=== PATIENT | female | born 1960 | race Caucasian/White ===

== ENCOUNTER 2023-09-29 14:17 | Emergency (ER) | payer MEDICARE, SELFPAY ==
--- NOTE | ~2023-09-29 | CT_ITS ---
EXAMINATION: CT brain wo con DATE: 09/29/2023 15:23 INDICATION: Head injury. TECHNIQUE: Computed tomography (CT) of the head was performed without intravenous contrast. The mA wa s adjusted according to patient size. Iterative reconstruction technique was employed. The dose-lengt h product was 681.00 mGy-cm. COMPARISON: None FINDINGS: There are scattered areas of low attenuation in the cerebral white matter, which is within normal limits for the patient's age. There is no intracranial hemorrhage, acute infarction, or abnorm al intracranial mass lesion. The ventricles are normal in size. The orbits are normal. There is mucos al thickening in the paranasal sinuses. The mastoid air cells are normal. There are bilateral dennis ho les. IMPRESSION: 1. Normal aging brain. Reviewed, dictated and finalized at location A. COMMUNITY MANAGER IMPRESSION: 1. Normal aging brain.
--- NOTE | ~2023-09-29 | XR_ITS ---
EXAMINATION: XR chest 1V portable DATE: 09/29/2023 14:58 INDICATION: Fall. COVID-19 positive. TECHNIQUE: A single frontal view of the chest was obtained. COMPARISON: None. FINDINGS: There is no pneumonia, pleural effusion, or pneumothorax. The heart size is normal. 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 IMPRESSION: 1. No acute cardiopulmonary disease. Reviewed, dictated and finalized at location A. GLE CATCHER
--- NOTE | 2023-09-29 14:13 | ED.FALL ---
HPI - Fall General Chief Complaint: Fall Stated Complaint: GLF, COVID + day 6 Source: patient and EMS Mode of arrival: EMS History of Present Illness HPI Narrative: 63-year-old female with past medical history epilepsy and Parkinson's presents after a ground level fall. This was unwitnessed. Patient had denied loss consciousness initially although she removed her the fall and is amnestic to the events. Her baseline mental status is unclear as EMS states facility couldn't give a definitive answer. It is noted that she tested positive for COVID 6 days ago. Is reported that she has had recurrent falls. No recent seizures have been noted per report of EMS. No incontinence of bowel or bladder. Patient does not know of any loose or broken dentition. When asked the last thing she remembers while in the bathroom, she states, I was dreaming of YOU...and him... (Pointing to people in the room). Patient's physician is listed as Dr. Luis White. Neurologist Dr. Alexis Romero. INSULATION CUTTER Psychiatrist [facility] Home medications: Alendronate, Anusol/hydrocortisone, aripiprazole, calcium magnesium zinc +, carbamazepine, carbidopa levodopa, vitamin B12, diphenoxylate atropine, doxycycline and, duloxetine, lactobacillus, levothyroxine, niacin, oyster shell calcium, primidone, sertraline, tamsulosin, trazodone, Tylenol extra-strength, vitamin-C, vitamin D3, zonisamide Related Data Allergies Allergy/AdvReac Type Severity Reaction Status Date / Time felbamate [From Felbatol] Allergy Severe Anaphylaxis Verified 09/29/23 14:44 bactrim Allergy Mild Dizziness Uncoded 09/29/23 14:44 PMFSH Past Medical History Medical History Epilepsy Parkinson disease Social History Social History (Updated 09/29/23 @ 14:38 by Mari Dawn MD) Living arrangements: assisted living Additional living arrangements comments: [place] Occupation/Education: retired 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 No evidence of urinary or bowel incontinence. HEAD: Posterior scalp hematoma without abrasion or laceration. EYES: Non injected, non icteric. Pupils grossly equal. ENT: Nares clear, no rhinorrhea or epistaxis. No tongue trauma. NECK: Supple. CHEST: speaking in full sentences No respiratory distress. HEART: Regular rate and rhythm. . ABDOMEN: Soft, nondistended. EXTREMITIES: Normal range of motion. No edema. Mid right forearm ecchymosis, appears subacute. SKIN: Warm, dry, no rash. NEURO: No focal deficits. Alert ; oriented to self. Moves upper and lower extremities. Tongue protrudes midline w/o deviation. PSYCH: Normal mood and affect. Course Vital Signs Vital signs: Vital Signs Temperature 97.8 F 09/29/23 14:16 Pulse Rate 70 09/29/23 14:16 Respiratory Rate 20 09/29/23 14:16 Blood Pressure 117/73 09/29/23 14:16 Pulse Oximetry 99 09/29/23 14:16 Oxygen Delivery Room Air 09/29/23 14:16 Temperature 97.8 F 09/29/23 14:16 Pulse Rate 62 09/29/23 16:32 Respiratory Rate 12 09/29/23 16:32 Blood Pressure 110/84 09/29/23 16:32 Pulse Oximetry 98 09/29/23 16:32 Oxygen Delivery Room Air 09/29/23 14:16 MDM - Fall MDM Narrative Medical decision making narrative: Patient presents after report of a ground level fall. She has a history of Parkinson's and epilepsy with no report of recent seizure activity. Was initially reported that there was no loss of consciousness however patient cannot recall the fall and appears amnestic to the events. Baseline she is alert does not appear to be oriented intermittently follows commands seems confused baseline is unknown. In the emergency department she is afebrile with vital signs within normal limits.
[2023-09-29 14:16] VITALS: BP 117/73; PULSE 70; RESP 20; TEMP 36.6; O2SAT 99
--- NOTE | 2023-09-29 14:27 | ECG_ITS ---
Measurements Intervals [place]yer Rate: 63 P: 34 MO: 135 QRS: 55 QRSD: 86 T: 54 QT: 388 QTc: 399 Interpretive Statements SINUS RHYTHM NO PREVIOUS ECG AVAILABLE FOR COMPARISON Electronically Signed On 09-29-2023 19:18:40 STRIP CUTTER by Dianelys Burns M.D.
[2023-09-29 14:45] LABS: Glucose Point of Care 88 mg/dl (65-105)
[2023-09-29 14:51] LABS: Basophils Percent Auto 0.7 % (0.2-1.2); Eosinophils Absolute Auto 0.1 K/mm3 (0-0.3); Eosinophils Percent Auto 2.7 % (0-4.4); Hematocrit 39.9 % (37.0-47.0); Hemoglobin 13.7 g/dL (12.0-15.0); Immature Granulocyte Absolute 0.01 K/mm3 (0.00-0.031); Immature Granulocyte Percent A 0.3 % (0-0.5); Lymphocytes Absolute Auto 1.39 K/mm3 (0.9-3.2); Lymphocytes Percent Auto 47.4 % (18.3-44.2); Mean Corpuscular HGB Conc 34.3 g/dl (32-36); Mean Platelet Volume 11.4 fl (7.4-10.4); Monocytes Absolute Auto 0.3 K/mm3 (0.1-0.6); Monocytes Percent Auto 8.9 % (2.6-8.5); Neutrophils Absolute Auto 1.2 K/mm3 (1.3-6.7); Platelet Count Result 220 k/mm3 (150-375); Red Blood Count 4.03 M/mm3 (4.2-5.4); Red Cell Distribution Width 11.9 % (11.5-14.5); White Blood Count 2.9 K/mm3 (4.5-10.0)
[2023-09-29 15:00] VITALS: BP 109/72; PULSE 61; RESP 17; O2SAT 100
[2023-09-29 15:00] LABS: Ammonia < 9 umol/L (9-30); Ethanol < 10 mg/dL (<10)
[2023-09-29 15:01] LABS: Alanine Aminotransferase 15 U/L (6-35); Albumin Level 3.6 g/dL (3.5-5.1); Alkaline Phosphatase 105 U/L (38-126); Anion Gap 4 mmol/L (8-16); Aspartate Amino Transferase 32 U/L (14-36); Bilirubin,Total 0.4 mg/dL (0.2-1.3); Blood Urea Nitrogen 13 mg/dL (7-17); Calcium 9.3 mg/dL (8.4-10.2); Carbon Dioxide 28 mmol/L (22-30); Chloride 106 mmol/L (98-107); Estimated CRCL calculation 60 ml/min; Estimated Glomerular Filt Rate > 60; Glucose 95 mg/dL (65-110); Potassium 3.4 mmol/L (3.4-5.0); Prothrombin Time 13.1 Seconds (11.1-14.7); Sodium 138 mmol/L (137-145)
[2023-09-29 15:02] LABS: Partial Thromboplastin Time 45.8 SECONDS (22.3-36.8)
[2023-09-29 15:04] LABS: Appearance Urine Turbid (Clear); Bacteria Urine None Seen /hpf; Bilirubin Urine Negative (Negative); Blood Urine Negative (Negative); Color Urine Yellow (Yellow); Glucose Urine UA Negative (Negative); Ketones Urine Negative (Negative); Leukocyte Esterase Ur Negative LEU/UL (Negative); Nitrate Urine Negative (Negative); Non Pathogenic Casts 0-2; Protein Urine Negative (Negative); RBC Urine 0-2 /hpf (0-2); Specific Grav Ur 1.014 (1.001-1.035); Squamous Epithelial Cell Urine None seen /hpf (Few); Urobilinogen Urine 0.2 mg/dL (<2.0); WBC Urine 0-5 /hpf; pH Urine 7.5 (5.0-9.0)
[2023-09-29 15:06] LABS: Add Urine Microscopic? YES
[2023-09-29 15:12] LABS: Troponin I < 0.012 ng/mL (0.000-0.034)
[2023-09-29 16:32] VITALS: BP 110/84; PULSE 62; RESP 12; O2SAT 98
[2023-09-29] MEDS: ACETAMINOPHEN 500 MG TABLET 1000 MG PO (16:32)
== END 2023-09-29 16:57 ==
PROVIDERS: Emergency Provider Student in an Organized Health Care Education/Training Program
DX: S00.03XA Contusion of scalp, initial encounter (principal); D72.819 Decreased white blood cell count, unspecified; G40.909 Epilepsy, unspecified, not intractable, without status epilepticus; G20.A1 Parkinson's disease without dyskinesia, without mention of fluctuations; Z86.16 Personal history of COVID-19; Z79.899 Other long term (current) drug therapy; W19.XXXA Unspecified fall, initial encounter
CPT/HCPCS: 36415; 70450; 71045; 80053; 80307; 81001; 82140; 82948; 84484; 85025; 85610; 85730; 93005; 99284; A9270

== ENCOUNTER 2024-06-15 09:33 | Inpatient (IN) | payer MEDICARE, SELFPAY ==
[2024-06-15] VITALS (34 sets, daily range): BP systolic 91–117; BP diastolic 60–84; PULSE 58–82; RESP 12–20; TEMP 35.5–36.7; O2SAT 90–100; BMI 21.4
--- NOTE | ~2024-06-15 | XR_ITS ---
EXAMINATION: XR chest 1V DATE: 06/15/2024 11:07 INDICATION: Fall with left hip injury TECHNIQUE: frontal view of the chest was obtained. COMPARISON: Chest radiograph dated 09/29/2023 FINDINGS: The lungs remain clear with no focal airspace opacities, pulmonary edema, pleural effusion or pneumot horax. Heart size is normal. Moderate mid to lower thoracic dextroscoliosis with compensatory levosco liosis at the lumbar and upper thoracic spine. Partially visualized instrumented lumbar anterior and posterior spinal fusion. Cholecystectomy clips in right upper quadrant. Chronic nonunited fracture at the lateral right clavicle. Widening of the left acromioclavicular joint which could represent seque la of additional trauma or prior distal clavicle resection. IMPRESSION: 1. No acute cardiopulmonary disease. Reviewed, dictated and finalized at location B. OND DIE DRILLER
--- NOTE | ~2024-06-15 | XR_ITS ---
EXAMINATION: XR surgery orthopedic DATE: 06/16/2024 08:38 INDICATION: Left femoral neck fracture. TECHNIQUE: 2 intraoperative fluoroscopic views of left hip were obtained. I was not present. Fluorosc opy exposure time was 4 minutes 38 seconds. COMPARISON: Left hip radiographs 06/15/2024 FINDINGS: There is a subcapital fracture of left femoral neck. The distal fracture fragment demonstra laz impaction and valgus angulation. Internal fixation is seen with 3 lag screws. There is an old hea led fracture of left inferior pubic ramus. There is mild left hip osteoarthritis. IMPRESSION: 1. Subchondral fracture of left femoral neck status post internal fixation. 2. Mild left hip osteoarthritis. Reviewed, dictated and finalized at location A. TY THERAPIST
--- NOTE | ~2024-06-15 | CT_ITS ---
EXAMINATION: CT cervical spine wo con DATE: 06/15/2024 10:59 INDICATION: Neck injury. Fall. TECHNIQUE: Computed tomography (CT) of the cervical spine was performed without intravenous contrast. Automated exposure control and iterative reconstruction technique were employed. The dose-length pro duct was 166.81 mGy-cm. COMPARISON: None FINDINGS: There is 8 degrees dextrocurvature of cervicothoracic spine and 32 degrees levoscoliosis of upper thoracic spine. There is kyphosis of cervical spine. There is 2 mm anterolisthesis of C3 on C4 and T1 on T2. There is mild chronic anterior wedging of C7, T1, and T2 vertebral bodies. There is se verely decreased disc height at C3-C4 with interbody fusion. There is severely decreased disc height from C4-C5 through C7-T1. The following disc levels are specifically discussed: C2-C3: There is mild right and moderate left uncovertebral joint osteoarthritis. There is severe bila teral facet joint osteoarthritis. There is mild left neural foraminal stenosis. There is mild central canal stenosis. C3-C4: There is mild bilateral uncovertebral joint hypertrophy. There is ankylosis of the facet joint s with mild hypertrophy. There is mild bilateral neural foraminal stenosis. There is no central canal stenosis. C4-C5: There is severe bilateral uncovertebral joint osteoarthritis. There is severe bilateral facet joint osteoarthritis. There is mild bilateral neural foraminal stenosis. There is mild central canal stenosis. C5-C6: There is severe bilateral uncovertebral joint osteoarthritis. There is mild right and moderate left facet joint osteoarthritis. There is moderate and mild left neural foraminal stenosis. There is mild central canal stenosis. C6-C7: There is severe bilateral uncovertebral joint osteoarthritis. There is moderate bilateral face t joint osteoarthritis. There is mild bilateral neural foraminal stenosis. There is mild central michelet l stenosis. C7-T1: There is severe bilateral uncovertebral joint osteoarthritis. There is severe bilateral facet joint osteoarthritis. There is mild right neural foraminal stenosis. There is mild central canal sten osis. IMPRESSION: 1. No acute fracture. 2. Severe cervical spondylosis. 3. Scoliosis. Reviewed, dictated and finalized at location A. CONNECTOR REPAIRER
--- NOTE | ~2024-06-15 | CT_ITS ---
EXAMINATION: CT brain wo con DATE: 06/15/2024 10:59 INDICATION: disease and epilepsy post fall TECHNIQUE: Computed tomography (CT) of the head was performed without intravenous contrast. Sagittal and coronal reconstructions were performed. The mA was adjusted according to patient size. Iterative reconstruction technique was employed. The dose-length product was 605.33 mGy-cm. COMPARISON: head CT dated 09/29/2023 FINDINGS: No fracture. Chronic bilateral temporal dennis holes. No acute intracranial hemorrhage, acute infarctio n or abnormal extra axial fluid collection. There is mild scattered white matter hypoattenuation cons istent with chronic small vessel ischemic disease. Symmetric prominence of the sulciand subarachnoid spaces about the cerebellum consistent with mild age-appropriate diffuse cerebral and cerebellar volu me loss. Ventricles are normal and symmetric. No mass/mass effect. The orbits, paranasal sinuses and mastoid air cells are normal. IMPRESSION: 1. No fracture or acute intracranial process. 2. Age-related changes including mild diffuse volume loss and mild scattered white matter hypoattenua tion consistent with chronic small vessel ischemic disease. Reviewed, dictated and finalized at location B. NTO DEVELOPER IMPRESSION: 1. No fracture or acute intracranial process. 2. Age-related changes including mild diffuse volume loss and mild scattered wh ite matter hypoattenuation consistent with chronic small vessel ischemic diseas e.
--- NOTE | ~2024-06-15 | XR_ITS ---
EXAMINATION: XR hip LT 2V w AP pelvis DATE: 06/15/2024 11:06 INDICATION: Left hip pain. Fall. TECHNIQUE: An anteroposterior view of the pelvis and 2 views of left hip were obtained. COMPARISON: None. FINDINGS: There is lumbar levoscoliosis. There are changes of anterior and posterior fusion procedure s in lumbosacral spine. There is an old healed fracture of left inferior pubic ramus. There is a subc apital fracture of left femoral neck. The distal fracture fragment demonstrates impaction and 25 degr ees valgus angulation. A small sclerotic lesion in proximal right femur is likely a benign bone islan d. There is mild osteoarthritis of the hips. IMPRESSION: 1. Subcapital fracture of left femoral neck. 2. Mild osteoarthritis of the hips. Reviewed, dictated and finalized at location A. ATRIC LPN
--- NOTE | 2024-06-15 10:31 | ED.FALL ---
HPI - Fall General Chief Complaint: Fall Stated Complaint: L hip pain Time Seen by Provider: 06/15/24 09:46 History of Present Illness HPI Narrative: 63-year-old female with history of epilepsy go Parkinson's disease, hypothyroidism presents to the emergency department via EMS from [facility] after a fall that occurred yesterday. Patient is unable to provide much history. She is only complaining of left hip pain. Per nursing notes and patient's paper chart that was sent with her, she slipped out of her wheelchair yesterday. It is unknown if this was witnessed. The patient is denying hitting her head or loss of consciousness. Her only complaint is left hip pain. Per chart review the patient denied transferred to the ED yesterday after the fall but today was complaining of hip pain so came to the emergency department. Per chart review the patient is at her baseline mental status which is A&O x2. she is DNR. Related Data Allergies Allergy/AdvReac Type Severity Reaction Status Date / Time felbamate [From Felbatol] Allergy Severe Anaphylaxis Verified 09/29/23 14:44 Sulfa (Sulfonamide Allergy Dizziness Verified 06/15/24 09:51 Antibiotics) bactrim Allergy Mild Dizziness Uncoded 09/29/23 14:44 Review of Systems Review of Systems: All systems reviewed & are unremarkable except as noted in HPI and below PMFSH Past Medical History Medical History Epilepsy Parkinson disease Social History Social History Living arrangements: assisted living Additional living arrangements comments: [place] Occupation/Education: 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 HEAD: Normocephalic, atraumatic. EYES: PERRLA and EOMI. ENT: Nares clear, no rhinorrhea or epistaxis. Mucous membranes moist. NECK: No midline spinous tenderness, step-offs or deformities BACK: no midline thoracolumbar spinous tenderness, step-offs or deformities CHEST: Clear to auscultation. No respiratory distress. HEART: Regular rate and rhythm. No murmur heard. Normal peripheral pulses. ABDOMEN: Soft, nontender, nondistended, normal active bowel sounds. EXTREMITIES: Tenderness to the left hip on palpation with no overlying deformity, ecchymosis or edema. No rotation or shortening of the leg. No tenderness remainder of upper or lower extremities. Patient has full passive range of motion of all extremities, limited left hip flexion secondary to pain. DP pulses 2+ bilaterally. Sensation intact. SKIN: Warm, dry, no rash. NEURO: No focal deficits. Alert and oriented x2 . Moving all extremities spontaneously Course Vital Signs Vital signs: Vital Signs Temperature 97.8 F 06/15/24 09:34 Pulse Rate 82 06/15/24 09:34 Respiratory Rate 16 06/15/24 09:34 Blood Pressure 96/62 L 06/15/24 09:34 Pulse Oximetry 95 06/15/24 09:34 Oxygen Delivery Room Air 06/15/24 09:34 Temperature 97.8 F 06/15/24 09:34 Pulse Rate 82 06/15/24 09:34 Respiratory Rate 16 06/15/24 09:34 Blood Pressure 96/62 L 06/15/24 09:34 Pulse Oximetry 95 06/15/24 09:34 Oxygen Delivery Room Air 06/15/24 09:34 MDM - Fall MDM Narrative Medical decision making narrative: 63-year-old female presents to the ED via EMS from local care home for a mechanical fall that occurred yesterday. Vitals with soft blood pressure 96/62. Patient does appear dry on exam, will provide IV fluids. Remainder of vitals are unremarkable. Unknown if the fall was witnessed the patient is unable to provide much history, therefore will obtain lab work, CT brain and cervical spine as well as x-ray of the left hip. CBC without leukocytosis. Hemoglobin elevated at 15.3, again patient appears dehydrated is receiving fluids. BMP With mild hypokalemia of 3.3. This is been orally repleted. Magnesium pending. CT brain and cervical spine show no acute findings. Chest x-ray shows no acute cardiopulmonary disease. X-ray of the left hip shows subcapital fracture of the left femoral neck and osteoarthritis of the hips. Pending UA. Pt given a kim to limit movement with hip fracture. Patient updated on workup. She received 4 mg of IV morphine via EMS in route. Her blood pressure has improved 110/65 after L of fluids. Pain does appear to be control, however she is requesting more pain medications, will provide fentanyl. Plan to admit for PT, OT, pain control and ortho consult. Discussed case with orthopedist, Dr. Resendiz, who agrees to consult on admission. Discussed with hospitalist INSURANCE INSPECTOR, Krys, who agrees to admission. Lab Data 06/15/24 11:39 06/15/24 11:39 Labs: Lab Results 06/15/24 Range/Units 11:39 WBC 6.3 (4.5-10.0) K/mm3 RBC 4.47 (4.2-5.4) M/mm3 Hgb 15.3 H (12.0-15.0) g/dL Hct 43.8 (37.0-47.0) % MCV 98.0 (80-100) fl MCH 34.2 H (26-34) pg MCHC 34.9 (32-36) g/dl RDW 11.9 (11.5-14.5) % Plt Count 134 L (150-375) k/mm3 MPV 12.1 H (7.4-10.4) fl Immature Gran % (Auto) 0.3 (0-0.5) % Neut % (Auto) 72.6 (45.5-73.1) % Lymph % (Auto) 19.9 (18.3-44.2) % [place] % (Auto) 5.2 (2.6-8.5) % Eos % (Auto) 1.4 (0-4.4) % Baso % (Auto) 0.6 (0.2-1.2) % Lymph # (Auto) 1.26 (0.9-3.2) K/mm3 [place] # (Auto) 0.3 (0.1-0.6) K/mm3 Eos # (Auto) 0.1 (0-0.3) K/mm3 Baso # (Auto) 0.0 (0.0-0.1) K/mm3 Abs Immat Gran (auto) 0.02 (0.00-0.031) K/mm3 Absolute Neuts (auto) 4.6 (1.3-6.7) K/mm3 Absolute Nucleated RBC 0.000 (0.0-0.012) K/mm3 Nucleated RBC % 0.0 (0.0-0.2) % Sodium 139 (137-145) mmol/L Potassium 3.3 L (3.4-5.0) mmol/L Chloride 104 (98-107) mmol/L Carbon Dioxide 30 (22-30) mmol/L Anion Gap 5 (4-12) mmol/L BUN 7 D (7-17) mg/dL Creatinine 0.80 (0.7-1.0) mg/dL Estim Creat Clear Calc Not Reportable Estimated GFR > 60 (59 - ) Glucose 108 (65-110) mg/dL Calcium 9.4 (8.4-10.2) mg/dL Magnesium Pending Discharge Plan Discharge Clinical Impression: Closed subcapital fracture of femur Qualifiers: Encounter type: initial encounter Laterality: left Qualified Code(s): S72.012A - Unspecified intracapsular fracture of left femur, initial encounter for closed fracture Patient Disposition: Still a Patient Condition: Stable Follow-up/Referrals: UNKNOWN,DOCTOR [Primary Care Provider] -
[2024-06-15 11:47] LABS: Basophils Percent Auto 0.6 % (0.2-1.2); Eosinophils Absolute Auto 0.1 K/mm3 (0-0.3); Eosinophils Percent Auto 1.4 % (0-4.4); Hematocrit 43.8 % (37.0-47.0); Hemoglobin 15.3 g/dL (12.0-15.0); Immature Granulocyte Absolute 0.02 K/mm3 (0.00-0.031); Immature Granulocyte Percent A 0.3 % (0-0.5); Lymphocytes Absolute Auto 1.26 K/mm3 (0.9-3.2); Lymphocytes Percent Auto 19.9 % (18.3-44.2); Mean Corpuscular HGB Conc 34.9 g/dl (32-36); Mean Corpuscular Hemoglobin 34.2 pg (26-34); Mean Platelet Volume 12.1 fl (7.4-10.4); Monocytes Absolute Auto 0.3 K/mm3 (0.1-0.6); Monocytes Percent Auto 5.2 % (2.6-8.5); Neutrophils Absolute Auto 4.6 K/mm3 (1.3-6.7); Neutrophils Percent Auto 72.6 % (45.5-73.1); Platelet Count Result 134 k/mm3 (150-375); Red Blood Count 4.47 M/mm3 (4.2-5.4); Red Cell Distribution Width 11.9 % (11.5-14.5); White Blood Count 6.3 K/mm3 (4.5-10.0)
[2024-06-15 12:03] LABS: Anion Gap 5 mmol/L (4-12); Blood Urea Nitrogen 7 mg/dL (7-17); Calcium 9.4 mg/dL (8.4-10.2); Carbon Dioxide 30 mmol/L (22-30); Chloride 104 mmol/L (98-107); Estimated Glomerular Filt Rate > 60; Glucose 108 mg/dL (65-110); Potassium 3.3 mmol/L (3.4-5.0); Sodium 139 mmol/L (137-145)
--- NOTE | 2024-06-15 12:24 | PM.IMHP ---
H&P: HPI History of Present Illness Date/Time: 06/15/24 12:24 Chief Complaint: Fall, Hip Pain Narrative: 63 y/o F presents here with ground-level fall and hip pain with PMH of Parkinson's, epilepsy, and hypothyroidism. The patient presents here via EMS from [place] for further evaluation of left hip pain after a ground level fall. HPI obtained through chart review and patient interview. Yesterday the patient fell out of her wheelchair onto the floor. Unclear if fall was witnessed. Initially declined transportation to the hospital for evaluation. However today she began to complain of left hip pain to the staff and requested to be evaluated at the emergency department. The patient is currently denying loss of consciousness or head strike. She denies numbness or weakness in the LLE, dizziness, syncope, chest pain, or shortness of breath. She the patient is unable to expand on history, baseline mentation is A&Ox2 and she is currently at her baseline (self and time, cannot remember where she is but knows she lives at [place]. Initial VS at presentation: 97.8? F, HR 82, RR 16, 96/62, 95% on RA. ED workup showed: No leukocytosis, hemoglobin 15.3, potassium 3.3, creatinine 0.8 and GFR >60. Head CT and C-spine CT showed no acute fracture or acute process. CXR showed no acute cardiopulmonary disease. Hip and pelvic XR showed a subcapital fracture of the left femoral neck and mild osteoarthritis of the hips. 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 Additional gender identity comments: Spiritual care concerns: No (Scientologist) Meds Home Medications and Allergies Home Medications Medication Instructions Recorded Confirmed Type L.acidophil,salivari-Bifido 1 cap PO DAILY 06/15/24 06/15/24 History bifidum-Strep thermoph 175 mg capsule Metamucil Fiber Thin 06/15/24 History acetaminophen 500 mg tablet 1,000 mg PO TID PRN Pain 06/15/24 06/15/24 History alendronate 70 mg tablet 70 mg PO WEEKLY 06/15/24 06/15/24 History aripiprazole 10 mg tablet 10 mg PO DAILY 06/15/24 06/15/24 History ascorbic acid (vitamin C) 500 mg 500 mg PO DAILY 06/15/24 06/15/24 History tablet (Vitamin C) buspirone 15 mg tablet 15 mg PO BID 06/15/24 06/15/24 History calcium 333 mg-vit D3 133 1 tablet PO DAILY 06/15/24 06/15/24 History unit-magnesium 133 mg-zinc 5 mg tablet (Michael Mag Zinc Plus D3) calcium carbonate (Oyster Shell 500 mg PO BID 06/15/24 06/15/24 History Calcium 500) carbamazepine 100 mg 100 mg PO BID 06/15/24 06/15/24 History tablet,extended release,12 hr carbamazepine 400 mg 400 mg PO BID 06/15/24 06/15/24 History tablet,extended release,12 hr carbidopa 25 mg-levodopa 100 mg 1.5 tablet PO TID 06/15/24 06/15/24 History tablet cholecalciferol (vitamin D3) 25 25 mcg PO DAILY 06/15/24 06/15/24 History mcg (1,000 unit) capsule (Vitamin D3) cyanocobalamin (vitamin B-12) 2,500 mcg PO DAILY 06/15/24 06/15/24 History 2,500 mcg sublingual tablet diphenoxylate-atropine 2.5 1 tablet PO Q8H PRN Diarrhea 06/15/24 06/15/24 History mg-0.025 mg tablet doxycycline monohydrate 100 mg 100 mg PO DAILY 06/15/24 06/15/24 History capsule duloxetine 60 mg capsule,delayed 60 mg PO BID 06/15/24 06/15/24 History release hydrocortisone 2.5 % topical cream 1 applic topical BID PRN 06/15/24 06/15/24 History with perineal applicator Hemorrhoids (Anusol-HC) hydrocortisone acetate 25 mg 25 mg RECTAL BID PRN hemmorhoid 06/15/24 06/15/24 History rectal suppository (Anusol-HC) levothyroxine 150 mcg tablet 150 mcg PO DAILY 06/15/24 06/15/24 History niacin (inositol niacinate) 500 mg 1 tablet PO DAILY 06/15/24 06/15/24 History tablet primidone 250 mg tablet 250 mg PO HS 06/15/24 06/15/24 History sertraline 100 mg tablet 100 mg PO DAILY 06/15/24 06/15/24 History tamsulosin 0.4 mg capsule 0.4 mg PO DAILY 06/15/24 06/15/24 History trazodone 50 mg tablet 50 mg PO DAILY 06/15/24 06/15/24 History zonisamide 100 mg capsule 100 mg PO QPM 06/15/24 06/15/24 History Allergies Allergy/AdvReac Type Severity Reaction Status Date / Time felbamate [From Felbatol] Allergy Severe Anaphylaxis Verified 09/29/23 14:44 Sulfa (Sulfonamide Allergy Dizziness Verified 06/15/24 09:51 Antibiotics) bactrim Allergy Mild Dizziness Uncoded 09/29/23 14:44 Vital Signs Vital Signs - 24 hr 06/15/24 09:34 Temperature 97.8 F Pulse Rate 82 Respiratory Rate 16 Blood Pressure 96/62 L Pulse Oximetry 95 Oxygen Delivery Room Air Exam Const: General: comfortable and no acute distress Other: , female, nontoxic appearance HENMT: Face/Nose/Sinus: Normal nares present Mouth: Yes moist mucous membranes Eyes: General: appearance normal, both eyes and all related structures Sclera: sclerae normal Pupils: Equal, round and reactive pupils present EOM: EOMs intact bilaterally Resp: Effort & Inspection: normal respiratory effort Auscultation: clear to auscultation bilaterally Cardio: Rate: regular rate Rhythm: regular rhythm Other: S1-S2 present without murmur, rub, ectopy GI: Other: Abdomen soft, nondistended, nontender. Skin: General skin exam: normal color and no rashes or lesions noted Wounds: no wounds Neuro: Speech: normal speech Sensory Exam: normal sensation Other: Reduced strength to left lower extremity secondary to pain. A&O x2 (self and year, still believed she was at [place]), attempted to answer some situational history but unreliable. Extrem: General: normal to inspection Other: DP pulses 1+ bilaterally, symmetric. Psych: Mental Status: mental status grossly normal Affect: normal affect Other: Fair to poor insight and judgment, very pleasant H&P: Results Labs Labs: Short CBC 06/15/24 Range/Units 11:39 WBC 6.3 (4.5-10.0) K/mm3 Hgb 15.3 H (12.0-15.0) g/dL Hct 43.8 (37.0-47.0) % Plt Count 134 L (150-375) k/mm3 BMP 06/15/24 11:39 Sodium 139 Potassium 3.3 L Chloride 104 Carbon Dioxide 30 BUN 7 D Creatinine 0.80 Glucose 108 Calcium 9.4 Assessment and Plan Assessment and plan (1) Closed subcapital fracture of femur: Qualifiers: Encounter type: initial encounter Laterality: left Qualified Code(s): S72.012A - Unspecified intracapsular fracture of left femur, initial encounter for closed fracture Code(s): S72.019A - Unspecified intracapsular fracture of unspecified femur, initial encounter for closed fracture Status: Acute Assessment and Plan: - XR hip/pelvis: 1. Subcapital fracture of left femoral neck. 2. Mild osteoarthritis of the hips. - head CT and C-spine CT negative for acute findings, some chronic findings (see reports) - fall precautions - analgesics p.r.n. - orthopedics consulted, awaiting formal recs. Anticipate surgery. - NPO midnight - PT/OT post-op - kim placed Plan Diet: Heart healthy, NPO at midnight GI Prophylaxis: Not currently indicated DVT Prophylaxis: SCDs Lines: Peripheral Code Status: DNR Quality VTE Prophylaxis VTE prophylaxis: mechanical ordered Hospitalist [facility] Advance Care Plan I have confirmed that the patient's Advanced Care Plan is present, code status is documented, or surrogate decision maker is listed in patient medical record.: Yes Medication Reconciliation I have utilized all available resources to obtain, update and review the patients current medications (includes all prescriptions, OTC, herbals, cannabis, and nutritional supplements).: Yes
[2024-06-15 12:31] LABS: Magnesium 2.1 mg/dL (1.6-2.3)
[2024-06-15] MEDS: POTASSIUM CHLORIDE 20 MEQ PACKET (FOR LIQUID) PO (12:47)
[2024-06-15] MEDS: ONDANSETRON INJ 4 MG/2 ML VIAL IV PUSH (12:47)
[2024-06-15] MEDS: fentaNYL CITRATE INJ (*CRX) 100 MCG/2 ML VIAL 25 MCG IV PUSH (12:47)
[2024-06-15] MEDS: LACTATED RINGERS 1,000 ML 150 ML IV CONT (12:48)
--- NOTE | 2024-06-15 14:18 | PC.NURSE ---
This RN just spoke with Lena, pt's sister, and provided update. Pt aware she called and will be visiting this evening. Unsure if pt had morning medication prior to coming to ED, will call facility to verify due to patient's hx of epilepsy.
--- NOTE | 2024-06-15 15:16 | PC.NURSE ---
This RN has spoken with [facility] to clarify pt's medications. Per Casper RN, pt did not get her morning medications prior to come to [facility], also confirmed dose of Carbamazepine ER is 500mg total, BID. Will speak with Krys Chow NP to get medications ordered.
--- NOTE | 2024-06-15 15:34 | P.CONOP_ITS ---
Assessment and Plan Assessment and plan (1) Closed subcapital fracture of femur: Qualifiers: Encounter type: initial encounter Laterality: left Qualified Code(s): S72.012A - Unspecified intracapsular fracture of left femur, initial encounter for closed fracture <ELONID Reece - Last Filed: 06/15/24 16:03> Code(s): S72.019A - Unspecified intracapsular fracture of unspecified femur, initial encounter for closed fracture <LEONID Reece - Last Filed: 06/15/24 16:03> Status: Acute <LEONID Reece - Last Filed: 06/15/24 16:03> Assessment and Plan: Radiographs of the left hip in the emergency room reveal a valgus impacted left femoral neck fracture and mild osteoarthritis of the hips. The fracture type and injury as well as radiographs discussed with the patient in person and family via telephone. Discussed nonoperative and operative treatment options with the patient. The patient/family questions were answered. The POA desires operative treatment. Discussed CRPP Left Hip. Risks of surgery including but not limited to neurovascular damage, wound complications, blood clot, pulmonary embolus, stroke, myocardial infarction, anesthetic risks up to and including were reviewed. Continued pain and possible dysfunction were explained. No guarantees were offered. The patient understands and wishes to proceed. Plan: CRPP Left Hip by Dr. Resendiz Obtain consent. NPO at midnight. Bedrest. Pain control. High fall risk. HOLD blood thinners/DVT prophylaxis. <LEONID Reece - Last Filed: 06/15/24 16:03> History of Present Illness HPI Consult date: 06/15/24 <LEONID Reece - Last Filed: 06/15/24 16:03> 06/16/24 <Jesus Resendiz MD - Last Filed: 06/16/24 07:18> Chief complaint: Left Subcapital Femoral Neck Fracture <LEONID Reece - Last Filed: 06/15/24 16:03> Narrative: 63-year-old female presents to the emergency room status post fall out of her wheelchair yesterday at her assisted living facility. The patient has a history of Parkinson's, epilepsy and hypothyroidism. Per the medical record, the fall occurred yesterday and the patient initially declined transportation to the hospital for evaluation but then continued to complain of left hip pain and requested emergency room evaluation. Radiographs of the left hip in the emergency room reveal a valgus impacted left femoral neck fracture and mild osteoarthritis of the hips. Orthopedic consult requested by the emergency room physician. Patient admitted through the hospitalist service for general medical care. Patient is A&O x2 at baseline. Today, she is alert to her name but confused to place/time/situation today. <LEONID Reece - Last Filed: 06/15/24 16:03> Review of Systems Review of Systems: All systems reviewed & are unremarkable except as noted in HPI and below <LEONID Reece - Last Filed: 06/15/24 16:03> [facility] Past Medical History Medical History: Medical History Epilepsy Hypothyroidism Parkinson disease <LEONID Reece - Last Filed: 06/15/24 16:03> Social History Social History: Social History Smoking status: Never smoker Alcohol intake: current Substance use: never Living arrangements: assisted living Additional living arrangements comments: [place] Occupation/Education: retired 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 Additional gender identity comments: Spiritual care concerns: No (Cheondoism) <LEONID Reece - Last Filed: 06/15/24 16:03> Meds Home Medications and Allergies Home medications: Home Medications Medication Instructions Recorded Confirmed Type L.acidophil,salivari-Bifido 1 cap PO DAILY 06/15/24 06/15/24 History bifidum-Strep thermoph 175 mg capsule Metamucil Fiber Thin 06/15/24 History acetaminophen 500 mg tablet 1,000 mg PO TID PRN Pain 06/15/24 06/15/24 History alendronate 70 mg tablet 70 mg PO WEEKLY 06/15/24 06/15/24 History aripiprazole 10 mg tablet 10 mg PO DAILY 06/15/24 06/15/24 History ascorbic acid (vitamin C) 500 mg 500 mg PO DAILY 06/15/24 06/15/24 History tablet (Vitamin C) buspirone 15 mg tablet 15 mg PO BID 06/15/24 06/15/24 History calcium 333 mg-vit D3 133 1 tablet PO DAILY 06/15/24 06/15/24 History unit-magnesium 133 mg-zinc 5 mg tablet (Michael Mag Zinc Plus D3) calcium carbonate (Oyster Shell 500 mg PO BID 06/15/24 06/15/24 History Calcium 500) carbamazepine 100 mg 100 mg PO BID 06/15/24 06/15/24 History tablet,extended release,12 hr carbamazepine 400 mg 400 mg PO BID 06/15/24 06/15/24 History tablet,extended release,12 hr carbidopa 25 mg-levodopa 100 mg 1.5 tablet PO TID 06/15/24 06/15/24 History tablet cholecalciferol (vitamin D3) 25 25 mcg PO DAILY 06/15/24 06/15/24 History mcg (1,000 unit) capsule (Vitamin D3) cyanocobalamin (vitamin B-12) 2,500 mcg PO DAILY 06/15/24 06/15/24 History 2,500 mcg sublingual tablet diphenoxylate-atropine 2.5 1 tablet PO Q8H PRN Diarrhea 06/15/24 06/15/24 History mg-0.025 mg tablet doxycycline monohydrate 100 mg 100 mg PO DAILY 06/15/24 06/15/24 History capsule duloxetine 60 mg capsule,delayed 60 mg PO BID 06/15/24 06/15/24 History release hydrocortisone 2.5 % topical cream 1 applic topical BID PRN 06/15/24 06/15/24 History with perineal applicator Hemorrhoids (Anusol-HC) hydrocortisone acetate 25 mg 25 mg RECTAL BID PRN hemmorhoid 06/15/24 06/15/24 History rectal suppository (Anusol-HC) levothyroxine 150 mcg tablet 150 mcg PO DAILY 06/15/24 06/15/24 History niacin (inositol niacinate) 500 mg 1 tablet PO DAILY 06/15/24 06/15/24 History tablet primidone 250 mg tablet 250 mg PO HS 06/15/24 06/15/24 History sertraline 100 mg tablet 100 mg PO DAILY 06/15/24 06/15/24 History tamsulosin 0.4 mg capsule 0.4 mg PO DAILY 06/15/24 06/15/24 History trazodone 50 mg tablet 50 mg PO DAILY 06/15/24 06/15/24 History zonisamide 100 mg capsule 100 mg PO QPM 06/15/24 06/15/24 History <LEONID Reece - Last Filed: 06/15/24 16:03> Allergies/Adverse reactions: Allergies Allergy/AdvReac Type Severity Reaction Status Date / Time felbamate [From Felbatol] Allergy Severe Anaphylaxis Verified 09/29/23 14:44 Sulfa (Sulfonamide Allergy Dizziness Verified 06/15/24 09:51 Antibiotics) bactrim Allergy Mild Dizziness Uncoded 09/29/23 14:44 <LEONID Reece - Last Filed: 06/15/24 16:03> Vital Signs Vital Signs - 24 hr 06/15/24 09:34 06/15/24 09:44 06/15/24 09:45 Temperature 36.6 C Pulse Rate 82 72 72 Respiratory Rate 16 13 14 Blood Pressure 96/62 L Pulse Oximetry 95 98 98 Oxygen Delivery Room Air 06/15/24 09:46 06/15/24 10:12 06/15/24 10:15 Temperature Pulse Rate 73 68 70 Respiratory Rate 13 15 13 Blood Pressure 93/62 L Pulse Oximetry 97 99 99 Oxygen Delivery 06/15/24 10:16 06/15/24 10:31 06/15/24 10:32 Temperature Pulse Rate 71 65 66 Respiratory Rate 14 13 20 Blood Pressure 113/71 111/73 Pulse Oximetry 100 90 96 Oxygen Delivery 06/15/24 11:09 06/15/24 11:15 06/15/24 11:16 Temperature Pulse Rate 63 63 61 Respiratory Rate 12 12 14 Blood Pressure 109/67 Pulse Oximetry Oxygen Delivery 06/15/24 11:30 06/15/24 11:36 06/15/24 11:45 Temperature Pulse Rate 64 63 62 Respiratory Rate 19 13 12 Blood Pressure 103/66 113/72 Pulse Oximetry Oxygen Delivery 06/15/24 11:46 06/15/24 12:02 06/15/24 12:16 Temperature Pulse Rate 61 62 68 Respiratory Rate 12 12 17 Blood Pressure Pulse Oximetry Oxygen Delivery 06/15/24 12:31 06/15/24 12:45 06/15/24 12:46 Temperature Pulse Rate 62 65 64 Respiratory Rate 12 18 13 Blood Pressure 113/81 117/71 Pulse Oximetry Oxygen Delivery 06/15/24 12:47 06/15/24 13:03 06/15/24 13:47 Temperature Pulse Rate 68 64 62 Respiratory Rate 15 12 13 Blood Pressure Pulse Oximetry Oxygen Delivery 06/15/24 14:13 06/15/24 14:15 06/15/24 14:16 Temperature Pulse Rate 69 71 68 Respiratory Rate 15 13 12 Blood Pressure 115/84 Pulse Oximetry 100 100 Oxygen Delivery 06/15/24 14:30 06/15/24 14:31 06/15/24 15:01 Temperature Pulse Rate 58 L 63 64 Respiratory Rate 13 13 13 Blood Pressure 91/69 L Pulse Oximetry 95 100 100 Oxygen Delivery <EMERSON ReeceP - Last Filed: 06/15/24 16:03> Exam Const: General: cooperative, comfortable and average body habitus <EMERSON ReeceP - Last Filed: 06/15/24 16:03> HENMT: Head: normal to inspection and No palpable skull fracture present <Korina Ness [facility] - Last Filed: 06/15/24 16:03> Ears: hearing grossly normal bilaterally and external ears normal <Korina Ness [facility] - Last Filed: 06/15/24 16:03> Face/Nose/Sinus: Normal external nose present, Normal nares present, Normal nasal mucous membranes and turbinates present and normal facial exam <EMERSON ReeceP - Last Filed: 06/15/24 16:03> Face and sinus: normal facial exam <Korina Ness [facility] - Last Filed: 06/15/24 16:03> Mouth: Yes Normal oral and palatal mucosa present <EMERSON ReeceP - Last Filed: 06/15/24 16:03> Teeth and gingiva: dentition normal <EMERSON ReeceP - Last Filed: 06/15/24 16:03> Eyes: General: appearance normal, both eyes and all related structures <EMERSON ReeceP - Last Filed: 06/15/24 16:03> Sclera: sclerae normal <EMERSON ReeceP - Last Filed: 06/15/24 16:03> Pupils: Equal, round and reactive pupils present <EMERSON ReeceP - Last Filed: 06/15/24 16:03> Neck: Neck: normal visual inspection and full ROM <EMERSON ReeceP - Last Filed: 06/15/24 16:03> Chest: Other: Right Limb Restrictions s/p breast cancer <Korina Ness [facility] - Last Filed: 06/15/24 16:03> Resp: Effort & Inspection: normal respiratory effort and able to speak in complete sentences <EMERSON ReeceP - Last Filed: 06/15/24 16:03> Cardio: Jugular venous distension: no JVD <EMERSON ReeceP - Last Filed: 06/15/24 16:03> Rate: regular rate <EMERSON ReeceP - Last Filed: 06/15/24 16:03> Rhythm: regular rhythm <Korina Ness [facility] - Last Filed: 06/15/24 16:03> GI: Inspection: normal to inspection <EMERSON ReeceP - Last Filed: 06/15/24 16:03> GI Palp: No abdominal tenderness <EMERSON ReeceP - Last Filed: 4 16:03> : General: Yes no CVA tenderness <EMERSON ReeceP - Last Filed: 06/15/24 16:03> Urinary Catheter: Urinary Catheter: patent and draining and urine clear <EMERSON ReeceP - Last Filed: 06/15/24 16:03> Skin: General skin exam: normal color and no rashes or lesions noted <EMERSON ReeceP - Last Filed: 06/15/24 16:03> Wounds: no wounds <EMERSON ReeceP - Last Filed: 06/15/24 16:03> Neuro: General: Unable to assess gait (bedrest ) <EMERSON ReeceP - Last Filed: 06/15/24 16:03> Cranial nerves: Yes Equal, round and reactive pupils present <LEONID Reece - Last Filed: 06/15/24 16:03> Cognition (Neuro): normal cognition <KorinaEMERSON ChuaP - Last Filed: 06/15/24 16:03> Speech: normal speech <EMERSON ReeceP - Last Filed: 06/15/24 16:03> Gait exam (Neuro): Unable to assess gait (bedrest ) <KorinaEMERSON ChuaP - Last Filed: 06/15/24 16:03> Sensory Exam: normal sensation <EMERSON ReeceP - Last Filed: 06/15/24 16:03> Extrem: Right upper extremity: normal to inspection, full ROM and normal capillary refill <KorinaEMERSON BhattP - Last Filed: 06/15/24 16:03> Left upper extremity: normal to inspection, full ROM and normal capillary refill <KorinaEMERSON ChuaP - Last Filed: 06/15/24 16:03> Right lower extremity: normal to inspection, full ROM, normal capillary refill, hip/thigh Details: normal to inspection and normal ROM; no tenderness and no swelling and knee Details: normal to inspection and normal ROM; no tenderness and no swelling <KorinaEMERSON ChuaP - Last Filed: 06/15/24 16:03> Left lower extremity: hip/thigh Details: abnormal to inspection Details: foreshortened and externally rotated, tenderness Location: of the hip Location: laterally, anteromedially and over the great trochanter, swelling Location: of the hip and of the proximal upper leg and abnormal ROM ( Limited due to fracture); ROM abnormal ( Range of motion strength testing deferred due to fr acture.), ankle ( positive ankle dorsiflexion /plantar flexion) Details: normal to inspection and no edema; no tenderness and no swelling and foot Details: normal capillary refill, vascular exam Details: dorsalis pedis pulse present and motor-sensory exam light-touch normal <LEONID Reece - Last Filed: 06/15/24 16:03> Results Labs Result Diagrams: 06/16/24 05:30 06/16/24 05:30 <LEONID Reece - Last Filed: 06/15/24 16:03> Labs: Abnormal lab results 06/15/24 Range/Units 11:39 Hgb 15.3 H (12.0-15.0) g/dL MCH 34.2 H (26-34) pg Plt Count 134 L (150-375) k/mm3 MPV 12.1 H (7.4-10.4) fl Potassium 3.3 L (3.4-5.0) mmol/L H & H 06/15/24 Range/Units 11:39 Hgb 15.3 H (12.0-15.0) g/dL Hct 43.8 (37.0-47.0) % All other labs normal. <LEONID Reece - Last Filed: 06/15/24 16:03>
--- NOTE | 2024-06-15 16:00 | ADMGEN ---
This patient, Bethany Almaraz, was admitted to Medical Room 247-. Patient/family oriented to hospital policies and general routines including ID bracelet, bed and alarms, visiting hours, pain management, procedures, bathroom and other care routines, personal items, smoking policy, room service/diet, and visiting hours. Information on how to activate the Rapid Response Team has been discussed. Patient/Family are encouraged to report perceived risks to care and to ask questions if they do not understand what they are told or what they should do.
--- NOTE | 2024-06-15 16:10 | PC.NURSE ---
Lena, sister, present providing medical history. Patient oriented x 2.
[2024-06-15] MEDS: CARBAMAZEPINE XR 100 MG TAB.SR.12H 500 MG PO ×2 (16:59→20:41)
[2024-06-15] MEDS: LEVODOPA PO ×2 (17:00→22:03)
[2024-06-15] MEDS: CARBIDOPA PO ×2 (17:00→22:03)
[2024-06-15] MEDS: HYDROcodone/acetaminophen (*CRX) 5-325 MG TABLET 1 TAB PO (17:59)
[2024-06-15] MEDS: ZONISAMIDE 100 MG CAPSULE PO (18:00)
[2024-06-15] MEDS: DULoxetine HCL 60 MG CAPSULE.DR PO (18:00)
[2024-06-15] MEDS: CALCIUM CARBONATE (OSCAL) 500 MG TABLET PO (18:00)
[2024-06-15] MEDS: MORPHINE SULFATE (*CRX) 2 MG/ML INJ IV PUSH (19:20)
[2024-06-15] MEDS: busPIRone HCL 5 MG TABLET 15 MG PO (20:41)
[2024-06-15] MEDS: PRIMIDONE 250 MG TABLET PO (20:41)
[2024-06-16] VITALS (18 sets, daily range): BP systolic 106–127; BP diastolic 55–85; PULSE 56–89; RESP 12–20; TEMP 35.6–37.2; O2SAT 96–100
[2024-06-16] MEDS: LEVODOPA PO (05:31)
[2024-06-16] MEDS: CARBIDOPA PO (05:31)
[2024-06-16] MEDS: LEVOTHYROXINE SODIUM 150 MCG TABLET PO (05:31)
[2024-06-16 06:05] LABS: Basophils Percent Auto 0.5 % (0.2-1.2); Eosinophils Absolute Auto 0.2 K/mm3 (0-0.3); Eosinophils Percent Auto 4.5 % (0-4.4); Hematocrit 41.6 % (37.0-47.0); Hemoglobin 14.2 g/dL (12.0-15.0); Immature Granulocyte Absolute 0.01 K/mm3 (0.00-0.031); Immature Granulocyte Percent A 0.2 % (0-0.5); Lymphocytes Absolute Auto 1.03 K/mm3 (0.9-3.2); Lymphocytes Percent Auto 23.2 % (18.3-44.2); Mean Corpuscular HGB Conc 34.1 g/dl (32-36); Mean Corpuscular Hemoglobin 33.7 pg (26-34); Mean Corpuscular Volume 98.8 fl (80-100); Mean Platelet Volume 12.6 fl (7.4-10.4); Monocytes Absolute Auto 0.3 K/mm3 (0.1-0.6); Monocytes Percent Auto 5.6 % (2.6-8.5); Neutrophils Absolute Auto 2.9 K/mm3 (1.3-6.7); Platelet Count Result 123 k/mm3 (150-375); Red Blood Count 4.21 M/mm3 (4.2-5.4); Red Cell Distribution Width 11.8 % (11.5-14.5); White Blood Count 4.4 K/mm3 (4.5-10.0)
[2024-06-16 06:16] LABS: Anion Gap 4 mmol/L (4-12); Blood Urea Nitrogen 7 mg/dL (7-17); Calcium 9.3 mg/dL (8.4-10.2); Carbon Dioxide 27 mmol/L (22-30); Chloride 107 mmol/L (98-107); Estimated CRCL calculation 67 ml/min; Estimated Glomerular Filt Rate > 60; Glucose 89 mg/dL (65-110); Potassium 3.2 mmol/L (3.4-5.0); Sodium 138 mmol/L (137-145)
[2024-06-16] MEDS: KETOROLAC 15 MG/ML VIAL (*BKC) IV PUSH (07:00)
[2024-06-16] MEDS: ACETAMINOPHEN 500 MG TABLET 1000 MG PO (07:00)
--- NOTE | 2024-06-16 07:00 | P.PNAN_ITS ---
Anes - Initial Pre Proc Eval Procedure: Operation Date: 06/16/24 07:30 Proposed Procedures p Open Reduction Internal Fixation Left Hip with Cannulated Screws(Left) - Jesus Resendiz MD Date/Time: 06/16/24 07:00 Surgeon: Jazmín Bowie MD Pre Op Diagnosis: Left Subcapital Femoral Neck Fracture Patient Data Age: 63 Gender: F Height: 1.7 m Weight: 61.9 kg Last Vital Signs Temp 36.7 C 06/15/24 21:47 Pulse 72 06/15/24 21:47 Resp 16 06/15/24 21:47 BP 111/60 06/15/24 21:47 Pulse Ox 95 06/15/24 21:47 O2 Del Method Room Air 06/15/24 20:40 Allergies Allergy/AdvReac Type Severity Reaction Status Date / Time felbamate [From Felbatol] Allergy Severe Anaphylaxis Verified 09/29/23 14:44 Sulfa (Sulfonamide Allergy Dizziness Verified 06/15/24 09:51 Antibiotics) bactrim Allergy Mild Dizziness Uncoded 09/29/23 14:44 Home Medications Medication Instructions Recorded Confirmed Type L.acidophil,salivari-Bifido 1 cap PO DAILY 06/15/24 06/15/24 History bifidum-Strep thermoph 175 mg capsule Metamucil Fiber Thin 06/15/24 History acetaminophen 500 mg tablet 1,000 mg PO TID PRN Pain 06/15/24 06/15/24 History alendronate 70 mg tablet 70 mg PO WEEKLY 06/15/24 06/15/24 History aripiprazole 10 mg tablet 10 mg PO DAILY 06/15/24 06/15/24 History ascorbic acid (vitamin C) 500 mg 500 mg PO DAILY 06/15/24 06/15/24 History tablet (Vitamin C) buspirone 15 mg tablet 15 mg PO BID 06/15/24 06/15/24 History calcium 333 mg-vit D3 133 1 tablet PO DAILY 06/15/24 06/15/24 History unit-magnesium 133 mg-zinc 5 mg tablet (Michael Mag Zinc Plus D3) calcium carbonate (Oyster Shell 500 mg PO BID 06/15/24 06/15/24 History Calcium 500) carbamazepine 100 mg 100 mg PO BID 06/15/24 06/15/24 History tablet,extended release,12 hr carbamazepine 400 mg 400 mg PO BID 06/15/24 06/15/24 History tablet,extended release,12 hr carbidopa 25 mg-levodopa 100 mg 1.5 tablet PO TID 06/15/24 06/15/24 History tablet cholecalciferol (vitamin D3) 25 25 mcg PO DAILY 06/15/24 06/15/24 History mcg (1,000 unit) capsule (Vitamin D3) cyanocobalamin (vitamin B-12) 2,500 mcg PO DAILY 06/15/24 06/15/24 History 2,500 mcg sublingual tablet diphenoxylate-atropine 2.5 1 tablet PO Q8H PRN Diarrhea 06/15/24 06/15/24 History mg-0.025 mg tablet doxycycline monohydrate 100 mg 100 mg PO DAILY 06/15/24 06/15/24 History capsule duloxetine 60 mg capsule,delayed 60 mg PO BID 06/15/24 06/15/24 History release hydrocortisone 2.5 % topical cream 1 applic topical BID PRN 06/15/24 06/15/24 History with perineal applicator Hemorrhoids (Anusol-HC) hydrocortisone acetate 25 mg 25 mg RECTAL BID PRN hemmorhoid 06/15/24 06/15/24 History rectal suppository (Anusol-HC) levothyroxine 150 mcg tablet 150 mcg PO DAILY 06/15/24 06/15/24 History niacin (inositol niacinate) 500 mg 1 tablet PO DAILY 06/15/24 06/15/24 History tablet primidone 250 mg tablet 250 mg PO HS 06/15/24 06/15/24 History sertraline 100 mg tablet 100 mg PO DAILY 06/15/24 06/15/24 History tamsulosin 0.4 mg capsule 0.4 mg PO DAILY 06/15/24 06/15/24 History trazodone 50 mg tablet 50 mg PO DAILY 06/15/24 06/15/24 History zonisamide 100 mg capsule 100 mg PO QPM 06/15/24 06/15/24 History Laboratory Tests 06/15/24 06/16/24 11:39 05:30 WBC 6.3 K/mm3 4.4 L K/mm3 (4.5-10.0) (4.5-10.0) RBC 4.47 M/mm3 4.21 M/mm3 (4.2-5.4) (4.2-5.4) Hgb 15.3 H g/dL 14.2 g/dL (12.0-15.0) (12.0-15.0) Hct 43.8 % 41.6 % (37.0-47.0) (37.0-47.0) MCV 98.0 fl 98.8 fl (80-100) (80-100) MCH 34.2 H pg 33.7 pg (26-34) (26-34) MCHC 34.9 g/dl 34.1 g/dl (32-36) (32-36) RDW 11.9 % 11.8 % (11.5-14.5) (11.5-14.5) Plt Count 134 L k/mm3 123 L k/mm3 (150-375) (150-375) MPV 12.1 H fl 12.6 H fl (7.4-10.4) (7.4-10.4) Immature Gran % (Auto) 0.3 % 0.2 % (0-0.5) (0-0.5) Neut % (Auto) 72.6 % 66.0 % (45.5-73.1) (45.5-73.1) Lymph % (Auto) 19.9 % 23.2 % (18.3-44.2) (18.3-44.2) Andrew % (Auto) 5.2 % 5.6 % (2.6-8.5) (2.6-8.5) Eos % (Auto) 1.4 % 4.5 H % (0-4.4) (0-4.4) Baso % (Auto) 0.6 % 0.5 % (0.2-1.2) (0.2-1.2) Lymph # (Auto) 1.26 K/mm3 1.03 K/mm3 (0.9-3.2) (0.9-3.2) Andrew # (Auto) 0.3 K/mm3 0.3 K/mm3 (0.1-0.6) (0.1-0.6) Eos # (Auto) 0.1 K/mm3 0.2 K/mm3 (0-0.3) (0-0.3) Baso # (Auto) 0.0 K/mm3 0.0 K/mm3 (0.0-0.1) (0.0-0.1) Abs Immat Gran (auto) 0.02 K/mm3 0.01 K/mm3 (0.00-0.031) (0.00-0.031) Absolute Neuts (auto) 4.6 K/mm3 2.9 K/mm3 (1.3-6.7) (1.3-6.7) Absolute Nucleated RBC 0.000 K/mm3 0.000 K/mm3 (0.0-0.012) (0.0-0.012) Nucleated RBC % 0.0 % 0.0 % (0.0-0.2) (0.0-0.2) Sodium 139 mmol/L 138 mmol/L (137-145) (137-145) Potassium 3.3 L mmol/L 3.2 L mmol/L (3.4-5.0) (3.4-5.0) Chloride 104 mmol/L 107 mmol/L (98-107) (98-107) Carbon Dioxide 30 mmol/L 27 mmol/L (22-30) (22-30) Anion Gap 5 mmol/L 4 mmol/L (4-12) (4-12) BUN 7 D mg/dL 7 mg/dL (7-17) (7-17) Creatinine 0.80 mg/dL 0.70 mg/dL (0.7-1.0) (0.7-1.0) Estim Creat Clear Calc Not Reportable 67 ml/min Estimated GFR > 60 > 60 (59 - ) (59 - ) Glucose 108 mg/dL 89 mg/dL (65-110) (65-110) Calcium 9.4 mg/dL 9.3 mg/dL (8.4-10.2) (8.4-10.2) Magnesium 2.1 mg/dL (1.6-2.3) Patient hx anesthesia problems: none Family hx anesthesia problems: none Results Review: All pre-operative results and documents have been reviewed as part of the pre- operative evaluation. 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 Informed Consent: The patient's anesthetic plan and its attendant risks and benefits were discussed with the patient/family/POA. Questions were solicited and answers provided to the satisfaction of the patient/family/POA.
[2024-06-16] MEDS: TRANEXAMIC ACID 1,000MG/ISO100 1,000 MG/100 ML BAG 200 MG IVPB (07:17)
--- NOTE | 2024-06-16 07:17 | WPDHPUPDATE1 ---
History and Physical Update Update Date/Time: 06/16/24 07:17 History and Physical has been reviewed, including an updated exam of the patient. There are NO changes in the patient's condition. Risks, benefits, and alternatives have been discussed and questions answered. Patient agrees to proceed with procedure.
[2024-06-16] MEDS: ceFAZolin 2 GM/D5W 50 ML 2 GM/50 ML BAG IVPB ×2 (07:29→16:06)
--- NOTE | 2024-06-16 08:12 | P.PNIM_ITS ---
Progress Note: A&P Assessment and Plan (1) Closed subcapital fracture of femur: Qualifiers: Encounter type: initial encounter Laterality: left Qualified Code(s): S72.012A - Unspecified intracapsular fracture of left femur, initial encounter for closed fracture Code(s): S72.019A - Unspecified intracapsular fracture of unspecified femur, initial encounter for closed fracture Status: Acute Assessment and Plan: status post repair on 06/16/2024 - XR hip/pelvis: 1. Subcapital fracture of left femoral neck. 2. Mild osteoarthritis of the hips. - head CT and C-spine CT negative for acute findings, some chronic findings (see reports) - fall precautions - analgesics p.r.n. - PT/OT post-op - kim placed to see per protocol (2) Epilepsy: Code(s): G40.909 - Epilepsy, unspecified, not intractable, without status epilepticus Status: Acute Assessment and Plan: continue home meds (3) Parkinson disease: Code(s): G20.A1 - Parkinson's disease without dyskinesia, without mention of fluctuations Status: Acute Assessment and Plan: continue home meds Plan Diet: Heart healthy, GI Prophylaxis: Not currently indicated DVT Prophylaxis: SCDs Lines: Peripheral Code Status: DNR Time Spent With Patient Time with patient: Greater than 35 minutes Subjective Date/time seen: 06/16/24 08:12 Interval history: 63 y/o F presents here with ground-level fall and hip pain with PMH of Parkinson's, epilepsy, and hypothyroidism found to have valgus impacted left femoral neck fracture. patient went to OR this morning and had her left hip repaired, she states pain is controlled after surgery. She will work with PT and OT today. Review of Systems Review of Systems: All systems reviewed & are unremarkable except as noted in HPI and below Exam Const: General: comfortable and no acute distress Other: , female, nontoxic appearance HENMT: Face/Nose/Sinus: Normal nares present Mouth: Yes moist mucous membranes Eyes: General: appearance normal, both eyes and all related structures Sclera: sclerae normal Pupils: Equal, round and reactive pupils present EOM: EOMs intact bilaterally Resp: Effort & Inspection: normal respiratory effort Auscultation: clear to auscultation bilaterally Cardio: Rate: regular rate Rhythm: regular rhythm Other: S1-S2 present without murmur, rub, ectopy GI: Other: Abdomen soft, nondistended, nontender. Skin: General skin exam: normal color and no rashes or lesions noted Wounds: no wounds Other: Surgical dressing left thigh clean dry intact Neuro: Cranial nerves: Yes Equal, round and reactive pupils present Speech: normal speech Sensory Exam: normal sensation Other: Reduced strength to left lower extremity secondary to pain. A&O x2 (self and year, still believed she was at [place]), attempted to answer some situational history but unreliable. Extrem: General: normal to inspection Other: DP pulses 1+ bilaterally, symmetric. Psych: Mental Status: mental status grossly normal Affect: normal affect Other: Fair to poor insight and judgment, very pleasant Objective Data Vital Signs Vital Signs: Vital Signs - 24 hr 06/15/24 09:34 06/15/24 09:44 06/15/24 09:45 Temperature 97.8 F Pulse Rate 82 72 72 Respiratory Rate 16 13 14 Blood Pressure 96/62 L Pulse Oximetry 95 98 98 Oxygen Delivery Room Air 06/15/24 09:46 06/15/24 10:12 06/15/24 10:15 Temperature Pulse Rate 73 68 70 Respiratory Rate 13 15 13 Blood Pressure 93/62 L Pulse Oximetry 97 99 99 Oxygen Delivery 06/15/24 10:16 06/15/24 10:31 06/15/24 10:32 Temperature Pulse Rate 71 65 66 Respiratory Rate 14 13 20 Blood Pressure 113/71 111/73 Pulse Oximetry 100 90 96 Oxygen Delivery 06/15/24 11:09 06/15/24 11:15 06/15/24 11:16 Temperature Pulse Rate 63 63 61 Respiratory Rate 12 12 14 Blood Pressure 109/67 Pulse Oximetry Oxygen Delivery 06/15/24 11:30 06/15/24 11:36 06/15/24 11:45 Temperature Pulse Rate 64 63 62 Respiratory Rate 19 13 12 Blood Pressure 103/66 113/72 Pulse Oximetry Oxygen Delivery 06/15/24 11:46 06/15/24 12:02 06/15/24 12:16 Temperature Pulse Rate 61 62 68 Respiratory Rate 12 12 17 Blood Pressure Pulse Oximetry Oxygen Delivery 06/15/24 12:31 06/15/24 12:45 06/15/24 12:46 Temperature Pulse Rate 62 65 64 Respiratory Rate 12 18 13 Blood Pressure 113/81 117/71 Pulse Oximetry Oxygen Delivery 06/15/24 12:47 06/15/24 13:03 06/15/24 13:47 Temperature Pulse Rate 68 64 62 Respiratory Rate 15 12 13 Blood Pressure Pulse Oximetry Oxygen Delivery 06/15/24 14:13 06/15/24 14:15 06/15/24 14:16 Temperature Pulse Rate 69 71 68 Respiratory Rate 15 13 12 Blood Pressure 115/84 Pulse Oximetry 100 100 Oxygen Delivery 06/15/24 14:30 06/15/24 14:31 06/15/24 15:01 Temperature Pulse Rate 58 L 63 64 Respiratory Rate 13 13 13 Blood Pressure 91/69 L Pulse Oximetry 95 100 100 Oxygen Delivery 06/15/24 16:00 06/15/24 16:32 06/15/24 20:40 Temperature 96 F L Pulse Rate 64 64 Respiratory Rate 18 18 Blood Pressure 115/65 Pulse Oximetry 95 95 Oxygen Delivery Room Air Room Air 06/15/24 21:47 06/16/24 08:02 06/15/24 16:50 Temperature 98.0 F 99.0 F 96 F L Pulse Rate 72 64 Respiratory Rate 16 14 18 Blood Pressure 111/60 110/66 115/65 Pulse Oximetry 95 97 95 Oxygen Delivery Room Air Intake/Output Intake/Output: Intake & Output 06/13/24 06/14/24 06/15/24 06/16/24 23:59 23:59 23:59 23:59 Intake Total 600 50 Output Total 425 Balance 175 50 Meds/Results Medications: Active Medications Generic Name Dose Route Start Last Admin Trade Name Freq PRN Reason Stop Dose Admin Acetaminophen 500 mg 06/15/24 12:33 Acetaminophen 500 Mg Tablet PO Q6H PRN Mild Pain (1-3) or Fever Hydrocodone Bitart/Acetaminophen 1 tab 06/15/24 12:33 06/15/24 17:59 Hydrocodone/Acetaminophen (*Crx) 5-325 Mg Tablet PO 1 tab Q6H PRN Administration Pain Rated 4-6 Alendronate Sodium 70 mg 06/23/24 06:30 Alendronate Sodium 70 Mg Tablet PO Fr@0630 HERIBERTO Aripiprazole 10 mg 06/16/24 09:00 Aripiprazole 10 Mg Tablet PO DAILY HERIBERTO Ascorbic Acid 500 mg 06/16/24 09:00 Ascorbic Acid 500 Mg Tablet PO DAILY HERIBERTO Buspirone HCl 15 mg 06/15/24 21:00 06/15/24 20:41 Buspirone Hcl 5 Mg Tablet PO 15 mg Q12HR HERIBERTO Administration Calcium Carbonate 500 mg 06/15/24 17:45 06/15/24 18:00 Calcium Carbonate (Oscal) 500 Mg Tablet PO 500 mg BID HERIBERTO Administration Carbamazepine 500 mg 06/15/24 15:25 06/15/24 20:41 Carbamazepine Xr 100 Mg Tab.Sr.12h PO 500 mg Q12HR HERIBERTO Administration Carbidopa/Levodopa 1 tablet/ 2 tablet 06/15/24 15:30 06/16/24 05:31 Carbidopa/Levodopa 1 tablet PO 2 tablet Q8HR HERIBERTO Administration Cyanocobalamin 500 mcg 06/16/24 09:00 Cyanocobalamin 500 Mcg Tablet PO DAILY HERIBERTO Cyanocobalamin 2,000 mcg 06/16/24 09:00 Cyanocobalamin 1,000 Mcg Tablet PO DAILY HERIBERTO Diphenoxylate HCl/Atropine 1 tablet 06/15/24 17:10 Diphenoxylate/Atropine (*Crx) 2.5 Mg Tablet PO Q8H PRN Diarrhea Docusate Sodium 100 mg 06/15/24 12:33 Docusate Sodium 100 Mg Capsule PO Q12H PRN Constipation Duloxetine HCl 60 mg 06/15/24 17:45 06/15/24 18:00 Duloxetine Hcl 60 Mg Capsule.Dr PO 60 mg BID HERIBERTO Administration Fentanyl Citrate 25 mcg 06/16/24 06:59 Fentanyl Citrate Inj (*Crx) 100 Mcg/2 Ml Vial IV PUSH Q2M PRN Pain Hydrocortisone 1 applic 06/15/24 17:42 Hydrocortisone 2.5% Cream 30 Gm Tube TOPICAL BID PRN Hemorrhoids Hydrocortisone Acetate 25 mg 06/15/24 17:10 Hydrocortisone Acetate 25 Mg Suppository RECTAL BID PRN hemmorhoid Lactated Ringer's 1,000 mls @ 30 mls/hr 06/16/24 06:40 Lr - Lactated Ringers Iv IV CONT .Q24H HERIBERTO Lactated Ringer's 1,000 mls @ 30 mls/hr 06/16/24 07:00 Lr - Lactated Ringers Iv IV CONT .Q24H HERIBERTO Lactobacillus Acidophilus 1 tablet 06/16/24 09:00 Acidophilus/Bulgaricus Chewable Tablet PO DAILY PENDING SALE TO [facility] Levothyroxine Sodium 150 mcg 06/16/24 05:30 06/16/24 05:31 Levothyroxine Sodium 150 Mcg Tablet PO 150 mcg DAILY@0530 [facility]END[facility] SALE TO [facility] Administration Miscellaneous Information 1 each 06/16/24 00:01 Med Rec Order Clarification XX 07/16/24 00:00 CLARIFY PENDING SALE TO [facility] Morphine Sulfate 2 mg 06/15/24 12:33 06/15/24 19:20 Morphine Sulfate (*Crx) 2 Mg/Ml Inj IV PUSH 2 mg Q4H PRN Administration Pain Rated 7-10 Niacin 500 mg 06/16/24 09:00 Niacin Sa 250 Mg Capsule PO DAILY PENDING SALE TO [facility] Non-Formulary Medication 1 tablet 06/16/24 09:00 Calcium Carb-D3-Mag Ox-Zinc Ox [Michael Mag Zinc Plus D3] PO 07/16/24 08:59 DAILY PENDING SALE TO [facility] Ondansetron HCl 4 mg 06/15/24 12:33 06/15/24 12:47 Ondansetron Inj 4 Mg/2 Ml Vial IV PUSH 4 mg Q6H PRN Administration Nausea And Vomiting Ondansetron HCl 4 mg 06/16/24 06:59 Ondansetron Inj 4 Mg/2 Ml Vial IV PUSH ONCE PRN Nausea Primidone 250 mg 06/15/24 21:00 06/15/24 20:41 Primidone 250 Mg Tablet PO 250 mg HS PENDING SALE TO [facility] Administration Sertraline HCl 100 mg 06/16/24 09:00 Sertraline Hcl 50 Mg Tablet PO DAILY PENDING SALE TO [facility] Tamsulosin HCl 0.4 mg 06/16/24 09:00 Tamsulosin Hcl 0.4 Mg Capsule PO DAILY PENDING SALE TO [facility] Trazodone HCl 50 mg 06/16/24 21:00 Trazodone Hcl 50 Mg Tablet PO HS PENDING SALE TO [facility] Vitamin D 1,000 units 06/16/24 09:00 Cholecalciferol 1,000 Units Tablet PO DAILY PENDING SALE TO [facility] Zonisamide 100 mg 06/15/24 18:00 06/15/24 18:00 Zonisamide 100 Mg Capsule PO 100 mg QPM PENDING SALE TO [facility] Administration Radiology Results: ITS Impressions Head CT 06/15/24 11:06 IMPRESSION: 1. No fracture or acute intracranial process. 2. Age-related changes including mild diffuse volume loss and mild scattered whi te matter hypoattenuation consistent with chronic small vessel ischemic disease. Cervical Spine CT 06/15/24 11:12 IMPRESSION: 1. No acute fracture. 2. Severe cervical spondylosis. 3. Scoliosis. Chest X-Ray 06/15/24 11:28 IMPRESSION: 1. No acute cardiopulmonary disease. Hip/Pelvis X-Ray 06/15/24 11:29 IMPRESSION: 1. Subcapital fracture of left femoral neck. 2. Mild osteoarthritis of the hips. Labs Labs: Laboratory Results - last 24 hr 06/15/24 06/16/24 11:39 05:30 WBC 6.3 4.4 L RBC 4.47 4.21 Hgb 15.3 H 14.2 Hct 43.8 41.6 MCV 98.0 98.8 MCH 34.2 H 33.7 MCHC 34.9 34.1 RDW 11.9 11.8 Plt Count 134 L 123 L MPV 12.1 H 12.6 H Immature Gran % (Auto) 0.3 0.2 Neut % (Auto) 72.6 66.0 Lymph % (Auto) 19.9 23.2 Carter % (Auto) 5.2 5.6 Eos % (Auto) 1.4 4.5 H Baso % (Auto) 0.6 0.5 Lymph # (Auto) 1.26 1.03 Carter # (Auto) 0.3 0.3 Eos # (Auto) 0.1 0.2 Baso # (Auto) 0.0 0.0 Abs Immat Gran (auto) 0.02 0.01 Absolute Neuts (auto) 4.6 2.9 Absolute Nucleated RBC 0.000 0.000 Nucleated RBC % 0.0 0.0 Sodium 139 138 Potassium 3.3 L 3.2 L Chloride 104 107 Carbon Dioxide 30 27 Anion Gap 5 4 BUN 7 D 7 Creatinine 0.80 0.70 Estim Creat Clear Calc Not Reportable 67 Estimated GFR > 60 > 60 Glucose 108 89 Calcium 9.4 9.3 Magnesium 2.1 Quality VTE Prophylaxis VTE prophylaxis: mechanical ordered
--- NOTE | 2024-06-16 08:41 | W.PM.PROC2 ---
Procedure Note - Detailed Date of Procedure 06/16/24 Pre-op Diagnosis Left Subcapital Femoral Neck Fracture Post-op Diagnosis Same Procedure Performed PERCUTANEOUS PINNING LEFT FEMORAL NECK FRACTURE Surgeon Jesus Resendiz MD Anesthesia General Description of Procedure THE PATIENT WAS TAKEN TO THE OPERATING ROOM AND PLACED UNDER GENERAL ANESTHESIA. THE PATIENT WAS PLACED ON A FRACTURE TABLE. USING TRACTION AND INTERNAL ROTATION THE FEMORAL NECK FRACTURE WAS REDUCED TO ANATOMIC POSITION. THE LEFT LOWER EXTREMITY WAS PREPPED AND DRAPED IN THE STERIL FASHION FROM THE KNEE TO THE ILIAC CREST. THE INCISION WAS MADE ON THE LATERAL HIP JUST DISTAL TO THE GREATER TROCHANTER DOWN TO THE BONE. BLEEDERS WERE CAUTERIZED. 3 GUIDE PINS WERE PLACED THROUGH THE FEMORAL NECK AND PASSED THE FRACTURE SITE AND IN TO THE SUBCHONDRAL BONE OF THE FEMORAL HEAD. THREE ARTHREX 7.0 CANNULATED SCREWS WERE PLACED OVER THE GUIDE PINS AND THESE WERE SHOWN TO BE IN GOOD POSITION PER FLUOROSCOPY ON BOTH THE AP AND LATERAL VIEWS. ALL SCREWS HAD EXCELLENT BITES. THE WOUND WAS WASHED WELL. THE DEEP FASCIAL LAYER WAS APPROXIMATED WITH #1 VICRYL SUTURE, THE SUBCUTANEOUS LAYER WITH 2-0 VICRYL AND THE SKIN WAS APPROXIMATED WITH 3-0 QUIL AND DERMABOND. A STERILE DRESSING WAS PLACED. THE PATIENT WAS EXTUBATED AND SENT TO RECOVERY ROOM Estimated Blood Loss 20 Drains No Complications No immediate complications Condition Stable Disposition PACU
[2024-06-16] MEDS: LACTATED RINGERS 1,000 ML 30 ML IV CONT ×2 (08:46)
--- NOTE | 2024-06-16 10:10 | PC.NURSE ---
Returned from OR per bed. Report received from Sondra.
[2024-06-16] MEDS: CARBIDOPA/LEVODOPA 12.5/50 MG 1 TABLET, CARBIDOPA/LEVODOPA 25/100 MG 1 TABLET 2 TABLET PO ×2 (11:40→21:27)
[2024-06-16] MEDS: ASPIRIN 325 MG ENTERIC TABLET PO ×2 (11:40→21:28)
[2024-06-16] MEDS: CELECOXIB 200 MG CAPSULE PO (11:40)
[2024-06-16] MEDS: DOXYCYCLINE HYCLATE 100 MG TABLET PO (11:43)
[2024-06-16] MEDS: SENNA/DOCUSATE SODIUM TABLET 2 TAB PO ×2 (11:43→16:06)
[2024-06-16] MEDS: FAMOTIDINE 20 MG TABLET PO ×2 (11:43→21:28)
[2024-06-16] MEDS: CARBAMAZEPINE XR 100 MG TAB.SR.12H PO ×2 (11:44→21:28)
[2024-06-16] MEDS: polyethylene glycoL 3350 17 GM POWD.PACK PO (11:44)
[2024-06-16] MEDS: IBUPROFEN IV 800 MG/200 ML 800 MG/200 ML BAG 400 MG IVPB (13:31)
[2024-06-17] MEDS: ceFAZolin 2 GM/D5W 50 ML 2 GM/50 ML BAG IVPB ×2 (00:37→09:47)
[2024-06-17] MEDS: oxyCODONE/ACETAMINOPHEN (*CRX) 5-325 MG TABLET 1 TABLET PO ×2 (00:41→09:47)
[2024-06-17 03:45] VITALS: BP 119/64; PULSE 70; RESP 16; TEMP 36.6; O2SAT 96
[2024-06-17] MEDS: CARBIDOPA/LEVODOPA 12.5/50 MG 1 TABLET, CARBIDOPA/LEVODOPA 25/100 MG 1 TABLET 2 TABLET PO ×3 (05:45→21:51)
[2024-06-17 05:53] LABS: Basophils Percent Auto 0.5 % (0.2-1.2); Eosinophils Absolute Auto 0.2 K/mm3 (0-0.3); Eosinophils Percent Auto 3.3 % (0-4.4); Hematocrit 38.6 % (37.0-47.0); Hemoglobin 13.6 g/dL (12.0-15.0); Immature Granulocyte Absolute 0.02 K/mm3 (0.00-0.031); Immature Granulocyte Percent A 0.4 % (0-0.5); Lymphocytes Absolute Auto 1.14 K/mm3 (0.9-3.2); Lymphocytes Percent Auto 20.7 % (18.3-44.2); Mean Corpuscular HGB Conc 35.2 g/dl (32-36); Mean Corpuscular Hemoglobin 34.7 pg (26-34); Mean Corpuscular Volume 98.5 fl (80-100); Mean Platelet Volume 12.5 fl (7.4-10.4); Monocytes Absolute Auto 0.5 K/mm3 (0.1-0.6); Monocytes Percent Auto 8.9 % (2.6-8.5); Neutrophils Absolute Auto 3.7 K/mm3 (1.3-6.7); Neutrophils Percent Auto 66.2 % (45.5-73.1); Platelet Count Result 124 k/mm3 (150-375); Red Blood Count 3.92 M/mm3 (4.2-5.4); Red Cell Distribution Width 11.7 % (11.5-14.5); White Blood Count 5.5 K/mm3 (4.5-10.0)
[2024-06-17 06:19] LABS: Anion Gap 8 mmol/L (4-12); Blood Urea Nitrogen 6 mg/dL (7-17); Calcium 8.8 mg/dL (8.4-10.2); Carbon Dioxide 26 mmol/L (22-30); Chloride 105 mmol/L (98-107); Estimated CRCL calculation 67 ml/min; Estimated Glomerular Filt Rate > 60; Glucose 85 mg/dL (65-110); Potassium 3.2 mmol/L (3.4-5.0); Sodium 139 mmol/L (137-145)
[2024-06-17 07:45] VITALS: BP 133/72; PULSE 73; RESP 16; TEMP 36.3; O2SAT 98
[2024-06-17] MEDS: CELECOXIB 200 MG CAPSULE PO (09:33)
[2024-06-17] MEDS: SENNA/DOCUSATE SODIUM TABLET 2 TAB PO ×2 (09:33→17:17)
[2024-06-17] MEDS: FAMOTIDINE 20 MG TABLET PO ×2 (09:33→20:39)
[2024-06-17] MEDS: polyethylene glycoL 3350 17 GM POWD.PACK PO (09:33)
[2024-06-17] MEDS: ASPIRIN 325 MG ENTERIC TABLET PO ×2 (09:33→20:39)
[2024-06-17] MEDS: DOXYCYCLINE HYCLATE 100 MG TABLET PO (09:33)
[2024-06-17] MEDS: CARBAMAZEPINE XR 100 MG TAB.SR.12H PO ×2 (09:33→20:39)
[2024-06-17 11:45] VITALS: BP 104/50; PULSE 69; RESP 16; TEMP 37.2; O2SAT 100
--- NOTE | 2024-06-17 17:09 | PM.IMPN ---
Progress Note: A&P Assessment and Plan (1) Closed subcapital fracture of femur: Qualifiers: Encounter type: initial encounter Laterality: left Qualified Code(s): S72.012A - Unspecified intracapsular fracture of left femur, initial encounter for closed fracture Code(s): S72.019A - Unspecified intracapsular fracture of unspecified femur, initial encounter for closed fracture Status: Acute Assessment and Plan: - XR hip/pelvis: 1. Subcapital fracture of left femoral neck. 2. Mild osteoarthritis of the hips. - Status post surgical repair on 06/16/2024. - PT/OT with ortho restrictions. - Pain meds PRN. - Fall precautions. - Remove kim when appropriate. (2) Epilepsy: Code(s): G40.909 - Epilepsy, unspecified, not intractable, without status epilepticus Status: Acute Assessment and Plan: - CT head negative for acute. - Home meds resumed. - Continue seizure precautions. (3) Parkinson disease: Code(s): G20.A1 - Parkinson's disease without dyskinesia, without mention of fluctuations Status: Acute Assessment and Plan: Home meds resumed. (4) Fall: Qualifiers: Encounter type: initial encounter Qualified Code(s): W19.XXXA - Unspecified fall, initial encounter Code(s): W19.XXXA - Unspecified fall, initial encounter Status: Inactive Assessment and Plan: - Unclear etiology. - Possibly mechanical vs seizure vs other. - CT head negative for acute. - CT cervical spine negative for acute. - No seizure episodes inpatient. - Continue seizure and fall precautions. Plan Diet: Heart healthy, GI Prophylaxis: Not currently indicated DVT Prophylaxis: SCDs Lines: Peripheral Code Status: DNR Time Spent With Patient Time with patient: 25 - 35 minutes Subjective Date/time seen: 06/17/24 17:09 Patient calm on bedrest and denies any pain or other distressful symptoms. States she can't recall why and how she fell from w/c. States she's comfortable now but had some pain while working with therapy. Interval history: Patient calm on bedrest, very talkative and appears to be in no acute distress. Review of Systems Review of Systems: All systems reviewed & are unremarkable except as noted in HPI and below Exam Narrative: HEENT: Atraumatic, PERRL, EOM, anicteric, moist mucus membranes. NECK: Supple. Lungs: Clear bilaterally. Heart: RRR, no murmurs. Abdomen: Soft, non-tender, non-distended, +ve bowel sounds X4 quadrants. Extremities: No edema, 2+ pedal pulses, good sensations catia UE and LE. Skin: Warm and dry. Dry and intact surgical dressing to Left Hip with no drainage. Neuro: Fairly well oriented. No focal neuro deficits noted. Psych: Co-operative. Very talkative with flat sense of humor. Objective Data Vital Signs Vital Signs: Vital Signs - 24 hr 06/16/24 19:45 06/16/24 23:45 06/17/24 03:45 Temperature 98 F 98 F 98 F Pulse Rate 79 72 70 Respiratory Rate 16 18 16 Blood Pressure 127/85 120/77 119/64 Pulse Oximetry 97 99 96 Oxygen Delivery 06/17/24 07:45 06/17/24 09:30 06/17/24 11:45 Temperature 97.3 F L 98.9 F Pulse Rate 73 69 Respiratory Rate 16 16 Blood Pressure 133/72 104/50 L Pulse Oximetry 98 100 Oxygen Delivery Room Air Intake/Output Intake/Output: Intake & Output 06/14/24 06/15/24 06/16/24 06/17/24 23:59 23:59 23:59 23:59 Intake Total 600 1380 490 Output Total 425 1150 2200 Balance 175 230 -1710 Meds/Results Medications: Active Medications Generic Name Dose Route Start Last Admin Trade Name Freq PRN Reason Stop Dose Admin Aspirin 325 mg 06/16/24 10:00 06/17/24 09:33 Aspirin 325 Mg Enteric Tablet PO 325 mg Q12HR HERIBERTO Administration Carbamazepine 100 mg 06/16/24 10:00 06/17/24 09:33 Carbamazepine Xr 100 Mg Tab.Sr.12h PO 100 mg Q12HR HERIBERTO Administration Carbidopa/Levodopa 1 tablet/ 2 tablet 06/16/24 10:30 06/17/24 13:20 Carbidopa/Levodopa 1 tablet PO 2 tablet Q8HR HERIBERTO Administration Celecoxib 200 mg 06/16/24 10:00 06/17/24 09:33 Celecoxib 200 Mg Capsule PO 200 mg DAILY@0800 HERIBERTO Administration Diazepam 5 mg 06/16/24 10:00 Diazepam (*Crx) 5 Mg Tablet PO Q8H PRN Muscle Spasm Doxycycline Hyclate 100 mg 06/16/24 10:15 06/17/24 09:33 Doxycycline Hyclate 100 Mg Tablet PO 100 mg DAILY HERIBERTO Administration Famotidine 20 mg 06/16/24 10:00 06/17/24 09:33 Famotidine 20 Mg Tablet PO 20 mg Q12HR HERIBERTO Administration Hydroxyzine Pamoate 50 mg 06/16/24 10:00 Hydroxyzine Pamoate 25 Mg Capsule PO Q4H PRN Itching Ibuprofen 800 mg in 200 mls @ 400 mls/hr 06/16/24 10:00 06/16/24 14:00 Caldolor 800 Mg/200 Ml IVPB Infused Q6H PRN Infusion Breakthrough Pain Rated 1-3 or NPO Naloxone HCl 0.1 mg 06/16/24 10:00 Naloxone Hcl 0.4 Mg/Ml Vial IV PUSH Q2M PRN Opiate Reversal Ondansetron HCl 4 mg 06/16/24 10:00 Ondansetron Inj 4 Mg/2 Ml Vial IV PUSH Q4H PRN Nausea And Vomiting Oxycodone/Acetaminophen 1 tab 06/16/24 10:00 Oxycodone/Acetaminophen (*Crx) 10-325 Mg Tablet PO Q6H PRN Pain Rated 7-10 Oxycodone/Acetaminophen 1 tablet 06/16/24 10:00 06/17/24 09:47 Oxycodone/Acetaminophen (*Crx) 5-325 Mg Tablet PO 1 tablet Q4H PRN Administration Pain Rated 4-6 Polyethylene Glycol 17 gm 06/16/24 10:00 06/17/24 09:33 Polyethylene Glycol 3350 17 Gm Powd.Pack PO 17 gm QAM HERIBERTO Administration Senna/Docusate Sodium 2 tab 06/16/24 10:00 06/17/24 09:33 Senna/Docusate Sodium Tablet PO 2 tab BID HERIBERTO Administration Radiology Results: ITS Impressions Head CT 06/15/24 11:06 IMPRESSION: 1. No fracture or acute intracranial process. 2. Age-related changes including mild diffuse volume loss and mild scattered white matter hypoattenuation consistent with chronic small vessel ischemic disease. Cervical Spine CT 06/15/24 11:12 IMPRESSION: 1. No acute fracture. 2. Severe cervical spondylosis. 3. Scoliosis. Chest X-Ray 06/15/24 11:28 IMPRESSION: 1. No acute cardiopulmonary disease. Hip/Pelvis X-Ray 06/15/24 11:29 IMPRESSION: 1. Subcapital fracture of left femoral neck. 2. Mild osteoarthritis of the hips. Intraoperative X-Ray 06/16/24 08:43 IMPRESSION: 1. Subchondral fracture of left femoral neck status post internal fixation. 2. Mild left hip osteoarthritis. Labs Labs: Laboratory Results - last 24 hr 06/17/24 05:33 WBC 5.5 RBC 3.92 L Hgb 13.6 Hct 38.6 MCV 98.5 MCH 34.7 H MCHC 35.2 RDW 11.7 Plt Count 124 L MPV 12.5 H Immature Gran % (Auto) 0.4 Neut % (Auto) 66.2 Lymph % (Auto) 20.7 [place] % (Auto) 8.9 H Eos % (Auto) 3.3 Baso % (Auto) 0.5 Lymph # (Auto) 1.14 [place] # (Auto) 0.5 Eos # (Auto) 0.2 Baso # (Auto) 0.0 Abs Immat Gran (auto) 0.02 Absolute Neuts (auto) 3.7 Absolute Nucleated RBC 0.000 Nucleated RBC % 0.0 Sodium 139 Potassium 3.2 L Chloride 105 Carbon Dioxide 26 Anion Gap 8 BUN 6 L Creatinine 0.70 Estim Creat Clear Calc 67 Estimated GFR > 60 Glucose 85 Calcium 8.8 Quality VTE Prophylaxis VTE prophylaxis: mechanical ordered Hospitalist [facility] Advance Care Plan I have confirmed that the patient's Advanced Care Plan is present, code status is documented, or surrogate decision maker is listed in patient medical record.: Yes Medication Reconciliation I have utilized all available resources to obtain, update and review the patients current medications (includes all prescriptions, OTC, herbals, cannabis, and nutritional supplements).: Yes
[2024-06-17] MEDS: POTASSIUM CHLORIDE 20 MEQ ER TABLET 40 MEQ PO (17:16)
[2024-06-17 23:43] VITALS: BP 128/80; PULSE 78; RESP 16; TEMP 36.7; O2SAT 99
[2024-06-18 05:28] LABS: Hematocrit 38.3 % (37.0-47.0); Hemoglobin 13.6 g/dL (12.0-15.0); Mean Corpuscular HGB Conc 35.5 g/dl (32-36); Mean Corpuscular Hemoglobin 34.5 pg (26-34); Mean Corpuscular Volume 97.2 fl (80-100); Platelet Count Result 153 k/mm3 (150-375); Red Blood Count 3.94 M/mm3 (4.2-5.4); Red Cell Distribution Width 11.5 % (11.5-14.5); White Blood Count 7.2 K/mm3 (4.5-10.0)
[2024-06-18 05:31] LABS: Anion Gap 7 mmol/L (4-12); Blood Urea Nitrogen 7 mg/dL (7-17); Calcium 8.9 mg/dL (8.4-10.2); Carbon Dioxide 25 mmol/L (22-30); Chloride 108 mmol/L (98-107); Estimated CRCL calculation 77 ml/min; Estimated Glomerular Filt Rate > 60; Glucose 110 mg/dL (65-110); Potassium 3.2 mmol/L (3.4-5.0); Sodium 140 mmol/L (137-145)
[2024-06-18] MEDS: CARBIDOPA/LEVODOPA 12.5/50 MG 1 TABLET, CARBIDOPA/LEVODOPA 25/100 MG 1 TABLET 2 TABLET PO ×3 (05:47→21:39)
[2024-06-18] MEDS: diazePAM (*CRX) 5 MG TABLET PO (05:52)
[2024-06-18 08:17] VITALS: BP 134/74; PULSE 65; RESP 16; TEMP 36.3; O2SAT 100
[2024-06-18] MEDS: ASPIRIN 325 MG ENTERIC TABLET PO ×2 (08:19→21:14)
[2024-06-18] MEDS: FAMOTIDINE 20 MG TABLET PO ×2 (08:19→21:15)
[2024-06-18] MEDS: SENNA/DOCUSATE SODIUM TABLET 2 TAB PO ×2 (08:19→17:34)
[2024-06-18] MEDS: polyethylene glycoL 3350 17 GM POWD.PACK PO (08:19)
[2024-06-18] MEDS: DOXYCYCLINE HYCLATE 100 MG TABLET PO (08:19)
[2024-06-18] MEDS: CELECOXIB 200 MG CAPSULE PO (08:19)
[2024-06-18] MEDS: CARBAMAZEPINE XR 100 MG TAB.SR.12H PO ×2 (08:19→21:15)
--- NOTE | 2024-06-18 10:29 | P.PNIM_ITS ---
Progress Note: A&P Assessment and Plan (1) Closed subcapital fracture of femur: Qualifiers: Encounter type: initial encounter Laterality: left Qualified Code(s): S72.012A - Unspecified intracapsular fracture of left femur, initial encounter for closed fracture Code(s): S72.019A - Unspecified intracapsular fracture of unspecified femur, initial encounter for closed fracture Status: Acute Assessment and Plan: - XR hip/pelvis: 1. Subcapital fracture of left femoral neck. 2. Mild osteoarthritis of the hips. - Status post surgical repair on 06/16/2024. - Continue PT/OT with ortho restrictions. - Pain meds PRN. - Fall precautions. - [place] removed post-op. (2) Epilepsy: Code(s): G40.909 - Epilepsy, unspecified, not intractable, without status epilepticus Status: Acute Assessment and Plan: - CT head negative for acute. - Home meds resumed. - Continue seizure precautions. (3) Parkinson disease: Code(s): G20.A1 - Parkinson's disease without dyskinesia, without mention of fluctuations Status: Acute Assessment and Plan: - Stable. - Home meds resumed. (4) Fall: Qualifiers: Encounter type: initial encounter Qualified Code(s): W19.XXXA - Unspecified fall, initial encounter Code(s): W19.XXXA - Unspecified fall, initial encounter Status: Inactive Assessment and Plan: - Unclear etiology. - Possibly mechanical vs seizure vs other. - CT head negative for acute. - CT cervical spine negative for acute. - No seizure episodes inpatient. - Continue seizure and fall precautions. Plan Diet: Heart healthy, GI Prophylaxis: Not currently indicated DVT Prophylaxis: SCDs Lines: Peripheral Code Status: DNR Time Spent With Patient Time with patient: 15 - 25 minutes Subjective Date/time seen: 06/18/24 10:29 Patient sitting up on recliner. States feels alright and has no pain or other distressful symptoms. States PT assisted her to chair but she couldn't walk due to severe pain and was unable to put on weight to his left leg. Interval history: Patient appears comfortable on recliner with no signs of acute distress. Review of Systems Review of Systems: All systems reviewed & are unremarkable except as noted in HPI and below Exam Narrative: HEENT: Atraumatic, PERRL, EOM, anicteric, moist mucus membranes. NECK: Supple. Lungs: Clear bilaterally. Heart: RRR, no murmurs. Abdomen: Soft, non-tender, non-distended, +ve bowel sounds X4 quadrants. Musculoskeletal: Left-hip pain. Extremities: No edema, 2+ pedal pulses, good sensations catia UE and LE. Clean, dry and intact surgical dressing to L. Hip. Skin: Warm and dry. Dry and intact surgical dressing to Left Hip with no drainage. Neuro: Fairly well oriented. No focal neuro deficits noted. Psych: Co-operative. Flat affect. Objective Data Vital Signs Vital Signs: Vital Signs - 24 hr 06/17/24 11:45 06/17/24 20:39 06/17/24 23:43 Temperature 98.9 F 98.1 F Pulse Rate 69 78 Respiratory Rate 16 16 Blood Pressure 104/50 L 128/80 Pulse Oximetry 100 99 Oxygen Delivery Room Air 06/18/24 08:17 Temperature 97.4 F L Pulse Rate 65 Respiratory Rate 16 Blood Pressure 134/74 Pulse Oximetry 100 Oxygen Delivery Intake/Output Intake/Output: Intake & Output 06/15/24 06/16/24 06/17/24 06/18/24 23:59 23:59 23:59 23:59 Intake Total 600 1380 730 740 Output Total 425 1150 2200 Balance 175 230 -1470 740 Meds/Results Medications: Active Medications Generic Name Dose Route Start Last Admin Trade Name Freq PRN Reason Stop Dose Admin Aspirin 325 mg 06/16/24 10:00 06/18/24 08:19 Aspirin 325 Mg Enteric Tablet PO 325 mg Q12HR HERIBERTO Administration Carbamazepine 100 mg 06/16/24 10:00 06/18/24 08:19 Carbamazepine Xr 100 Mg Tab.Sr.12h PO 100 mg Q12HR HERIBERTO Administration Carbidopa/Levodopa 1 tablet/ 2 tablet 06/16/24 10:30 06/18/24 05:47 Carbidopa/Levodopa 1 tablet PO 2 tablet Q8HR HERIBERTO Administration Celecoxib 200 mg 06/16/24 10:00 06/18/24 08:19 Celecoxib 200 Mg Capsule PO 200 mg DAILY@0800 HERIBERTO Administration Diazepam 5 mg 06/16/24 10:00 06/18/24 05:52 Diazepam (*Crx) 5 Mg Tablet PO 5 mg Q8H PRN Administration Muscle Spasm Doxycycline Hyclate 100 mg 06/16/24 10:15 06/18/24 08:19 Doxycycline Hyclate 100 Mg Tablet PO 100 mg DAILY HERIBERTO Administration Famotidine 20 mg 06/16/24 10:00 06/18/24 08:19 Famotidine 20 Mg Tablet PO 20 mg Q12HR HERIBERTO Administration Hydroxyzine Pamoate 50 mg 06/16/24 10:00 Hydroxyzine Pamoate 25 Mg Capsule PO Q4H PRN Itching Ibuprofen 800 mg in 200 mls @ 400 mls/hr 06/16/24 10:00 06/16/24 14:00 Caldolor 800 Mg/200 Ml IVPB Infused Q6H PRN Infusion Breakthrough Pain Rated 1-3 or NPO Naloxone HCl 0.1 mg 06/16/24 10:00 Naloxone Hcl 0.4 Mg/Ml Vial IV PUSH Q2M PRN Opiate Reversal Ondansetron HCl 4 mg 06/16/24 10:00 Ondansetron Inj 4 Mg/2 Ml Vial IV PUSH Q4H PRN Nausea And Vomiting Oxycodone/Acetaminophen 1 tab 06/16/24 10:00 Oxycodone/Acetaminophen (*Crx) 10-325 Mg Tablet PO Q6H PRN Pain Rated 7-10 Oxycodone/Acetaminophen 1 tablet 06/16/24 10:00 06/17/24 09:47 Oxycodone/Acetaminophen (*Crx) 5-325 Mg Tablet PO 1 tablet Q4H PRN Administration Pain Rated 4-6 Polyethylene Glycol 17 gm 06/16/24 10:00 06/18/24 08:19 Polyethylene Glycol 3350 17 Gm Powd.Pack PO 17 gm QAM HERIBERTO Administration Potassium Chloride 20 meq 06/18/24 17:00 Potassium Chloride 20 Meq Er Tablet PO DAILY@1700 HERIBERTO Senna/Docusate Sodium 2 tab 06/16/24 10:00 06/18/24 08:19 Senna/Docusate Sodium Tablet PO 2 tab BID HERIBERTO Administration Radiology Results: ITS Impressions Head CT 06/15/24 11:06 IMPRESSION: 1. No fracture or acute intracranial process. 2. Age-related changes including mild diffuse volume loss and mild scattered white matter hypoattenuation consistent with chronic small vessel ischemic disease. Cervical Spine CT 06/15/24 11:12 IMPRESSION: 1. No acute fracture. 2. Severe cervical spondylosis. 3. Scoliosis. Chest X-Ray 06/15/24 11:28 IMPRESSION: 1. No acute cardiopulmonary disease. Hip/Pelvis X-Ray 06/15/24 11:29 IMPRESSION: 1. Subcapital fracture of left femoral neck. 2. Mild osteoarthritis of the hips. Intraoperative X-Ray 06/16/24 08:43 IMPRESSION: 1. Subchondral fracture of left femoral neck status post internal fixation. 2. Mild left hip osteoarthritis. Labs Labs: Laboratory Results - last 24 hr 06/18/24 05:07 WBC 7.2 RBC 3.94 L Hgb 13.6 Hct 38.3 MCV 97.2 MCH 34.5 H MCHC 35.5 RDW 11.5 Plt Count 153 MPV 12.0 H Sodium 140 Potassium 3.2 L Chloride 108 H Carbon Dioxide 25 Anion Gap 7 BUN 7 Creatinine 0.60 L Estim Creat Clear Calc 77 Estimated GFR > 60 Glucose 110 Calcium 8.9 Quality VTE Prophylaxis VTE prophylaxis: mechanical ordered Hospitalist [facility] Advance Care Plan I have confirmed that the patient's Advanced Care Plan is present, code status is documented, or surrogate decision maker is listed in patient medical record.: Yes Medication Reconciliation I have utilized all available resources to obtain, update and review the patients current medications (includes all prescriptions, OTC, herbals, cannabis, and nutritional supplements).: Yes
[2024-06-18] MEDS: POTASSIUM CHLORIDE 20 MEQ ER TABLET 40 MEQ PO (11:59)
[2024-06-18] MEDS: ARIPiprazole 10 MG TABLET PO (11:59)
[2024-06-18] MEDS: busPIRone HCL 5 MG TABLET 15 MG PO ×2 (11:59→21:14)
[2024-06-18] MEDS: CARBAMAZEPINE XR 200 MG TAB.ER.12H 400 MG PO ×2 (11:59→21:15)
[2024-06-18 14:00] VITALS: BP 127/79; PULSE 62; RESP 16; TEMP 36.2; O2SAT 98
[2024-06-18] MEDS: oxyCODONE/ACETAMINOPHEN (*CRX) 5-325 MG TABLET 1 TABLET PO (17:34)
[2024-06-18] MEDS: ZONISAMIDE 100 MG CAPSULE PO (17:34)
[2024-06-18] MEDS: POTASSIUM CHLORIDE 20 MEQ ER TABLET PO (17:34)
[2024-06-18 21:27] VITALS: BP 138/77; PULSE 67; RESP 16; TEMP 36.4; O2SAT 100
[2024-06-19 05:33] LABS: Hematocrit 40.9 % (37.0-47.0); Hemoglobin 14.1 g/dL (12.0-15.0); Mean Corpuscular HGB Conc 34.5 g/dl (32-36); Mean Corpuscular Volume 98.6 fl (80-100); Mean Platelet Volume 11.8 fl (7.4-10.4); Platelet Count Result 178 k/mm3 (150-375); Red Blood Count 4.15 M/mm3 (4.2-5.4); Red Cell Distribution Width 11.9 % (11.5-14.5); White Blood Count 5.8 K/mm3 (4.5-10.0)
[2024-06-19 05:43] LABS: Anion Gap 7 mmol/L (4-12); Blood Urea Nitrogen 6 mg/dL (7-17); Carbon Dioxide 24 mmol/L (22-30); Chloride 111 mmol/L (98-107); Estimated CRCL calculation 91 ml/min; Estimated Glomerular Filt Rate > 60; Glucose 100 mg/dL (65-110); Potassium 3.9 mmol/L (3.4-5.0); Sodium 142 mmol/L (137-145)
[2024-06-19] MEDS: CARBIDOPA/LEVODOPA 12.5/50 MG 1 TABLET, CARBIDOPA/LEVODOPA 25/100 MG 1 TABLET 2 TABLET PO ×3 (05:49→21:35)
[2024-06-19 06:00] VITALS: BP 118/81; PULSE 72; RESP 18; TEMP 36.4; O2SAT 96
[2024-06-19] MEDS: SENNA/DOCUSATE SODIUM TABLET 2 TAB PO ×2 (08:47→17:37)
[2024-06-19] MEDS: CARBAMAZEPINE XR 100 MG TAB.SR.12H PO ×2 (08:47→21:35)
[2024-06-19] MEDS: busPIRone HCL 5 MG TABLET 15 MG PO ×2 (08:47→21:34)
[2024-06-19] MEDS: CARBAMAZEPINE XR 200 MG TAB.ER.12H 400 MG PO ×2 (08:47→21:35)
[2024-06-19] MEDS: ASPIRIN 325 MG ENTERIC TABLET PO ×2 (08:47→21:34)
[2024-06-19] MEDS: CELECOXIB 200 MG CAPSULE PO (08:47)
[2024-06-19] MEDS: ARIPiprazole 10 MG TABLET PO (08:47)
[2024-06-19] MEDS: DOXYCYCLINE HYCLATE 100 MG TABLET PO (08:47)
[2024-06-19] MEDS: polyethylene glycoL 3350 17 GM POWD.PACK PO (08:47)
[2024-06-19] MEDS: FAMOTIDINE 20 MG TABLET PO ×2 (08:47→21:35)
[2024-06-19] MEDS: oxyCODONE/ACETAMINOPHEN (*CRX) 5-325 MG TABLET 1 TABLET PO (08:59)
--- NOTE | 2024-06-19 12:37 | PM.IMPN ---
Progress Note: A&P Assessment and Plan (1) Closed subcapital fracture of femur: Qualifiers: Encounter type: initial encounter Laterality: left Qualified Code(s): S72.012A - Unspecified intracapsular fracture of left femur, initial encounter for closed fracture Code(s): S72.019A - Unspecified intracapsular fracture of unspecified femur, initial encounter for closed fracture Status: Acute Assessment and Plan: - XR hip/pelvis: 1. Subcapital fracture of left femoral neck. 2. Mild osteoarthritis of the hips. - Status post surgical repair on 06/16/2024. - Continue PT/OT treatment with ortho restrictions. - Pain meds PRN. - Fall precautions. (2) Epilepsy: Code(s): G40.909 - Epilepsy, unspecified, not intractable, without status epilepticus Status: Acute Assessment and Plan: - CT head negative for acute. - Home meds resumed. - Continue seizure precautions. (3) Parkinson disease: Code(s): G20.A1 - Parkinson's disease without dyskinesia, without mention of fluctuations Status: Acute Assessment and Plan: - Stable. - Home meds resumed. (4) Fall: Qualifiers: Encounter type: initial encounter Qualified Code(s): W19.XXXA - Unspecified fall, initial encounter Code(s): W19.XXXA - Unspecified fall, initial encounter Status: Inactive Assessment and Plan: - Unclear etiology. - Possibly mechanical vs seizure vs other. - CT head negative for acute. - CT cervical spine negative for acute. - No seizure episodes inpatient. - Continue seizure and fall precautions. Plan Diet: Heart healthy, GI Prophylaxis: Not currently indicated DVT Prophylaxis: SCDs Lines: Peripheral Code Status: DNR Time Spent With Patient Time with patient: 15 - 25 minutes Subjective Date/time seen: 06/19/24 12:37 Patient states she feels alright, just some discomfort on her bottom maybe from laying on the bed for long. States waiting for PT but she still hasn't been able to walk yet. Interval history: Patient calm on bedrest and looks to be in no acute distress. Very talkative. Review of Systems Review of Systems: All systems reviewed & are unremarkable except as noted in HPI and below Exam Narrative: General: Calm and in no acute distress. Very talkative. HEENT: Atraumatic, PERRL, EOM, anicteric, moist mucus membranes. NECK: Supple. Lungs: Clear bilaterally. Heart: RRR, no murmurs. Abdomen: Soft, non-tender, non-distended, +ve bowel sounds X4 quadrants. Musculoskeletal: Slight Left-hip pain. Extremities: No edema, 2+ pedal pulses, good sensations catia UE and LE. Clean, dry and intact dressing to L. Hip. Skin: Warm and dry. Dry and intact dressing to Left Hip with no drainage. Neuro: Fairly well oriented. No focal neuro deficits noted. Psych: Co-operative. Very talkative. Objective Data Vital Signs Vital Signs: Vital Signs - 24 hr 06/18/24 14:00 06/18/24 21:27 06/18/24 21:39 Temperature 97.2 F L 97.5 F L Pulse Rate 62 67 Respiratory Rate 16 16 Blood Pressure 127/79 138/77 Pulse Oximetry 98 100 Oxygen Delivery Room Air 06/19/24 06:00 06/19/24 08:50 Temperature 97.6 F Pulse Rate 72 Respiratory Rate 18 Blood Pressure 118/81 Pulse Oximetry 96 Oxygen Delivery Room Air Intake/Output Intake/Output: Intake & Output 06/16/24 06/17/24 06/18/24 06/19/24 23:59 23:59 23:59 23:59 Intake Total 4859 029 0955 534 Output Total 1150 2200 750 400 Balance 230 -1470 720 134 Meds/Results Medications: Active Medications Generic Name Dose Route Start Last Admin Trade Name Freq PRN Reason Stop Dose Admin Aripiprazole 10 mg 06/18/24 09:00 06/19/24 08:47 Aripiprazole 10 Mg Tablet PO 10 mg DAILY HERIBERTO Administration Aspirin 325 mg 06/16/24 10:00 06/19/24 08:47 Aspirin 325 Mg Enteric Tablet PO 325 mg Q12HR HERIBERTO Administration Buspirone HCl 15 mg 06/18/24 10:45 06/19/24 08:47 Buspirone Hcl 5 Mg Tablet PO 15 mg Q12HR HERIBERTO Administration Carbamazepine 100 mg 06/18/24 21:00 06/19/24 08:47 Carbamazepine Xr 100 Mg Tab.Sr.12h PO 100 mg Q12HR HERIBERTO Administration Carbamazepine 400 mg 06/18/24 21:00 06/19/24 08:47 Carbamazepine Xr 200 Mg Tab.Er.12h PO 400 mg Q12HR HERIBERTO Administration Carbidopa/Levodopa 1 tablet/ 2 tablet 06/16/24 10:30 06/19/24 05:49 Carbidopa/Levodopa 1 tablet PO 2 tablet Q8HR HERIBEROT Administration Celecoxib 200 mg 06/16/24 10:00 06/19/24 08:47 Celecoxib 200 Mg Capsule PO 200 mg DAILY@0800 HERIBERTO Administration Diazepam 5 mg 06/16/24 10:00 06/18/24 05:52 Diazepam (*Crx) 5 Mg Tablet PO 5 mg Q8H PRN Administration Muscle Spasm Doxycycline Hyclate 100 mg 06/16/24 10:15 06/19/24 08:47 Doxycycline Hyclate 100 Mg Tablet PO 100 mg DAILY HERIBERTO Administration Famotidine 20 mg 06/16/24 10:00 06/19/24 08:47 Famotidine 20 Mg Tablet PO 20 mg Q12HR HERIBERTO Administration Hydroxyzine Pamoate 50 mg 06/16/24 10:00 Hydroxyzine Pamoate 25 Mg Capsule PO Q4H PRN Itching Ibuprofen 800 mg in 200 mls @ 400 mls/hr 06/16/24 10:00 06/16/24 14:00 Caldolor 800 Mg/200 Ml IVPB Infused Q6H PRN Infusion Breakthrough Pain Rated 1-3 or NPO Naloxone HCl 0.1 mg 06/16/24 10:00 Naloxone Hcl 0.4 Mg/Ml Vial IV PUSH Q2M PRN Opiate Reversal Ondansetron HCl 4 mg 06/16/24 10:00 Ondansetron Inj 4 Mg/2 Ml Vial IV PUSH Q4H PRN Nausea And Vomiting Oxycodone/Acetaminophen 1 tab 06/16/24 10:00 Oxycodone/Acetaminophen (*Crx) 10-325 Mg Tablet PO Q6H PRN Pain Rated 7-10 Oxycodone/Acetaminophen 1 tablet 06/16/24 10:00 06/19/24 08:59 Oxycodone/Acetaminophen (*Crx) 5-325 Mg Tablet PO 1 tablet Q4H PRN Administration Pain Rated 4-6 Polyethylene Glycol 17 gm 06/16/24 10:00 06/19/24 08:47 Polyethylene Glycol 3350 17 Gm Powd.Pack PO 17 gm QAM HERIBERTO Administration Potassium Chloride 20 meq 06/18/24 17:00 06/18/24 17:34 Potassium Chloride 20 Meq Er Tablet PO 20 meq DAILY@1700 HERIBERTO Administration Senna/Docusate Sodium 2 tab 06/16/24 10:00 06/19/24 08:47 Senna/Docusate Sodium Tablet PO 2 tab BID HERIBERTO Administration Zonisamide 100 mg 06/18/24 17:00 06/18/24 17:34 Zonisamide 100 Mg Capsule PO 100 mg DAILY@1700 HERIBERTO Administration Radiology Results: ITS Impressions Head CT 06/15/24 11:06 IMPRESSION: 1. No fracture or acute intracranial process. 2. Age-related changes including mild diffuse volume loss and mild scattered white matter hypoattenuation consistent with chronic small vessel ischemic disease. Cervical Spine CT 06/15/24 11:12 IMPRESSION: 1. No acute fracture. 2. Severe cervical spondylosis. 3. Scoliosis. Chest X-Ray 06/15/24 11:28 IMPRESSION: 1. No acute cardiopulmonary disease. Hip/Pelvis X-Ray 06/15/24 11:29 IMPRESSION: 1. Subcapital fracture of left femoral neck. 2. Mild osteoarthritis of the hips. Intraoperative X-Ray 06/16/24 08:43 IMPRESSION: 1. Subchondral fracture of left femoral neck status post internal fixation. 2. Mild left hip osteoarthritis. Labs Labs: Laboratory Results - last 24 hr 06/19/24 05:24 WBC 5.8 RBC 4.15 L Hgb 14.1 Hct 40.9 MCV 98.6 MCH 34.0 MCHC 34.5 RDW 11.9 Plt Count 178 MPV 11.8 H Sodium 142 Potassium 3.9 Chloride 111 H Carbon Dioxide 24 Anion Gap 7 BUN 6 L Creatinine 0.50 L Estim Creat Clear Calc 91 Estimated GFR > 60 Glucose 100 Calcium 9.0 Quality VTE Prophylaxis VTE prophylaxis: mechanical ordered Hospitalist [facility] Advance Care Plan I have confirmed that the patient's Advanced Care Plan is present, code status is documented, or surrogate decision maker is listed in patient medical record.: Yes Medication Reconciliation I have utilized all available resources to obtain, update and review the patients current medications (includes all prescriptions, OTC, herbals, cannabis, and nutritional supplements).: Yes
[2024-06-19 14:00] VITALS: BP 117/66; PULSE 85; RESP 16; TEMP 36.5; O2SAT 92
--- NOTE | 2024-06-19 15:50 | PM.PNORT ---
Progress Note: A&P Assessment and Plan (1) Closed subcapital fracture of femur: Qualifiers: Encounter type: initial encounter Laterality: left Qualified Code(s): S72.012A - Unspecified intracapsular fracture of left femur, initial encounter for closed fracture Code(s): S72.019A - Unspecified intracapsular fracture of unspecified femur, initial encounter for closed fracture Status: Acute Assessment and Plan: POD #3: CRPP Left Hip Continue PT/OT. NWB. Walker. HIGH FALL RISK. Continue pain control. Ice hip. Protect skin. DVT prophylaxis with Aspirin. SCDs. Incentive Spirometry Use reviewed. Monitor Dressing. Change prior to discharge. Bowel Regimen. Dispo: [facility] A pending progress with PT/OT Plan Reviewed history, exam, radiographs and current labs with attending MD and covering surgeon, Dr. Resendiz, who agrees with current plan as indicated above. No further recommendations from Dr. Resendiz at this time. Subjective Subjective Date/Time Seen: 06/19/24 15:50 Post Op day: 3 Interval history: POD #3: Left Hip CRPP Patient doing well. Pain well controlled. A&O x3-4. No new concerns. Hopeful for discharge home. Review of Systems Constitutional: Constitutional: Denies chills, Denies fatigue, Denies fever(s), Denies night sweats and Denies weakness Cardiovascular: Cardiovascular: Denies chest pain, Denies lightheadedness, Denies palpitations and Denies dyspnea Respiratory: Respiratory: Denies cough, Denies dyspnea and Denies wheezing Gastrointestinal: Gastrointestinal: Denies abdominal pain, Denies diarrhea, Denies nausea and Denies vomiting Musculoskeletal: Musculoskeletal: Reports arthralgias (left hip ), Reports joint swelling (left hip ) and Denies numbness Neurologic: Denies numbness and Denies weakness Endocrine: Endocrine: Denies fatigue and Denies palpitations Allergic/Immunologic: Allergic/Immunologic: Denies wheezing Exam Const: General: comfortable and no acute distress Orientation/consciousness: patient oriented x3 Limitations: no limitations Resp: Effort & Inspection: normal respiratory effort Cardio: Rate: regular rate Rhythm: regular rhythm GI: Inspection: non-distended Skin: General skin exam: normal color and wounds noted (incision left hip C/D/I ) Wounds: wounds noted (incision left hip C/D/I ) Neuro: General: patient oriented x3 Extrem: Left lower extremity: hip/thigh Details: tenderness Location: of the hip Location: laterally and anteriorly, swelling (thigh soft ) Location: of the hip (lateral. ), abnormal ROM (limitations with internal/external rotation and flexion/extension due to recent surgical intervention ) and other (incision lateral hip c/d/i. ), knee Details: normal to inspection and normal ROM; no tenderness and no swelling, lower leg (Negative Marilyn's Sign ) Details: no edema, ankle (+ankle dorsiflexion/plantarflexion ) Details: normal to inspection, no edema and normal ROM; no tenderness, no swelling and no warmth and foot Details: normal capillary refill, toes with normal ROM, vascular exam Details: dorsalis pedis pulse present and motor-sensory exam light-touch normal in all toes; no tenderness, no ecchymosis and no crepitus Psych: Mental Status: mental status grossly normal Affect: normal affect Objective Data Vital Signs Vital Signs: Vital Signs - 24 hr 06/18/24 21:27 06/18/24 21:39 06/19/24 06:00 Temperature 36.4 C L 36.4 C Pulse Rate 67 72 Respiratory Rate 16 18 Blood Pressure 138/77 118/81 Pulse Oximetry 100 96 Oxygen Delivery Room Air 06/19/24 08:50 Temperature Pulse Rate Respiratory Rate Blood Pressure Pulse Oximetry Oxygen Delivery Room Air Intake/Output Intake/Output: Intake & Output 06/16/24 06/17/24 06/18/24 06/19/24 23:59 23:59 23:59 23:59 Intake Total 4391 036 8508 534 Output Total 1150 2200 750 400 Balance 230 -1470 720 134 Meds/Results Medications: Active Medications Generic Name Dose Route Start Last Admin Trade Name Freq PRN Reason Stop Dose Admin Aripiprazole 10 mg 06/18/24 09:00 06/19/24 08:47 Aripiprazole 10 Mg Tablet PO 10 mg DAILY HERIBERTO Administration Aspirin 325 mg 06/16/24 10:00 06/19/24 08:47 Aspirin 325 Mg Enteric Tablet PO 325 mg Q12HR HERIBERTO Administration Buspirone HCl 15 mg 06/18/24 10:45 06/19/24 08:47 Buspirone Hcl 5 Mg Tablet PO 15 mg Q12HR HERIBERTO Administration Carbamazepine 100 mg 06/18/24 21:00 06/19/24 08:47 Carbamazepine Xr 100 Mg Tab.Sr.12h PO 100 mg Q12HR HERIBERTO Administration Carbamazepine 400 mg 06/18/24 21:00 06/19/24 08:47 Carbamazepine Xr 200 Mg Tab.Er.12h PO 400 mg Q12HR HERIBERTO Administration Carbidopa/Levodopa 1 tablet/ 2 tablet 06/16/24 10:30 06/19/24 13:46 Carbidopa/Levodopa 1 tablet PO 2 tablet Q8HR HERIBERTO Administration Celecoxib 200 mg 06/16/24 10:00 06/19/24 08:47 Celecoxib 200 Mg Capsule PO 200 mg DAILY@0800 [facility] Administration Diazepam 5 mg 06/16/24 10:00 06/18/24 05:52 Diazepam (*Crx) 5 Mg Tablet PO 5 mg Q8H PRN Administration Muscle Spasm Doxycycline Hyclate 100 mg 06/16/24 10:15 06/19/24 08:47 Doxycycline Hyclate 100 Mg Tablet PO 100 mg DAILY HERIBERTO Administration Famotidine 20 mg 06/16/24 10:00 06/19/24 08:47 Famotidine 20 Mg Tablet PO 20 mg Q12HR HERIBERTO Administration Hydroxyzine Pamoate 50 mg 06/16/24 10:00 Hydroxyzine Pamoate 25 Mg Capsule PO Q4H PRN Itching Ibuprofen 800 mg in 200 mls @ 400 mls/hr 06/16/24 10:00 06/16/24 14:00 Caldolor 800 Mg/200 Ml IVPB Infused Q6H PRN Infusion Breakthrough Pain Rated 1-3 or NPO Naloxone HCl 0.1 mg 06/16/24 10:00 Naloxone Hcl 0.4 Mg/Ml Vial IV PUSH Q2M PRN Opiate Reversal Ondansetron HCl 4 mg 06/16/24 10:00 Ondansetron Inj 4 Mg/2 Ml Vial IV PUSH Q4H PRN Nausea And Vomiting Oxycodone/Acetaminophen 1 tab 06/16/24 10:00 Oxycodone/Acetaminophen (*Crx) 10-325 Mg Tablet PO Q6H PRN Pain Rated 7-10 Oxycodone/Acetaminophen 1 tablet 06/16/24 10:00 06/19/24 08:59 Oxycodone/Acetaminophen (*Crx) 5-325 Mg Tablet PO 1 tablet Q4H PRN Administration Pain Rated 4-6 Polyethylene Glycol 17 gm 06/16/24 10:00 06/19/24 08:47 Polyethylene Glycol 3350 17 Gm Powd.Pack PO 17 gm QAM HERIBERTO Administration Potassium Chloride 20 meq 06/18/24 17:00 06/18/24 17:34 Potassium Chloride 20 Meq Er Tablet PO 20 meq DAILY@1700 HERIBERTO Administration Senna/Docusate Sodium 2 tab 06/16/24 10:00 06/19/24 08:47 Senna/Docusate Sodium Tablet PO 2 tab BID HERIBERTO Administration Zonisamide 100 mg 06/18/24 17:00 06/18/24 17:34 Zonisamide 100 Mg Capsule PO 100 mg DAILY@1700 HERIBERTO Administration Radiology Results: ITS Impressions Head CT 06/15/24 11:06 IMPRESSION: 1. No fracture or acute intracranial process. 2. Age-related changes including mild diffuse volume loss and mild scattered white matter hypoattenuation consistent with chronic small vessel ischemic disease. Cervical Spine CT 06/15/24 11:12 IMPRESSION: 1. No acute fracture. 2. Severe cervical spondylosis. 3. Scoliosis. Chest X-Ray 06/15/24 11:28 IMPRESSION: 1. No acute cardiopulmonary disease. Hip/Pelvis X-Ray 06/15/24 11:29 IMPRESSION: 1. Subcapital fracture of left femoral neck. 2. Mild osteoarthritis of the hips. Intraoperative X-Ray 06/16/24 08:43 IMPRESSION: 1. Subchondral fracture of left femoral neck status post internal fixation. 2. Mild left hip osteoarthritis. Labs Labs: Laboratory Results - last 24 hr 06/19/24 05:24 WBC 5.8 RBC 4.15 L Hgb 14.1 Hct 40.9 MCV 98.6 MCH 34.0 MCHC 34.5 RDW 11.9 Plt Count 178 MPV 11.8 H Sodium 142 Potassium 3.9 Chloride 111 H Carbon Dioxide 24 Anion Gap 7 BUN 6 L Creatinine 0.50 L Estim Creat Clear Calc 91 Estimated GFR > 60 Glucose 100 Calcium 9.0
[2024-06-19] MEDS: ZONISAMIDE 100 MG CAPSULE PO (17:36)
[2024-06-19] MEDS: POTASSIUM CHLORIDE 20 MEQ ER TABLET PO (17:36)
[2024-06-19 20:52] VITALS: BP 154/82; PULSE 84; RESP 16; TEMP 36.3; O2SAT 100
[2024-06-20] MEDS: CARBIDOPA/LEVODOPA 12.5/50 MG 1 TABLET, CARBIDOPA/LEVODOPA 25/100 MG 1 TABLET 2 TABLET PO ×3 (05:15→21:55)
[2024-06-20 05:22] VITALS: BP 130/80; PULSE 65; RESP 13; TEMP 36.7; O2SAT 99
[2024-06-20] MEDS: FAMOTIDINE 20 MG TABLET PO ×2 (08:58→21:56)
[2024-06-20] MEDS: SENNA/DOCUSATE SODIUM TABLET 2 TAB PO ×2 (08:58→17:10)
[2024-06-20] MEDS: ARIPiprazole 10 MG TABLET PO (08:58)
[2024-06-20] MEDS: DOXYCYCLINE HYCLATE 100 MG TABLET PO (08:58)
[2024-06-20] MEDS: CARBAMAZEPINE XR 100 MG TAB.SR.12H PO ×2 (09:00→21:56)
[2024-06-20] MEDS: ASPIRIN 325 MG ENTERIC TABLET PO ×2 (09:00→21:55)
[2024-06-20] MEDS: CELECOXIB 200 MG CAPSULE PO (09:00)
[2024-06-20] MEDS: CARBAMAZEPINE XR 200 MG TAB.ER.12H 400 MG PO ×2 (09:00→21:55)
[2024-06-20] MEDS: busPIRone HCL 5 MG TABLET 15 MG PO ×2 (09:10→21:55)
--- NOTE | 2024-06-20 11:31 | P.PNIM_ITS ---
Progress Note: A&P Assessment and Plan (1) Closed subcapital fracture of femur: Qualifiers: Encounter type: initial encounter Laterality: left Qualified Code(s): S72.012A - Unspecified intracapsular fracture of left femur, initial encounter for closed fracture Code(s): S72.019A - Unspecified intracapsular fracture of unspecified femur, initial encounter for closed fracture Status: Acute Assessment and Plan: - XR hip/pelvis: 1. Subcapital fracture of left femoral neck. 2. Mild osteoarthritis of the hips. - Status post surgical repair on 06/16/2024. - Continue PT/OT treatment with ortho restrictions. - Pain meds PRN. - Fall precautions. - Awaiting transfer to Rehab. (2) Epilepsy: Code(s): G40.909 - Epilepsy, unspecified, not intractable, without status epilepticus Status: Acute Assessment and Plan: - CT head negative for acute. - Home meds resumed. - Continue seizure precautions. (3) Parkinson disease: Code(s): G20.A1 - Parkinson's disease without dyskinesia, without mention of fluctuations Status: Acute Assessment and Plan: - Stable. - Home meds resumed. (4) Fall: Qualifiers: Encounter type: initial encounter Qualified Code(s): W19.XXXA - Unspecified fall, initial encounter Code(s): W19.XXXA - Unspecified fall, initial encounter Status: Inactive Assessment and Plan: - Unclear etiology. - Possibly mechanical vs seizure vs other. - CT head negative for acute. - CT cervical spine negative for acute. - No seizure episodes inpatient. - Continue seizure and fall precautions. Plan Diet: Heart healthy, GI Prophylaxis: Not currently indicated DVT Prophylaxis: SCDs Lines: Peripheral Code Status: DNR Time Spent With Patient Time with patient: 15 - 25 minutes Subjective Date/time seen: 06/20/24 11:31 Patient states she feels alright. States left-hip just has some discomfort otherwise not really pain. States did ok with PT and was [facility] to [facility], tolerating well. Interval history: Patient calm on recliner with family on the side, looks to be in no acute distress. Review of Systems Review of Systems: All systems reviewed & are unremarkable except as noted in HPI and below Exam Narrative: General: Calm and in no acute distress on recliner. Sister on the side. HEENT: Atraumatic, PERRL, EOM, anicteric, moist mucus membranes. NECK: Supple. Lungs: Clear bilaterally. Heart: RRR, no murmurs. Abdomen: Soft, non-tender, non-distended, +ve bowel sounds X4 quadrants. Musculoskeletal: Slight Left-hip pain. Extremities: No edema, 2+ pedal pulses, good sensations catia UE and LE. Clean, dry and intact dressing to L. Hip. Skin: Warm and dry. Dry and intact dressing to Left Hip with no drainage. Neuro: Fairly well oriented. No focal neuro deficits noted. Psych: Calm and co-operative. Objective Data Vital Signs Vital Signs: Vital Signs - 24 hr 06/19/24 14:00 06/19/24 20:52 06/19/24 21:35 Temperature 97.7 F 97.3 F L Pulse Rate 85 84 Respiratory Rate 16 16 Blood Pressure 117/66 154/82 H Pulse Oximetry 92 100 Oxygen Delivery Room Air 06/20/24 05:22 06/20/24 09:00 Temperature 98.1 F Pulse Rate 65 Respiratory Rate 13 Blood Pressure 130/80 Pulse Oximetry 99 Oxygen Delivery Room Air Intake/Output Intake/Output: Intake & Output 06/17/24 06/18/24 06/19/24 06/20/24 23:59 23:59 23:59 23:59 Intake Total 730 1470 894 340 Output Total 2200 750 1600 700 Balance -1470 720 -706 -360 Meds/Results Medications: Active Medications Generic Name Dose Route Start Last Admin Trade Name Freq PRN Reason Stop Dose Admin Aripiprazole 10 mg 06/18/24 09:00 06/20/24 08:58 Aripiprazole 10 Mg Tablet PO 10 mg DAILY HERIBERTO Administration Aspirin 325 mg 06/16/24 10:00 06/20/24 09:00 Aspirin 325 Mg Enteric Tablet PO 325 mg Q12HR HERIBERTO Administration Buspirone HCl 15 mg 06/18/24 10:45 06/20/24 09:10 Buspirone Hcl 5 Mg Tablet PO 15 mg Q12HR HERIBERTO Administration Carbamazepine 100 mg 06/18/24 21:00 06/20/24 09:00 Carbamazepine Xr 100 Mg Tab.Sr.12h PO 100 mg Q12HR HERIBERTO Administration Carbamazepine 400 mg 06/18/24 21:00 06/20/24 09:00 Carbamazepine Xr 200 Mg Tab.Er.12h PO 400 mg Q12HR HERIBERTO Administration Carbidopa/Levodopa 1 tablet/ 2 tablet 06/16/24 10:30 06/20/24 05:15 Carbidopa/Levodopa 1 tablet PO 2 tablet Q8HR HERIBERTO Administration Celecoxib 200 mg 06/16/24 10:00 06/20/24 09:00 Celecoxib 200 Mg Capsule PO 200 mg DAILY@0800 HERIBERTO Administration Diazepam 5 mg 06/16/24 10:00 06/18/24 05:52 Diazepam (*Crx) 5 Mg Tablet PO 5 mg Q8H PRN Administration Muscle Spasm Doxycycline Hyclate 100 mg 06/16/24 10:15 06/20/24 08:58 Doxycycline Hyclate 100 Mg Tablet PO 100 mg DAILY HERIBERTO Administration Famotidine 20 mg 06/16/24 10:00 06/20/24 08:58 Famotidine 20 Mg Tablet PO 20 mg Q12HR HERIBERTO Administration Hydroxyzine Pamoate 50 mg 06/16/24 10:00 Hydroxyzine Pamoate 25 Mg Capsule PO Q4H PRN Itching Ibuprofen 800 mg in 200 mls @ 400 mls/hr 06/16/24 10:00 06/16/24 14:00 Caldolor 800 Mg/200 Ml IVPB Infused Q6H PRN Infusion Breakthrough Pain Rated 1-3 or NPO Naloxone HCl 0.1 mg 06/16/24 10:00 Naloxone Hcl 0.4 Mg/Ml Vial IV PUSH Q2M PRN Opiate Reversal Ondansetron HCl 4 mg 06/16/24 10:00 Ondansetron Inj 4 Mg/2 Ml Vial IV PUSH Q4H PRN Nausea And Vomiting Oxycodone/Acetaminophen 1 tab 06/16/24 10:00 Oxycodone/Acetaminophen (*Crx) 10-325 Mg Tablet PO Q6H PRN Pain Rated 7-10 Oxycodone/Acetaminophen 1 tablet 06/16/24 10:00 06/19/24 08:59 Oxycodone/Acetaminophen (*Crx) 5-325 Mg Tablet PO 1 tablet Q4H PRN Administration Pain Rated 4-6 Polyethylene Glycol 17 gm 06/16/24 10:00 06/20/24 09:06 Polyethylene Glycol 3350 17 Gm Powd.Pack PO Not Given QAM [facility] Potassium Chloride 20 meq 06/18/24 17:00 06/19/24 17:36 Potassium Chloride 20 Meq Er Tablet PO 20 meq DAILY@1700 HERIBERTO Administration Senna/Docusate Sodium 2 tab 06/16/24 10:00 06/20/24 08:58 Senna/Docusate Sodium Tablet PO 2 tab BID HERIBERTO Administration Zonisamide 100 mg 06/18/24 17:00 06/19/24 17:36 Zonisamide 100 Mg Capsule PO 100 mg DAILY@1700 [facility] Administration Radiology Results: ITS Impressions Head CT 06/15/24 11:06 IMPRESSION: 1. No fracture or acute intracranial process. 2. Age-related changes including mild diffuse volume loss and mild scattered white matter hypoattenuation consistent with chronic small vessel ischemic disease. Cervical Spine CT 06/15/24 11:12 IMPRESSION: 1. No acute fracture. 2. Severe cervical spondylosis. 3. Scoliosis. Chest X-Ray 06/15/24 11:28 IMPRESSION: 1. No acute cardiopulmonary disease. Hip/Pelvis X-Ray 06/15/24 11:29 IMPRESSION: 1. Subcapital fracture of left femoral neck. 2. Mild osteoarthritis of the hips. Intraoperative X-Ray 06/16/24 08:43 IMPRESSION: 1. Subchondral fracture of left femoral neck status post internal fixation. 2. Mild left hip osteoarthritis. Quality VTE Prophylaxis VTE prophylaxis: mechanical ordered Hospitalist [facility] Advance Care Plan I have confirmed that the patient's Advanced Care Plan is present, code status is documented, or surrogate decision maker is listed in patient medical record.: Yes Medication Reconciliation I have utilized all available resources to obtain, update and review the patients current medications (includes all prescriptions, OTC, herbals, cannabis, and nutritional supplements).: Yes
[2024-06-20 14:00] VITALS: BP 102/73; PULSE 86; RESP 14; TEMP 36.4; O2SAT 100
[2024-06-20] MEDS: ZONISAMIDE 100 MG CAPSULE PO (17:10)
[2024-06-20] MEDS: POTASSIUM CHLORIDE 20 MEQ ER TABLET PO (17:11)
[2024-06-20 20:07] VITALS: BP 149/79; PULSE 80; RESP 18; TEMP 36.4; O2SAT 100
[2024-06-20 22:00] VITALS: BP 151/89; PULSE 72; RESP 18; TEMP 36.5; O2SAT 100
[2024-06-21 06:00] VITALS: BP 120/62; PULSE 63; RESP 18; TEMP 36.6; O2SAT 96
[2024-06-21] MEDS: CARBIDOPA/LEVODOPA 12.5/50 MG 1 TABLET, CARBIDOPA/LEVODOPA 25/100 MG 1 TABLET 2 TABLET PO ×3 (06:46→21:26)
[2024-06-21] MEDS: DOXYCYCLINE HYCLATE 100 MG TABLET PO (08:37)
[2024-06-21] MEDS: busPIRone HCL 5 MG TABLET 15 MG PO ×2 (08:37→21:26)
[2024-06-21] MEDS: ARIPiprazole 10 MG TABLET PO (08:37)
[2024-06-21] MEDS: CELECOXIB 200 MG CAPSULE PO (08:37)
[2024-06-21] MEDS: ASPIRIN 325 MG ENTERIC TABLET PO ×2 (08:37→21:28)
[2024-06-21] MEDS: FAMOTIDINE 20 MG TABLET PO ×2 (08:38→21:27)
[2024-06-21] MEDS: CARBAMAZEPINE XR 100 MG TAB.SR.12H PO ×2 (08:38→21:26)
[2024-06-21] MEDS: CARBAMAZEPINE XR 200 MG TAB.ER.12H 400 MG PO ×2 (08:38→21:26)
[2024-06-21 14:00] VITALS: BP 125/65; PULSE 73; RESP 18; TEMP 36.9; O2SAT 100
--- NOTE | 2024-06-21 14:03 | PM.IMPN ---
Progress Note: A&P Assessment and Plan (1) Closed subcapital fracture of femur: Qualifiers: Encounter type: initial encounter Laterality: left Qualified Code(s): S72.012A - Unspecified intracapsular fracture of left femur, initial encounter for closed fracture Code(s): S72.019A - Unspecified intracapsular fracture of unspecified femur, initial encounter for closed fracture Status: Acute Assessment and Plan: - XR hip/pelvis: 1. Subcapital fracture of left femoral neck. 2. Mild osteoarthritis of the hips. - Status post surgical repair on 06/16/2024. - Continue PT/OT treatment with ortho restrictions. - Pain meds PRN. - Fall precautions. - Awaiting transfer to Rehab. (2) Epilepsy: Code(s): G40.909 - Epilepsy, unspecified, not intractable, without status epilepticus Status: Acute Assessment and Plan: - CT head negative for acute. - Home anti-epileptic meds resumed. - Continue seizure precautions. (3) Parkinson disease: Code(s): G20.A1 - Parkinson's disease without dyskinesia, without mention of fluctuations Status: Acute Assessment and Plan: - Stable. - Home meds resumed. (4) Fall: Qualifiers: Encounter type: initial encounter Qualified Code(s): W19.XXXA - Unspecified fall, initial encounter Code(s): W19.XXXA - Unspecified fall, initial encounter Status: Inactive Assessment and Plan: - Unclear etiology. - Possibly mechanical vs seizure vs other. - CT head negative for acute. - CT cervical spine negative for acute. - No seizure episodes inpatient. - Continue seizure and fall precautions. Plan Diet: Heart healthy, GI Prophylaxis: Not currently indicated DVT Prophylaxis: SCDs Lines: Peripheral Code Status: DNR Time Spent With Patient Time with patient: 15 - 25 minutes Subjective Date/time seen: 06/21/24 14:03 Patient calm on bedrest and states has no pain or other distressful symptoms. Noted moving legs up and down, even crossing feet without any pain. States she feels good and just waiting for rehab to accept her. Interval history: Patient calm on bedrest and looks to be in no acute distress. Review of Systems Review of Systems: All systems reviewed & are unremarkable except as noted in HPI and below Exam Narrative: General: Calm and in no acute distress on bedrest. HEENT: Atraumatic, PERRL, EOM, anicteric, moist mucus membranes. NECK: Supple. Lungs: Clear bilaterally. Heart: RRR, no murmurs. Abdomen: Soft, non-tender, non-distended, +ve bowel sounds X4 quadrants. Musculoskeletal: No hip pain. Clean, dry and intact left-hip dressing. Extremities: No edema, 2+ pedal pulses, good sensations catia UE and LE. Clean, dry and intact dressing to L. Hip. Skin: Warm and dry. Dry and intact dressing to Left Hip with no drainage. Neuro: Fairly well oriented. No focal neuro deficits noted. Psych: Calm and co-operative. Objective Data Vital Signs Vital Signs: Vital Signs - 24 hr 06/20/24 20:07 06/20/24 22:00 06/20/24 20:00 Temperature 97.5 F L 97.7 F Pulse Rate 80 72 Respiratory Rate 18 18 Blood Pressure 149/79 H 151/89 H Pulse Oximetry 100 100 Oxygen Delivery Room Air 06/21/24 06:00 06/21/24 08:30 Temperature 97.8 F Pulse Rate 63 Respiratory Rate 18 Blood Pressure 120/62 Pulse Oximetry 96 Oxygen Delivery Room Air Intake/Output Intake/Output: Intake & Output 06/18/24 06/19/24 06/20/24 06/21/24 23:59 23:59 23:59 23:59 Intake Total 6545 681 7065 360 Output Total 750 1600 3400 1600 Balance 720 - Meds/Results Medications: Active Medications Generic Name Dose Route Start Last Admin Trade Name Mikeq PRN Reason Stop Dose Admin Aripiprazole 10 mg 06/18/24 09:00 06/21/24 08:37 Aripiprazole 10 Mg Tablet PO 10 mg DAILY HERIBERTO Administration Aspirin 325 mg 06/16/24 10:00 06/21/24 08:37 Aspirin 325 Mg Enteric Tablet PO 325 mg Q12HR HERIBERTO Administration Buspirone HCl 15 mg 06/18/24 10:45 06/21/24 08:37 Buspirone Hcl 5 Mg Tablet PO 15 mg Q12HR HERIBERTO Administration Carbamazepine 100 mg 06/18/24 21:00 06/21/24 08:38 Carbamazepine Xr 100 Mg Tab.Sr.12h PO 100 mg Q12HR HERIBERTO Administration Carbamazepine 400 mg 06/18/24 21:00 06/21/24 08:38 Carbamazepine Xr 200 Mg Tab.Er.12h PO 400 mg Q12HR HERIBERTO Administration Carbidopa/Levodopa 1 tablet/ 2 tablet 06/16/24 10:30 06/21/24 06:46 Carbidopa/Levodopa 1 tablet PO 2 tablet Q8HR HERIBERTO Administration Celecoxib 200 mg 06/16/24 10:00 06/21/24 08:37 Celecoxib 200 Mg Capsule PO 200 mg DAILY@0800 HERIBERTO Administration Diazepam 5 mg 06/16/24 10:00 06/18/24 05:52 Diazepam (*Crx) 5 Mg Tablet PO 5 mg Q8H PRN Administration Muscle Spasm Doxycycline Hyclate 100 mg 06/16/24 10:15 06/21/24 08:37 Doxycycline Hyclate 100 Mg Tablet PO 100 mg DAILY HERIBERTO Administration Famotidine 20 mg 06/16/24 10:00 06/21/24 08:38 Famotidine 20 Mg Tablet PO 20 mg Q12HR HERIBERTO Administration Hydroxyzine Pamoate 50 mg 06/16/24 10:00 Hydroxyzine Pamoate 25 Mg Capsule PO Q4H PRN Itching Ibuprofen 800 mg in 200 mls @ 400 mls/hr 06/16/24 10:00 06/16/24 14:00 Caldolor 800 Mg/200 Ml IVPB Infused Q6H PRN Infusion Breakthrough Pain Rated 1-3 or NPO Miscellaneous Information 1 each 06/21/24 00:01 Zonisamide Hs Ordered. Currently Receives Zonisamide 100mg Qpm At 1700. Which Order To Con XX 07/21/24 00:00 CLARIFY HERIBERTO Naloxone HCl 0.1 mg 06/16/24 10:00 Naloxone Hcl 0.4 Mg/Ml Vial IV PUSH Q2M PRN Opiate Reversal Ondansetron HCl 4 mg 06/16/24 10:00 Ondansetron Inj 4 Mg/2 Ml Vial IV PUSH Q4H PRN Nausea And Vomiting Oxycodone/Acetaminophen 1 tab 06/16/24 10:00 Oxycodone/Acetaminophen (*Crx) 10-325 Mg Tablet PO Q6H PRN Pain Rated 7-10 Oxycodone/Acetaminophen 1 tablet 06/16/24 10:00 06/19/24 08:59 Oxycodone/Acetaminophen (*Crx) 5-325 Mg Tablet PO 1 tablet Q4H PRN Administration Pain Rated 4-6 Polyethylene Glycol 17 gm 06/16/24 10:00 06/21/24 08:34 Polyethylene Glycol 3350 17 Gm Powd.Pack PO Not Given QAM [facility] Potassium Chloride 20 meq 06/18/24 17:00 06/20/24 17:11 Potassium Chloride 20 Meq Er Tablet PO 20 meq DAILY@1700 HERIBERTO Administration Primidone 250 mg 06/21/24 21:00 Primidone 250 Mg Tablet PO HS [facility] Senna/Docusate Sodium 2 tab 06/16/24 10:00 06/21/24 08:34 Senna/Docusate Sodium Tablet PO Not Given BID [facility] Zonisamide 100 mg 06/18/24 17:00 06/20/24 17:10 Zonisamide 100 Mg Capsule PO 100 mg DAILY@1700 [facility] Administration Radiology Results: ITS Impressions Head CT 06/15/24 11:06 IMPRESSION: 1. No fracture or acute intracranial process. 2. Age-related changes including mild diffuse volume loss and mild scattered white matter hypoattenuation consistent with chronic small vessel ischemic disease. Cervical Spine CT 06/15/24 11:12 IMPRESSION: 1. No acute fracture. 2. Severe cervical spondylosis. 3. Scoliosis. Chest X-Ray 06/15/24 11:28 IMPRESSION: 1. No acute cardiopulmonary disease. Hip/Pelvis X-Ray 06/15/24 11:29 IMPRESSION: 1. Subcapital fracture of left femoral neck. 2. Mild osteoarthritis of the hips. Intraoperative X-Ray 06/16/24 08:43 IMPRESSION: 1. Subchondral fracture of left femoral neck status post internal fixation. 2. Mild left hip osteoarthritis. Quality VTE Prophylaxis VTE prophylaxis: mechanical ordered Hospitalist [facility] Advance Care Plan I have confirmed that the patient's Advanced Care Plan is present, code status is documented, or surrogate decision maker is listed in patient medical record.: Yes Medication Reconciliation I have utilized all available resources to obtain, update and review the patients current medications (includes all prescriptions, OTC, herbals, cannabis, and nutritional supplements).: Yes
[2024-06-21] MEDS: POTASSIUM CHLORIDE 20 MEQ ER TABLET PO (16:56)
[2024-06-21] MEDS: ZONISAMIDE 100 MG CAPSULE PO (16:56)
[2024-06-21 20:49] LABS: Glucose Point of Care 104 mg/dl (65-105)
[2024-06-21] MEDS: PRIMIDONE 250 MG TABLET PO (21:26)
[2024-06-21 22:00] VITALS: BP 143/88; PULSE 72; RESP 18; TEMP 36.9; O2SAT 100
[2024-06-22 06:00] VITALS: BP 119/78; PULSE 66; RESP 18; TEMP 36.7; O2SAT 100
[2024-06-22] MEDS: CARBIDOPA/LEVODOPA 12.5/50 MG 1 TABLET, CARBIDOPA/LEVODOPA 25/100 MG 1 TABLET 2 TABLET PO ×3 (06:25→21:50)
[2024-06-22] MEDS: CARBAMAZEPINE XR 200 MG TAB.ER.12H 400 MG PO ×2 (09:02→21:47)
[2024-06-22] MEDS: busPIRone HCL 5 MG TABLET 15 MG PO ×2 (09:02→21:47)
[2024-06-22] MEDS: ARIPiprazole 10 MG TABLET PO (09:03)
[2024-06-22] MEDS: ASPIRIN 325 MG ENTERIC TABLET PO ×2 (09:03→21:48)
[2024-06-22] MEDS: FAMOTIDINE 20 MG TABLET PO ×2 (09:03→21:48)
[2024-06-22] MEDS: CELECOXIB 200 MG CAPSULE PO (09:03)
[2024-06-22] MEDS: CARBAMAZEPINE XR 100 MG TAB.SR.12H PO ×2 (09:03→21:47)
[2024-06-22] MEDS: DOXYCYCLINE HYCLATE 100 MG TABLET PO (09:03)
--- NOTE | 2024-06-22 09:11 | PM.PNORT ---
Progress Note: A&P Assessment and Plan (1) Closed subcapital fracture of femur: Qualifiers: Encounter type: initial encounter Laterality: left Qualified Code(s): S72.012A - Unspecified intracapsular fracture of left femur, initial encounter for closed fracture Code(s): S72.019A - Unspecified intracapsular fracture of unspecified femur, initial encounter for closed fracture Status: Acute Assessment and Plan: POD #6: CRPP Left Hip Continue PT/OT. NWB. Walker. HIGH FALL RISK. Continue pain control. Ice hip. Protect skin. DVT prophylaxis with Aspirin. SCDs. Incentive Spirometry Use reviewed. Monitor Dressing. Change prior to discharge. Bowel Regimen. Dispo: [facility] vs Swing Bed pending progress with PT/OT Plan Reviewed history, exam, radiographs and current labs with attending MD and covering surgeon, Dr. Resendiz, who agrees with current plan as indicated above. No further recommendations from Dr. Resendiz at this time. Subjective Subjective Date/Time Seen: 06/22/24 09:11 Post Op day: 6 Interval history: POD #6: Left Hip CRPP Patient doing well. Pain well controlled. A&O x3-4. No new concerns. Hopeful for discharge to [facility] vs. Swing bed. Awaiting insurance authorization. Review of Systems Review of Systems: All systems reviewed & are unremarkable except as noted in HPI and below Exam Const: General: comfortable and no acute distress Orientation/consciousness: patient oriented x3 Limitations: no limitations Resp: Effort & Inspection: normal respiratory effort Cardio: Rate: regular rate Rhythm: regular rhythm GI: Inspection: non-distended Skin: General skin exam: normal color and wounds noted (incision left hip C/D/I ) Wounds: wounds noted (incision left hip C/D/I ) Neuro: General: patient oriented x3 Extrem: Left lower extremity: hip/thigh Details: tenderness Location: of the hip Location: laterally and anteriorly, swelling (thigh soft ) Location: of the hip (lateral. ), abnormal ROM (limitations with internal/external rotation and flexion/extension due to recent surgical intervention ) and other (incision lateral hip c/d/i. ), knee Details: normal to inspection and normal ROM; no tenderness and no swelling, lower leg (Negative Marilyn's Sign ) Details: no edema, ankle (+ankle dorsiflexion/plantarflexion ) Details: normal to inspection, no edema and normal ROM; no tenderness, no swelling and no warmth and foot Details: normal capillary refill, toes with normal ROM, vascular exam Details: dorsalis pedis pulse present and motor-sensory exam light-touch normal in all toes; no tenderness, no ecchymosis and no crepitus Psych: Mental Status: mental status grossly normal Affect: normal affect Objective Data Vital Signs Vital Signs: Vital Signs - 24 hr 06/21/24 14:00 06/21/24 22:00 06/22/24 06:00 Temperature 36.9 C 36.9 C 36.7 C Pulse Rate 73 72 66 Respiratory Rate 18 18 18 Blood Pressure 125/65 143/88 H 119/78 Pulse Oximetry 100 100 100 Intake/Output Intake/Output: Intake & Output 06/19/24 06/20/24 06/21/24 06/22/24 23:59 23:59 23:59 23:59 Intake Total 894 3360 600 Output Total 1600 3400 [address] [facility] - -1600 Meds/Results Medications: Active Medications Generic Name Dose Route Start Last Admin Trade Name Freq PRN Reason Stop Dose Admin Aripiprazole 10 mg 06/18/24 09:00 06/22/24 09:03 Aripiprazole 10 Mg Tablet PO 10 mg DAILY HERIBERTO Administration Aspirin 325 mg 06/16/24 10:00 06/22/24 09:03 Aspirin 325 Mg Enteric Tablet PO 325 mg Q12HR HERIBERTO Administration Buspirone HCl 15 mg 06/18/24 10:45 06/22/24 09:02 Buspirone Hcl 5 Mg Tablet PO 15 mg Q12HR HERIBERTO Administration Carbamazepine 100 mg 06/18/24 21:00 06/22/24 09:03 Carbamazepine Xr 100 Mg Tab.Sr.12h PO 100 mg Q12HR HERIBERTO Administration Carbamazepine 400 mg 06/18/24 21:00 06/22/24 09:02 Carbamazepine Xr 200 Mg Tab.Er.12h PO 400 mg Q12HR HERIBERTO Administration Carbidopa/Levodopa 1 tablet/ 2 tablet 06/16/24 10:30 06/22/24 06:25 Carbidopa/Levodopa 1 tablet PO 2 tablet Q8HR HERIBERTO Administration Celecoxib 200 mg 06/16/24 10:00 06/22/24 09:03 Celecoxib 200 Mg Capsule PO 200 mg DAILY@0800 HERIBETRO Administration Diazepam 5 mg 06/16/24 10:00 06/18/24 05:52 Diazepam (*Crx) 5 Mg Tablet PO 5 mg Q8H PRN Administration Muscle Spasm Doxycycline Hyclate 100 mg 06/16/24 10:15 06/22/24 09:03 Doxycycline Hyclate 100 Mg Tablet PO 100 mg DAILY HERIBERTO Administration Famotidine 20 mg 06/16/24 10:00 06/22/24 09:03 Famotidine 20 Mg Tablet PO 20 mg Q12HR HERIBERTO Administration Hydroxyzine Pamoate 50 mg 06/16/24 10:00 Hydroxyzine Pamoate 25 Mg Capsule PO Q4H PRN Itching Ibuprofen 800 mg in 200 mls @ 400 mls/hr 06/16/24 10:00 06/16/24 14:00 Caldolor 800 Mg/200 Ml IVPB Infused Q6H PRN Infusion Breakthrough Pain Rated 1-3 or NPO Naloxone HCl 0.1 mg 06/16/24 10:00 Naloxone Hcl 0.4 Mg/Ml Vial IV PUSH Q2M PRN Opiate Reversal Ondansetron HCl 4 mg 06/16/24 10:00 Ondansetron Inj 4 Mg/2 Ml Vial IV PUSH Q4H PRN Nausea And Vomiting Oxycodone/Acetaminophen 1 tab 06/16/24 10:00 Oxycodone/Acetaminophen (*Crx) 10-325 Mg Tablet PO Q6H PRN Pain Rated 7-10 Oxycodone/Acetaminophen 1 tablet 06/16/24 10:00 06/19/24 08:59 Oxycodone/Acetaminophen (*Crx) 5-325 Mg Tablet PO 1 tablet Q4H PRN Administration Pain Rated 4-6 Polyethylene Glycol 17 gm 06/16/24 10:00 06/22/24 08:59 Polyethylene Glycol 3350 17 Gm Powd.Pack PO Not Given QAM COUNTS INCLUDE 234 BEDS AT THE [facility] Potassium Chloride 20 meq 06/18/24 17:00 06/21/24 16:56 Potassium Chloride 20 Meq Er Tablet PO 20 meq DAILY@1700 COUNTS INCLUDE 234 BEDS AT THE [facility] Administration Primidone 250 mg 06/21/24 21:00 06/21/24 21:26 Primidone 250 Mg Tablet PO 250 mg HS HERIBERTO Administration Senna/Docusate Sodium 2 tab 06/16/24 10:00 06/22/24 08:59 Senna/Docusate Sodium Tablet PO Not Given BID COUNTS INCLUDE 234 BEDS AT THE [facility] Zonisamide 100 mg 06/18/24 17:00 06/21/24 16:56 Zonisamide 100 Mg Capsule PO 100 mg DAILY@1700 COUNTS INCLUDE 234 BEDS AT THE [facility] Administration Radiology Results: ITS Impressions Head CT 06/15/24 11:06 IMPRESSION: 1. No fracture or acute intracranial process. 2. Age-related changes including mild diffuse volume loss and mild scattered white matter hypoattenuation consistent with chronic small vessel ischemic disease. Cervical Spine CT 06/15/24 11:12 IMPRESSION: 1. No acute fracture. 2. Severe cervical spondylosis. 3. Scoliosis. Chest X-Ray 06/15/24 11:28 IMPRESSION: 1. No acute cardiopulmonary disease. Hip/Pelvis X-Ray 06/15/24 11:29 IMPRESSION: 1. Subcapital fracture of left femoral neck. 2. Mild osteoarthritis of the hips. Intraoperative X-Ray 06/16/24 08:43 IMPRESSION: 1. Subchondral fracture of left femoral neck status post internal fixation. 2. Mild left hip osteoarthritis. Labs Labs: Laboratory Results - last 24 hr 06/21/24 20:35 POC Capillary Glucose 104
--- NOTE | 2024-06-22 10:27 | PCNWS ---
Weekly nutritional screen. Patient is tolerating current diet with adequate intake. No weight loss reported. No nutritional needs at this time.
[2024-06-22 14:00] VITALS: BP 119/70; PULSE 70; RESP 18; TEMP 37.1; O2SAT 100
[2024-06-22] MEDS: ZONISAMIDE 100 MG CAPSULE PO (17:46)
[2024-06-22] MEDS: POTASSIUM CHLORIDE 20 MEQ ER TABLET PO (17:46)
--- NOTE | 2024-06-22 17:53 | P.PNIM_ITS ---
Progress Note: A&P Assessment and Plan (1) Closed subcapital fracture of femur: Qualifiers: Encounter type: initial encounter Laterality: left Qualified Code(s): S72.012A - Unspecified intracapsular fracture of left femur, initial encounter for closed fracture Code(s): S72.019A - Unspecified intracapsular fracture of unspecified femur, initial encounter for closed fracture Status: Acute Assessment and Plan: - XR hip/pelvis: 1. Subcapital fracture of left femoral neck. 2. Mild osteoarthritis of the hips. - Status post surgical repair on 06/16/2024. - Continue PT/OT treatment with ortho restrictions. - Pain meds PRN. - Fall precautions. - Awaiting transfer to Rehab vs swing bed. (2) Epilepsy: Code(s): G40.909 - Epilepsy, unspecified, not intractable, without status epilepticus Status: Acute Assessment and Plan: - CT head negative for acute. - Home anti-epileptic meds resumed. - Continue seizure precautions. (3) Parkinson disease: Code(s): G20.A1 - Parkinson's disease without dyskinesia, without mention of fluctuations Status: Acute Assessment and Plan: - Stable. - Home meds resumed. (4) Fall: Qualifiers: Encounter type: initial encounter Qualified Code(s): W19.XXXA - Unspecified fall, initial encounter Code(s): W19.XXXA - Unspecified fall, initial encounter Status: Inactive Assessment and Plan: - Unclear etiology. - Possibly mechanical vs seizure vs other. - CT head negative for acute. - CT cervical spine negative for acute. - No seizure episodes inpatient. - Continue seizure and fall precautions. Plan Diet: Heart healthy, GI Prophylaxis: Not currently indicated DVT Prophylaxis: SCDs Lines: Peripheral Code Status: DNR Time Spent With Patient Time with patient: 15 - 25 minutes Subjective Date/time seen: 06/22/24 17:53 Patient looks comfortable on chair and denies any pain or distress. States just waiting for Rehab placement. Interval history: POD #6: Left Hip CRPP Patient doing well. Pain well controlled and denies any pain currently. A&O x3- 4. No new concerns. Hopeful for discharge to [facility] vs. Swing bed. Awaiting insurance authorization. Review of Systems Review of Systems: All systems reviewed & are unremarkable except as noted in HPI and below Exam Narrative: General: Calm seated on chair and in no acute distress. HEENT: Atraumatic, PERRL, EOM, anicteric, moist mucus membranes. NECK: Supple. Lungs: Clear bilaterally. Heart: RRR, no murmurs. Abdomen: Soft, non-tender, non-distended, +ve bowel sounds X4 quadrants. Musculoskeletal: No hip pain. Clean, dry and intact drsg to left-hip. Extremities: No edema, 2+ pedal pulses, good sensations catia UE and LE. Able to raise catia. legs. Skin: Warm and dry. Dry and intact dressing to Left Hip with no drainage. Neuro: Fairly well oriented. No focal neuro deficits noted. Psych: Calm and co-operative. Objective Data Vital Signs Vital Signs: Vital Signs - 24 hr 06/21/24 22:00 06/22/24 06:00 06/22/24 09:00 Temperature 98.4 F 98.1 F Pulse Rate 72 66 Respiratory Rate 18 18 Blood Pressure 143/88 H 119/78 Pulse Oximetry 100 100 Oxygen Delivery Room Air 06/22/24 14:00 Temperature 98.8 F Pulse Rate 70 Respiratory Rate 18 Blood Pressure 119/70 Pulse Oximetry 100 Oxygen Delivery Intake/Output Intake/Output: Intake & Output 06/19/24 06/20/24 06/21/24 06/22/24 23:59 23:59 23:59 23:59 Intake Total 894 3360 600 480 Output Total 1600 3400 1600 1600 Balance - -1120 Meds/Results Medications: Active Medications Generic Name Dose Route Start Last Admin Trade Name Mikeq PRN Reason Stop Dose Admin Aripiprazole 10 mg 06/18/24 09:00 06/22/24 09:03 Aripiprazole 10 Mg Tablet PO 10 mg DAILY HERIBERTO Administration Aspirin 325 mg 06/16/24 10:00 06/22/24 09:03 Aspirin 325 Mg Enteric Tablet PO 325 mg Q12HR HERIBERTO Administration Buspirone HCl 15 mg 06/18/24 10:45 06/22/24 09:02 Buspirone Hcl 5 Mg Tablet PO 15 mg Q12HR HERIBERTO Administration Carbamazepine 100 mg 06/18/24 21:00 06/22/24 09:03 Carbamazepine Xr 100 Mg Tab.Sr.12h PO 100 mg Q12HR HERIBERTO Administration Carbamazepine 400 mg 06/18/24 21:00 06/22/24 09:02 Carbamazepine Xr 200 Mg Tab.Er.12h PO 400 mg Q12HR HERIBERTO Administration Carbidopa/Levodopa 1 tablet/ 2 tablet 06/16/24 10:30 06/22/24 14:25 Carbidopa/Levodopa 1 tablet PO 2 tablet Q8HR HERIBERTO Administration Celecoxib 200 mg 06/16/24 10:00 06/22/24 09:03 Celecoxib 200 Mg Capsule PO 200 mg DAILY@0800 HERIBERTO Administration Diazepam 5 mg 06/16/24 10:00 06/18/24 05:52 Diazepam (*Crx) 5 Mg Tablet PO 5 mg Q8H PRN Administration Muscle Spasm Doxycycline Hyclate 100 mg 06/16/24 10:15 06/22/24 09:03 Doxycycline Hyclate 100 Mg Tablet PO 100 mg DAILY HERIBERTO Administration Famotidine 20 mg 06/16/24 10:00 06/22/24 09:03 Famotidine 20 Mg Tablet PO 20 mg Q12HR HERIBERTO Administration Hydroxyzine Pamoate 50 mg 06/16/24 10:00 Hydroxyzine Pamoate 25 Mg Capsule PO Q4H PRN Itching Ibuprofen 800 mg in 200 mls @ 400 mls/hr 06/16/24 10:00 06/16/24 14:00 Caldolor 800 Mg/200 Ml IVPB Infused Q6H PRN Infusion Breakthrough Pain Rated 1-3 or NPO Naloxone HCl 0.1 mg 06/16/24 10:00 Naloxone Hcl 0.4 Mg/Ml Vial IV PUSH Q2M PRN Opiate Reversal Ondansetron HCl 4 mg 06/16/24 10:00 Ondansetron Inj 4 Mg/2 Ml Vial IV PUSH Q4H PRN Nausea And Vomiting Oxycodone/Acetaminophen 1 tab 06/16/24 10:00 Oxycodone/Acetaminophen (*Crx) 10-325 Mg Tablet PO Q6H PRN Pain Rated 7-10 Oxycodone/Acetaminophen 1 tablet 06/16/24 10:00 06/19/24 08:59 Oxycodone/Acetaminophen (*Crx) 5-325 Mg Tablet PO 1 tablet Q4H PRN Administration Pain Rated 4-6 Polyethylene Glycol 17 gm 06/16/24 10:00 06/22/24 08:59 Polyethylene Glycol 3350 17 Gm Powd.Pack PO Not Given QAM [facility] Potassium Chloride 20 meq 06/18/24 17:00 06/22/24 17:46 Potassium Chloride 20 Meq Er Tablet PO 20 meq DAILY@1700 [facility] Administration Primidone 250 mg 06/21/24 21:00 06/21/24 21:26 Primidone 250 Mg Tablet PO 250 mg HS [facility] Administration Senna/Docusate Sodium 2 tab 06/16/24 10:00 06/22/24 17:46 Senna/Docusate Sodium Tablet PO Not Given BID [facility] Zonisamide 100 mg 06/18/24 17:00 06/22/24 17:46 Zonisamide 100 Mg Capsule PO 100 mg DAILY@1700 [facility] Administration Radiology Results: ITS Impressions Head CT 06/15/24 11:06 IMPRESSION: 1. No fracture or acute intracranial process. 2. Age-related changes including mild diffuse volume loss and mild scattered white matter hypoattenuation consistent with chronic small vessel ischemic disease. Cervical Spine CT 06/15/24 11:12 IMPRESSION: 1. No acute fracture. 2. Severe cervical spondylosis. 3. Scoliosis. Chest X-Ray 06/15/24 11:28 IMPRESSION: 1. No acute cardiopulmonary disease. Hip/Pelvis X-Ray 06/15/24 11:29 IMPRESSION: 1. Subcapital fracture of left femoral neck. 2. Mild osteoarthritis of the hips. Intraoperative X-Ray 06/16/24 08:43 IMPRESSION: 1. Subchondral fracture of left femoral neck status post internal fixation. 2. Mild left hip osteoarthritis. Labs Labs: Laboratory Results - last 24 hr 06/21/24 20:35 POC Capillary Glucose 104 Quality VTE Prophylaxis VTE prophylaxis: mechanical ordered Hospitalist [facility] Advance Care Plan I have confirmed that the patient's Advanced Care Plan is present, code status is documented, or surrogate decision maker is listed in patient medical record.: Yes Medication Reconciliation I have utilized all available resources to obtain, update and review the patients current medications (includes all prescriptions, OTC, herbals, cannabis, and nutritional supplements).: Yes
[2024-06-22 19:21] VITALS: BP 131/79; PULSE 73; RESP 18; TEMP 36.6; O2SAT 100
[2024-06-22] MEDS: PRIMIDONE 250 MG TABLET PO (21:48)
[2024-06-23 05:03] VITALS: BP 114/56; PULSE 71; RESP 18; TEMP 36.5; O2SAT 97
[2024-06-23] MEDS: CARBIDOPA/LEVODOPA 12.5/50 MG 1 TABLET, CARBIDOPA/LEVODOPA 25/100 MG 1 TABLET 2 TABLET PO ×3 (06:27→21:01)
[2024-06-23] MEDS: busPIRone HCL 5 MG TABLET 15 MG PO ×2 (08:38→21:01)
[2024-06-23] MEDS: DOXYCYCLINE HYCLATE 100 MG TABLET PO (08:38)
[2024-06-23] MEDS: FAMOTIDINE 20 MG TABLET PO ×2 (08:38→21:01)
[2024-06-23] MEDS: CARBAMAZEPINE XR 100 MG TAB.SR.12H PO ×2 (08:38→21:00)
[2024-06-23] MEDS: ARIPiprazole 10 MG TABLET PO (08:38)
[2024-06-23] MEDS: ASPIRIN 325 MG ENTERIC TABLET PO ×2 (08:38→21:00)
[2024-06-23] MEDS: CELECOXIB 200 MG CAPSULE PO (08:38)
[2024-06-23] MEDS: CARBAMAZEPINE XR 200 MG TAB.ER.12H 400 MG PO ×2 (08:39→21:00)
--- NOTE | 2024-06-23 13:45 | PM.IMPN ---
Progress Note: A&P Assessment and Plan (1) Closed subcapital fracture of femur: Qualifiers: Encounter type: initial encounter Laterality: left Qualified Code(s): S72.012A - Unspecified intracapsular fracture of left femur, initial encounter for closed fracture Code(s): S72.019A - Unspecified intracapsular fracture of unspecified femur, initial encounter for closed fracture Status: Acute Assessment and Plan: - XR hip/pelvis: 1. Subcapital fracture of left femoral neck. 2. Mild osteoarthritis of the hips. - Status post surgical repair on 06/16/2024. - Continue PT/OT treatment with ortho restrictions. - Pain meds PRN. - Fall precautions. - Awaiting transfer to Rehab vs swing bed. - Case management following (2) Epilepsy: Code(s): G40.909 - Epilepsy, unspecified, not intractable, without status epilepticus Status: Acute Assessment and Plan: - CT head negative for acute. - Home anti-epileptic meds resumed. - Continue seizure precautions. (3) Parkinson disease: Code(s): G20.A1 - Parkinson's disease without dyskinesia, without mention of fluctuations Status: Acute Assessment and Plan: - Stable. - Home meds resumed. (4) Fall: Qualifiers: Encounter type: initial encounter Qualified Code(s): W19.XXXA - Unspecified fall, initial encounter Code(s): W19.XXXA - Unspecified fall, initial encounter Status: Inactive Assessment and Plan: - Unclear etiology. - Possibly mechanical vs seizure vs other. - CT head negative for acute. - CT cervical spine negative for acute. - No seizure episodes inpatient. - Continue seizure and fall precautions. Time Spent With Patient Time with patient: Greater than 35 minutes Subjective Date/time seen: 06/23/24 13:45 Interval history: patient denies any new complaints today. She states her pain is well controlled. Labs reviewed. Patient is awaiting rehab placement. Review of Systems Review of Systems: All systems reviewed & are unremarkable except as noted in HPI and below Constitutional: Constitutional: Reports as per HPI and Reports no additional constitutional complaints Eyes: Eyes: Reports as per HPI and Reports no additional eye complaints ENT: Reports system reviewed and no additional complaints, except as documented and Reports as per HPI Cardiovascular: Cardiovascular: Reports as per HPI and Reports no additional cardiovascular complaints Respiratory: Respiratory: Reports as per HPI and Reports no additional respiratory complaints Gastrointestinal: Gastrointestinal: Reports as per HPI and Reports no additional gastrointestinal complaints Genitourinary: Genitourinary: Reports no additional female genitourinary complaints and Reports as per HPI Musculoskeletal: Musculoskeletal: Reports no additional musculoskeletal complaints and Reports as per HPI Integumentary/Breasts: Skin/Breast: Reports system reviewed and no additional complaints, except as docu and Reports as per HPI Neurologic: Reports system reviewed and no additional complaints, except as documented and Reports as per HPI Psychiatric: Psychiatric: Reports no additional psychiatric complaints and Reports as per HPI Exam Narrative: General: In no acute distress, well nourished , pleasant Head: atraumatic, no encephalopathy Eyes: PERRLA, sclera clear ENT: moist mucous membranes, nasal passages clear Neck: supple, no JVD, no adenopathy, trachea midline Cardiac: Normal S1 and S2. No murmur, gallops or friction rubs, peripheral pulses intact. Respiratory: Lungs clear to auscultation, no adventitious lung sounds, currently on room air Gastrointestinal: soft, non-distended, non-tender, normoactive bowel sounds. : voiding without difficulty. Extremities: moves all extremities well, no edema Skin: surgical incision left hip Neuro: Alert and oriented x4, cranial nerves intact, no neuro deficits. Psych: normal mood, normal affect, interactive Objective Data Vital Signs Vital Signs: Vital Signs - 24 hr 06/22/24 14:00 06/22/24 19:21 06/23/24 05:03 Temperature 98.8 F 97.8 F 97.7 F Pulse Rate 70 73 71 Respiratory Rate 18 18 18 Blood Pressure 119/70 131/79 114/56 L Pulse Oximetry 100 100 97 Oxygen Delivery 06/23/24 08:30 Temperature Pulse Rate Respiratory Rate Blood Pressure Pulse Oximetry Oxygen Delivery Room Air Intake/Output Intake/Output: Intake & Output 06/20/24 06/21/24 06/22/24 06/23/24 23:59 23:59 23:59 23:59 Intake Total 3360 600 598 670 Output Total 3400 1600 1600 100 Balance -40 -1000 -1002 570 Meds/Results Medications: Active Medications Generic Name Dose Route Start Last Admin Trade Name Freq PRN Reason Stop Dose Admin Aripiprazole 10 mg 06/18/24 09:00 06/23/24 08:38 Aripiprazole 10 Mg Tablet PO 10 mg DAILY HERIBERTO Administration Aspirin 325 mg 06/16/24 10:00 06/23/24 08:38 Aspirin 325 Mg Enteric Tablet PO 325 mg Q12HR HERIBERTO Administration Buspirone HCl 15 mg 06/18/24 10:45 06/23/24 08:38 Buspirone Hcl 5 Mg Tablet PO 15 mg Q12HR HERIBERTO Administration Carbamazepine 100 mg 06/18/24 21:00 06/23/24 08:38 Carbamazepine Xr 100 Mg Tab.Sr.12h PO 100 mg Q12HR HERIBERTO Administration Carbamazepine 400 mg 06/18/24 21:00 06/23/24 08:39 Carbamazepine Xr 200 Mg Tab.Er.12h PO 400 mg Q12HR HERIBERTO Administration Carbidopa/Levodopa 1 tablet/ 2 tablet 06/16/24 10:30 06/23/24 06:27 Carbidopa/Levodopa 1 tablet PO 2 tablet Q8HR HERIBERTO Administration Celecoxib 200 mg 06/16/24 10:00 06/23/24 08:38 Celecoxib 200 Mg Capsule PO 200 mg DAILY@0800 HERIBERTO Administration Diazepam 5 mg 06/16/24 10:00 06/18/24 05:52 Diazepam (*Crx) 5 Mg Tablet PO 5 mg Q8H PRN Administration Muscle Spasm Doxycycline Hyclate 100 mg 06/16/24 10:15 06/23/24 08:38 Doxycycline Hyclate 100 Mg Tablet PO 100 mg DAILY HERIBERTO Administration Famotidine 20 mg 06/16/24 10:00 06/23/24 08:38 Famotidine 20 Mg Tablet PO 20 mg Q12HR HERIBERTO Administration Hydroxyzine Pamoate 50 mg 06/16/24 10:00 Hydroxyzine Pamoate 25 Mg Capsule PO Q4H PRN Itching Ibuprofen 800 mg in 200 mls @ 400 mls/hr 06/16/24 10:00 06/16/24 14:00 Caldolor 800 Mg/200 Ml IVPB Infused Q6H PRN Infusion Breakthrough Pain Rated 1-3 or NPO Naloxone HCl 0.1 mg 06/16/24 10:00 Naloxone Hcl 0.4 Mg/Ml Vial IV PUSH Q2M PRN Opiate Reversal Ondansetron HCl 4 mg 06/16/24 10:00 Ondansetron Inj 4 Mg/2 Ml Vial IV PUSH Q4H PRN Nausea And Vomiting Oxycodone/Acetaminophen 1 tab 06/16/24 10:00 Oxycodone/Acetaminophen (*Crx) 10-325 Mg Tablet PO Q6H PRN Pain Rated 7-10 Oxycodone/Acetaminophen 1 tablet 06/16/24 10:00 06/19/24 08:59 Oxycodone/Acetaminophen (*Crx) 5-325 Mg Tablet PO 1 tablet Q4H PRN Administration Pain Rated 4-6 Polyethylene Glycol 17 gm 06/16/24 10:00 06/23/24 08:39 Polyethylene Glycol 3350 17 Gm Powd.Pack PO Not Given QAM [facility] Potassium Chloride 20 meq 06/18/24 17:00 06/22/24 17:46 Potassium Chloride 20 Meq Er Tablet PO 20 meq DAILY@1700 [facility] Administration Primidone 250 mg 06/21/24 21:00 06/22/24 21:48 Primidone 250 Mg Tablet PO 250 mg HS HERIBERTO Administration Senna/Docusate Sodium 2 tab 06/16/24 10:00 06/23/24 08:39 Senna/Docusate Sodium Tablet PO Not Given BID HERIBERTO Zonisamide 100 mg 06/18/24 17:00 06/22/24 17:46 Zonisamide 100 Mg Capsule PO 100 mg DAILY@1700 [facility] Administration Radiology Results: ITS Impressions Head CT 06/15/24 11:06 IMPRESSION: 1. No fracture or acute intracranial process. 2. Age-related changes including mild diffuse volume loss and mild scattered white matter hypoattenuation consistent with chronic small vessel ischemic disease. Cervical Spine CT 06/15/24 11:12 IMPRESSION: 1. No acute fracture. 2. Severe cervical spondylosis. 3. Scoliosis. Chest X-Ray 06/15/24 11:28 IMPRESSION: 1. No acute cardiopulmonary disease. Hip/Pelvis X-Ray 06/15/24 11:29 IMPRESSION: 1. Subcapital fracture of left femoral neck. 2. Mild osteoarthritis of the hips. Intraoperative X-Ray 06/16/24 08:43 IMPRESSION: 1. Subchondral fracture of left femoral neck status post internal fixation. 2. Mild left hip osteoarthritis. Quality VTE Prophylaxis VTE prophylaxis: mechanical ordered
[2024-06-23 14:00] VITALS: BP 141/80; PULSE 59; RESP 16; TEMP 36.6; O2SAT 100
[2024-06-23] MEDS: POTASSIUM CHLORIDE 20 MEQ ER TABLET PO (18:08)
[2024-06-23] MEDS: ZONISAMIDE 100 MG CAPSULE PO (18:08)
[2024-06-23 20:00] VITALS: PULSE 59; RESP 16; O2SAT 100
[2024-06-23] MEDS: PRIMIDONE 250 MG TABLET PO (21:01)
[2024-06-23 22:00] VITALS: BP 127/77; PULSE 74; RESP 18; TEMP 36.4; O2SAT 98
[2024-06-24 04:50] VITALS: BP 125/77; PULSE 61; RESP 16; TEMP 36.5; O2SAT 98
[2024-06-24] MEDS: CARBIDOPA/LEVODOPA 12.5/50 MG 1 TABLET, CARBIDOPA/LEVODOPA 25/100 MG 1 TABLET 2 TABLET PO ×3 (05:27→20:02)
--- NOTE | 2024-06-24 07:13 | P.PNIM_ITS ---
Progress Note: A&P Assessment and Plan (1) Closed subcapital fracture of femur: Qualifiers: Encounter type: initial encounter Laterality: left Qualified Code(s): S72.012A - Unspecified intracapsular fracture of left femur, initial encounter for closed fracture Code(s): S72.019A - Unspecified intracapsular fracture of unspecified femur, initial encounter for closed fracture Status: Acute Assessment and Plan: - XR hip/pelvis: 1. Subcapital fracture of left femoral neck. 2. Mild osteoarthritis of the hips. - Status post surgical repair on 06/16/2024. - Continue PT/OT treatment with ortho restrictions. - Pain meds PRN. - Fall precautions. - Awaiting transfer to Rehab vs swing bed. - Case management following (2) Epilepsy: Code(s): G40.909 - Epilepsy, unspecified, not intractable, without status epilepticus Status: Acute Assessment and Plan: Controlled - CT head negative for acute. - Home anti-epileptic meds resumed. - Continue seizure precautions. (3) Parkinson disease: Code(s): G20.A1 - Parkinson's disease without dyskinesia, without mention of fluctuations Status: Acute Assessment and Plan: - Stable. - Home meds resumed. (4) Fall: Qualifiers: Encounter type: initial encounter Qualified Code(s): W19.XXXA - Unspecified fall, initial encounter Code(s): W19.XXXA - Unspecified fall, initial encounter Status: Inactive Assessment and Plan: - Unclear etiology. - Possibly mechanical vs seizure vs other. - CT head negative for acute. - CT cervical spine negative for acute. - No seizure episodes inpatient. - Continue seizure and fall precautions. Plan Patient medically ready, waiting for rehab Time Spent With Patient Time with patient: 25 - 35 minutes Subjective Date/time seen: 06/24/24 07:13 Interval history: 63 y/o F presents here with ground-level fall and hip pain with PMH of Parkinson's, epilepsy, and hypothyroidism with closed subcapital fracture of left .femur She is medically ready and is awaiting rehab placement. Surgical dressing is clean dry intact Review of Systems Review of Systems: All systems reviewed & are unremarkable except as noted in HPI and below Constitutional: Constitutional: Reports as per HPI and Reports no additional constitutional complaints Eyes: Eyes: Reports as per HPI and Reports no additional eye complaints ENT: Reports system reviewed and no additional complaints, except as documented and Reports as per HPI Cardiovascular: Cardiovascular: Reports as per HPI and Reports no additional cardiovascular complaints Respiratory: Respiratory: Reports as per HPI and Reports no additional respiratory complaints Gastrointestinal: Gastrointestinal: Reports as per HPI and Reports no additional gastrointestinal complaints Genitourinary: Genitourinary: Reports no additional female genitourinary complaints and Reports as per HPI Musculoskeletal: Musculoskeletal: Reports no additional musculoskeletal complaints and Reports as per HPI Integumentary/Breasts: Skin/Breast: Reports system reviewed and no additional complaints, except as docu and Reports as per HPI Neurologic: Reports system reviewed and no additional complaints, except as documented and Reports as per HPI Psychiatric: Psychiatric: Reports no additional psychiatric complaints and Reports as per HPI Exam Narrative: General: In no acute distress, well nourished , pleasant Head: atraumatic, no encephalopathy Eyes: PERRLA, sclera clear ENT: moist mucous membranes, nasal passages clear Neck: supple, no JVD, no adenopathy, trachea midline Cardiac: Normal S1 and S2. No murmur, gallops or friction rubs, peripheral pulses intact. Respiratory: Lungs clear to auscultation, no adventitious lung sounds, currently on room air Gastrointestinal: soft, non-distended, non-tender, normoactive bowel sounds. : voiding without difficulty. Extremities: moves all extremities well, no edema, left thigh surgical dressing clean dry intact Skin: surgical incision left hip Neuro: Alert and oriented x4, cranial nerves intact, no neuro deficits. Psych: normal mood, normal affect, interactive Const: General: comfortable and no acute distress Other: , female, nontoxic appearance HENMT: Face/Nose/Sinus: Normal nares present Mouth: Yes moist mucous membranes Eyes: General: appearance normal, both eyes and all related structures Sclera: sclerae normal Pupils: Equal, round and reactive pupils present EOM: EOMs intact bilaterally Resp: Effort & Inspection: normal respiratory effort Auscultation: clear to auscultation bilaterally Cardio: Rate: regular rate Rhythm: regular rhythm Other: S1-S2 present without murmur, rub, ectopy GI: Other: Abdomen soft, nondistended, nontender. Skin: General skin exam: normal color and no rashes or lesions noted Wounds: no wounds Other: Surgical dressing left thigh clean dry intact Neuro: Cranial nerves: Yes Equal, round and reactive pupils present Speech: normal speech Sensory Exam: normal sensation Other: Reduced strength to left lower extremity secondary to pain. A&O x2 (self and year, still believed she was at [place]), attempted to answer some situational history but unreliable. Extrem: General: normal to inspection Other: DP pulses 1+ bilaterally, symmetric. Psych: Mental Status: mental status grossly normal Affect: normal affect Other: Fair to poor insight and judgment, very pleasant Objective Data Vital Signs Vital Signs: Vital Signs - 24 hr 06/23/24 08:30 06/23/24 14:00 06/23/24 20:00 Temperature 97.8 F Pulse Rate 59 L 59 L Respiratory Rate 16 16 Blood Pressure 141/80 H Pulse Oximetry 100 100 Oxygen Delivery Room Air Room Air 06/23/24 22:00 06/24/24 04:50 Temperature 97.6 F 97.7 F Pulse Rate 74 61 Respiratory Rate 18 16 Blood Pressure 127/77 125/77 Pulse Oximetry 98 98 Oxygen Delivery Intake/Output Intake/Output: Intake & Output 06/21/24 06/22/24 06/23/24 06/24/24 23:59 23:59 23:59 23:59 Intake Total 908 573 8254 200 Output Total 1600 1600 1050 600 Balance -1000 -1002 410 -400 Meds/Results Medications: Active Medications Generic Name Dose Route Start Last Admin Trade Name Freq PRN Reason Stop Dose Admin Aripiprazole 10 mg 06/18/24 09:00 06/23/24 08:38 Aripiprazole 10 Mg Tablet PO 10 mg DAILY HERIBERTO Administration Aspirin 325 mg 06/16/24 10:00 06/23/24 21:00 Aspirin 325 Mg Enteric Tablet PO 325 mg Q12HR HERIBERTO Administration Buspirone HCl 15 mg 06/18/24 10:45 06/23/24 21:01 Buspirone Hcl 5 Mg Tablet PO 15 mg Q12HR HERIBERTO Administration Carbamazepine 100 mg 06/18/24 21:00 06/23/24 21:00 Carbamazepine Xr 100 Mg Tab.Sr.12h PO 100 mg Q12HR HERIBERTO Administration Carbamazepine 400 mg 06/18/24 21:00 06/23/24 21:00 Carbamazepine Xr 200 Mg Tab.Er.12h PO 400 mg Q12HR HERIBERTO Administration Carbidopa/Levodopa 1 tablet/ 2 tablet 06/16/24 10:30 06/24/24 05:27 Carbidopa/Levodopa 1 tablet PO 2 tablet Q8HR HERIBERTO Administration Celecoxib 200 mg 06/16/24 10:00 06/23/24 08:38 Celecoxib 200 Mg Capsule PO 200 mg DAILY@0800 HERIBERTO Administration Diazepam 5 mg 06/16/24 10:00 06/18/24 05:52 Diazepam (*Crx) 5 Mg Tablet PO 5 mg Q8H PRN Administration Muscle Spasm Doxycycline Hyclate 100 mg 06/16/24 10:15 06/23/24 08:38 Doxycycline Hyclate 100 Mg Tablet PO 100 mg DAILY HERIBERTO Administration Famotidine 20 mg 06/16/24 10:00 06/23/24 21:01 Famotidine 20 Mg Tablet PO 20 mg Q12HR HERIBERTO Administration Hydroxyzine Pamoate 50 mg 06/16/24 10:00 Hydroxyzine Pamoate 25 Mg Capsule PO Q4H PRN Itching Ibuprofen 800 mg in 200 mls @ 400 mls/hr 06/16/24 10:00 06/16/24 14:00 Caldolor 800 Mg/200 Ml IVPB Infused Q6H PRN Infusion Breakthrough Pain Rated 1-3 or NPO Naloxone HCl 0.1 mg 06/16/24 10:00 Naloxone Hcl 0.4 Mg/Ml Vial IV PUSH Q2M PRN Opiate Reversal Ondansetron HCl 4 mg 06/16/24 10:00 Ondansetron Inj 4 Mg/2 Ml Vial IV PUSH Q4H PRN Nausea And Vomiting Oxycodone/Acetaminophen 1 tab 06/16/24 10:00 Oxycodone/Acetaminophen (*Crx) 10-325 Mg Tablet PO Q6H PRN Pain Rated 7-10 Oxycodone/Acetaminophen 1 tablet 06/16/24 10:00 06/19/24 08:59 Oxycodone/Acetaminophen (*Crx) 5-325 Mg Tablet PO 1 tablet Q4H PRN Administration Pain Rated 4-6 Polyethylene Glycol 17 gm 06/16/24 10:00 06/23/24 08:39 Polyethylene Glycol 3350 17 Gm Powd.Pack PO Not Given QAM [facility] Potassium Chloride 20 meq 06/18/24 17:00 06/23/24 18:08 Potassium Chloride 20 Meq Er Tablet PO 20 meq DAILY@1700 [facility] Administration Primidone 250 mg 06/21/24 21:00 06/23/24 21:01 Primidone 250 Mg Tablet PO 250 mg HS HERIBERTO Administration Senna/Docusate Sodium 2 tab 06/16/24 10:00 06/23/24 18:09 Senna/Docusate Sodium Tablet PO Not Given BID [facility] Zonisamide 100 mg 06/18/24 17:00 06/23/24 18:08 Zonisamide 100 Mg Capsule PO 100 mg DAILY@1700 HERIBERTO Administration Radiology Results: ITS Impressions Head CT 06/15/24 11:06 IMPRESSION: 1. No fracture or acute intracranial process. 2. Age-related changes including mild diffuse volume loss and mild scattered white matter hypoattenuation consistent with chronic small vessel ischemic disease. Cervical Spine CT 06/15/24 11:12 IMPRESSION: 1. No acute fracture. 2. Severe cervical spondylosis. 3. Scoliosis. Chest X-Ray 06/15/24 11:28 IMPRESSION: 1. No acute cardiopulmonary disease. Hip/Pelvis X-Ray 06/15/24 11:29 IMPRESSION: 1. Subcapital fracture of left femoral neck. 2. Mild osteoarthritis of the hips. Intraoperative X-Ray 06/16/24 08:43 IMPRESSION: 1. Subchondral fracture of left femoral neck status post internal fixation. 2. Mild left hip osteoarthritis. Quality VTE Prophylaxis VTE prophylaxis: mechanical ordered and pharmacologic ordered Hospitalist [facility] Advance Care Plan I have confirmed that the patient's Advanced Care Plan is present, code status is documented, or surrogate decision maker is listed in patient medical record.: Yes Medication Reconciliation I have utilized all available resources to obtain, update and review the patients current medications (includes all prescriptions, OTC, herbals, cannabis, and nutritional supplements).: Yes
[2024-06-24] MEDS: ARIPiprazole 10 MG TABLET PO (08:38)
[2024-06-24] MEDS: CARBAMAZEPINE XR 100 MG TAB.SR.12H PO ×2 (08:38→20:01)
[2024-06-24] MEDS: CELECOXIB 200 MG CAPSULE PO (08:38)
[2024-06-24] MEDS: ASPIRIN 325 MG ENTERIC TABLET PO ×2 (08:38→20:00)
[2024-06-24] MEDS: FAMOTIDINE 20 MG TABLET PO ×2 (08:39→20:02)
[2024-06-24] MEDS: polyethylene glycoL 3350 17 GM POWD.PACK PO (08:39)
[2024-06-24] MEDS: SENNA/DOCUSATE SODIUM TABLET 2 TAB PO ×2 (08:39→17:25)
[2024-06-24] MEDS: DOXYCYCLINE HYCLATE 100 MG TABLET PO (08:39)
[2024-06-24] MEDS: CARBAMAZEPINE XR 200 MG TAB.ER.12H 400 MG PO ×2 (08:39→20:02)
[2024-06-24] MEDS: ENOXAPARIN 40 MG/0.4 ML SYRINGE SUB-Q (08:39)
[2024-06-24] MEDS: busPIRone HCL 5 MG TABLET 15 MG PO ×2 (08:39→20:00)
--- NOTE | 2024-06-24 11:02 | P.DS_ITS ---
DS: Admitting Diagnosis Discharge Date 06/24/2024 Admitting Diagnosis Left femur fracture DS: Discharge Diagnosis Discharge Diagnosis (1) Closed subcapital fracture of femur: Qualifiers: Encounter type: initial encounter Laterality: left Qualified Code(s): S72.012A - Unspecified intracapsular fracture of left femur, initial encounter for closed fracture Code(s): S72.019A - Unspecified intracapsular fracture of unspecified femur, initial enc ounter for closed fracture Status: Acute Assessment and Plan: - XR hip/pelvis: 1. Subcapital fracture of left femoral neck. 2. Mild osteoarthritis of the hips. - Status post surgical repair on 06/16/2024. - Continue PT/OT treatment with ortho restrictions. - Pain meds PRN. - Fall precautions. - Awaiting transfer to Rehab vs swing bed. - Case management following (2) Epilepsy: Code(s): G40.909 - Epilepsy, unspecified, not intractable, without status epilepticus Status: Acute Assessment and Plan: Controlled - CT head negative for acute. - Home anti-epileptic meds resumed. - Continue seizure precautions. (3) Parkinson disease: Code(s): G20.A1 - Parkinson's disease without dyskinesia, without mention of fluctuations Status: Acute Assessment and Plan: - Stable. - Home meds resumed. (4) Fall: Qualifiers: Encounter type: initial encounter Qualified Code(s): W19.XXXA - Unspecified fall, initial encounter Code(s): W19.XXXA - Unspecified fall, initial encounter Status: Inactive Assessment and Plan: - Unclear etiology. - Possibly mechanical vs seizure vs other. - CT head negative for acute. - CT cervical spine negative for acute. - No seizure episodes inpatient. - Continue seizure and fall precautions. Plan Patient medically ready, waiting for rehab DS: Summary Hospital Course Reason for hospitalization: Fall with left femur fracture Hospital Course: 63 y/o F presents here with ground-level fall and hip pain with PMH of Parkinson's, epilepsy, and hypothyroidism. The patient presents here via EMS from [place] for further evaluation of left hip pain after a ground level fall. HPI obtained through chart review and patient interview. Yesterday the patient fell out of her wheelchair onto the floor. Unclear if fall was witnessed. Initially declined transportation to the hospital for evaluation. However today she began to complain of left hip pain to the staff and requested to be evaluated at the emergency department. The patient is currently denying loss of consciousness or head strike. She denies numbness or weakness in the LLE, dizziness, syncope, chest pain, or shortness of breath. She the patient is unable to expand on history, baseline mentation is A&Ox2 and she is currently at her baseline (self and time, cannot remember where she is but knows she lives at [place]. Initial VS at presentation: 97.8? F, HR 82, RR 16, 96/62, 95% on RA. ED workup showed: No leukocytosis, hemoglobin 15.3, potassium 3.3, creatinine 0.8 and GFR >60. Head CT and C-spine CT showed no acute fracture or acute process. CXR showed no acute cardiopulmonary disease. Hip and pelvic XR showed a subcapital fracture of the left femoral neck and mild osteoarthritis of the hips. Orthopedics was consulted and did ORIF of the left femur fracture on 06/16/2024. Etiology of the fall is unclear however a could be due to patient's history of seizures and Parkinson's disease. While in the hospital patient had no seizures. She was able to work with PT and OT recommendations for rehab. Hospital course was uneventful. Patient stable for discharge. Status at Discharge Functional status at discharge: uses cane/walker Time Spent with Patient Time attestation: Total time spent providing and/or coordinating discharge services: Time spent: Greater than 30 minutes Exam Narrative: General: In no acute distress, well nourished , pleasant Head: atraumatic, no encephalopathy Eyes: PERRLA, sclera clear ENT: moist mucous membranes, nasal passages clear Neck: supple, no JVD, no adenopathy, trachea midline Cardiac: Normal S1 and S2. No murmur, gallops or friction rubs, peripheral pulses intact. Respiratory: Lungs clear to auscultation, no adventitious lung sounds, currently on room air Gastrointestinal: soft, non-distended, non-tender, normoactive bowel sounds. : voiding without difficulty. Extremities: moves all extremities well, no edema, left thigh surgical dressing clean dry intact Skin: surgical incision left hip Neuro: Alert and oriented x4, cranial nerves intact, no neuro deficits. Psych: normal mood, normal affect, interactive Const: General: comfortable and no acute distress Other: , female, nontoxic appearance HENMT: Face/Nose/Sinus: Normal nares present Mouth: Yes moist mucous membranes Eyes: General: appearance normal, both eyes and all related structures Sclera: sclerae normal Pupils: Equal, round and reactive pupils present EOM: EOMs intact bilaterally Resp: Effort & Inspection: normal respiratory effort Auscultation: clear to auscultation bilaterally Cardio: Rate: regular rate Rhythm: regular rhythm Other: S1-S2 present without murmur, rub, ectopy GI: Other: Abdomen soft, nondistended, nontender. Skin: General skin exam: normal color and no rashes or lesions noted Wounds: no wounds Other: Surgical dressing left thigh clean dry intact Neuro: Cranial nerves: Yes Equal, round and reactive pupils present Speech: normal speech Sensory Exam: normal sensation Other: Reduced strength to left lower extremity secondary to pain. A&O x2 (self and year, still believed she was at [place]), attempted to answer some situational history but unreliable. Extrem: General: normal to inspection Other: DP pulses 1+ bilaterally, symmetric. Psych: Mental Status: mental status grossly normal Affect: normal affect Other: Fair to poor insight and judgment, very pleasant DS: Data Procedures/Treatments: ORIF of left femur Imaging Radiologist's impression: XR hip LT 2V w AP pelvis DATE: 06/15/2024 11:06 INDICATION: Left hip pain. Fall. TECHNIQUE: An anteroposterior view of the pelvis and 2 views of left hip were obtained. COMPARISON: None. FINDINGS: There is lumbar levoscoliosis. There are changes of anterior and posterior fusion procedures in lumbosacral spine. There is an old healed fracture of left inferior pubic ramus. There is a subcapital fracture of left femoral neck. The distal fracture fragment demonstrates impaction and 25 degrees valgus angulation. A small sclerotic lesion in proximal right femur is likely a benign bone island. There is mild osteoarthritis of the hips. IMPRESSION: 1. Subcapital fracture of left femoral neck. 2. Mild osteoarthritis of the hips. XR surgery orthopedic DATE: 06/16/2024 08:38 INDICATION: Left femoral neck fracture. TECHNIQUE: 2 intraoperative fluoroscopic views of left hip were obtained. I was not present. Fluoroscopy exposure time was 4 minutes 38 seconds. COMPARISON: Left hip radiographs 06/15/2024 FINDINGS: There is a subcapital fracture of left femoral neck. The distal fracture fragment demonstrates impaction and valgus angulation. Internal fixation is seen with 3 lag screws. There is an old healed fracture of left inferior pubic ramus. There is mild left hip osteoarthritis. IMPRESSION: 1. Subchondral fracture of left femoral neck status post internal fixation. 2. Mild left hip osteoarthritis. Discharge Plan Discharge Consulting providers: Jesus Resendiz; Amanda Alvarez Discharging Clinician: Zohreh Goodwin Anticipated Discharge Date/Time: 06/24/24 11:08 Patient Disposition: Inpatient Rehab Facility Activity: may shower, no driving and follow weight bearing status Diet: as tolerated Wound Care Instructions: follow printed instructions Discharge Instructions: Postoperative Hip Fracture Instructions Dr. Jesus Resendiz [phone] * Dressing to be changed daily with an island dressing beginning on post op day #2. May stop dressing changes at post op day #14. No sutures/stan will need to be removed. Can allow Dermabond to fall off naturally. * Weight bearing: Weight bearing as tolerated. * You may shower with your dressing but do not submerge in a bath tub. * Do not drive or operate machinery until you are released by your surgeon. * Do not walk without a walker for any reason until you are released by your surgeon. * DVT prophylaxis x28 days post op. * Continue to apply ice to the hip intermittently for additional pain relief. Protect your skin with a towel or pillow case. * Continue to follow strict hip fracture precautions. * Please contact our office with any questions/concerns regarding your hip at [phone]. * Follow up appointment instructions indicated below. Patient Instructions: Closed Reduction Internal Fixation of Leg Fracture in Adults (DC) Stand Alone Forms: General Discharge Information Follow-up/Referrals: Jesus Resendiz MD [Physician] - 08/07/24 2:00 pm Discharge Medications: New aspirin 325 mg Tablet,Delayed Release (Dr/Ec) 325 mg PO Q12HR 28 Days Qty: 56 0RF Continued cyanocobalamin (vitamin B-12) 2,500 mcg tablet, sublingual 2,500 mcg PO DAILY trazodone 50 mg tablet 50 mg PO DAILY carbamazepine 100 mg tablet extended release 12 hr 100 mg PO BID alendronate 70 mg tablet 70 mg PO WEEKLY Rx Instructions: patient takes on Fridays sertraline 100 mg tablet 100 mg PO DAILY diphenoxylate-atropine 2.5-0.025 mg tablet 1 tablet PO Q8H PRN (Reason: Diarrhea) acetaminophen 500 mg tablet 1,000 mg PO TID PRN (Reason: Pain) hydrocortisone acetate [Anusol-HC] 25 mg suppository 25 mg RECTAL BID PRN (Reason: hemmorhoid) carbamazepine 400 mg tablet extended release 12 hr 400 mg PO BID zonisamide 100 mg capsule 100 mg PO QPM hydrocortisone [Anusol-HC] 2.5 % cream with perineal applicator 1 applic topical BID PRN (Reason: Hemorrhoids) primidone 250 mg tablet 250 mg PO HS calcium carbonate [Oyster Shell Calcium 500] 500 mg calcium (1,250 mg) tablet 500 mg PO BID ascorbic acid (vitamin C) [Vitamin C] 500 mg tablet 500 mg PO DAILY tamsulosin 0.4 mg capsule 0.4 mg PO DAILY doxycycline monohydrate 100 mg capsule 100 mg PO DAILY levothyroxine 150 mcg tablet 150 mcg PO DAILY carbidopa-levodopa 25-100 mg tablet 1.5 tablet PO TID buspirone 15 mg tablet 15 mg PO BID cholecalciferol (vitamin D3) [Vitamin D3] 25 mcg (1,000 unit) capsule 25 mcg PO DAILY aripiprazole 10 mg tablet 10 mg PO DAILY duloxetine 60 mg capsule,delayed release(DR/EC) 60 mg PO BID L.acidoph,saliva-B.bif-S.therm 175 mg capsule 1 cap PO DAILY niacin (inositol niacinate) 500 mg tablet 1 tablet PO DAILY Michael Mag Zinc Plus D3 333 mg-133 unit -133 mg-5 mg tablet 1 tablet PO DAILY Date of admission: 06/15/24 14:05 Primary Care Provider: UNKNOWN,DOCTOR Admitting Provider: Jazmín Bowie Attending physician on admission: Jazmín Bowie Condition: Stable Quality VTE Prophylaxis VTE prophylaxis: mechanical ordered and pharmacologic ordered Hospitalist [facility]IPS Heart Failure (Exclusion) Patient has history of Heart Transplant or Left Ventricular Assistive Device?: No IF YES, STOP HERE Heart Failure (Qualifier) Patient has current or prior documentation of LVEF less than or equal to 40%, or mod/servere depressed LVSF?: No IF NO, STOP HERE
[2024-06-24] MEDS: BENZOCAINE/MENTHOL (*BKC) 18 EA LOZENGE 1 LOZENGE PO (13:30)
[2024-06-24 14:00] VITALS: BP 113/61; PULSE 69; RESP 12; TEMP 36.9; O2SAT 100
[2024-06-24] MEDS: POTASSIUM CHLORIDE 20 MEQ ER TABLET PO (17:25)
[2024-06-24] MEDS: ZONISAMIDE 100 MG CAPSULE PO (17:25)
--- NOTE | 2024-06-24 18:53 | PC.NURSE ---
spoke with patient's sister Lena to get update on wheelchair van. She is going to call and get an update/ ETA and call us back. Gave call back number
[2024-06-24] MEDS: PRIMIDONE 250 MG TABLET PO (20:02)
== END 2024-06-24 20:10 | DRG 482 ==
LOC: ANHED 12:14 → ANH3MEDSUR 13:34 → ANH2MED 15:08
PROVIDERS: Nurse Practitioner Adult Health; Orthopaedic Surgery; Student in an Organized Health Care Education/Training Program; Admitting Provider Hospitalist; Emergency Provider Physician Assistant; Visit Provider Nurse Practitioner Gerontology
PROC: 0QS734Z Reposition Left Upper Femur with Internal Fixation Device, Percutaneous Approach (ICD-10-PCS; principal; 2024-06-16 07:30)
DX: S72.012A Unspecified intracapsular fracture of left femur, initial encounter for closed fracture (principal); E03.9 Hypothyroidism, unspecified; G20.A1 Parkinson's disease without dyskinesia, without mention of fluctuations; G40.909 Epilepsy, unspecified, not intractable, without status epilepticus; W05.0XXA Fall from non-moving wheelchair, initial encounter
CPT/HCPCS: 36415; 70450; 71045; 72125; 73502; 80048; 82948; 83735; 85025; 85027; 96374; 96375; 97110; 97116; 97162; 97166; 97530; 97535; 99199; 99285; A9270; C1713; G0378; J0690; J1100; J1650; J1741; J1885; J2003; J2250; J2270; J2405; J2704; J3010; J7120

== ENCOUNTER 2024-06-26 09:32 | Emergency (ER) | payer MEDICARE, SELFPAY ==
[2024-06-26 09:41] VITALS: BP 125/75; PULSE 76; RESP 16; TEMP 36.5; O2SAT 100
--- NOTE | 2024-06-26 10:51 | PC.NURSE ---
Sibling of pt, Lena Wade, called at 1048 to explain pt has had this rectal prolapse for over a year. Pt was seen at [facility] for this about a year ago and was offered a colostomy bag. While pt was being seen at [facility] pt refused colostomy bag and stated she did not feel comfortable with this intervention. Sibling stated she did not understand why [facility] sent pt. to [facility] for this due to pt having this condition for over a year. Sibling then ended the call in a frustrated manner.
--- NOTE | 2024-06-26 12:05 | ED.GENADULT ---
HPI - General Adult General Chief complaint: Unspecified Stated complaint: PROLAPSED RECTUM Time Seen by Provider: 06/26/24 11:43 History of Present Illness HPI narrative: Pt presents from rehab with report of rectal prolapse. Pt has no complaints. Related Data Home Medications Medication Instructions Recorded Confirmed L.acidophil,salivari-Bifido 1 cap PO DAILY 06/15/24 06/24/24 bifidum-Strep thermoph 175 mg capsule acetaminophen 500 mg tablet 1,000 mg PO TID PRN Pain 06/15/24 06/24/24 alendronate 70 mg tablet 70 mg PO WEEKLY 06/15/24 06/24/24 aripiprazole 10 mg tablet 10 mg PO DAILY 06/15/24 06/24/24 ascorbic acid (vitamin C) 500 mg 500 mg PO DAILY 06/15/24 06/24/24 tablet (Vitamin C) buspirone 15 mg tablet 15 mg PO BID 06/15/24 06/24/24 calcium 333 mg-vit D3 133 1 tablet PO DAILY 06/15/24 06/24/24 unit-magnesium 133 mg-zinc 5 mg tablet (Michael Mag Zinc Plus D3) calcium carbonate (Oyster Shell 500 mg PO BID 06/15/24 06/24/24 Calcium 500) carbamazepine 100 mg 100 mg PO BID 06/15/24 06/24/24 tablet,extended release,12 hr carbamazepine 400 mg 400 mg PO BID 06/15/24 06/24/24 tablet,extended release,12 hr carbidopa 25 mg-levodopa 100 mg 1.5 tablet PO TID 06/15/24 06/24/24 tablet cholecalciferol (vitamin D3) 25 25 mcg PO DAILY 06/15/24 06/24/24 mcg (1,000 unit) capsule (Vitamin D3) cyanocobalamin (vitamin B-12) 2,500 mcg PO DAILY 06/15/24 06/24/24 2,500 mcg sublingual tablet diphenoxylate-atropine 2.5 1 tablet PO Q8H PRN Diarrhea 06/15/24 06/24/24 mg-0.025 mg tablet doxycycline monohydrate 100 mg 100 mg PO DAILY 06/15/24 06/24/24 capsule duloxetine 60 mg capsule,delayed 60 mg PO BID 06/15/24 06/24/24 release hydrocortisone 2.5 % topical cream 1 applic topical BID PRN 06/15/24 06/24/24 with perineal applicator Hemorrhoids (Anusol-HC) hydrocortisone acetate 25 mg 25 mg RECTAL BID PRN hemmorhoid 06/15/24 06/24/24 rectal suppository (Anusol-HC) levothyroxine 150 mcg tablet 150 mcg PO DAILY 06/15/24 06/24/24 niacin (inositol niacinate) 500 mg 1 tablet PO DAILY 06/15/24 06/24/24 tablet primidone 250 mg tablet 250 mg PO HS 06/15/24 06/24/24 sertraline 100 mg tablet 100 mg PO DAILY 06/15/24 06/24/24 tamsulosin 0.4 mg capsule 0.4 mg PO DAILY 06/15/24 06/24/24 trazodone 50 mg tablet 50 mg PO DAILY 06/15/24 06/24/24 zonisamide 100 mg capsule 100 mg PO QPM 06/15/24 06/24/24 Allergies Allergy/AdvReac Type Severity Reaction Status Date / Time felbamate [From Felbatol] Allergy Severe Anaphylaxis Verified 06/16/24 08:01 Sulfa (Sulfonamide Allergy Dizziness Verified 06/16/24 08:01 Antibiotics) bactrim Allergy Mild Dizziness Uncoded 06/16/24 08:01 Review of Systems Review of Systems: All systems reviewed & are unremarkable except as noted in HPI and below PMFSH Past Medical History Medical History Depression Epilepsy Hypothyroidism Impaired cognition Parkinson disease Social History Social History Smoking status: Never smoker Alcohol intake: unknown Substance use: never Substance use type: does not use Do You Feel Safe in your Home?: Yes Lack of Transportation: No Lack of Food: Never True Current Housing: I Have Housing Concerned About Future Housing: No Difficulty Paying Gas/Electric Bills: No Difficulty Paying for Meds: No Currently Unemployed: No Education: Don't Know Difficulty w/ Childcare or Family Care: No Living arrangements: assisted living Additional living arrangements comments: [place] Occupation/Education: retired 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 Additional gender identity comments: Spiritual care concerns: No Exam Const: General: cooperative, comfortable and no acute distress Nutritional Appearance: average body habitus Orientation/consciousness: oriented to person Limitations: no limitations Neck: Neck: normal visual inspection and full ROM Resp: Effort & Inspection: normal respiratory effort and able to speak in complete sentences Auscultation: clear to auscultation bilaterally Cardio: Rate: regular rate Rhythm: regular rhythm GI: Auscultation: normal bowel sounds Rectal Exam: visual inspection normal (no rectal prolapse noted) Skin: General skin exam: normal color and no rashes or lesions noted Neuro: General: oriented to person Cranial nerves: Yes CN's II-XII intact bilaterally Speech: normal speech Extrem: General: normal to inspection, full ROM and no clubbing, cyanosis or edema Psych: Appearance: grossly normal Affect: normal affect Attitude: cooperative Course Vital Signs Vital signs: Vital Signs Temperature 97.7 F 06/26/24 09:41 Pulse Rate 76 06/26/24 09:41 Respiratory Rate 16 06/26/24 09:41 Blood Pressure 125/75 06/26/24 09:41 Pulse Oximetry 100 06/26/24 09:41 Oxygen Delivery Room Air 06/26/24 09:41 Temperature 97.8 F 06/26/24 13:47 Pulse Rate 75 06/26/24 13:47 Respiratory Rate 18 06/26/24 13:47 Blood Pressure 124/75 06/26/24 13:47 Pulse Oximetry 100 06/26/24 13:47 Oxygen Delivery Room Air 06/26/24 09:41 Medical Decision Making MDM Narrative Medical decision making narrative: Pt sent in fro rectal prolapse but no currently prolapsed. must have spontaneously reduced. can send back Vital Signs Vital Signs: Vital Signs Temperature 97.7 F 06/26/24 09:41 Pulse Rate 76 06/26/24 09:41 Respiratory Rate 16 06/26/24 09:41 Blood Pressure 125/75 06/26/24 09:41 Pulse Oximetry 100 06/26/24 09:41 Oxygen Delivery Room Air 06/26/24 09:41 Temperature 97.8 F 06/26/24 13:47 Pulse Rate 75 06/26/24 13:47 Respiratory Rate 18 06/26/24 13:47 Blood Pressure 124/75 06/26/24 13:47 Pulse Oximetry 100 06/26/24 13:47 Oxygen Delivery Room Air 06/26/24 09:41 Discharge Plan Discharge Clinical Impression: Parkinson disease Patient Disposition: Home, Self-Care Condition: Improved Instructions: Antibiotic Form, Rectal Prolapse (ED) Prescriptions: No Action cyanocobalamin (vitamin B-12) 2,500 mcg tablet, sublingual 2,500 mcg PO DAILY trazodone 50 mg tablet 50 mg PO DAILY carbamazepine 100 mg tablet extended release 12 hr 100 mg PO BID alendronate 70 mg tablet 70 mg PO WEEKLY Rx Instructions: patient takes on Fridays sertraline 100 mg tablet 100 mg PO DAILY diphenoxylate-atropine 2.5-0.025 mg tablet 1 tablet PO Q8H PRN (Reason: Diarrhea) acetaminophen 500 mg tablet 1,000 mg PO TID PRN (Reason: Pain) hydrocortisone acetate [Anusol-HC] 25 mg suppository 25 mg RECTAL BID PRN (Reason: hemmorhoid) carbamazepine 400 mg tablet extended release 12 hr 400 mg PO BID zonisamide 100 mg capsule 100 mg PO QPM hydrocortisone [Anusol-HC] 2.5 % cream with perineal applicator 1 applic topical BID PRN (Reason: Hemorrhoids) primidone 250 mg tablet 250 mg PO HS calcium carbonate [Oyster Shell Calcium 500] 500 mg calcium (1,250 mg) tablet 500 mg PO BID ascorbic acid (vitamin C) [Vitamin C] 500 mg tablet 500 mg PO DAILY tamsulosin 0.4 mg capsule 0.4 mg PO DAILY doxycycline monohydrate 100 mg capsule 100 mg PO DAILY levothyroxine 150 mcg tablet 150 mcg PO DAILY carbidopa-levodopa 25-100 mg tablet 1.5 tablet PO TID buspirone 15 mg tablet 15 mg PO BID cholecalciferol (vitamin D3) [Vitamin D3] 25 mcg (1,000 unit) capsule 25 mcg PO DAILY aripiprazole 10 mg tablet 10 mg PO DAILY duloxetine 60 mg capsule,delayed release(DR/EC) 60 mg PO BID L.acidoph,saliva-B.bif-S.therm 175 mg capsule 1 cap PO DAILY niacin (inositol niacinate) 500 mg tablet 1 tablet PO DAILY Michael Mag Zinc Plus D3 333 mg-133 unit -133 mg-5 mg tablet 1 tablet PO DAILY aspirin 325 mg Tablet,Delayed Release (Dr/Ec) 325 mg PO Q12HR 28 Days Qty: 56 0RF Rx Instructions: for 28 days oxycodone-acetaminophen 5-325 mg Tablet 1 tablet PO Q4H PRN (Reason: Pain Rated 4-6) Qty: 20 0RF Follow-up/Referrals: UNKNOWN,DOCTOR [Primary Care Provider] -
[2024-06-26 13:47] VITALS: BP 124/75; PULSE 75; RESP 18; TEMP 36.6; O2SAT 100
== END 2024-06-26 13:51 | disposition home or self-care (01) ==
LOC: ANHED 12:24
PROVIDERS: Emergency Provider Emergency Medicine
DX: G20.A1 Parkinson's disease without dyskinesia, without mention of fluctuations (principal); F32.A Depression, unspecified; G40.909 Epilepsy, unspecified, not intractable, without status epilepticus; E03.9 Hypothyroidism, unspecified
CPT/HCPCS: 99281

== ENCOUNTER 2024-08-30 22:43 | Emergency (ER) | payer MEDICARE, SELFPAY ==
--- NOTE | ~2024-08-30 | CT_ITS ---
EXAMINATION: CT brain wo con DATE: 08/30/2024 23:34 INDICATION: fall, head injury . TECHNIQUE: Computed tomography (CT) of the head was performed without intravenous contrast. The mA wa s adjusted according to patient size. Iterative reconstruction technique was employed. The dose-lengt h product was 756.67 mGy-cm. COMPARISON: 06/15/2024. FINDINGS: No acute intracranial hemorrhage or extra-axial fluid collection. No hydrocephalus, mass, or herniation. No acute ischemic infarct. Unremarkable dural venous sinus attenuation. No acute osseous abnormality. Chronic bilateral temporal dennis holes. Right frontal soft tissue swelli ng. The aerated spaces are clear. Mild atrophy and chronic white matter change. Atherosclerotic intracranial calcification. IMPRESSION: No acute intracranial process. Reviewed, dictated and finalized at location K. RTMENT STORE SALESPERSON
--- NOTE | ~2024-08-30 | XR_ITS ---
EXAMINATION: XR chest 1V portable Exam Date/Time: 08/30/2024 23:50 E MERCHANT HISTORY: unwitnessed fall Comparison: 06/15/2024. RESULT: Lines, tubes, and devices: None. Partially visualized lumbar fusion hardware, multilevel interbody d evices, fractured right superior pedicle screw. Lungs and pleura: Clear. Cardiomediastinal silhouette: Stable. Other: No acute osseous or upper abdominal finding. Severe thoracolumbar scoliosis. Chronic distal r ight clavicular deformity. Chronic left AC joint widening. IMPRESSION: No acute cardiopulmonary process. Partially visualized lumbar fusion hardware with a fractured right superior pedicle screw. Reviewed, dictated and finalized at location K. E MERCHANT IMPRESSION: No acute cardiopulmonary process. Partially visualized lumbar fusion hardware with a fractured right superior ped icle screw.
--- NOTE | ~2024-08-30 | CT_ITS ---
EXAMINATION: CT facial & cervical spine wo DATE: 08/30/2024 23:35 INDICATION: fall, head injury, epistaxis TECHNIQUE: Computed tomography (CT) of the maxillofacial region and cervical spine was performed with out intravenous contrast. Automated exposure control and iterative reconstruction technique were empl oyed. The dose-length product was 172.95 mGy-cm. COMPARISON: CT brain and C-spine 06/15/2024 FINDINGS: CERVICAL: Vertebral Body Alignment: Significant scoliosis. Cervical kyphosis. Multilevel mild grade 1 degenerat damien listheses, stable. Craniocervical and atlantoaxial alignment: Moderate degenerative change. Alignment intact. Osseous structures/fracture: No evidence of a lytic or blastic process in the visualized spine. No e vidence of acute fracture. Chronic multilevel anterior wedge deformities. Cervical soft tissues: The paraspinal soft tissues planes are maintained. Degenerative changes: Multilevel degenerative disc disease and facet arthropathy. Multilevel moderate bilateral neural foraminal narrowing. No severe central canal narrowing. FACE: Soft Tissues: Right frontal and right orbital soft tissue swelling. Facial bones: Mildly depressed and displaced bilateral nasal bone fractures. No lytic or blastic pro cess. Eyes: The globes are intact. The soft tissue planes of the orbits are maintained. Paranasal Sinuses: The visualized aerated spaces are clear. Foreign Bodies: No radiopaque foreign bodies. Other Findings: None. IMPRESSION: No acute fracture or traumatic malalignment in the cervical spine. Possible acute mildly depressed an d displaced bilateral nasal bone fractures, correlate for pain/tenderness. Reviewed, dictated and finalized at location K. IDE B2B SALES IMPRESSION: No acute fracture or traumatic malalignment in the cervical spine. Possible acu te mildly depressed and displaced bilateral nasal bone fractures, correlate for pain/tenderness.
[2024-08-30 22:45] VITALS: BP 182/89; PULSE 83; RESP 17; O2SAT 94
--- NOTE | 2024-08-30 23:04 | ED.FALL ---
HPI - Fall General Chief Complaint: Fall Stated Complaint: FALL, EPISTAXIS Time Seen by Provider: 08/30/24 22:46 Source: patient Mode of arrival: ambulatory Limitations: no limitations History of Present Illness HPI Narrative: This is a 64-year-old female with PMH of epilepsy, Parkinson disease, impaired gait who presents to the ED via EMS from assisted living facility for chief complaint of a fall with laceration to the forehead. Per EMS she was found by the staff in the restroom and on the ground. They were unsure of how long she was down. Patient is unable to tell me how she fell. States that she has frequent falls and thinks that occurred been her epilepsy. She denies any pain other than facial pain and endorses the nose bleeding. For chart review she takes full dose aspirin but no anticoagulants. Denies any further sites of injury or pain. Denies numbness, weakness, fevers, chills, cough, chest pain or shortness of breath. Related Data Home Medications ?Medication ?Instructions ?Recorded ?Confirmed ?Last Taken ?Type acetaminophen 500 mg tablet 1,000 mg PO TID PRN Pain 06/15/24 08/09/24 Unknown History alendronate 70 mg tablet 70 mg PO WEEKLY 06/15/24 08/09/24 Unknown History ascorbic acid (vitamin C) 500 mg 500 mg PO DAILY 06/15/24 08/09/24 Unknown History tablet (Vitamin C) calcium 333 mg-vit D3 133 1 tablet PO DAILY 06/15/24 08/09/24 Unknown History unit-magnesium 133 mg-zinc 5 mg tablet (Michael Mag Zinc Plus D3) calcium carbonate (Oyster Shell 500 mg PO BID 06/15/24 08/09/24 06/15/24 18:00 History Calcium 500) cholecalciferol (vitamin D3) 25 25 mcg PO DAILY 06/15/24 08/09/24 Unknown History mcg (1,000 unit) capsule (Vitamin D3) cyanocobalamin (vitamin B-12) 2,500 mcg PO DAILY 06/15/24 08/09/24 Unknown History 2,500 mcg sublingual tablet hydrocortisone 2.5 % topical cream 1 applic topical BID PRN 06/15/24 08/09/24 Unknown History with perineal applicator Hemorrhoids (Anusol-HC) hydrocortisone acetate 25 mg 25 mg RECTAL BID PRN hemmorhoid 06/15/24 08/09/24 Unknown History rectal suppository (Anusol-HC) niacin (inositol niacinate) 500 mg 1 tablet PO DAILY 06/15/24 08/09/24 Unknown History tablet Allergies Allergy/AdvReac Type Severity Reaction Status Date / Time felbamate (From Felbatol) Allergy Severe Anaphylaxis Verified 06/16/24 08:01 Sulfa (Sulfonamide Allergy Dizziness Verified 06/16/24 08:01 Antibiotics) bactrim Allergy Mild Dizziness Uncoded 06/16/24 08:01 Review of Systems Review of Systems: All systems as dictated in [facility] Past Medical History Medical History Rectal prolapse Impaired cognition Depression Hypothyroidism Parkinson disease Epilepsy Social History Social History Smoking status: Never smoker Alcohol intake: unknown Substance use: never Substance use type: does not use Do You Feel Safe in your Home?: Yes Lack of Transportation: No Lack of Food: Never True Current Housing: I Have Housing Concerned About Future Housing: No Difficulty Paying Gas/Electric Bills: No Difficulty Paying for Meds: No Currently Unemployed: No Education: Don't Know Difficulty w/ Childcare or Family Care: No Living arrangements: assisted living Additional living arrangements comments: [place] Occupation/Education: retired 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 HEAD: Normocephalic, atraumatic. EYES: PERRLA and EOMI. ENT: Epistaxis present, seems to be worse on the left side. There is active oozing bleed from the left side while there is only dried blood on the right. The nose does not appear swollen or edematous. Dried blood in the posterior pharynx visualized. Oropharynx without tonsillar hypertrophy exudate or other lesions. NECK: Supple. No adenopathy or masses. CHEST: No respiratory distress. Clear to auscultation. No wheezes rales or rhonchi HEART: Regular rate and rhythm. No murmur heard. Normal peripheral pulses. ABDOMEN: Soft, nontender, nondistended, normal active bowel sounds. MSK: Normal range of motion. No edema. SKIN: 3 cm laceration superior to the right eyebrow. Bleeding controlled. NEURO: Alert and oriented x4. No focal deficits. PSYCH: Normal mood and affect. Course Course Emergency Course: Patient's RN here was able to contact the nurse at [facility] who states that patient is normally only mobile with a wheelchair and she did fall tonight as she was trying to transition from wheelchair to the toilet, which is common for the patient. They also state that her mental status here is consistent with her mental status at baseline. Vital Signs Vital signs: Vital Signs Pulse Rate 83 08/30/24 22:45 Respiratory Rate 17 08/30/24 22:45 Blood Pressure 182/89 H 08/30/24 22:45 Pulse Oximetry 94 08/30/24 22:45 Oxygen Delivery Room Air 08/30/24 22:45 Pulse Rate 72 08/31/24 01:15 Respiratory Rate 15 08/31/24 01:15 Blood Pressure 129/87 08/31/24 01:15 Pulse Oximetry 100 08/31/24 01:15 Oxygen Delivery Room Air 08/30/24 22:45 Procedures Laceration Laceration 1: Date: 08/31/24 Time: 00:13 Site: face Side (If applicable): right Size (cm): 3 Description: irregular Depth: simple, single layer Local Anesthetic: lidocaine 1% and with epi Amount of anesthesia used (mL): 2 Pre-repair: wound explored, irrigated extensively and deep structures intact ====== Skin Level ====== Skin layer closed with: nylon Size (cm): 5-0 Number of sutures: 4 Technique: simple, interrupted ====== Subcutaneous Layer ====== ====== Muscle Layer ====== ====== Tendon Layer ====== MDM - Fall MDM Narrative Medical decision making narrative: This is a 64-year-old female who presents to the ED for chief complaint of a fall at the assisted living facility today. Vitals are normal. Exam shows facial laceration and epistaxis and consistent with fall with head injury. No focal neural deficits. She is at her mental status baseline according to senior living and EMS. The fall was unwitnessed so broad workup was started, although suspect this is a typical fall due to her Parkinson's. She is not showing signs of seizure. EKG shows sinus rhythm with no acute ischemic findings. CT brain without contrast: IMPRESSION: No acute intracranial process. CT facial, cervical spine: IMPRESSION: No acute fracture or traumatic malalignment in the cervical spine. Possible acute mildly depressed and displaced bilateral nasal bone fractures, correlate for pain/tenderness. Chest x-ray is without acute findings. Laceration to the right eyebrow was repaired here after irrigation. Tdap updated. The epistaxis resolved on its own with nasal clamping. Laboratory workup is unremarkable aside from urinalysis showing overt UTI. She has no systemic signs to indicate pyelonephritis or sepsis today. Rx for cefdinir was given. Patient will be discharged in stable condition. Supportive measures discussed and return precautions given. Patient is understanding and agreeable with plan for discharge with PCP follow-up. Lab Data 08/30/24 23:23 08/30/24 23:23 Labs: Lab Results 08/30/24 08/31/24 Range/Units 23:23 00:57 WBC 5.4 (4.5-10.0) K/mm3 RBC 4.41 (4.2-5.4) M/mm3 Hgb 14.0 (12.0-15.0) g/dL Hct 41.5 (37.0-47.0) % MCV 94.1 (80-100) fl MCH 31.7 (26-34) pg MCHC 33.7 (32-36) g/dl RDW 12.9 (11.5-14.5) % Plt Count 218 (150-375) k/mm3 MPV 12.6 H (7.4-10.4) fl Immature Gran % (Auto) 0.2 (0-0.5) % Neut % (Auto) 52.4 (45.5-73.1) % Lymph % (Auto) 36.9 (18.3-44.2) % [place] % (Auto) 7.0 (2.6-8.5) % Eos % (Auto) 2.6 (0-4.4) % Baso % (Auto) 0.9 (0.2-1.2) % Lymph # (Auto) 2.00 (0.9-3.2) K/mm3 [place] # (Auto) 0.4 (0.1-0.6) K/mm3 Eos # (Auto) 0.1 (0-0.3) K/mm3 Baso # (Auto) 0.1 (0.0-0.1) K/mm3 Abs Immat Gran (auto) 0.01 (0.00-0.031) K/mm3 Absolute Neuts (auto) 2.8 (1.3-6.7) K/mm3 Absolute Nucleated RBC 0.000 (0.0-0.012) K/mm3 Nucleated RBC % 0.0 (0.0-0.2) % Sodium 137 (137-145) mmol/L Potassium 3.5 (3.4-5.0) mmol/L Chloride 99 (98-107) mmol/L Carbon Dioxide 31 H (22-30) mmol/L Anion Gap 7 (4-12) mmol/L BUN 6 L D (7-17) mg/dL Creatinine 0.48 L (0.7-1.0) mg/dL Estim Creat Clear Calc 90 ml/min Estimated GFR > 60 (59 - ) Glucose 98 (65-110) mg/dL Lactic Acid 1.1 (0.7-2.0) mmol/L Calcium 9.2 (8.4-10.2) mg/dL Total Bilirubin 0.4 (0.2-1.3) mg/dL AST 20 (14-36) U/L ALT < 6 L (6-35) U/L Alkaline Phosphatase 88 (38-126) U/L Troponin I < 0.012 (0.000-0.034) ng/mL Total Protein 7.0 (6.3-8.2) g/dL Albumin 4.1 (3.5-5.1) g/dL Urine Color Yellow (Yellow) Urine Appearance Clear (Clear) Urine pH 7.0 (5.0-9.0) Ur Specific [place] 1.004 (1.001-1.035) Urine Protein Negative (Negative) mg/dL Urine Glucose (UA) Negative (Negative) mg/dL Urine Ketones Negative (Negative) mg/dL Ur Blood (Man) Negative (Negative) Urine Nitrate Positive H (Negative) Urine Bilirubin Negative (Negative) Urine Urobilinogen 0.2 (<2.0) mg/dL Add Ur Microanalysis Reviewed Leukocyte Esterase Rfl 2+ H (Negative) ROSALIND/UL Urine RBC 0-2 (0-2) /hpf Urine WBC 6-10 H (0-3) /hpf Ur Squamous Epith Cells None seen (Few) /hpf Urine Bacteria 4+ H /hpf Urine Casts 0-2 Discharge Plan Discharge Clinical Impression: Acute UTI, Fall, Laceration of head Patient Disposition: [facility] Condition: Stable Instructions: Antibiotic Form, Laceration (ED), Head Injury (ED) Additional Instructions: Keep wound clean and dry. Do not soak, take baths, or swim until wound is completely healed. If any signs of infection such as redness, swelling, increasing pain, drainage of purulent discharge, streaks up your extremity develop, seek medical attention immediately. Followup with your primary care provider in [7] days for suture removal. Cefdinir prescribed for UTI. If you have any new or worsening symptoms please return to the ER for further evaluation. Patient Language: Arabic Prescriptions: New cefdinir 300 mg capsule 300 mg PO Q12H 7 Days Qty: 14 0RF cefdinir 300 mg capsule 300 mg PO Q12H 7 Days Qty: 14 0RF No Action cyanocobalamin (vitamin B-12) 2,500 mcg tablet, sublingual 2,500 mcg PO DAILY alendronate 70 mg tablet 70 mg PO WEEKLY Rx Instructions: patient takes on Fridays acetaminophen 500 mg tablet 1,000 mg PO TID PRN (Reason: Pain) hydrocortisone acetate [Anusol-HC] 25 mg suppository 25 mg RECTAL BID PRN (Reason: hemmorhoid) hydrocortisone [Anusol-HC] 2.5 % cream with perineal applicator 1 applic topical BID PRN (Reason: Hemorrhoids) calcium carbonate [Oyster Shell Calcium 500] 500 mg calcium (1,250 mg) tablet 500 mg PO BID ascorbic acid (vitamin C) [Vitamin C] 500 mg tablet 500 mg PO DAILY cholecalciferol (vitamin D3) [Vitamin D3] 25 mcg (1,000 unit) capsule 25 mcg PO DAILY niacin (inositol niacinate) 500 mg tablet 1 tablet PO DAILY Michael Mag Zinc Plus D3 333 mg-133 unit -133 mg-5 mg tablet 1 tablet PO DAILY aspirin 325 mg Tablet,Delayed Release (Dr/Ec) 325 mg PO Q12HR 28 Days Qty: 56 0RF Rx Instructions: for 28 days oxycodone-acetaminophen 5-325 mg Tablet 1 tablet PO Q4H PRN (Reason: Pain Rated 4-6) Qty: 20 0RF carbamazepine [Tegretol XR] 100 mg Tablet Extended Release 12 Hr 500 mg PO BID 30 Days Qty: 300 0RF polyethylene glycol 3350 [Miralax] 17 gram Powder In Packet 17 g PO QAM Qty: 0 0RF sennosides-docusate sodium [Senokot-S] 8.6-50 mg Tablet 1 tab-cap PO HS 30 Days Qty: 30 0RF docusate sodium 100 mg Capsule 100 mg PO Q12HR 30 Days Qty: 60 0RF trazodone 50 mg tablet 50 mg PO DAILY Qty: 30 0RF sertraline 100 mg tablet 100 mg PO DAILY Qty: 30 0RF zonisamide 100 mg capsule 100 mg PO QPM Qty: 30 0RF primidone 250 mg tablet 250 mg PO HS Qty: 30 0RF tamsulosin 0.4 mg capsule 0.4 mg PO DAILY Qty: 30 0RF levothyroxine 150 mcg tablet 150 mcg PO DAILY Qty: 30 0RF carbidopa-levodopa 25-100 mg tablet 1.5 tablet PO TID Qty: 30 0RF buspirone 15 mg tablet 15 mg PO BID Qty: 60 0RF aripiprazole 10 mg tablet 10 mg PO DAILY Qty: 30 0RF duloxetine 60 mg capsule,delayed release(DR/EC) 60 mg PO BID 30 Days Qty: 0 0RF L.acidoph,saliva-B.bif-S.therm 175 mg capsule 1 cap PO DAILY Qty: 30 0RF Follow-up/Referrals: UNKNOWN,DOCTOR [Primary Care Provider] - Time of Disposition: 01:45
--- NOTE | 2024-08-30 23:05 | ECG_ITS ---
Test Date: 2024-08-30 23:16:26 Measurements Intervals [place] Rate: 71 P: 42 CO: 126 QRS: 64 QRSD: 98 T: 49 QT: 366 QTc: 399 Interpretive Statements SINUS RHYTHM NONSPECIFIC T-WAVE ABNORMALITY No previous ECG available for comparison Electronically Signed On 08-31-2024 11:39:34 PSYCHOMETRIC EXAMINER by Jhon Campbell M.D.
[2024-08-30 23:29] LABS: Basophils Absolute Auto 0.1 K/mm3 (0.0-0.1); Basophils Percent Auto 0.9 % (0.2-1.2); Eosinophils Absolute Auto 0.1 K/mm3 (0-0.3); Eosinophils Percent Auto 2.6 % (0-4.4); Hematocrit 41.5 % (37.0-47.0); Immature Granulocyte Absolute 0.01 K/mm3 (0.00-0.031); Immature Granulocyte Percent A 0.2 % (0-0.5); Lymphocytes Percent Auto 36.9 % (18.3-44.2); Mean Corpuscular HGB Conc 33.7 g/dl (32-36); Mean Corpuscular Hemoglobin 31.7 pg (26-34); Mean Corpuscular Volume 94.1 fl (80-100); Mean Platelet Volume 12.6 fl (7.4-10.4); Monocytes Absolute Auto 0.4 K/mm3 (0.1-0.6); Neutrophils Absolute Auto 2.8 K/mm3 (1.3-6.7); Neutrophils Percent Auto 52.4 % (45.5-73.1); Platelet Count Result 218 k/mm3 (150-375); Red Blood Count 4.41 M/mm3 (4.2-5.4); Red Cell Distribution Width 12.9 % (11.5-14.5); White Blood Count 5.4 K/mm3 (4.5-10.0)
--- OUTSIDE RECORDS SUMMARY | 2024-08-30 23:33 | XMS_ITS | Encounter Summary ---
Author Organization [facility] Address [address] [place] [address]. 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 [address] [place] [address] , Generic Conversion, Social History Tobacco Use Types Packs/Day Years Used Date Smoking Tobacco: Never Assessed Comments Unknown Sex and Gender Information Value Date Recorded Sex Assigned at Not on file Legal Sex Female 10:06 PM CDT Gender Identity Not on file Sexual Orientation Not on file documented as of this encounter Plan of Treatment Not on file documented as of this encounter Visit Diagnoses Not on filedocumented in this encounter
--- OUTSIDE RECORDS SUMMARY | 2024-08-30 23:33 | XMS_ITS | Clinical Summary ---
Author Organization [facility] Address [address] [place] [address]. 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 Name Role Phone Unavailable Primary Care Provider Unavailabl e Social History Tobacco Use Types Packs/Day Years Used Date Smoking Tobacco: Never Assessed Comments Unknown Sex and Gender Information Value Date Recorded Sex Assigned at Not on file Legal Sex Female 10:06 PM CDT Gender Identity Not on file Sexual Orientation Not on file Plan of Treatment Health Maintenance Due Date Last Done Comments Colorectal Cancer Screening Colonoscopy (10 Years) 1958 Hepatitis C 1976 DTaP, Tdap and Td Vaccines ( 1 - Tdap) 1977 Mammogram Screening 1998 Zoster Vaccines (1 of 2) 2008 Dexa Scan (General) 2023 Pneumococcal Vaccine: 65+ Ye ars (1 of 1 - PCV) 2023 COVID-19 Vaccine ( - 2023-2 5 season) 2024 Influenza Adult (#1) 2024 RSV Immunization or 60+ Years (1 - 1-dose 75+ series) 2033 Meningococcal B Vaccine Aged Out No l onger eligible based on patient's age to complete this topic Meningococcal Vaccine Aged Out No feliberto monserrat eligible based on patient's age to complete this topic Pneumococcal Vaccine: Pediat rics (0 to 5 Years) and At-Risk Patients (6 to 64 Years) Aged Out No longer eligible b ased on patient's age to complete this topic RSV Immunizations Under 20 Months Aged Out No longer eligible based on patient's age to complete this topic
--- OUTSIDE RECORDS SUMMARY | 2024-08-30 23:33 | XMS_ITS ---
Author Organization [facility] Address [address] [place] [address] Care Team Providers Care Bluing Oven Tender Name Role Phone Cindy VAN, Luis Primary Care Provider [facility] [phone] REASON FOR VISIT At Risk Foot Care Encounters Encounter Location Date Provider Diagnosis Andrew Hooks Dpm [facility] [address] [id number] 08/16/2023 Yanna Maya PLAN OF TREATMENT No Information Progress Notes * Bethany ALMARAZ HDOB: 8 (64 yo F)Acc No.[id number]:08/16/2023 Patient:??Bethany ALMARAZ Blanca Provider:??Yanna Maya DPM, INDIO PM :1960?Age:63 Y?Sex:Fe male Date:08/16/2023 Address:[address] [id number] Pcp:Luis White MD Subjective: * Chief Complaints: * ?1. At Risk Foot Care. * Medical History:?? Objective: Assessment: Plan: * Treatment: * Billing Information: * Visit Code:?? * Procedure Codes:?? * PROCESSING ASSOCIATE Sign off status: Pending * Provider:??Yanna Maya DPM, INDIO PM Date:??08/16/2023
--- OUTSIDE RECORDS SUMMARY | 2024-08-30 23:33 | XMS_ITS | Continuity of Care Document ---
[facility] Address [address] [place] [address] Phone Care Team Providers Care Audio Visual Coordinator Name Role Phone Juan Pablo Rich MD Unavailable Unavailable Advance Directives Directive Yes / No Effective Date File Name No Information Encounters Encounter Description Practice Location Reason(s) For Visit Diagnoses Date Provider Providers Copied on Encounter [facility], [address], [place], [place], [id number], tel:[phone] [facility] No Information Layla Almeida. [address], [place], [id number], . tel:[phone] Referring Provider: Jere Trevino, [address] , [place], [address]. tel:[phone] Family History Family Member Type Diagnosis Age At Onset No Information Payers Payer name Insurance type Covered green party ID Authoriza tion(s) [place] [id number] [employer] [place] [id number] Social History Type Description Quantity Date Captured [...]
--- OUTSIDE RECORDS SUMMARY | 2024-08-30 23:33 | XMS_ITS | Encounter Summary ---
Author Organization [facility] Address [address] [place] [address]. [place], [place] [id number] [place], [place] [id number] Care Team Providers Care Intermediate Card Tender Name Role Phone Unavailable Primary Care Provider Unavailabl e Encounter Details Date Type Department Care Team (Late st Contact Info) Description 04/11/[address] [facility] Conversion [address] [place] [address] , Generic Conversion, Social History Tobacco Use [...]
--- OUTSIDE RECORDS SUMMARY | 2024-08-30 23:33 | XMS_ITS | Referral Summary ---
Author Organization [facility] Healthcare Address [address] [place] [address] Care Team Providers Care Auto Dismantler Name Role Phone Luis White MD Primary Care Provider [phone] Dominik Alejandro MD Unavailable [phone] Hiral Vidales MD Unavailable Allergies Active Allergy Reactions Criticality Noted Date Comments Felbamate Unknown 12/20/2006 Sulfamethoxazole-Trimethoprim Unknown 2016 Medications cholecalciferol (VITAMIN D-3) 1,000 unit tablet Take 2 tablets (2,000 Units total) by mouth daily after lunch Active Lactobacillus acidophilus 1 billion cell tablet Take 1 capsule by mouth daily before lunch Active levothyroxine (SYNTHROID) 150 mcg tablet Take 125 mcg by mouth every morning [address] (CYMBALTA) 60 mg capsule Take 1 capsule (60 mg total) by mouth every morning 30 capsule 11 2 Active alendronate (FOSAMAX) 70 mg tablet Take 1 tablet (70 mg total) by mouth every 7 days 3 Active ascorbic acid, vitamin C, 500 mg capsule Take 1 tablet by mouth every morning Active calcium carbonate (OS-SRINIVAS) 1,250 mg (500 mg elemental) tablet Take 1 tablet (1,250 mg total) by mouth daily after lunch Active multivitamin capsule Take 1 capsule by mouth every morning Active cyanocobalamin (Vitamin B-12) 100 mcg tablet Take 1 tablet (100 mcg total) by mouth daily after lunch Active acetaminophen 500 mg capsuleIndicatio ns:Pain Take 2 capsules (1,000 mg total) by mouth every 6 (six) hours 30 tablet 3 Active ibuprofen (ADVIL,MOTRIN) 600 mg tabletIndication s:Pain Take 1 tablet (600 mg total) by mouth every 8 (eight) hours as needed for pain 3 Active polyethylene glycol (MIRALAX) 17 gram packetIndication s:constipation Take 1 packet (17 g total) by mouth daily as needed for constipation 30 packet 3 Active doxycycline monohydrate (MONODOX) 100 mg capsule Take 1 capsule (100 mg total) by mouth daily 3 Active traZODone (DESYREL) 50 mg tablet Take 1 tablet (50 mg total) by mouth nightly Active tamsulosin (FLOMAX) 0.4 mg extended release capsule 3 Active carBAMazepine XR (TEGretol XR) 400 mg 12 hr tablet Take 1 tablet (400 mg total) by mouth 2 (two) times a day 60 tablet 4 025 Active carBAMazepine XR (TEGretol XR) 100 mg 12 hr tablet Take 1 tablet (100 mg total) by mouth 2 (two) times a day 60 tablet 4 025 Active primidone (MYSOLINE) 250 mg tablet Take 1 tablet (250 mg total) by mouth nightly 30 tablet 4 025 Active zonisamide (ZONEGRAN) 100 mg capsuleIndicatio ns:Partial Epilepsy Treatment Adjunct Take 5 capsules (500 mg total) by mouth nightly 150 capsule 4 025 Active carbidopa-levodo pa (SINEMET) 25-100 mg per tabletIndication s:Parkinsonism, unspecified Parkinsonism type (HCC) TAKE ONE AND ONE-HALF TABLETS BY MOUTH THREE TIMES DAILY 135 tablet 11 4 Active Active Problems Problem Noted Date Diagnosed Date Rectal prolapse 11/09/2022 Overview (11/09/2022): Added automatically from request for surgery [id number] Temporal lobe epilepsy, intractable 09/19/2018 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 She has very mild hypomimia and mild asymmetric bradykinesia, but there has been no significant objective progression of her parkinsonism or her ataxia in the interim. She has however had subjective complaints of shaking in her hands and head shaking; that we discussed is primarily a manifestation of her worsening truncal and appendicular ataxia. Although MSA-C would still feature in the differential, the lack of any autonomic problems and lack of significant interim progression of parkinsonism argues against it. She feels the levodopa may have helped with the slowness; she is tolerating it without any dose limiting side effects and no change in levodopa regimen is warranted at this time. She has noticed more shaking in her hands primarily with action and I believe this is dysmetria / intention tremor that would likely not respond to a higher dose of levodopa; her sister and caregiver know to send us a video of her bothersome shaking spells. Now that I have observed her clinical progression for over 7 years, spinocerebellar ataxia would still remain in the differential. She has had an extensive workup for alternate etiologies in the past as summarized below; we discussed that I do not have a strong clinical indication to repeat any of these at this juncture: MRI spine images showed multilevel moderate degenerative changes in the C-spine and T-spine with scoliosis but otherwise unremarkable. labs: CBC, CMP, ROMY, BABS, ANCA, ESR, CRP, serum and urine immunofixation, Vit B1, B12, E, Copper, Zinc, HIV, TSH, HbA1C, hepatitis serology, anti-GUILLERMO, anti- endomyisal and anti-transgluatminase (TTG) antibodies, anti-thyroglobulin (TG), anti-thyroperoxidase (TPO) antibodies, serum carbamazepine level and serum Paraneoplastic panel were unremarkable. anti OLIVIER (anti amino terminal alpha enolase) and IgG cerebellar staining in [facility] were not done with the initial labs. CSF for: cell count and differential, protein, glucose, Trotters, lactate/pyruvate ratio, cytology and flow cytometry, MADHAV virus PCR were also unremarkable. CSF Paraneoplastic panel including anti-GUILLERMO, CSF Arias unremarkable. CSF AMPA was not done. She has significant depressive symptoms especially after the demise of her and this is being managed by her psychiatrist; apparently an adjunct agent was recently added to duloxetine. I made them aware that bupropion needs to be avoided given her complex history of epilepsy. Recommendations: 1. Same levodopa. 2. same duloxetine. 3. Will consider repeat MRI Brain with/without contrast with further progression of symptoms. 4. Continue to f/u with psychiatrist. 5. Daily stretching, strict fall precautions. My total encounter time on 04/13/2023 was 45 minutes (face to face encounter: 4:39 PM - 5:19 PM), which was spent in the activities documented in the note. This includes time spent prior to the visit and after the visit in direct care of the patient. This time does not include any separately reportable services. Assessment & Plan (10/02/2021 4:23 PM ECOLOGICAL MODELER): She has a subacute onset (2015), somewhat rapidly progressive ataxia with exam notable for truncal more than appendicular ataxia, central nystagmus (confounded by concurrent carbamazepine intake), intention tremor and subtle asymmetric hyperreflexia with an upgoing toe on the left. She has very mild hypomimia and mild asymmetric bradykinesia, but there has been no significant objective progression of her parkinsonism in the interim. She has however had significant progression of her ataxia and her subjective complaints of shaking including the more recent onset head shaking is primarily a manifestation of her worsening truncal and appendicular ataxia. Although MSA-C would still feature in the differential, the lack of any autonomic problems and lack of significant interim progression of parkinsonism argues against it. She feels the levodopa may have helped with the slowness; she is tolerating it without any dose limiting side effects and no change in levodopa regimen is warranted at this time. She has noticed more shaking in her hand primarily with action and I believe this is intention tremor that would likely not respond to levodopa, but given the mildly worse subjective rest tremor as noticed by her ; a trial of levodopa uptitration would not be entirely unreasonable; they will discuss this further and call us if she wants to try the higher dose; strategies and side effects discussed. The time course is rather rapid for spinocerebellar ataxia, but would still remain in the differential. She has had an extensive workup in the past as summarized below: MRI spine images showed multilevel moderate degenerative changes in the C-spine and T-spine with scoliosis but otherwise unremarkable. labs: CBC, CMP, ROMY, BABS, ANCA, ESR, CRP, serum and urine immunofixation, Vit B1, B12, E, Copper, Zinc, HIV, TSH, HbA1C, hepatitis serology, anti-GUILLERMO, anti- endomyisal and anti-transgluatminase (TTG) antibodies, anti-thyroglobulin (TG), anti-thyroperoxidase (TPO) antibodies, serum carbamazepine level and serum Paraneoplastic panel were unremarkable. anti OLIVIER (anti amino terminal alpha enolase) and IgG cerebellar staining in [facility] were not done with the initial labs. CSF for: cell count and differential, protein, glucose, Trotters, lactate/pyruvate ratio, cytology and flow cytometry, MADHAV virus PCR were also unremarkable. CSF Paraneoplastic panel including anti-GUILLERMO, CSF Arias unremarkable. CSF AMPA was not done. They have not been able to decide regarding a PET scan in the past; but will repeat MRI Brain to evaluate interim radiologic changes given continued clinical progression of her ataxia. She has significant depressive symptoms and self downtitrated the duloxetine in the past. She would benefit from a higher dose; side effects and strategies discussed. She and her agreed with this plan; she will increase as directed. Recommendations: 1. Same levodopa. 2. Increase duloxetine to 60 mg q AM; strategies and side effects discussed. 3. Consider repeat MRI Brain with/without contrast with further progression of symptoms. 4. Daily stretching, strict fall precautions. This was a telemedicine visit with Bethany Almaraz and her which took place via Real-time video connection (Yandex, Materialiseom or similar). During the visit, I was located in my clinic office in the [facility], in the [place], [place] and the patient was located at her home in [place]. The session started at 13:08 and ended at 13:36. In addition to the time spent during the session with the patient, I spent 3 minutes preparing to see the patient and 2 minutes documenting clinical information in the electronic or other health record on the day of the visit. Total time spend on encounter on the day of the visit: 33 minutes. The patient has been informed that the visit may not be secure and acknowledged the information. It was explained to the patient they have the option of participating in a telephone or video visit during the [facility] [place] [address] emergency. After being given an opportunity to ask questions about and discuss this type of visit, the patient verbally consented to proceeding with the telephone / video visit. The patient understands that this service replaces an office visit and they may be billed and/or responsible for any applicable copayments. Greater than 50% of any time I spent on the call/video was spent in counseling and/or coordination of care as documented in the note. Assessment & Plan (11/06/2020 6:29 PM CDT): She has a subacute onset (2015), somewhat rapidly progressive ataxia with exam notable for truncal more than appendicular ataxia, central nystagmus (confounded by concurrent carbamazepine intake), intention tremor and subtle asymmetric hyperreflexia with an upgoing toe on the left. She has very mild hypomimia and mild asymmetric bradykinesia, but there has been no significant objective progression of her parkinsonism in the interim. She has however had significant progression of her ataxia and her subjective complaints of shaking including the more recent onset head shaking is primarily a manifestation of her worsening truncal and appendicular ataxia. Although MSA-C would still feature in the differential, the lack of any autonomic problems and lack of significant interim progression of parkinsonism argues against it. She feels the levodopa may have helped with the slowness; she is tolerating it without any dose limiting side effects and no change in levodopa regimen is warranted at this time. The time course is rather rapid for spinocerebellar ataxia, but would still remain in the differential. She has had an extensive workup as summarized below: MRI spine images showed multilevel moderate degenerative changes in the C-spine and T-spine with scoliosis but otherwise unremarkable. labs: CBC, CMP, ROMY, BABS, ANCA, ESR, CRP, serum and urine immunofixation, Vit B1, B12, E, Copper, Zinc, HIV, TSH, HbA1C, hepatitis serology, anti-GUILLERMO, anti- endomyisal and anti-transgluatminase (TTG) antibodies, anti-thyroglobulin (TG), anti-thyroperoxidase (TPO) antibodies, serum carbamazepine level and serum Paraneoplastic panel were unremarkable. anti OLIVIER (anti amino terminal alpha enolase) and IgG cerebellar staining in [facility] were not done with the initial labs. CSF for: cell count and differential, protein, glucose, Trotters, lactate/pyruvate ratio, cytology and flow cytometry, MADHAV virus PCR were also unremarkable. CSF Paraneoplastic panel including anti-GUILLERMO, CSF Arias unremarkable. CSF AMPA was not done. They were interested in pursuing PET scan that we had discussed previously. I reiterated as before that given the continued rapid progression, it would be reasonable and could provide further insights into inflammatory vs neurodegenerative etiologic processes and could also detect occult cancers; hence could help with the diagnosis and possibly further management and help decide if we need to repeat some of the prior diagnostic tests. Would also recheck MRI Brain to evaluate interim radiologic changes given continued clinical progression of her ataxia. She has significant depressive symptoms and self downtitrated the duloxetine in the past. She would benefit from a higher dose; side effects and strategies discussed. Recommendations: 1. Same levodopa. 2. Increase duloxetine to 60 mg q AM; strategies and side effects discussed. 3. whole body FDG PET scan including brain; her requested this be scheduled in December. 4. Check MRI Brain with/without contrast. 5. Daily stretching, strict fall precautions. Assessment & Plan (03/05/2020 7:07 PM CDT): She has a subacute onset (2015), somewhat rapidly progressive ataxia with exam notable for truncal more than appendicular ataxia, central nystagmus (confounded by concurrent carbamazepine intake), intention tremor and subtle asymmetric hyperreflexia with an upgoing toe on the left. She has very mild hypomimia and mild asymmetric bradykinesia, but there has been no significant objective progression of her parkinsonism in the interim. She has however had significant progression of her ataxia and her subjective complaints of shaking including the more recent onset head shaking is primarily a manifestation of her worsening truncal and appendicular ataxia. We discussed that a higher dose of levodopa could potentially help with the mild slowness but not with the ataxia and whole body shaking. Although MSA-C would still feature in the differential, the lack of any autonomic problems and lack of significant interim progression of parkinsonism argues against it. The time course is rather rapid for spinocerebellar ataxia, but would still remain in the differential. She has had an extensive workup as summarized below: MRI spine images showed multilevel moderate degenerative changes in the C-spine and T-spine with scoliosis but otherwise unremarkable. labs: CBC, CMP, ROMY, BABS, ANCA, ESR, CRP, serum and urine immunofixation, Vit B1, B12, E, Copper, Zinc, HIV, TSH, HbA1C, hepatitis serology, anti-GUILLERMO, anti- endomyisal and anti-transgluatminase (TTG) antibodies, anti-thyroglobulin (TG), anti-thyroperoxidase (TPO) antibodies, serum carbamazepine level and serum Paraneoplastic panel were unremarkable. anti OLIVIER (anti amino terminal alpha enolase) and IgG cerebellar staining in [facility] were not done with the initial labs. CSF for: cell count and differential, protein, glucose, Trotters, lactate/pyruvate ratio, cytology and flow cytometry, MADHAV virus PCR were also unremarkable. CSF Paraneoplastic panel including anti-GUILLERMO, CSF Arias unremarkable. CSF AMPA was not done. I reiterated as before that given the continued rapid progression, it would be reasonable to repeat some of the above tests. PET scan including brain for further insights into inflammatory vs neurodegenerative etiologic processes and could also detect occult cancers; hence could help with the diagnosis and possibly further management. Our office did inform the out of pocket costs but they haven't been able to decide as yet. If the financial constraints prove to be an issue, will check CT C/A/P and repeat some of the above labs. Would also recheck MRI Brain to evaluate interim radiologic changes given continued clinical progression of her ataxia. She has significant depressive symptoms and has self downtitrated the duloxetine in the interim. They will call us back with the strength of the pills, would uptitrate it back maximally as she has tolerated this well in the past without significant side effects. She has also had mild interim dysphagia in the interim, she would benefit from ST evaluation and MBS. Recommendations: 1. Same levodopa. 2. She will call us back with the duloxetine dosage she is taking, plan to uptitrate it gradually back to 60 mg BID. 3. whole body FDG PET scan including brain; will consider CT chest/abdomen/pelvis with contrast as an alternate option if they decide against PET due to financial constraints. 4. Check MRI Brain with/without contrast. 5. Refer to Speech therapy for MBS. 6. Daily stretching, strict fall precautions. Assessment & Plan (08/24/2019 4:56 PM ECOLOGICAL MODELER): She has a subacute onset (2015), rather rapidly progressive ataxia with exam notable for truncal more than appendicular ataxia, central nystagmus (confounded by concurrent carbamazepine intake), action/intention tremor and subtle asymmetric hyperreflexia with an upgoing toe on the left. She has very mild hypomimia and mild asymmetric hypokinesia, but there has been no significant objective progression of her parkinsonism in the interim. She has however had significant progression of her ataxia and her subjective complaints of shaking including the more recent onset whole body shaking is primarily a manifestation of her worsening truncal and appendicular ataxia. We discussed that a higher dose of levodopa could potentially help with the more frequent freezing but not with the recent onset whole body shaking. Although early MSA-C would still feature in the differential, the lack of any autonomic problems and lack of progression of parkinsonism argues against it. The time course is rather rapid for spinocerebellar ataxia, but would still remain in the differential. She has had an extensive workup as summarized below: MRI spine images showed multilevel moderate degenerative changes in the C-spine and T-spine with scoliosis but otherwise unremarkable. labs: CBC, CMP, ROMY, BABS, ANCA, ESR, CRP, serum and urine immunofixation, Vit B1, B12, E, Copper, Zinc, HIV, TSH, HbA1C, hepatitis serology, anti-GUILLERMO, anti- endomyisal and anti-transgluatminase (TTG) antibodies, anti-thyroglobulin (TG), anti-thyroperoxidase (TPO) antibodies, serum carbamazepine level and serum Paraneoplastic panel were unremarkable. anti OLIVIER (anti amino terminal alpha enolase) and IgG cerebellar staining in [facility] were not done with the initial labs. CSF for: cell count and differential, protein, glucose, Trotters, lactate/pyruvate ratio, cytology and flow cytometry, MADHAV virus PCR were also unremarkable. CSF Paraneoplastic panel including anti-GUILLERMO, CSF Arias unremarkable. CSF AMPA was not done. I reiterated as before that given the continued rapid progression, it would be reasonable to repeat some of the above tests. PET scan including brain for further insights into inflammatory vs neurodegenerative etiologic processes and could also detect occult cancers; hence could help with the diagnosis and possibly further management. They want to first know the out of pocket costs before deciding on the next course of action; will have our office look into this. If the financial constraints prove to be an issue, will check CT C/A/P and repeat some of the above labs. Recommendations: 1. Same levodopa. 2. Same duloxetine. 3. whole body FDG PET scan including brain; will consider CT chest/abdomen/pelvis with contrast as an alternate option if they decide against PET; they will discuss the financial aspects. 4. Daily stretching, strict fall precautions. Assessment & Plan (03/23/2019 6:15 PM CDT): She has a subacute onset (2015), rather rapidly progressive ataxia with exam notable for truncal more than appendicular ataxia, central nystagmus (confounded by concurrent carbamazepine intake), action/intention tremor and subtle asymmetric hyperreflexia with an upgoing toe on the left. She has very mild hypomimia and mild asymmetric hypokinesia, but there has been no significant objective progression of her parkinsonism in the interim. She has however had significant progression of her ataxia and her subjective complaints of shaking is primarily a manifestation of her worsening ataxia. She can continue her current dose of levodopa but no dose increment is recommended at this time. Although early MSA-C would still feature in the differential, the lack of any autonomic problems and lack of progression of parkinsonism argues against it. The time course is rather rapid for spinocerebellar ataxia, but would still remain in the differential. She has had an extensive workup as summarized below: MRI spine images showed multilevel moderate degenerative changes in the C-spine and T-spine with scoliosis but otherwise unremarkable. labs: CBC, CMP, ROMY, BABS, ANCA, ESR, CRP, serum and urine immunofixation, Vit B1, B12, E, Copper, Zinc, HIV, TSH, HbA1C, hepatitis serology, anti-GUILLERMO, anti- endomyisal and anti-transgluatminase (TTG) antibodies, anti-thyroglobulin (TG), anti-thyroperoxidase (TPO) antibodies, serum carbamazepine level and serum Paraneoplastic panel were unremarkable. anti OLIVIER (anti amino terminal alpha enolase) and IgG cerebellar staining in [facility] were not done with the initial labs. CSF for: cell count and differential, protein, glucose, Trotters, lactate/pyruvate ratio, cytology and flow cytometry, MADHAV virus PCR were also unremarkable. CSF Paraneoplastic panel including anti-GUILLERMO, CSF Arias unremarkable. CSF AMPA was not done. Given the continued rapid progression, it would be reasonable to repeat some of the above tests. PET scan including brain for further insights into inflammatory vs neurodegenerative etiologic and also detect occult cancers could also help with the diagnosis and possibly further management. She would consider this and call us back. If the financial constraints prove to be an issue, will check CT C/A/P and repeat some of the above labs. Recommendations: 1. Same levodopa. 2. Same duloxetine. 3. whole body FDG PET scan including brain; will consider CT chest/abdomen/pelvis with contrast as an alternate option if they decide against PET; they will discuss the financial aspects and call us back with her preference. 4. Daily stretching, strict fall precautions. Parkinsonism 02/17/2018 Depression 02/17/2018 Social History Tobacco Use Types Packs/Day Years Used Date Smoking Tobacco: Never Passive Smoke Exposure: Never Smokeless Tobacco: Never Tobacco Cessation:Counseling Given: Not Answered AUDIT-C Answer Date Recorded Q1: How often do you have a drink containing alc ohol? Never 11/27/2022 Average Number of Drinks Not on file 023 Q3: How often do you have si x or more drinks on one occasion? Never 11/27/2022 Personal Safety Answer Date Recorded Have you ever been in or are you currently in a harmful physical or emotional relationship or is someone making you feel afraid or unsafe? Denies 12/09/2022 Comments No Sex and Gender Information Value Date Recorded Sex Assigned at Not on file Legal Sex Female 11:43 PM ECOLOGICAL MODELER Gender Identity Female 11/05/2020 1:42 AM CDT Sexual Orientation Straight 11/05/2020 1: 42 AM CDT Last Filed Vital Signs Vital Sign Reading Time Taken Comments Blood Pressure 116/74 12/28/2023 3:16 PM CDT Pulse 69 12/28/2023 3:16 PM CDT Temperature 36.9 ??C (98.4 ??F) 04/09/2023 3:28 PM CD T Respiratory Rate 18 12/11/2022 5:39 AM CDT Oxygen Saturation 97% 04/09/2023 3:28 PM CDT Inhaled Oxygen Concentration - - Weight 60.8 kg (134 lb) 12/28/2023 3:16 PM CDT Height 172.7 cm (5' 8 ) 12/28/2023 3:16 PM CDT Body Mass Index 20.37 12/28/2023 3:16 PM CDT Plan of Treatment Not on file Medical Devices Implanted Type Area Leadership Recruiter Device Identifier Shelf Expiration Date Model / Serial / Lot [employer] Inc/C R Bard 6x3in Large Pore Knit Monofilament Smooth [place] [id number] - [id number] Implanted:Qty: 1 on 12/09/2022 by Dominik Alejandro MD at [facility] Mesh N/A: Abdomen [employer]/C R Bard [id number] 04/29/2027 [id number] / / [id number] Plates And Screws Right: Wrist Procedures Procedure Name Priority Date/Time Associated Diagnosis Comments COLONOSCOPY 08/12/2022 12:59 PM ECOLOGICAL MODELER from Last 3 Months or Most Recently Relevant to Health Maintenance Results * COLONOSCOPY (08/12/2022 12:59 PM ECOLOGICAL MODELER) Anatomical Region Laterality Modality Other Narrative Procedure Note Hiral Vidales MD - 08/12/2022 12:59 PM CST [facility] GI ENDOSCOPY Patient Name: Bethany Almaraz Procedure Date: 08/12/2022 12:59 PM Date of : 1960 Admit Type: Outpatient Age: 62 Gender: Female Attending MD: Hiral Vidales M.D. Room: [facility] ENDOSCOPY ROOM 05 Note Status: Finalized Procedure: Colonoscopy Indications: High risk colon cancer surveillance: Personalhistory of colonic polyps Referring MD: Providers: Hiral Vidales M.D. Medicines: See the Anesthesia note for documentation of the administered medications Complications: No immediate complications. Estimated Blood Loss: Estimated blood loss was minimal. Procedure: The benefits, risks and alternatives of theprocedure and sedation were discussed and informed consentwas obtained. All questions were answered. Please referto the signed informed consent document in the medical record. The scope was passed under direct vision.The PCF-H180AL colonoscope was introduced through theanus and advanced to the cecum, identified byappendiceal orifice and ileocecal valve. The colonoscopy was performed without difficulty. The patient tolerated the procedure well. The quality of the bowel preparation was adequate. Findings: The perianal exam was abnormal. Patient had full thickness rectal prolapse. It was easily reduced. Patient had poor anal tone. An 8 mm polyp was found in the descending colon. The polyp wasremoved with a hot biopsy forceps. Resection and retrieval were complete. A 5 mm polyp was found in the sigmoid colon. The polyp was removedwith a hot biopsy forceps. Resection and retrieval were complete. An area of moderately erythematous mucosa was found in the rectum. The digital rectal exam findings include decreased sphincter tone. Impression: - Abnormal perianal exam. - One 8 mm polyp in the descending colon, removedwith a hot biopsy forceps. Resected and retrieved. - One 5 mm polyp in the sigmoid colon, removed witha hot biopsy forceps. Resected and retrieved. - Erythematous mucosa in the rectum. - Decreased sphincter tone found on digital rectal exam. Recommendation: - Discharge patient to home. - No aspirin, ibuprofen, naproxen, or other non-steroidal anti-inflammatory drugs for 5 days. - Repeat colonoscopy in 5 years for surveillance. Hiral Vidales M.D. Hiral Vidales M.D. 08/12/2022 1:35:01 PM . Number of Addenda: 0 Note Initiated On: 08/12/2022 12:59 PM Recognized by the [place] [employer] for promoting quality in endoscopy Hiral Vidales MD ENDOSCOPY PROCEDURES Final Resul t from Last 3 Months or Most Recently Relevant to Health Maintenance Insurance DR [address] [place] [id number] [place] [address] [employer] [address] [place] [address] AETNA MEDICARE Advance Directives For more information, please contact: [phone] * Full Code (Latest Code Status on File) Date Activated Date Inactivated Comments 12/09/2022 4:30 PM 12/11/2022 8:52 PM Care Teams Auto Dismantler Relationship Specialty Start Date End Date Luis White MD [address] [address] PCP - General Emergency Medicine 03/07/19 Dominik Alejandro MD [address] [facility] [phone] [place] [address] Surgeon Colon and Rectal Surgery 11/06/22 [place] [address] [place] [address] Consulting Physician General Surgery 11/06/22
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
--- OUTSIDE RECORDS SUMMARY | 2024-08-30 23:33 | XMS_ITS | Data Portability ---
Author Organization [place] [facility] [employer], Main Office Address [address] [place] [address] Assessment Encounter Date Assessment Date Assessment LastModified by Organization Details LastModified Time 08/24/2023 08/24/2023 63-year-old female presents for evaluation of her left knee. She reports a history of knee arthritis that was being treated with Dr. Hanson for years. She recently just moved to the area. She lives in assisted facility. She reports she has had extensive conservative management including cortisone injections. She is a poor historian and is accompanied by her sister who provided most of the history. Her sister states that she is overdue for a cortisone injection, as the last schedule 1 had been in July which she did not get. Patient reports no specific complaints besides general pain and weakness in the knees and frequent falls. She says that her physical therapist at the facility had recommended she get another cortisone injection. She has diffuse tenderness around the knee, but more focally over the hamstring tendons. Range of motion 0-140. She has stable ligaments, negative Eric's. Sensation intact light touch throughout. X-rays reviewed, demonstrating mild to moderate degenerative changes I am not convinced that her symptoms are coming from her arthritic changes in her knee, which appear to be mild. Her main complaint is pain in the hamstrings and weakness leading to falls, rather than specific pain coming from the knee. We discussed that typically we would begin with a course of anti-inflammator ies and physical therapy. However, given her previous injections, and the recommendation by the physical therapist for injection so she can do more with therapy, I discussed with her and her sister that we could repeat the injection, but also as a diagnostic injection as well as therapeutic. We will see how much improvement she gets with regards to her weakness and falls after the injection. We will leave the follow-up open ended, they may call with any questions concerns. [email or web address] Not available 08/24/2023 22:20:54 Plan of Treatment Reminders Order Date Submit Date Provider Last Modified By Organization Details Last Modified Time Details Appointments None recorded. Lab None recorded. Referral None recorded. Procedures injection/a spiration joint/bursa (PROC) 2023 024 [email or web address] In-Office Order, Internal Use Only DO Not Attach Compendium DO Not Attach Compendium, Do Not Delete/merge, [id number] 4 12:18:48 Surgeries None recorded. Imaging XR, knee 2023 0[email or web address] [place], [address] [facility] [address] [facility] [address], [place], [address], 4 09:22:26 Medication Orders bupivacaine HCl 0.5 % (5 mg/mL) injection solution [address] [facility] [place], [address], 4 14:56:13 Kenalog 10 mg/mL suspension for injection [address] [facility] [address] [place], [address], 4 14:56:13 Patient TargetsNo targets recorded. Patient InstructionsNo instructions recorded. Reason for Referral None Reported. Results Created Date Observation Date Name Description Value Unit Range Abnormal Flag Note LastModifiedBy Organization Detail LastModifiedTime 08/11/19 24 01/18/2023 XR, ankle , 2 view No observ ation record ed. Not Available 08/02 14:13:24 08/11/19 24 01/18/2023 XR, foot, 2 view No observ ation record ed. Not Available 08/02 14:13:24 08/11/19 24 11/17/2022 XR, knee, 4 or more view No observ ation record ed. Not Available 08/02 14:13:24 08/24/19 24 XR, knee No observ ation record ed. [email or web address] [facility] [place] [facility] [address], [place], [address], 08/24/2023 11:49:22 Result Notes None recorded. Problems Name Problem SNOMED Code Status Onset Date Resolution Date Notes Provider Name and Address Organization Details Recorded Time Cervical spondylosi s without myelopathy 653877579 Active Not Available [employer] 3 13:52:12 Pain of left knee joint 2890237595417 07 Active 2023 ALESSANDRO Hernandez, [employer] 4 11:49:18 Problem Notes None recorded. Procedures Surgical History Date Name Laterality Status Provider Name and Address Organization Details Recorded Time Ortho - Cortisone Injection completed Rakesh Jaimes MD [address] [place] [address], [phone], [employer] 08/24/2023 22:21:06 repair of rectal prolapse completed ALESSANDRO Hernandez [employer] 08/24/2023 11:48:11 Imaging Results Imaging Date Name Status LastModified by Organiz ation Details LastModified Time 01/18/2023 XR, ankle, 2 view completed Information not available 08/11/2023 14:13:24 01/18/2023 XR, foot, 2 view completed Information not available 08/11/2023 14:13:24 11/17/2022 XR, knee, 4 or more view completed Information not available 08/11/2023 14:13:24 08/24/2023 XR, knee completed [facility] [place] [address], [place], [address], 08/24/2023 11:49:22 Procedure Notes None recorded. Medical Equipment None Reported. Allergies Allergen ID Allergen Name Allergen Category Reaction Reaction Severity Criticality Documentation Date Start Date Code Code System Note Provider Name and Address Organization Details Recorded Time 81283 Felbatol medicatio n Not available Not available Not available 09/30/2022 29900 0 RxNorm Not Available [facility] 3 13:53:50 Medications Name Sig Start Date Stop Date Status Note LastModified by Organization Details LastModified Time doxycycline hyclate 100 mg capsule TAKE 1 CAPSULE BY MOUTH ONCE DAILY active Not Available Not Available No t Available Carafate 100 mg/mL oral suspension 06/25 completed Not Available Not Available Not Available citalopram 40 mg tablet 06/25 completed Not Available Not Available Not Available trazodone 50 mg tablet TAKE 1/2 (ONE-HALF ) TABLET BY MOUTH AT BEDTIME active Not Available Not Available No t Available hydrocodone 5 mg-acetamin ophen 325 mg tablet TAKE 1 TABLET BY MOUTH EVERY 4 TO 6 HOURS NEEDED FOR PAIN active Not Available Not Available No t Available carbamazepi ne ER 100 mg tablet,exte nded release,12 hr TAKE 1 TABLET BY MOUTH TWICE DAILY TAKE WITH A 400 MG TABLET TO EQUAL 500 MG TWICE DAILY active Not Available Not Available No t Available bupivacaine HCl 0.5 % (5 mg/mL) injection solution Take 4 mL by injection route. 2023 active Not Available Not Available Not Avai lable alendronate 70 mg tablet TAKE 1 TABLET BY MOUTH ONCE A WEEK active Not Available Not Available No t Available sertraline 100 mg tablet active Not Available Not Available Not Available diphenoxyla te-atropine 2.5 mg-0.025 mg tablet TAKE 1 TABLET BY MOUTH EVERY 8 HOURS NEEDED active Not Available Not Available No t Available metronidazo le 500 mg tablet TAKE 1 TABLET BY MOUTH AT 1 PM, 2PM, AND 10 PM THE DAY BEFORE SURGERY active Not Available Not Available No t Available acetaminoph en 300 mg-codeine 30 mg tablet 06/25 completed Not Available Not Available Not Available valacyclovi r 500 mg tablet 06/25 completed Not Available Not Available Not Available spironolact one 25 mg tablet 06/25 completed Not Available Not Available Not Available hydrocortis one acetate 25 mg rectal suppository active Not Available Not Available Not Available carbamazepi ne ER 400 mg tablet,exte nded release,12 hr TAKE 1 TABLET BY MOUTH TWICE DAILY TAKE WITH 100 MG TO EQUAL 500 MG TWICE DAILY active Not Available Not Available No t Available zonisamide 100 mg capsule TAKE 5 CAPSULES BY MOUTH NIGHTLY active Not Available Not Available No t Available hydrocortis one 2.5 % topical cream with perineal applicator active Not Available Not Available N ot Available primidone 250 mg tablet TAKE 1 TABLET BY MOUTH NIGHTLY active Not Available Not Available No t Available tamsulosin 0.4 mg capsule TAKE 1 CAPSULE BY MOUTH AT BEDTIME active Not Available Not Available No t Available Kenalog 10 mg/mL suspension for injection Take 1 mL by injection route. 2023 active [facility]: 0003- 0494- 20 Not Available Not Available Not Available doxycycline monohydrate 100 mg capsule TAKE 1 CAPSULE BY MOUTH ONCE DAILY active Not Available Not Available No t Available cephalexin 500 mg capsule TAKE 1 CAPSULE BY MOUTH TWICE DAILY 08/24 completed Not Available Not Available Not Available naproxen sodium 550 mg tablet 06/25 completed Not Available Not Available Not Available WelChol 625 mg tablet active Not Available Not Available No t Available levothyroxi ne 125 mcg tablet TAKE 1 TABLET BY MOUTH ONCE DAILY active Not Available Not Available No t Available levothyroxi ne 150 mcg tablet TAKE 1 TABLET BY MOUTH ONCE DAILY IN THE MORNING active Not Available Not Available No t Available acetaminoph en 300 mg-codeine 60 mg tablet 06/25 completed Not Available Not Available Not Available hydrochloro thiazide 25 mg tablet 06/25 completed Not Available Not Available Not Available ergocalcife rol (vitamin D2) 1,250 mcg (50,000 unit) capsule active Not Available Not Available Not Available zolpidem 10 mg tablet TAKE 1 TABLET BY MOUTH AT BEDTIME NEEDED. DO NOT TAKE TRAZODONE active Not Available Not Available No t Available carbidopa 25 mg-levodopa 100 mg tablet TAKE 1 & 1/2 (ONE & ONE-HALF) TABLETS BY MOUTH THREE TIMES DAILY active Not Available Not Available No t Available Zovirax 5 % topical ointment 06/25 completed Not Available Not Available Not Available sertraline 50 mg tablet TAKE 1 TABLET BY MOUTH ONCE DAILY active Not Available Not Available No t Available doxycycline hyclate 100 mg tablet 06/25 completed Not Available Not Available Not Available aripiprazol e 10 mg tablet active Not Available Not Available Not Available duloxetine 60 mg capsule,del ayed release TAKE 1 CAPSULE BY MOUTH TWICE DAILY active Not Available Not Available No t Available ibandronate 150 mg tablet 06/25 completed Not Available Not Available Not Available zolpidem ER 12.5 mg tablet,exte nded release,mul tiphase 06/25 completed Not Available Not Available Not Available aripiprazol e 2 mg tablet TAKE 1 TABLET BY MOUTH ONCE DAILY IN THE MORNING 08/24 completed Not Available Not Available Not Available Vitals Date Recorded Body height Body mass index (BMI) Body weight Provider Name and Address Organization Details Last Updated DateTime 08/24/2023 167.64 cm 21.8 kg/m2 26748.97 g ALESSANDRO Hernandez [employer] [facility] [employer] 08/24/2023 11:43:06 Social History Question Answer Notes LastModified by Organizat ion Details LastModified Time Tobacco Smoking Status Never Smoker ALESSANDRO Hernandez [facility] [employer] 08/24/2023 11:46:23 What Is Your Level Of Alcohol Consumption? None [email or web address] Information not available 08/24/2023 Sex: Unknown Functional Status None recorded. Mental Status None recorded. Family History Relationship Description Onset Age of this Age Resolved Age Notes LastModified by Organization Details LastModified Time Sister Family history of malignant neoplasm [email or web address] Not available 2023 11:46:52 Father Hypertensive disorder [email or web address] Not available 2023 11:47:06 Mother Diabetes mellitus [email or web address] Not available 2023 11:47:16 Medical History Condition Response URINARY/BLADDER/KIDNEY PROBLEMS Y Gynecological HistoryNo gynecological history recorded. Obstetrics History GPAL:G 0 P 0 0 0 0 Past Encounters Encounter ID Performer Location Encounter Start Date Encounter Closed Date Diagnosis/Indication Diagnosis SNOMED-CT Code Diagnosis ICD10 Code Diagnosis Note [id number] Rakesh Jaimes MD [facility] [place] [address] [place] [phone] 08/24/2023 11:15:05 08/24/2023 16:25:11 Pain of left knee joint 2562140008 73780 M25.562 Health Concerns Section Related Observation LastModified by Organization Detai ls LastModified Time None Recorded Concern Status LastModified by Organization Details LastModified Time None Recorded Advance Directives Directive None Recorded Payers Encounter Date Sequence Insurance Name Policy Number Policy Koo Covered Member ID Koo Member ID Guarantor Name 08/24/2023 1 [employer] [id number] Bethany Almaraz [id number] Bethany Almaraz OBGyn Episode No OBEpisode recorded.
--- OUTSIDE RECORDS SUMMARY | 2024-08-30 23:33 | XMS_ITS ---
Author Organization [facility] Address [address] [place] [address] Care Team Providers Care Body Care Manager Name Role Phone Luis White MD Primary Care Provider Unava ilYanna Wise Unavailable [phone] ALLERGIES Allergen (clinical drug ingredient) Drug/Non Drug Allergy documented on EMR Reaction Allergy Type Onset Date Status phenobarbital PHENobarbital Unknown Drug Allergy 9 Active REASON FOR VISIT At Risk Foot Care MEDICATIONS Medication SIG (Take, Route, Frequency, Duration) Notes Start Date End Date Status Primidone 250 MG Oral for 30 A ctive Procto-Med HC 2.5 % External for 14 Active Alendronate Sodium 70 MG Oral for 14 Days Active DULoxetine HCl 60 MG Oral for 15 Days Active Doxycycline Hyclate 100 MG Oral for 90 Active Zonisamide 100 MG Oral for 30 Active carBAMazepine ER 400 MG Oral for 90 Active Carbidopa-Levodopa 25-100 MG Oral for 90 Active Levothyroxine Sodium 125 MCG TAKE 1 TABL ET BY MOUTH ONCE DAILY IN THE MORNING Oral for 90 Active SOCIAL HISTORY Tobacco Use: Social History Observation Description Date Details (start date - stop date) Never Smoker NA - NA Sex Assigned At : Social History Observation Description Sex Assigned At Unknown Tobacco Use/Smoking Question Answer Notes Tobacco use: nonsmoker VITAL SIGNS Weight 130 lbs 05/17/2023 Weight-kg 58.97 kg 05/17/2023 Height 66 in 05/17/2023 BMI 20.98 kg/m2 05/17/2023 Encounters Encounter Location Date Provider Diagnosis Andrew Hooks [facility] [address] [id number] 05/17/2023 Yanna Estebanstock Nail dystrophy L60.3 ; Other hereditary and idiopathic neuropathies G60.8 and Movement disorder G25.9 ASSESSMENTS Encounter Date Diagnosis Assessment Notes Treatment Notes Treatment Clinical Notes Section Notes 05/17/2023 Nail dystrophy (ICD-10 - L60.3) Manual surgical trimming of dystrophic toenails 1-5 b/l by 25% to achieve reduction in length. 05/17/2023 Other hereditary and idiopathic neuropathies (ICD-10 - G60.8) 05/17/2023 Movement disorder (ICD-10 - G25.9) PLAN OF TREATMENT Treatment Notes Assessment Notes Nail dystrophy Manual surgical trim atilio of dystrophic toenails 1-5 b/l by 25% to achieve reduction in length. Next Appt Details Follow Up: 3 months, Reason: at risk foot care Progress Notes * Hannah ALMARAZti HDOB: [birth year] (62 yo F)Acc No.[id number]:05/17/2023 Patient:??Rufina Bethany H Provider:??Yanna Maya DPM, INDIO PM :1960?Age:62 Y?Sex:Fe male Date:05/17/2023 Address:[facility] [address] [facility] Pcp:Luis White MD Subjective: * Chief Complaints: * ?1. At Risk Foot Care. * HPI: ?General Podiatry:? Bethany returns to office for at risk foot care c/o thickened toenails. She has unspecified movement/neurological/muscular disorder, Parkinson like with peripheral neuropathy. She uses wheelchair most of the time. Prevention Coordinator present. * ROS:?General / Constitutional:?Patient denies??change in appetite , chills , fatigue , fever , headache , pain.? * Medical History:??Depression , Arthritis, Tonsillitis, Movement disorder. * Surgical History:??cholecyst ectomy , Elbow , Left Wrist , Carpal Tunnel , Spinal Surgery with hardware implant , Tonsillectomy . * Family History:??Mother: Mandy lewis .??Sister: Rheumatoid arthritis .?? * Social History:?Tobacco Use:??Tobacco Use/Smoking??Tobacco use:??nonsmoker.?Migrated Social History:??Migrated Social History: Smoking Status: [id number] Never smoker. * Medications:??Taking Primido ne 250 MG Tablet Oral , Taking Procto-Med HC 2.5 % Cream External , Taking Zonisamide 100 MG Capsule Oral , Taking carBAMazepine ER 400 MG Tablet Extended Release 12 Hour Oral , Taking Carbidopa-Levodopa 25-100 MG Tablet Oral , Taking Levothyroxine Sodium 125 MCG Tablet TAKE 1 TABLET BY MOUTH ONCE DAILY IN THE MORNING Oral , Taking Doxycycline Hyclate 100 MG Tablet Oral , Taking Alendronate Sodium 70 MG Tablet Oral , Taking DULoxetine HCl 60 MG Capsule Delayed Release Particles Oral , Medication List reviewed and reconciled with the patient * Allergies:??PHENobarbital: A llergy - Onset Date 03/06/2019. Objective: * Vitals:??Shoe Size: 8.5, Wt: 130 lbs, Wt-k.97, Ht: 66 in, BMI:20.98 Index, Body Surface Area: 1.66. * Examination: ?General Examination: ?General appearance:??alert, pleasant, well-nourished and in no acute distress.?Vascular: Pedal pulses diminished, DP 1/4 b/l and PT 0/4 b/l. Cap refill 3-5 sec to digits b/l toes. Diminished pedal hair growth. Skin temperature warm to cool from proximal to distal. Skin thin and atrophic. Skin discoloration with hemosiderin staining and varicosities b/l ankles. ?Pedal edema: minimal ?Neurological: Alert, oriented. Coordination diminished. Epicritic sensation diminished to b/l toes on sharp/dull and light touch. Uncontrolled movements in feet, sporadic. ?Dermatologic: Toenails 1-5 b/l are thickened, dystrophic, elongated. ?HPK lesions: none ?Ulcers: none ?Rashes: none ?Musculoskeletal: No pain on palpation b/l foot and ankle joints. 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 Plan: * Treatment: * Procedure Codes:??G0127 TRIM ATILIO DYSTROPHIC NAILS ANY # * Follow Up:??3 months (Reason : at risk foot care) * Billing Information: * Visit Code:?? * Procedure Codes:?? G0127 TRIMMING DYSTROPHIC NAILS ANY #. * Sign off status: Completed true * Provider:??Yanna Maya, ANA MARIA, INDIO PM Date:??05/17/2023 History and Physical Notes * HPI (History of Present Illness) Category Sub-Category Detail Notes Category Not es General Podiatry Bethany retur ns to office for at risk foot care c/o thickened toenails. She has unspecified movement/neurological/muscular disorder, Parkinson like with peripheral neuropathy. She uses wheelchair most of the time. Prevention Coordinator present. Examination Category Sub-Category Detail Notes Category Not es General Examination General appearance: alert, pleasant, well-nouris hed and in no acute distress Vascular: Pedal pulses diminished, DP 1/4 b/l and PT 0/4 b/l. Cap refill 3-5 sec to digits b/l toes. Diminished pedal hair growth. Skin temperature warm to cool from proximal to distal. Skin thin and atrophic. Skin discoloration with hemosiderin staining and varicosities b/l ankles. Pedal edema: minimal Neurological: Alert, oriented. Coordination diminished. Epicritic sensation diminished to b/l toes on sharp/dull and light touch. Uncontrolled movements in feet, sporadic. Dermatologic: Toenails 1-5 b/l are thickened, dystrophic, elongated. HPK lesions: none Ulcers: none Rashes: none Musculoskeletal: No pain on palpation b/l foot and ankle joints.
--- OUTSIDE RECORDS SUMMARY | 2024-08-30 23:33 | XMS_ITS | Patient Health Record ---
Author Organization [facility] Address [address] [place] [address] Care Team Providers Care Helper Shear Operator Name Role Phone Luis White MD Primary Care Provider UnaYanna Frank Unavailable [phone] ALLERGIES Allergen (clinical drug ingredient) Drug/Non Drug Allergy documented on EMR Reaction Allergy Type Onset Date Status phenobarbital PHENobarbital Unknown Drug Allergy 9 Active REASON FOR REFERRAL No Information MEDICATIONS Medication SIG (Take, Route, Frequency, Duration) Notes Start Date End Date Status Primidone 250 MG Oral for 30 A ctive Procto-Med HC 2.5 % External for 14 Active Zonisamide 100 MG Oral for 30 Active Alendronate Sodium 70 MG Oral for 14 Days Active DULoxetine HCl 60 MG Oral for 15 Days Active carBAMazepine ER 400 MG Oral for 90 Active Carbidopa-Levodopa 25-100 MG Oral for 90 Active Levothyroxine Sodium 125 MCG TAKE 1 TABL ET BY MOUTH ONCE DAILY IN THE MORNING Oral for 90 Active Doxycycline Hyclate 100 MG Oral for 90 Active SOCIAL HISTORY Tobacco Use: Social History Observation Description Date Details (start date - stop date) Never Smoker NA - NA Sex Assigned At : Social History Observation Description Sex Assigned At Unknown Tobacco Use/Smoking Question Answer Notes Tobacco use: nonsmoker PROBLEMS Problem Type ICD Code Onset Dates Problem Status W/U Status Risk SNOMED Code Notes Problem 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 [id number] Problem Movement disorder (G25.9) Active confirmed Movement disorder ([id number]) PLAN OF TREATMENT No Information Insurance Providers Payer Name Payer Address Payer Phone Subscriber Number Group Number Insured Name Patient Relationship to Insured Coverage Start Date Coverage End Date [employer] [address] [place], [place] [phone] [id number] Bethany Almaraz Self - patient is the insured MEDICAL (GENERAL) HISTORY Medical History History ICD Code Depression Arthritis Tonsillitis Movement disorder Surgical History Surgery Date(Month/Year) cholecystectomy Elbow Left Wrist Carpal Tunnel Spinal Surgery with hardware implant Tonsillectomy
[2024-08-30 23:40] LABS: Albumin Level 4.1 g/dL (3.5-5.1); Alkaline Phosphatase 88 U/L (38-126); Anion Gap 7 mmol/L (4-12); Aspartate Amino Transferase 20 U/L (14-36); Bilirubin,Total 0.4 mg/dL (0.2-1.3); Blood Urea Nitrogen 6 mg/dL (7-17); Calcium 9.2 mg/dL (8.4-10.2); Carbon Dioxide 31 mmol/L (22-30); Chloride 99 mmol/L (98-107); Estimated CRCL calculation 90 ml/min; Estimated Glomerular Filt Rate > 60; Glucose 98 mg/dL (65-110); Lactic Acid Reflex 1.1 mmol/L (0.7-2.0); Potassium 3.5 mmol/L (3.4-5.0); Sodium 137 mmol/L (137-145)
[2024-08-30 23:53] LABS: Troponin I < 0.012 ng/mL (0.000-0.034)
[2024-08-31 00:04] LABS: Alanine Aminotransferase < 6 U/L (6-35)
[2024-08-31 00:15] VITALS: BP 139/87; PULSE 71; RESP 18; O2SAT 98
[2024-08-31] MEDS: OXYMETAZOLINE HCL 0.05% NAS 15 ML BTL (*BKC) 1 SPRAY NASAL (00:25)
--- NOTE | 2024-08-31 00:45 | PC.NURSE ---
RN spoke with Edith (pt nurse) from [facility] and gave her an update on pt at this time. All questions were answered.
[2024-08-31 01:15] VITALS: BP 129/87; PULSE 72; RESP 15; O2SAT 100
[2024-08-31 01:38] LABS: Add Urine Microscopic? YES; Appearance Urine Clear (Clear); Bacteria Urine 4+ /hpf; Bilirubin Urine Negative (Negative); Blood Urine Negative (Negative); Color Urine Yellow (Yellow); Glucose Urine UA Negative (Negative); Ketones Urine Negative (Negative); Leukocyte Esterase Ur 2+ LEU/UL (Negative); Need Manual Microscopic Reviewed; Nitrate Urine Positive (Negative); Non Pathogenic Casts 0-2; Protein Urine Negative (Negative); RBC Urine 0-2 /hpf (0-2); Specific Grav Ur 1.004 (1.001-1.035); Squamous Epithelial Cell Urine None Seen /hpf (Few); Urobilinogen Urine 0.2 mg/dL (<2.0)
[2024-08-31] MEDS: CEFDINIR 300 MG CAPSULE PO (02:03)
--- NOTE | 2024-08-31 02:22 | PC.NURSE ---
Pt family member requested that we call [facility] for a ride back to [place] assisted living when pt is discharged. Pt family left this phone number ([phone]) landscape and yardwork laborer to call when pt needs a ride back to [place].
[2024-08-31] MEDS: TETANUS,DIPHTHERIA,AC PERTUSSIS ADULT (0.5 ML) BOOSTRIX IM (03:01)
[2024-08-31 03:02] VITALS: BP 121/90; PULSE 81; RESP 18; O2SAT 100
== END 2024-08-31 04:16 ==
PROVIDERS: Emergency Provider Physician Assistant
DX: S01.81XA Laceration without foreign body of other part of head, initial encounter (principal); N39.0 Urinary tract infection, site not specified; Z23 Encounter for immunization; G40.909 Epilepsy, unspecified, not intractable, without status epilepticus; G20.A1 Parkinson's disease without dyskinesia, without mention of fluctuations; E03.9 Hypothyroidism, unspecified; G31.84 Mild cognitive impairment of uncertain or unknown etiology; F32.A Depression, unspecified; Z79.82 Long term (current) use of aspirin; Z79.899 Other long term (current) drug therapy; R93.0 Abnormal findings on diagnostic imaging of skull and head, not elsewhere classified; W18.39XA Other fall on same level, initial encounter
CPT/HCPCS: 12013; 36415; 70450; 70486; 71045; 72125; 80053; 81001; 83605; 84484; 85025; 87077; 87086; 87186; 90471; 90715; 93005; 99284; A9270

== ENCOUNTER 2024-09-08 00:19 | Day surgery (SDC) | payer MEDICARE, SELFPAY ==
--- NOTE | 2024-09-05 15:17 | PC.NURSE ---
Report to the Outpatient Waiting Room, entrance under the green pavilion located off [facility], at time ___9:15AM____ on date __09/08/24 . Planned Procedure Time: ___11:15AM .? Time changes happen often and if your time is changed the preop area will call you the afternoon before. - You and your visitor will be asked to self-screen and do not enter if you have any COVID symptoms. Please call surgeon if you need to reschedule. - A mask is optional within the hospital at this time. Patients may have clear liquids (water, carbonated beverages, clear teas, apple juice) until 3 hours prior to surgery (8:15AM) with a maximum of 20 ounces. - No food from midnight until time of surgery and no smoking, or chewing Tabacco (or any form of nicotine). No chewing gum, candy or mints. Take only the following medications with a SIP of water on the morning of surgery: __LEVOTHYROXINE, BUSPIRONE, CARBAMAZEPINE, CARBIDOPA/LEVODOPA, DOXYCYCLINE, DULOXETINE, SERTRALINE DO NOT STOP ANY OF YOUR OTHER PRESCRIPTION MEDICATIONS PRIOR TO SURGERY EXCEPT THE FOLLOWING Medications to discontinue per physician HOLD ASPIRIN PER DR DAVID HOLD ALL VITAMINS/SUPPLEMENTS 3 DAYS PRE-OP PER ANESTHESIA- LAST DOSE 09/04/24 Please no make-up, nail kinyarwanda, hairspray, perfume, deodorant, or body powder the day of surgery.? No jewelry (including any body piercings) or valuables the day of surgery, leave them at home.? Please take a shower or bath the night before, or the morning of, surgery with an antibacterial soap.? Wear comfortable, loose fitting clothing.? - Jewelry must be removed prior to entering the operating room.? Rings and piercings that are not removed may be cut off. - The hospital will not accept responsibility for valuables.? - Please leave all valuables, including medications, at home the day of surgery. If you are going home after surgery, a licensed dray truck driver must drive you home.? - NO public transportation without another adult if you receive anesthesia. - We recommend that an adult stay with you for 24 hours following discharge. - We also recommend that you do not drive, make important decision, drink alcoholic beverages, or take any drugs that were not prescribed by your health care provider for at least 24 hours after your discharge time. Hold all vitamins and supplements for 3 days per anesthesiologist. Follow any additional instructions given to you from your surgeon. Telephone instructions given to ___NURSING HOME STAFF and asked if any additional questions and then verbalized understanding. Patient advised to call surgeon office or pre surgery nurse liaison [phone] if any additional questions.
[2024-09-05 15:26] VITALS: BMI 20.9
--- NOTE | 2024-09-07 12:04 | P.HP_ITS ---
H&P: HPI History of Present Illness Date/Time: 09/07/24 12:04 Chief Complaint: functional incontinence Narrative: she has urinary incontinence which is functional in nature. I discussed this with her and her research group director. They would like a suprapubic tube placed Review of Systems Review of Systems: All systems reviewed & are unremarkable except as noted in HPI and below PMFSH Past Medical History Medical History Rectal prolapse Impaired cognition Depression Hypothyroidism Parkinson disease Epilepsy Social History Social History Smoking status: Unknown if ever smoked Alcohol intake: current Substance use: never Substance use type: does not use Do You Feel Safe in your Home?: Yes Lack of Transportation: No Lack of Food: Never True Current Housing: I Have Housing Concerned About Future Housing: No Difficulty Paying Gas/Electric Bills: No Difficulty Paying for Meds: No Currently Unemployed: No Education: Don't Know Difficulty w/ Childcare or Family Care: No Living arrangements: intermediate Additional living arrangements comments: [place] Occupation/Education: retired 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 Additional gender identity comments: Spiritual care concerns: No Meds Home Medications and Allergies Home Medications ?Medication ?Instructions ?Recorded ?Confirmed ?Type acetaminophen 500 mg tablet 500 mg PO .Q6 PRN Pain 06/15/24 09/05/24 History alendronate 70 mg tablet 70 mg PO WEEKLY 06/15/24 09/05/24 History ascorbic acid (vitamin C) 500 mg 500 mg PO DAILY 06/15/24 09/05/24 History tablet (Vitamin C) calcium 333 mg-vit D3 133 1 tablet PO DAILY 06/15/24 09/05/24 History unit-magnesium 133 mg-zinc 5 mg tablet (Michael Mag Zinc Plus D3) calcium carbonate (Oyster Shell 1,000 mg PO BID 06/15/24 09/05/24 History Calcium 500) cholecalciferol (vitamin D3) 25 25 mcg PO DAILY 06/15/24 09/05/24 History mcg (1,000 unit) capsule (Vitamin D3) cyanocobalamin (vitamin B-12) 2,500 mcg PO DAILY 06/15/24 09/05/24 History 2,500 mcg sublingual tablet hydrocortisone 2.5 % topical cream 1 applic topical BID PRN 06/15/24 09/05/24 History with perineal applicator Hemorrhoids (Anusol-HC) hydrocortisone acetate 25 mg 25 mg RECTAL BID PRN hemmorhoid 06/15/24 09/05/24 History rectal suppository (Anusol-HC) niacin (inositol niacinate) 500 mg 1 tablet PO DAILY 06/15/24 09/05/24 History tablet aspirin 325 mg tablet,delayed 325 mg PO Q12HR 28 days #56 tabs 06/24/24 09/05/24 Rx release L.acidophil,salivari-Bifido 1 cap PO DAILY #30 caps 07/06/24 09/05/24 Rx bifidum-Strep thermoph 175 mg capsule aripiprazole 10 mg tablet 10 mg PO DAILY #30 tabs 07/06/24 09/05/24 Rx buspirone 15 mg tablet 15 mg PO BID #60 tabs 07/06/24 09/05/24 Rx carbidopa 25 mg-levodopa 100 mg 1.5 tablet PO TID #30 tabs 07/06/24 09/05/24 Rx tablet docusate sodium 100 mg capsule 100 mg PO Q12HR 30 days #60 caps 07/06/24 09/05/24 Rx duloxetine 60 mg capsule,delayed 60 mg PO BID 30 days #0 caps 07/06/24 09/05/24 Rx release levothyroxine 150 mcg tablet 150 mcg PO DAILY #30 tabs 07/06/24 09/05/24 Rx polyethylene glycol 3350 17 gram 17 g PO QAM #0 ea 07/06/24 09/05/24 Rx oral powder packet (Miralax) primidone 250 mg tablet 250 mg PO HS #30 tabs 07/06/24 09/05/24 Rx sennosides 8.6 mg-docusate sodium 1 tab-cap PO HS 30 days #30 tabs 07/06/24 09/05/24 Rx 50 mg tablet (Senokot-S) sertraline 100 mg tablet 100 mg PO DAILY #30 tabs 07/06/24 09/05/24 Rx tamsulosin 0.4 mg capsule 0.4 mg PO DAILY #30 caps 07/06/24 09/05/24 Rx trazodone 50 mg tablet 50 mg PO DAILY #30 tabs 07/06/24 09/05/24 Rx cefdinir 300 mg capsule 300 mg PO Q12H 1 week #14 caps 08/31/24 09/05/24 Rx carbamazepine 100 mg 100 mg PO BID 09/05/24 09/05/24 History tablet,extended release,12 hr (Tegretol XR) carbamazepine 400 mg 400 mg PO BID 09/05/24 09/05/24 History tablet,extended release,12 hr diphenoxylate-atropine 2.5 1 tablet PO HS PRN diarrhea 09/05/24 09/05/24 History mg-0.025 mg tablet doxycycline monohydrate 100 mg 100 mg PO Q24H 09/05/24 09/05/24 History capsule zonisamide 100 mg capsule 500 mg PO QPM 09/05/24 09/05/24 History Allergies Allergy/AdvReac Type Severity Reaction Status Date / Time felbamate (From Felbatol) Allergy Severe Anaphylaxis Verified 09/05/24 11:35 sulfamethoxazole (From AdvReac Unknown DIZZINESS Verified 09/05/24 11:35 Bactrim) trimethoprim (From Bactrim) AdvReac Unknown DIZZINESS Verified 09/05/24 11:35 Sulfa (Sulfonamide AdvReac Dizziness Verified 09/05/24 11:35 Antibiotics) Exam Narrative: thin no acute distress Assessment and Plan Assessment and plan (1) Functional incontinence: Code(s): R39.81 - Functional urinary incontinence Status: Acute Assessment and Plan: cystoscopy, suprapubic tube. Discussed the risks of bleeding, infection, damage to the bowel, damage surrounding organs, urinary leakage around supra pubic tube and from urethra, malignancy, infection and colonization.Agrees to proceed
--- NOTE | 2024-09-07 17:20 | WPDANESEPPF ---
Anes - Initial Pre Proc Eval Procedure: Operation Date: 09/08/24 09:45 Proposed Procedures p Cystoscopy, Insertion Suprapubic Tube - Daivd Grant MD Date/Time: 09/07/24 17:20 Surgeon: David Grant MD Pre Op Diagnosis: functional incont Patient Data Age: 64 Gender: F Height: 1.68 m Weight: 59 kg Allergies Allergy/AdvReac Type Severity Reaction Status Date / Time felbamate (From Felbatol) Allergy Severe Anaphylaxis Verified 09/05/24 11:35 sulfamethoxazole (From AdvReac Unknown DIZZINESS Verified 09/05/24 11:35 Bactrim) trimethoprim (From Bactrim) AdvReac Unknown DIZZINESS Verified 09/05/24 11:35 Sulfa (Sulfonamide AdvReac Dizziness Verified 09/05/24 11:35 Antibiotics) Home Medications ?Medication ?Instructions ?Recorded ?Confirmed ?Type acetaminophen 500 mg tablet 500 mg PO .Q6 PRN Pain 06/15/24 09/05/24 History alendronate 70 mg tablet 70 mg PO WEEKLY 06/15/24 09/05/24 History ascorbic acid (vitamin C) 500 mg 500 mg PO DAILY 06/15/24 09/05/24 History tablet (Vitamin C) calcium 333 mg-vit D3 133 1 tablet PO DAILY 06/15/24 09/05/24 History unit-magnesium 133 mg-zinc 5 mg tablet (Michael Mag Zinc Plus D3) calcium carbonate (Oyster Shell 1,000 mg PO BID 06/15/24 09/05/24 History Calcium 500) cholecalciferol (vitamin D3) 25 25 mcg PO DAILY 06/15/24 09/05/24 History mcg (1,000 unit) capsule (Vitamin D3) cyanocobalamin (vitamin B-12) 2,500 mcg PO DAILY 06/15/24 09/05/24 History 2,500 mcg sublingual tablet hydrocortisone 2.5 % topical cream 1 applic topical BID PRN 06/15/24 09/05/24 History with perineal applicator Hemorrhoids (Anusol-HC) hydrocortisone acetate 25 mg 25 mg RECTAL BID PRN hemmorhoid 06/15/24 09/05/24 History rectal suppository (Anusol-HC) niacin (inositol niacinate) 500 mg 1 tablet PO DAILY 06/15/24 09/05/24 History tablet aspirin 325 mg tablet,delayed 325 mg PO Q12HR 28 days #56 tabs 06/24/24 09/05/24 Rx release L.acidophil,salivari-Bifido 1 cap PO DAILY #30 caps 07/06/24 09/05/24 Rx bifidum-Strep thermoph 175 mg capsule aripiprazole 10 mg tablet 10 mg PO DAILY #30 tabs 07/06/24 09/05/24 Rx buspirone 15 mg tablet 15 mg PO BID #60 tabs 07/06/24 09/05/24 Rx carbidopa 25 mg-levodopa 100 mg 1.5 tablet PO TID #30 tabs 07/06/24 09/05/24 Rx tablet docusate sodium 100 mg capsule 100 mg PO Q12HR 30 days #60 caps 07/06/24 09/05/24 Rx duloxetine 60 mg capsule,delayed 60 mg PO BID 30 days #0 caps 07/06/24 09/05/24 Rx release levothyroxine 150 mcg tablet 150 mcg PO DAILY #30 tabs 07/06/24 09/05/24 Rx polyethylene glycol 3350 17 gram 17 g PO QAM #0 ea 07/06/24 09/05/24 Rx oral powder packet (Miralax) primidone 250 mg tablet 250 mg PO HS #30 tabs 07/06/24 09/05/24 Rx sennosides 8.6 mg-docusate sodium 1 tab-cap PO HS 30 days #30 tabs 07/06/24 09/05/24 Rx 50 mg tablet (Senokot-S) sertraline 100 mg tablet 100 mg PO DAILY #30 tabs 07/06/24 09/05/24 Rx tamsulosin 0.4 mg capsule 0.4 mg PO DAILY #30 caps 07/06/24 09/05/24 Rx trazodone 50 mg tablet 50 mg PO DAILY #30 tabs 07/06/24 09/05/24 Rx cefdinir 300 mg capsule 300 mg PO Q12H 1 week #14 caps 08/31/24 09/05/24 Rx carbamazepine 100 mg 100 mg PO BID 09/05/24 09/05/24 History tablet,extended release,12 hr (Tegretol XR) carbamazepine 400 mg 400 mg PO BID 09/05/24 09/05/24 History tablet,extended release,12 hr diphenoxylate-atropine 2.5 1 tablet PO HS PRN diarrhea 09/05/24 09/05/24 History mg-0.025 mg tablet doxycycline monohydrate 100 mg 100 mg PO Q24H 09/05/24 09/05/24 History capsule zonisamide 100 mg capsule 500 mg PO QPM 09/05/24 09/05/24 History Patient hx anesthesia problems: none Family hx anesthesia problems: none Results Review: All pre-operative results and documents have been reviewed as part of the pre-operative evaluation. [facility] Past Medical History Medical History Rectal prolapse Impaired cognition Depression Hypothyroidism Parkinson disease Epilepsy Social History Social History Smoking status: Unknown if ever smoked Alcohol intake: current Substance use: never Substance use type: does not use Do You Feel Safe in your Home?: Yes Lack of Transportation: No Lack of Food: Never True Current Housing: I Have Housing Concerned About Future Housing: No Difficulty Paying Gas/Electric Bills: No Difficulty Paying for Meds: No Currently Unemployed: No Education: Don't Know Difficulty w/ Childcare or Family Care: No Living arrangements: residential Additional living arrangements comments: [place] Occupation/Education: retired 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 Informed Consent: The patient's anesthetic plan and its attendant risks and benefits were discussed with the patient/family/POA. Questions were solicited and answers provided to the satisfaction of the patient/family/POA.
--- OUTSIDE RECORDS SUMMARY | 2024-09-08 00:22 | XMS_ITS | Continuity of Care Document ---
Author Organization [facility] Address [address] [place] [address] Phone Care Team Providers Care Sports Medicine Physician Name Role Phone Juan Pablo Rich MD Unavailable Unavailable Advance Directives Directive Yes / No Effective Date File Name No Information Encounters Encounter Description Practice Location Reason(s) For Visit Diagnoses Date Provider Providers Copied on Encounter [facility], [address], [place], [place], [id number], tel:[phone] [facility] No Information Layla Almeida. [address], [place], [id number], . tel:[phone] Referring Provider: Jere Trevino, [address] , [place], [address]. tel:[phone] Family History Family Member Type Diagnosis Age At Onset No Information Payers Payer name Insurance type Covered republican ID Authoriza tion(s) MEDICARE [place] [id number] C[employer] [place] CI [id number] Social History Type Description Quantity Date Captured [...]
--- OUTSIDE RECORDS SUMMARY | 2024-09-08 00:22 | XMS_ITS | Encounter Summary ---
Author Organization [facility] Address [address] [place] [address] Care Team Providers Care Staffing And Scheduling Coordinator Name Role Phone Unavailable Primary Care Provider Unavailabl e Encounter Details Date Type Department Care Team (Late st Contact Info) Description 04/11/[address] [facility] Conversion [address] [place] [address] , Generic Conversion, Social History Tobacco Use [...]
--- OUTSIDE RECORDS SUMMARY | 2024-09-08 00:22 | XMS_ITS | Referral Summary ---
Author Organization [facility] Healthcare Address [address] [place] [address] Care Team Providers Care Forestry Patrolman Name Role Phone Luis White MD Primary Care Provider [phone] Dominik Alejandro MD Unavailable [phone] Hiral Vidales MD Unavailable Allergies Active [...] (11/09/2022): Added automatically from request for surgery [id number] Temporal lobe epilepsy, intractable 09/19/2018 Cerebellar ataxia ([facility] 02/17/2018 Assessment & Plan (04/16/2023 12:03 PM [...] services. Assessment & Plan (10/02/2021 4:23 PM GAS STATION ATTENDANT): She has a subacute onset (2015), somewhat [...] which took place via Real-time video connection (Bioc[employer], Eximiaom or similar). During the visit, I was located in my clinic office in the [facility], in the [place], [place] and the patient was located at her home in [place]. The session started at 13:08 and ended [...] a telephone or video visit during the [facility] [place] [address] emergency. After being given an opportunity to [...] precautions. Assessment & Plan (08/24/2019 4:56 PM GAS STATION ATTENDANT): She has a subacute onset (2015), rather [...] on file Legal Sex Female 11:43 PM GAS STATION ATTENDANT Gender Identity Female 11/05/2020 1:42 AM CDT Sexual Orientation Straight 11/05/2020 1: 42 AM CDT Last Filed Vital Signs Vital Sign Reading Time Taken Comments Blood Pressure 116/74 12/28/2023 3:16 PM CDT Pulse 69 12/28/2023 3:16 PM CDT Temperature 36.9 C (98.4 F) 04/09/2023 3:28 PM CDT Respiratory Rate 18 12/11/2022 5:39 AM CDT Oxygen Saturation 97% 04/09/2023 3:28 PM CDT Inhaled Oxygen Concentration - - Weight 60.8 kg (134 lb) 12/28/2023 3:16 PM CDT Height 172.7 cm (5' 8 ) 12/28/2023 3:16 PM CDT Body Mass Index 20.37 12/28/2023 3:16 PM CDT Plan of Treatment Not on file Medical Devices Implanted Type Area Launch Steward Device Identifier Shelf Expiration Date Model / Serial / Lot Davol Inc/C R Bard 6x3in Large Pore Knit Monofilament Smooth [place] [id number] - [id number] Implanted:Qty: 1 on 12/09/2022 by Dominik Alejandro MD at [facility] Mesh N/A: Abdomen [employer]ol Inc/C R Bard [id number] 04/29/2027 [id number] / / [id number] Plates And Screws Right: Wrist Procedures Procedure Name Priority Date/Time Associated Diagnosis Comments COLONOSCOPY 08/12/2022 12:59 PM GAS STATION ATTENDANT from Last 3 Months or Most Recently Relevant to Health Maintenance Results * COLONOSCOPY (08/12/2022 12:59 PM GAS STATION ATTENDANT) Anatomical Region Laterality Modality Other Narrative Procedure Note Hiral Vidales MD - 08/12/2022 12:59 PM CST [facility] GI ENDOSCOPY Patient Name: Bethany Almaraz Procedure Date: 08/12/2022 12:59 PM Date of : 1960 Admit Type: Outpatient Age: 62 Gender: Female Attending MD: Hiral Vidales M.D. Room: [facility] ENDOSCOPY ROOM 05 Note Status: [...] On: 08/12/2022 12:59 PM Recognized by the [place] [employer] for promoting quality in endoscopy Hiral Vidales MD ENDOSCOPY PROCEDURES Final Resul t from Last 3 Months or Most Recently Relevant to Health Maintenance Insurance DR [address] [place] [address] [facility] [place] [address] [facility] MEDICARE [address] [place] [address] [employer] MEDICARE Advance Directives For more information, please contact: [phone] * Full Code (Latest Code Status on File) Date Activated Date Inactivated Comments 12/09/2022 4:30 PM 12/11/2022 8:52 PM Care Teams Forestry Patrolman Relationship Specialty Start Date End Date Luis White MD [address] [place] [address] PCP - General Emergency Medicine 03/07/19 Dominik Alejandro MD [address] [facility] [phone] [place] [address] Surgeon Colon and Rectal Surgery 11/06/22 Hiral Vidales MD [address] [address] Consulting Physician General Surgery 11/06/22
--- OUTSIDE RECORDS SUMMARY | 2024-09-08 00:22 | XMS_ITS | Clinical Summary ---
Author Organization [facility] Address [address] [place] [address] Care Team Providers Care Tube Knitter Name Role Phone Unavailable Primary Care Provider [...]
--- OUTSIDE RECORDS SUMMARY | 2024-09-08 00:22 | XMS_ITS | Data Portability ---
Author Organization [facility], Main Office Address [address] [place] [address] Assessment Encounter Date Assessment Date Assessment LastModified [...] DO Not Attach Compendium, Do Not Delete/merge, [address] 4 12:18:48 Surgeries None recorded. Imaging XR, knee 2023 024 [facility] [place], [address] [facility] [address], [place], [address], 4 09:22:26 Medication Orders bupivacaine HCl 0.5 % (5 mg/mL) injection solution [address] [facility] [place], [address], 4 14:56:13 Kenalog 10 mg/mL suspension for injection [address] [facility] [address] [place], [address], 4 14:56:13 Patient TargetsNo targets recorded. Patient [...] XR, knee No observ ation record ed. [email or web address] [facility] [place] [address], [place], [address], 08/24/2023 11:49:22 Result Notes None recorded. Problems Name Problem SNOMED Code Status Onset Date Resolution Date Notes Provider Name and Address Organization Details Recorded Time Cervical spondylosi s without myelopathy 644702070 Active Not Available [facility] 3 13:52:12 Pain of left knee joint 6161379474392 07 Active 2023 ALESSANDRO Hernandez, [facility] 4 11:49:18 Problem Notes None recorded. Procedures Surgical History Date Name Laterality Status Provider Name and Address Organization Details Recorded Time Ortho - Cortisone Injection completed Rakesh Jaimes MD [address] [place] [address], [address], [facility] 08/24/2023 22:21:06 repair of rectal prolapse completed ALESSANDRO Hernandez [facility] 08/24/2023 11:48:11 Imaging Results Imaging Date Name Status LastModified by Organiz ation Details LastModified Time 01/18/2023 XR, ankle, 2 view completed Information not available 08/11/2023 14:13:24 01/18/2023 XR, foot, 2 view completed Information not available 08/11/2023 14:13:24 11/17/2022 XR, knee, 4 or more view completed Information not available 08/11/2023 14:13:24 08/24/2023 XR, knee completed [email or web address] [facility] [place] [address], [place], [address], 08/24/2023 11:49:22 Procedure Notes None recorded. Medical Equipment None Reported. Allergies Allergen ID Allergen Name Allergen Category Reaction Reaction Severity Criticality Documentation Date Start Date Code Code System Note Provider Name and Address Organization Details Recorded Time 48412 Felbatol medicatio n Not available Not available Not available 09/30/2022 33335 0 RxNorm Not Available [facility] 3 13:53:50 Medications Name Sig Start Date [...] 1 mL by injection route. 2023 active [facility]: 0003- 0494- 20 Not Available Not Available [...] Updated DateTime 08/24/2023 167.64 cm 21.8 kg/m2 52026.97 g ALESSANDRO Hernandez [employer] [facility] 08/24/2023 11:43:06 Social History Question Answer Notes LastModified by Organizat ion Details LastModified Time Tobacco Smoking Status Never Smoker ALESSANDRO Hernandez [facility] 08/24/2023 11:46:23 What Is Your Level Of Alcohol Consumption? None [email or web address] Information not available 08/24/2023 Sex: Unknown Functional Status None recorded. Mental Status None recorded. Family History Relationship Description Onset Age of this Age Resolved Age Notes LastModified by Organization Details LastModified Time Sister Family history of malignant neoplasm [email or web address] Not available 2023 11:46:52 Father Hypertensive disorder [email or web address] Not available 2023 11:47:06 Mother Diabetes mellitus [email or web address] Not available 2023 11:47:16 Medical History Condition Response URINARY/BLADDER/KIDNEY PROBLEMS Y Gynecological HistoryNo gynecological history recorded. Obstetrics History GPAL:G 0 P 0 0 0 0 Past Encounters Encounter ID Performer Location Encounter Start Date Encounter Closed Date Diagnosis/Indication Diagnosis SNOMED-CT Code Diagnosis ICD10 Code Diagnosis Note [id number] Rakesh Jaimes MD [facility] [place] [address] [place] [address] 08/24/2023 11:15:05 08/24/2023 16:25:11 Pain of left knee joint 8333185377 75677 M25.562 Health Concerns Section Related Observation LastModified by Organization Detai ls LastModified Time None Recorded Concern Status LastModified by Organization Details LastModified Time None Recorded Advance Directives Directive None Recorded Payers Encounter Date Sequence Insurance Name Policy Number Policy Koo Covered Member ID Koo Member ID Guarantor Name 08/24/2023 1 [employer] [id number] Bethany Almaraz [id number] Bethany Almaraz OBGyn Episode No OBEpisode recorded.
--- OUTSIDE RECORDS SUMMARY | 2024-09-08 00:22 | XMS_ITS | Encounter Summary ---
Author Organization [facility] Address [address] [place] [address] Care Team Providers Care Electrical High Tension Tester Name Role Phone Unavailable Primary Care Provider Unavailabl e Encounter Details Date Type Department Care Team (Late st Contact Info) Description 06/19/[address] [facility] Conversion [address] [place] [address] , Generic Conversion, Social History Tobacco Use [...]
--- OUTSIDE RECORDS SUMMARY | 2024-09-08 00:22 | XMS_ITS | Clinical Summary ---
Author Organization [facility] Healthcare Address [address] [place] [address] Care Team Providers Care Budget Consultant Name Role Phone Luis White MD Primary Care Provider [phone] Dominik Alejandro MD Unavailable [phone] Hiral Vidales MD Unavailable Allergies Active [...] (11/09/2022): Added automatically from request for surgery [id number] Temporal lobe epilepsy, intractable 09/19/2018 Cerebellar ataxia ([facility]) 02/17/2018 Assessment & Plan (04/16/2023 [...] services. Assessment & Plan (10/02/2021 4:23 PM COTTON AGENT): She has a subacute onset (2015), somewhat [...] which took place via Real-time video connection ([employer], Sush.ioom or similar). During the visit, I was located in my clinic office in the [facility], in the [place], [place] and the patient was located at her home in [place]. The session started at 13:08 and ended [...] a telephone or video visit during the [facility]-[address] [place] [address] emergency. After being given an opportunity to [...] precautions. Assessment & Plan (08/24/2019 4:56 PM COTTON AGENT): She has a subacute onset (2015), rather [...] on file Legal Sex Female 11:43 PM COTTON AGENT Gender Identity Female 11/05/2020 1:42 AM CDT [...] Discontinued 08/02 Medical Devices Implanted Type Area Siderographist Device Identifier Shelf Expiration Date Model / Serial / Lot Davol Inc/C R Bard 6x3in Large Pore Knit Monofilament Smooth [place] [id number] - [id number] Implanted:Qty: 1 on 12/09/2022 by Dominik Alejandro MD at [facility] Mesh N/A: Abdomen [employer]ol Inc/C R Bard [id number] 04/29/2027 [id number] / / [id number] Plates And Screws Right: Wrist Procedures Procedure Name Priority Date/Time Associated Diagnosis Comments COLONOSCOPY 08/12/2022 12:59 PM COTTON AGENT from Last 3 Months or Most Recently Relevant to Health Maintenance Results * COLONOSCOPY (08/12/2022 12:59 PM COTTON AGENT) Anatomical Region Laterality Modality Other Narrative Procedure Note Hiral Vidales MD - 08/12/2022 12:59 PM CST [facility] GI ENDOSCOPY Patient Name: Bethany Almaraz Procedure Date: 08/12/2022 12:59 PM Date of : 1960 Admit Type: Outpatient Age: 62 Gender: Female Attending MD: Hiral Vidales M.D. Room: [facility] ENDOSCOPY ROOM 05 Note Status: Finalized Procedure: [...] On: 08/12/2022 12:59 PM Recognized by the [place] [employer] for promoting quality in endoscopy us Hiral Vidales MD ENDOSCOPY PROCEDURES Final Resul t from Last 3 Months or Most Recently Relevant to Health Maintenance Insurance AET MEDICARE T MEDICARE [facility] MEDICARE Advance Directives For more information, please contact: [phone] * Full Code (Latest Code Status on File) Date Activated Date Inactivated Comments 12/09/2022 4:30 PM 12/11/2022 8:52 PM Care Teams Budget Consultant Relationship Specialty Start Date End Date Luis White MD [address] [address] PCP - General Emergency Medicine 03/07/19 Dominik Alejandro MD [address] [facility] [phone] [place] [address] Surgeon Colon and Rectal Surgery 11/06/22 Hiral Vidales MD [address] [address] Consulting Physician General Surgery 11/06/22
--- NOTE | 2024-09-08 07:17 | WPDHPUPDATE1 ---
History and Physical Update Update Date/Time: 09/08/24 07:17 History and Physical has been reviewed, including an updated exam of the patient. There are NO changes in the patient's condition. Risks, benefits, and alternatives have been discussed and questions answered. Patient agrees to proceed with procedure.
[2024-09-08] MEDS: ceFAZolin 2 GM/D5W 50 ML 2 GM/50 ML BAG IVPB (09:43)
[2024-09-08 09:44] VITALS: BMI 21.3
[2024-09-08] MEDS: LACTATED RINGERS 1,000 ML 30 ML IV CONT (09:48)
[2024-09-08 09:52] VITALS: BP 107/59; PULSE 62; O2SAT 100
[2024-09-08] MEDS: LIDO 1%/EPINEPHRINE 1:100,000 50 ML VIAL INFILTRATE (10:06)
--- NOTE | 2024-09-08 10:20 | W.PM.PROC2 ---
Procedure Note - Detailed Date of Procedure 09/08/24 Pre-op Diagnosis functional incont Post-op Diagnosis Same Procedure Performed cystoscopy with placement of suprapubic cat Surgeon David Grant MD Anesthesia MAC and Local Indications she has functional incontinence. Her mogoq-bs-lyagkhye like her to have a suprapubic tube. They understand the risk of bleeding, infection, damage to the bowel or surrounding organs, leakage per urethra or around the suprapubic tube, Colonization, malignancy, they agree to proceed Findings uncomplicated suprapubic tube placement Description of Procedure she is correctly identified. Informed consent obtained. brought into the operating room. She was given monitored anesthesia care. She was prepped and draped sterile fashion in the dorsal lithotomy position. Time-out performed. I anesthetized the suprapubic area 2 fingerbreadths cephalad to the umbilicus. She was placed in steep Trendelenburg. The bladder was filled via cystoscopy. The bladder was normal capacity. No tumors or stones or other abnormalities. Normal ureteral orifices. normal urethra. I marked out 2 fingerbreadths cephalad to the pubic symphysis. I placed a finder needle into the bladder. I made a skin gigi. I placed a wire through the finder needle. I dilated the tract with the 8-10 dilators. I then placed the suprapubic tube introducer sheath. I placed a 16 [place] tip catheter over wire. It was confirmed to be within the bladder. It was secured to the skin with silk suture. Dressing was applied. She was awakened transferred to PACU in stable condition. Estimated Blood Loss 1 Drains Yes ( sp tube) Complications No immediate complications Condition Stable Disposition PACU
[2024-09-08 10:21] VITALS: BP 98/53; PULSE 65; RESP 16; O2SAT 92
[2024-09-08 10:55] VITALS: BP 120/80; PULSE 75; RESP 16; O2SAT 96
== END 2024-09-08 11:13 | disposition home or self-care (01) ==
PROVIDERS: Anesthesiology; PCP Nurse Practitioner; Visit Provider Urology
PROC: 0T9B30Z Drainage of Bladder with Drainage Device, Percutaneous Approach (ICD-10-PCS; CPT 51102; principal; 2024-09-08 09:45)
DX: R39.81 Functional urinary incontinence (principal); G20.A1 Parkinson's disease without dyskinesia, without mention of fluctuations; G40.909 Epilepsy, unspecified, not intractable, without status epilepticus; E03.9 Hypothyroidism, unspecified
CPT/HCPCS: 51102; 36415; 80156; J0690; J2003; J2004; J2250; J2704; J3010; J7120

== ENCOUNTER 2024-09-21 18:21 | Emergency (ER) | payer MEDICARE, SELFPAY ==
--- OUTSIDE RECORDS SUMMARY | 2024-09-21 18:24 | XMS_ITS ---
Author Organization [facility] Address [address] [place] [address] Care Team Providers Care Soybean Specialties Cook Name Role Phone Cindy VAN, Luis Primary Care Provider UnaYanna Frank Unavailable [phone] REASON FOR VISIT At Risk Foot Care Encounters Encounter Location Date Provider Diagnosis Andrew Hooks Dpm [facility] [address] [id number] 08/16/2023 Yanna Maya PLAN OF TREATMENT No Information Progress Notes * Bethany ALMARAZ HDOB: [birth year] (64 yo F)Acc No.[id number]:08/16/2023 Patient: Bethany ALMARAZ Provider: Yanna Maya DPM, DABPM :1960 Age:63 Y Sex:Female Date:08/16/2023 [address] [facility] Pcp:Luis White MD Subjective: * Chief Complaints: * 1. At Risk Foot Care. * Medical History: Objective: Assessment: Plan: * Treatment: * Billing Information: * Visit Code: * Procedure Codes: * NCE WEIGHER Sign off status: Pending * Provider: Yanna Maya DPM, DABPM Date: 08/16/2023
--- OUTSIDE RECORDS SUMMARY | 2024-09-21 18:25 | XMS_ITS | Encounter Summary ---
Author Organization [facility] Address [address] [place] [address] Care Team Providers Care Cap Cutter Name Role Phone Unavailable Primary Care Provider Unavailabl e Encounter Details Date Type Department Care Team (Late st Contact Info) Description 04/11/[address] [facility] Conversion [address] [place] [address] , Generic Conversion, Social History Tobacco Use [...]
--- OUTSIDE RECORDS SUMMARY | 2024-09-21 18:25 | XMS_ITS | Clinical Summary ---
Author Organization [facility] Address [address] [place] [address] Care Team Providers Care Combination Machine Tool Operator Name Role Phone Unavailable Primary Care Provider [...]
--- OUTSIDE RECORDS SUMMARY | 2024-09-21 18:25 | XMS_ITS | Referral Summary ---
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 Assessment & Plan (10/02/2021 4:23 PM HOSPITAL NURSE LIAISON): She has a subacute onset (2015), somewhat [...] which took place via Real-time video connection (Lola Pirindola, FaceRigom or similar). During the visit, I was located in my clinic office in the [facility], in the [place], [place] and the patient was located at her home in [place]. The session started at 13:08 and ended [...] a telephone or video visit during the [facility] [place] [address] emergency. After being given an opportunity to [...] precautions. Assessment & Plan (08/24/2019 4:56 PM HOSPITAL NURSE LIAISON): She has a subacute onset (2015), rather [...] on file Legal Sex Female 11:43 PM HOSPITAL NURSE LIAISON Gender Identity Female 11/05/2020 1:42 AM CDT [...] on file Medical Devices Implanted Type Area Soaping Machine Back Tender Device Identifier Shelf Expiration Date Model / Serial / Lot [employer]ol Inc/C R Bard 6x3in Large Pore Knit Monofilament Smooth [place] [id number] - [id number] Implanted:Qty: 1 on 12/09/2022 by Dominik Alejandro MD at [facility] Mesh N/A: Abdomen [employer]ol Inc/C R Bard [id number] 04/29/2027 [id number] / / [id number] Plates And Screws Right: Wrist Procedures Procedure Name Priority Date/Time Associated Diagnosis Comments COLONOSCOPY 08/12/2022 12:59 PM HOSPITAL NURSE LIAISON from Last 3 Months or Most Recently Relevant to Health Maintenance Results * COLONOSCOPY (08/12/2022 12:59 PM HOSPITAL NURSE LIAISON) Anatomical Region Laterality Modality Other Narrative Procedure Note Hiral Vidales MD - 08/12/2022 12:59 PM CST [facility] GI ENDOS[facility] Patient Name: Bethany Almaraz Procedure Date: 08/12/2022 12:59 PM Date of : 1960 Admit Type: Outpatient Age: 62 Gender: Female Attending MD: Hiral Vidales M.D. Room: [facility] ENDOSCOPY ROOM 05 Note Status: [...] On: 08/12/2022 12:59 PM Recognized by the [employer] for promoting quality in endoscopy Hiral Vidales MD ENDOSCOPY PROCEDURES Final Resul t from Last 3 Months or Most Recently Relevant to Health Maintenance Insurance DR K[address] [place] [address] [facility] [address] [facility] MED[address] [place] [address] [employer] MEDICARE Advance Directives For more information, please contact: [phone] * Full Code (Latest Code Status on File) Date Activated Date Inactivated Comments 12/09/2022 4:30 PM 12/11/2022 8:52 PM Care Teams Medical Geneticist Relationship Specialty Start Date End Date Luis White MD [address] [place] [address] PCP - General Emergency Medicine 03/07/19 Dominik Alejandro MD [phone] [place] [address] Surgeon Colon and Rectal Surgery 11/06/22 Hiral Vidales MD [address] [address] Consulting Physician General Surgery 11/06/22
--- OUTSIDE RECORDS SUMMARY | 2024-09-21 18:25 | XMS_ITS ---
Author Organization Rakel Arias [facility] Address [address] [place] [address] Care Team Providers Care Commercial Appraiser Name Role Phone Luis White MD Primary Care Provider Unava ilYanna Wise Unavailable [phone] ALLERGIES Allergen (clinical drug ingredient) Drug/Non Drug [...] Encounter Location Date Provider Diagnosis Andrew Hooks [facility] [address] [id number] 05/17/2023 Yanna Maya Nail dystrophy L60.3 ; Other hereditary and [...] at risk foot care Progress Notes * Bethany ALMARAZ HDOB: [birth year] (62 yo F)Acc No.[id number]:05/17/2023 Patient: Bethany Almaraz Provider: Yanna Maya DPM, DABPM :1960 Age:62 Y Sex:Female Date:05/17/2023 Address:[address] [place] [address] [address] [facility] Pcp:Luis White MD Subjective: * Chief Complaints: * 1. At Risk Foot Care. * HPI: General Podiatry: Bethany returns to office for at risk foot care c/o thickened toenails. She has unspecified movement/neurological/muscular disorder, Parkinson like with peripheral neuropathy. She uses wheelchair most of the time. Product Control And Logistics Analyst present. * ROS: General / Constitutional: Patient denies change in appetite , chills , fatigue , fever , headache , pain. * Medical History: Depression, Arthritis, Tonsillitis, Movement disorder. * Surgical History: cholecystectomy , Elbow , Left Wrist , Carpal Tunnel , Spinal Surgery with hardware implant , Tonsillectomy . * Family History: Mother: Diabetes . Sister: Rheumatoid arthritis . * Social History: Tobacco Use: Tobacco Use/Smoking Tobacco use: nonsmoker. Migrated Social History: Migrated Social History: Smoking Status: [id number] Never smoker. * Medications: Taking Primidone 250 MG Tablet Oral , Taking Procto-Med [...] reviewed and reconciled with the patient * Allergies: PHENobarbital: Allergy - Onset Date 03/06/2019. Objective: * Vitals: Shoe Size: 8.5, Wt:130 lbs, Wt-k.97, Ht: 66 in, BMI:20.98 Index, Body Surface Area: 1.66. * Examination: General Examination: General appearance: alert, pleasant, well-nourished and in no acute distress. Vascular: Pedal pulses diminished, DP 1/4 b/l [...] foot and ankle joints. Assessment: * Assessment: 1. 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 Movement disorder - G25.9 Plan: * Treatment: * Procedure Codes: G0127 TRIMMING DYSTROPHIC NAILS ANY # * Follow Up: 3 months (Reason: at risk foot care) * Billing Information: * Visit Code: * Procedure Codes: G0127 TRIMMING DYSTROPHIC NAILS ANY #. * Sign off status: Completed true * Provider: Yanna Maya DPM, DAB Date: 05/17/2023 History and Physical Notes * HPI (History of Present Illness) Category Sub-Category Detail Notes Category Not es General Podiatry Bethany retur ns to office for at risk foot care c/o thickened toenails. She has unspecified movement/neurological/muscular disorder, Parkinson like with peripheral neuropathy. She uses wheelchair most of the time. Product Control And Logistics Analyst present. Examination Category Sub-Category Detail Notes Category [...]
--- OUTSIDE RECORDS SUMMARY | 2024-09-21 18:25 | XMS_ITS | Patient Health Record ---
Author Organization Page S Jorge Arias [facility] Address [address] [place] [address] Care Team Providers Care Medical Technologist Chief Name Role Phone Luis White MD Primary Care Provider UnaYanna Frank Unavailable [phone] ALLERGIES Allergen (clinical drug ingredient) Drug/Non Drug [...] hereditary and idiopathic neuropathies (G60.8) Active confirmed [id number] Problem Movement disorder (G25.9) Active confirmed Movement disorder (86146470) PLAN OF TREATMENT No Information Insurance Providers Payer Name Payer Address Payer Phone Subscriber Number Group Number Insured Name Patient Relationship to Insured Coverage Start Date Coverage End Date Aetna [address] [place], [place] [id number] [id number] Bethany Almaraz Self - patient is the insured MEDICAL (GENERAL) HISTORY Medical History History ICD Code Depression Arthritis Tonsillitis Movement disorder Surgical History Surgery Date(Month/Year) cholecystectomy Elbow Left Wrist Carpal Tunnel Spinal Surgery with hardware implant Tonsillectomy
--- OUTSIDE RECORDS SUMMARY | 2024-09-21 18:25 | XMS_ITS | Data Portability ---
Author Organization [facility], Main Office Address [address] [place] [address] Assessment Encounter Date Assessment Date Assessment LastModified [...] DO Not Attach Compendium, Do Not Delete/merge, [address] 4 12:18:48 Surgeries None recorded. Imaging XR, knee 2023 024 [facility], [address] [facility] [address], [place], [address], 4 09:22:26 Medication Orders bupivacaine HCl 0.5 % (5 mg/mL) injection solution [address] [facility] [place], [address], 4 14:56:13 Kenalog 10 mg/mL suspension for injection [address] [facility] [place], [address], 4 14:56:13 Patient TargetsNo targets recorded. Patient [...] XR, knee No observ ation record ed. [email or web address] [facility] [address], [place], [address], 08/24/2023 11:49:22 Result Notes None recorded. Problems Name Problem SNOMED Code Status Onset Date Resolution Date Notes Provider Name and Address Organization Details Recorded Time Cervical spondylosi s without myelopathy 423774997 Active Not Available [employer] 3 13:52:12 Pain of left knee joint [id number] 07 Active 2023 ALESSANDRO Hernandez, [employer] 4 11:49:18 Problem Notes None recorded. Procedures Surgical History Date Name Laterality Status Provider Name and Address Organization Details Recorded Time Ortho - Cortisone Injection completed Rakesh Jaimes MD [address] [place] [address], [address], [employer] 08/24/2023 22:21:06 repair of rectal prolapse completed ALESSANDRO Hernandez [employer] 08/24/2023 11:48:11 Imaging Results Imaging Date Name Status LastModified by Organiz ation Details LastModified Time 01/18/2023 XR, ankle, 2 view completed Information not available 08/11/2023 14:13:24 01/18/2023 XR, foot, 2 view completed Information not available 08/11/2023 14:13:24 11/17/2022 XR, knee, 4 or more view completed Information not available 08/11/2023 14:13:24 08/24/2023 XR, knee completed [email or web address] [facility] [place] [address], [place], [address], 08/24/2023 11:49:22 Procedure Notes None recorded. Medical Equipment None Reported. Allergies Allergen ID Allergen Name Allergen Category Reaction Reaction Severity Criticality Documentation Date Start Date Code Code System Note Provider Name and Address Organization Details Recorded Time 83420 Felbatol medicatio n Not available Not available Not available 09/30/2022 10144 0 RxNorm Not Available [facility] 3 13:53:50 Medications Name Sig [...] 1 mL by injection route. 2023 active [facility]: 0003- 0494- 20 Not Available Not Available [...] Updated DateTime 08/24/2023 167.64 cm 21.8 kg/m2 62361.97 g ALESSANDRO Hernandez [employer] [facility] 08/24/2023 11:43:06 Social History Question Answer Notes LastModified by Organizat ion Details LastModified Time Tobacco Smoking Status Never Smoker ALESSANDRO Hernandez [facility] 08/24/2023 11:46:23 What Is Your Level Of Alcohol Consumption? None [email or web address] Information not available 08/24/2023 Sex: Unknown Functional Status None recorded. Mental Status None recorded. Family History Relationship Description Onset Age of this Age Resolved Age Notes LastModified by Organization Details LastModified Time Sister Family history of malignant neoplasm [email or web address] Not available 2023 11:46:52 Father Hypertensive disorder Not available 2023 11:47:06 Mother Diabetes mellitus [email or web address] Not available 2023 11:47:16 Medical History Condition Response URINARY/BLADDER/KIDNEY PROBLEMS Y Gynecological HistoryNo gynecological history recorded. Obstetrics History GPAL:G 0 P 0 0 0 0 Past Encounters Encounter ID Performer Location Encounter Start Date Encounter Closed Date Diagnosis/Indication Diagnosis SNOMED-CT Code Diagnosis ICD10 Code Diagnosis Note [id number] Rakesh Jaimes MD [facility] [place] [address] [place] [address] 08/24/2023 11:15:05 08/24/2023 16:25:11 Pain of left knee joint [id number] 87180 M25.562 Health Concerns Section Related Observation LastModified by Organization Detai ls LastModified Time None Recorded Concern Status LastModified by Organization Details LastModified Time None Recorded Advance Directives Directive None Recorded Payers Encounter Date Sequence Insurance Name Policy Number Policy Koo Covered Member ID Koo Member ID Guarantor Name 08/24/2023 1 [employer] [id number] Bethany Almaraz [id number] Bethany Almaraz OBGyn Episode No OBEpisode recorded.
--- OUTSIDE RECORDS SUMMARY | 2024-09-21 18:25 | XMS_ITS | Clinical Summary ---
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 Assessment & Plan (10/02/2021 4:23 PM MAGNETIC PROSPECTING OPERATOR): She has a subacute onset (2015), somewhat [...] which took place via Real-time video connection (MyCityWay, Kayo technologyom or similar). During the visit, I was located in my clinic office in the [facility], in the [place], [place] and the patient was located at her home in [place]. The session started at 13:08 and ended [...] or video visit during the [facility] [place] [id number] emergency. After being given an opportunity to [...] precautions. Assessment & Plan (08/24/2019 4:56 PM MAGNETIC PROSPECTING OPERATOR): She has a subacute onset (2015), rather [...] on file Legal Sex Female 11:43 PM MAGNETIC PROSPECTING OPERATOR Gender Identity Female 11/05/2020 1:42 AM CDT [...] Pneumococcal vaccine 65+ (3 of 3 - PCV20 or PCV21) 09/08/2022 09/08/2017, 07/15/2015 Well Visit 65+ 2023 Fall Risk Assessment 12/12/2023 12/11/2022 Influenza Vaccine (#1) 2024 06/21/2019, 2016 Colon Cancer Screening-Colonoscopy 08/12/20322022 Zoster Vaccine Completed 11/03/2017, 09/03/2017 Colon Cancer Screening-CT Colonography Discontinued Colon Cancer Screening-DNA Stool Discontinued 08/12/19 Colon Cancer Screening-FIT Discontinued 08/12/2022 Colon Cancer Screening-Sigmoidoscopy Discontinued 08/02 Medical Devices Implanted Type Area Fleet Manager Device Identifier Shelf Expiration Date Model / Serial / Lot Davol Inc/C R Bard 6x3in Large Pore Knit Monofilament Smooth [place] [id number] - [id number] Implanted:Qty: 1 on 12/09/2022 by Dominik Alejandro MD at [facility] Mesh N/A: Abdomen [employer]ol Inc/C R Bard [id number] 04/29/2027 [id number] / / [id number] Plates And Screws Right: Wrist Procedures Procedure Name Priority Date/Time Associated Diagnosis Comments COLONOSCOPY 08/12/2022 12:59 PM MAGNETIC PROSPECTING OPERATOR from Last 3 Months or Most Recently Relevant to Health Maintenance Results * COLONOSCOPY (08/12/2022 12:59 PM MAGNETIC PROSPECTING OPERATOR) Anatomical Region Laterality Modality Other Narrative Procedure Note Hiral Vidales MD - 08/12/2022 12:59 PM CST [facility] GI ENDOSCOPY Patient Name: Bethany Almaraz Procedure Date: 08/12/2022 12:59 PM Date of : 1960 Admit Type: Outpatient Age: 62 Gender: Female Attending MD: Hiral Vidales M.D. Room: [facility] ENDOSCOPY ROOM 05 Note Status: Finalized [...] On: 08/12/2022 12:59 PM Recognized by the [place] for promoting quality in endoscopy us Hiral Vidales MD ENDOSCOPY PROCEDURES Final Resul t from Last 3 Months or Most Recently Relevant to Health Maintenance Insurance T MEDICARE T MEDICARE T MEDICARE Advance Directives For more information, please contact: [phone] * Full Code (Latest Code Status on File) Date Activated Date Inactivated Comments 12/09/2022 4:30 PM 12/11/2022 8:52 PM Care Teams Director Cloud Transformation Relationship Specialty Start Date End Date Luis White MD [address] [address] PCP - General Emergency Medicine 03/07/19 Dominik Alejandro MD [phone] [place] [address] Surgeon Colon and Rectal Surgery 11/06/22 Hiral Vidales MD [address] [address] Consulting Physician General Surgery 11/06/22
--- OUTSIDE RECORDS SUMMARY | 2024-09-21 18:25 | XMS_ITS | Continuity of Care Document ---
[facility] Organization [facility] Address [address] [place] [address] Phone Care Team Providers Care Court Commissioner Name Role Phone Juan Pablo Rich MD Unavailable Unavailable Advance Directives Directive Yes / No Effective Date File Name No Information Encounters Encounter Description Practice Location Reason(s) For Visit Diagnoses Date Provider Providers Copied on Encounter [facility], [address], [place], [place], [id number], tel:[phone] [facility] No Information Layla Almeida. [address] [place], [place], [address], . tel:[phone] Referring Provider: Jere Trevino, [address] , [place], [address]. tel:[phone] Family History Family Member Type Diagnosis Age At Onset No Information Payers Payer name Insurance type Covered green party ID Authoriza tion(s) MEDICARE MB [id number] CIGNA [place] CI [id number] Social History Type Description Quantity Date Captured [...]
--- OUTSIDE RECORDS SUMMARY | 2024-09-21 18:25 | XMS_ITS | Encounter Summary ---
Author Organization [facility] Address [address] [place] [address] Care Team Providers Care Systems Mechanic Name Role Phone Unavailable Primary Care Provider Unavailabl e Encounter Details Date Type Department Care Team (Late st Contact Info) Description 06/19/[address] [facility] [address] [place] [address] , Generic Conversion, Social History Tobacco Use [...]
--- NOTE | 2024-09-21 18:36 | PC.NURSE ---
brother in law left his number with her paper chart had to go due to another family issue. Pt is AxO4 able to advocate for herself. She understands to ask for help if she needs it.
--- NOTE | 2024-09-21 18:42 | ED_ITS ---
HPI - Abdominal Pain General Chief Complaint: Urogenital-Female <Althea Clancy PA-C - Last Filed: 09/22/24 18:05> Stated Complaint: catheter issue - painful in abd <Althea Clancy PA-C - Last Filed: 09/22/24 18:05> Time Seen by Provider: 09/21/24 18:42 <Althea Clancy PA-C - Last Filed: 09/22/24 18:05> Focused HPI: This is a 64 year old female that presents to the ER for lower abdominal pain. Had a suprapubic catheter placed 09/08. Is having pain at the insertion site. Denies fever, vomiting, hematuria. GENERAL: Well-appearing, well-nourished, and in no acute distress. HEAD: Normocephalic, atraumatic. CHEST: Clear to auscultation. ?No respiratory distress. HEART: Regular rate and rhythm.? NEURO: ?Alert and oriented x3. Patient screened in triage and initial orders placed.? ?Additional care and disposition to be based upon?diagnostic testing and treatment. <Althea Clancy PA-C - Last Filed: 09/22/24 18:05> History of Present Illness HPI narrative: I agree with the assessment and documentation of Althea Clancy PA-C. < Sharon Ennis APRN - Last Filed: 09/22/24 00:09> Related Data Home Medications: Home Medications ?Medication ?Instructions ?Recorded ?Confirmed ?Last Taken ?Type acetaminophen 500 mg tablet 500 mg PO .Q6 PRN Pain 06/15/24 09/05/24 Unknown History alendronate 70 mg tablet 70 mg PO WEEKLY 06/15/24 09/05/24 Unknown History ascorbic acid (vitamin C) 500 mg 500 mg PO DAILY 06/15/24 09/05/24 Unknown History tablet (Vitamin C) calcium 333 mg-vit D3 133 1 tablet PO DAILY 06/15/24 09/05/24 Unknown History unit-magnesium 133 mg-zinc 5 mg tablet (Michael Mag Zinc Plus D3) calcium carbonate (Oyster Shell 1,000 mg PO BID 06/15/24 09/05/24 06/15/24 18:00 History Calcium 500) cholecalciferol (vitamin D3) 25 25 mcg PO DAILY 06/15/24 09/05/24 Unknown History mcg (1,000 unit) capsule (Vitamin D3) cyanocobalamin (vitamin B-12) 2,500 mcg PO DAILY 06/15/24 09/05/24 Unknown History 2,500 mcg sublingual tablet hydrocortisone 2.5 % topical cream 1 applic topical BID PRN 06/15/24 09/05/24 Unknown History with perineal applicator Hemorrhoids (Anusol-HC) hydrocortisone acetate 25 mg 25 mg RECTAL BID PRN hemmorhoid 06/15/24 09/05/24 Unknown History rectal suppository (Anusol-HC) niacin (inositol niacinate) 500 mg 1 tablet PO DAILY 06/15/24 09/05/24 Unknown History tablet carbamazepine 100 mg 100 mg PO BID 09/05/24 09/08/24 09/08/24 History tablet,extended release,12 hr (Tegretol XR) carbamazepine 400 mg 400 mg PO BID 09/05/24 09/08/24 09/08/24 History tablet,extended release,12 hr diphenoxylate-atropine 2.5 1 tablet PO HS PRN diarrhea 09/05/24 09/05/24 Unknown History mg-0.025 mg tablet doxycycline monohydrate 100 mg 100 mg PO Q24H 09/05/24 09/05/24 Unknown History capsule zonisamide 100 mg capsule 500 mg PO QPM 09/05/24 09/05/24 Unknown History <Althea Clancy PA-C - Last Filed: 09/22/24 18:05> Allergies/Adverse Reactions: Allergies Allergy/AdvReac Type Severity Reaction Status Date / Time felbamate (From Felbatol) Allergy Severe Anaphylaxis Verified 09/05/24 11:35 sulfamethoxazole (From AdvReac Unknown DIZZINESS Verified 09/05/24 11:35 Bactrim) trimethoprim (From Bactrim) AdvReac Unknown DIZZINESS Verified 09/05/24 11:35 Sulfa (Sulfonamide AdvReac Dizziness Verified 09/05/24 11:35 Antibiotics) <Althea Clancy PA-C - Last Filed: 09/22/24 18:05> Review of Systems 2 Review of Systems: All systems reviewed & are unremarkable except as noted in HPI and below <Sharon Ennis, DEMETRIS - Last Filed: 09/22/24 00:09> [facility] Past Medical History Medical History: Medical History Rectal prolapse Impaired cognition Depression Hypothyroidism Epilepsy <Althea Clancy PA-C - Last Filed: 09/22/24 18:05> Social History Social History: Social History Smoking status: Unknown if ever smoked Alcohol intake: current Substance use: never Substance use type: does not use Do You Feel Safe in your Home?: Yes Lack of Transportation: No Lack of Food: Never True Current Housing: I Have Housing Concerned About Future Housing: No Difficulty Paying Gas/Electric Bills: No Difficulty Paying for Meds: No Currently Unemployed: No Education: Don't Know Difficulty w/ Childcare or Family Care: No Living arrangements: halfway Additional living arrangements comments: [place] Occupation/Education: retired 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 HEAD: Normocephalic, atraumatic. NECK: Supple. No adenopathy, no masses. RESPIRATORY: Airway patent, respirations nonlabored. Clear to auscultation bilaterally, no rales, rhonchi, wheezing. CARDIOVASCULAR: Regular rate and rhythm without murmurs, rubs, or gallops. Peripheral pulses 2+ and equal bilaterally. ABDOMINAL: Soft, + tender, nondistended, no hepatosplenomegaly. Normoactive BS. MUSCULOSKELETAL: Moves all extremities. Strength/ROM intact without gross deformities. SKIN: Warm, dry, normal color. No rashes. Mildly reddened around suprapubic catheter incision. No pus or edema around the site. NEURO: A&O X 3. No ataxic movements. <Sharon Ennis APRN - Last Filed: 09/22/24 00:09> Course Vital Signs Vital signs: Vital Signs Temperature 97.6 F 09/21/24 18:44 Pulse Rate 74 09/21/24 18:44 Respiratory Rate 18 09/21/24 18:44 Blood Pressure 138/81 09/21/24 18:44 Pulse Oximetry 98 09/21/24 18:44 Oxygen Delivery Room Air 09/21/24 18:44 Temperature 98.1 F 09/21/24 20:53 Pulse Rate 62 09/22/24 00:00 Respiratory Rate 14 09/22/24 00:00 Blood Pressure 142/81 H 09/22/24 00:00 Pulse Oximetry 97 09/22/24 00:00 Oxygen Delivery Room Air 09/21/24 18:44 <Althea Clancy PA-C - Last Filed: 09/22/24 18:05> Vital Signs Temperature 97.6 F 09/21/24 18:44 Pulse Rate 74 09/21/24 18:44 Respiratory Rate 18 09/21/24 18:44 Blood Pressure 138/81 09/21/24 18:44 Pulse Oximetry 98 09/21/24 18:44 Oxygen Delivery Room Air 09/21/24 18:44 Temperature 98.1 F 09/21/24 20:53 Pulse Rate 62 09/22/24 00:00 Respiratory Rate 14 09/22/24 00:00 Blood Pressure 142/81 H 09/22/24 00:00 Pulse Oximetry 97 09/22/24 00:00 Oxygen Delivery Room Air 09/21/24 18:44 <Sharon Ennis, DEMETRIS - Last Filed: 09/22/24 00:09> MDM - Abdominal Pain MDM Narrative Medical decision making narrative: This is a 64 year old female that presents to the ER for lower abdominal pain. Had a suprapubic catheter placed 09/08. Is having pain at the insertion site. Denies fever, vomiting, hematuria. Labs Ordered: CBC, CMP, UA, lipase Imaging Ordered: None necessary Medications Ordered: 1 L normal saline IV bolus, Dilaudid 0.5 mg IV, Rocephin 1 g IV Results: Pt's urinalysis indicates positive nitrates, 3+ leukocytes, greater than 100 WBCs, 3-5 RBCs Diagnosis: urinary tract infection Consults: Discussion with collaborating MD-agreed no need to consult urology at this time d/t pt's reassuring bloodwork and the non-emergent nature of pt's condition. Patient Education/Shared MDM: Results shared with patient. Pt given pain medication here in the ER along with a dose of IV Ceftriaxone. She endorses pain improvement following medication administration. Patient strongly advised to maintain hydration status upon discharge and follow-up with her urologist tomorrow. She will be discharged home with prescription for Keflex. Strict return precautions provided. Patient verbalized understanding is in agreement with plan. Vital signs stable at time of discharge. All questions answered. < Sharon Ennis APRN - Last Filed: 09/22/24 00:09> Differential Diagnosis Differential diagnosis: Likely abdominal pain and other (urinary tract infection, pyelonephritis, dehydration) <Sharon Ennis APRN - Last Filed: 09/22/24 00:09> Lab Data Attestation: I reviewed the patient's lab results. <Sharon Ennis APRN - Last Filed: 09/22/24 00:09> Result diagrams: 09/21/24 20:31 09/21/24 20:31 <Althea Clancy PA-C - Last Filed: 09/22/24 18:05> Labs: Lab Results 09/21/24 09/21/24 Range/Units 20:31 22:21 WBC 5.4 (4.5-10.0) K/mm3 RBC 4.20 (4.2-5.4) M/mm3 Hgb 13.2 (12.0-15.0) g/dL Hct 39.0 (37.0-47.0) % MCV 92.9 (80-100) fl MCH 31.4 (26-34) pg MCHC 33.8 (32-36) g/dl RDW 13.6 (11.5-14.5) % Plt Count 232 (150-375) k/mm3 MPV 11.7 H (7.4-10.4) fl Immature Gran % (Auto) 0.4 (0-0.5) % Neut % (Auto) 62.9 (45.5-73.1) % Lymph % (Auto) 28.3 (18.3-44.2) % [place] % (Auto) 5.9 (2.6-8.5) % Eos % (Auto) 1.8 (0-4.4) % Baso % (Auto) 0.7 (0.2-1.2) % Lymph # (Auto) 1.53 (0.9-3.2) K/mm3 [place] # (Auto) 0.3 (0.1-0.6) K/mm3 Eos # (Auto) 0.1 (0-0.3) K/mm3 Baso # (Auto) 0.0 (0.0-0.1) K/mm3 Abs Immat Gran (auto) 0.02 (0.00-0.031) K/mm3 Absolute Neuts (auto) 3.4 (1.3-6.7) K/mm3 Absolute Nucleated RBC 0.000 (0.0-0.012) K/mm3 Nucleated RBC % 0.0 (0.0-0.2) % Sodium 136 L (137-145) mmol/L Potassium 3.5 (3.4-5.0) mmol/L Chloride 101 (98-107) mmol/L Carbon Dioxide 28 (22-30) mmol/L Anion Gap 7 (4-12) mmol/L BUN 7 (7-17) mg/dL Creatinine 0.50 L (0.7-1.0) mg/dL Estim Creat Clear Calc Not Reportable Estimated GFR > 60 (59 - ) Glucose 115 H (65-110) mg/dL Calcium 9.9 (8.4-10.2) mg/dL Total Bilirubin 0.3 (0.2-1.3) mg/dL AST 17 (14-36) U/L ALT 12 (6-35) U/L Alkaline Phosphatase 95 (38-126) U/L Total Protein 7.0 (6.3-8.2) g/dL Albumin 3.9 (3.5-5.1) g/dL Lipase 69 (23-300) U/L Urine Color Yellow (Yellow) Urine Appearance Cloudy H (Clear) Urine pH 7.0 (5.0-9.0) Ur Specific [place] 1.015 (1.001-1.035) Urine Protein Trace (Negative) mg/dL Urine Glucose (UA) Negative (Negative) mg/dL Urine Ketones Trace H (Negative) mg/dL Ur Blood (Man) Negative (Negative) Urine Nitrate Positive H (Negative) Urine Bilirubin Negative (Negative) Urine Urobilinogen 0.2 (<2.0) mg/dL Add Ur Microanalysis Reviewed Leukocyte Esterase Rfl 3+ H (Negative) ROSALIND/UL Urine RBC 3-5 H (0-2) /hpf Urine WBC >100 H (0-3) /hpf Ur Squamous Epith Cells None seen (Few) /hpf Urine Bacteria 4+ H /hpf Urine Casts 3-5 Hyaline Casts Present (None) /lpf <Althea Clancy PA-C - Last Filed: 09/22/24 18:05> Lab Results 09/21/24 09/21/24 Range/Units 20:31 22:21 WBC 5.4 (4.5-10.0) K/mm3 RBC 4.20 (4.2-5.4) M/mm3 Hgb 13.2 (12.0-15.0) g/dL Hct 39.0 (37.0-47.0) % MCV 92.9 (80-100) fl MCH 31.4 (26-34) pg MCHC 33.8 (32-36) g/dl RDW 13.6 (11.5-14.5) % Plt Count 232 (150-375) k/mm3 MPV 11.7 H (7.4-10.4) fl Immature Gran % (Auto) 0.4 (0-0.5) % Neut % (Auto) 62.9 (45.5-73.1) % Lymph % (Auto) 28.3 (18.3-44.2) % [place] % (Auto) 5.9 (2.6-8.5) % Eos % (Auto) 1.8 (0-4.4) % Baso % (Auto) 0.7 (0.2-1.2) % Lymph # (Auto) 1.53 (0.9-3.2) K/mm3 [place] # (Auto) 0.3 (0.1-0.6) K/mm3 Eos # (Auto) 0.1 (0-0.3) K/mm3 Baso # (Auto) 0.0 (0.0-0.1) K/mm3 Abs Immat Gran (auto) 0.02 (0.00-0.031) K/mm3 Absolute Neuts (auto) 3.4 (1.3-6.7) K/mm3 Absolute Nucleated RBC 0.000 (0.0-0.012) K/mm3 Nucleated RBC % 0.0 (0.0-0.2) % Sodium 136 L (137-145) mmol/L Potassium 3.5 (3.4-5.0) mmol/L Chloride 101 (98-107) mmol/L Carbon Dioxide 28 (22-30) mmol/L Anion Gap 7 (4-12) mmol/L BUN 7 (7-17) mg/dL Creatinine 0.50 L (0.7-1.0) mg/dL Estim Creat Clear Calc Not Reportable Estimated GFR > 60 (59 - ) Glucose 115 H (65-110) mg/dL Calcium 9.9 (8.4-10.2) mg/dL Total Bilirubin 0.3 (0.2-1.3) mg/dL AST 17 (14-36) U/L ALT 12 (6-35) U/L Alkaline Phosphatase 95 (38-126) U/L Total Protein 7.0 (6.3-8.2) g/dL Albumin 3.9 (3.5-5.1) g/dL Lipase 69 (23-300) U/L Urine Color Yellow (Yellow) Urine Appearance Cloudy H (Clear) Urine pH 7.0 (5.0-9.0) Ur Specific [place] 1.015 (1.001-1.035) Urine Protein Trace (Negative) mg/dL Urine Glucose (UA) Negative (Negative) mg/dL Urine Ketones Trace H (Negative) mg/dL Ur Blood (Man) Negative (Negative) Urine Nitrate Positive H (Negative) Urine Bilirubin Negative (Negative) Urine Urobilinogen 0.2 (<2.0) mg/dL Add Ur Microanalysis Reviewed Leukocyte Esterase Rfl 3+ H (Negative) ROSALIND/UL Urine RBC 3-5 H (0-2) /hpf Urine WBC >100 H (0-3) /hpf Ur Squamous Epith Cells None seen (Few) /hpf Urine Bacteria 4+ H /hpf Urine Casts 3-5 Hyaline Casts Present (None) /lpf <Sharon Ennis APRN - Last Filed: 09/22/24 00:09> Critical Care Time Critical Care Time Critical Care Time: No <Althea Clancy PA-C - Last Filed: 09/22/24 18:05> Discharge Plan Discharge Clinical Impression: Urinary tract infection Qualifiers: Urinary tract infection type: acute cystitis Hematuria presence: without hematuria Qualified Code(s): N30.00 - Acute cystitis without hematuria <Althea Clancy PA-C - Last Filed: 09/22/24 18:05> Patient Disposition: Home, Self-Care <Althea Clancy PA-C - Last Filed: 09/22/24 18:05> Condition: Stable <Althea Clancy PA-C - Last Filed: 09/22/24 18:05> Instructions: Antibiotic Form, Urinary Tract Infection in Women (ED) <Althea Clancy PA-C - Last Filed: 09/22/24 18:05> Additional Instructions: Please return to the ER with an worsening symptoms. Follow-up with primary care provider as soon as possible and call your urologist tomorrow morning. Take all regularly scheduled medications as prescribed. Complete your whole dose of antibiotics as prescribed. <Althea Clancy PA-C - Last Filed: 09/22/24 18:05> Patient Language: Danish <Althea Clancy PA-C - Last Filed: 09/22/24 18:05> Prescriptions: New cephalexin 500 mg capsule 500 mg PO Q8H Qty: 21 0RF No Action cyanocobalamin (vitamin B-12) 2,500 mcg tablet, sublingual 2,500 mcg PO DAILY alendronate 70 mg tablet 70 mg PO WEEKLY Rx Instructions: patient takes on Fridays acetaminophen 500 mg tablet 500 mg PO .Q6 PRN (Reason: Pain) hydrocortisone acetate [Anusol-HC] 25 mg suppository 25 mg RECTAL BID PRN (Reason: hemmorhoid) hydrocortisone [Anusol-HC] 2.5 % cream with perineal applicator 1 applic topical BID PRN (Reason: Hemorrhoids) calcium carbonate [Oyster Shell Calcium 500] 500 mg calcium (1,250 mg) tablet 1,000 mg PO BID ascorbic acid (vitamin C) [Vitamin C] 500 mg tablet 500 mg PO DAILY cholecalciferol (vitamin D3) [Vitamin D3] 25 mcg (1,000 unit) capsule 25 mcg PO DAILY niacin (inositol niacinate) 500 mg tablet 1 tablet PO DAILY calcium carb-D3-mag ox-zinc ox [Michael Mag Zinc Plus D3] 333 mg-133 unit -133 mg- 5 mg tablet 1 tablet PO DAILY aspirin 325 mg Tablet,Delayed Release (Dr/Ec) 325 mg PO Q12HR 28 Days Qty: 56 0RF Rx Instructions: for 28 days diphenoxylate-atropine 2.5-0.025 mg tablet 1 tablet PO HS PRN (Reason: diarrhea) doxycycline monohydrate 100 mg capsule 100 mg PO Q24H carbamazepine 400 mg tablet extended release 12 hr 400 mg PO BID Patient Comments: TAKES WITH THE 100MG CARBANAZEPINE TAB + 500MG BID carbamazepine [Tegretol XR] 100 mg Tablet Extended Release 12 Hr 100 mg PO BID zonisamide 100 mg capsule 500 mg PO QPM cefdinir 300 mg capsule 300 mg PO Q12H 7 Days Qty: 14 0RF polyethylene glycol 3350 [Miralax] 17 gram Powder In Packet 17 g PO QAM Qty: 0 0RF sennosides-docusate sodium [Senokot-S] 8.6-50 mg Tablet 1 tab-cap PO HS 30 Days Qty: 30 0RF docusate sodium 100 mg Capsule 100 mg PO Q12HR 30 Days Qty: 60 0RF trazodone 50 mg tablet 50 mg PO DAILY Qty: 30 0RF Patient Comments: HS sertraline 100 mg tablet 100 mg PO DAILY Qty: 30 0RF primidone 250 mg tablet 250 mg PO HS Qty: 30 0RF tamsulosin 0.4 mg capsule 0.4 mg PO DAILY Qty: 30 0RF Patient Comments: HS levothyroxine 150 mcg tablet 150 mcg PO DAILY Qty: 30 0RF carbidopa-levodopa 25-100 mg tablet 1.5 tablet PO TID Qty: 30 0RF buspirone 15 mg tablet 15 mg PO BID Qty: 60 0RF aripiprazole 10 mg tablet 10 mg PO DAILY Qty: 30 0RF duloxetine 60 mg capsule,delayed release(DR/EC) 60 mg PO BID 30 Days Qty: 0 0RF Patient Comments: TAKING DAILY CURRENTLY PER INTERMEDIATE sixto Masterson-Zoltan-S.therm 175 mg capsule 1 cap PO DAILY Qty: 30 0RF <Althea Clancy PA-C - Last Filed: 09/22/24 18:05> Follow-up/Referrals: Froylan,Zakiya Tang APRN [Primary Care Provider] - <Althea Clancy PA-C - Last Filed: 09/22/24 18:05> Time of Disposition: 00:09 <Althea Clancy PA-C - Last Filed: 09/22/24 18:05> 00:09 <Sharon Ennis APRN - Last Filed: 09/22/24 00:09>
[2024-09-21 18:44] VITALS: BP 138/81; PULSE 74; RESP 18; TEMP 36.4; O2SAT 98
[2024-09-21 20:53] VITALS: BP 132/83; PULSE 71; RESP 18; TEMP 36.7; O2SAT 100
[2024-09-21 20:54] LABS: Basophils Percent Auto 0.7 % (0.2-1.2); Eosinophils Absolute Auto 0.1 K/mm3 (0-0.3); Eosinophils Percent Auto 1.8 % (0-4.4); Hemoglobin 13.2 g/dL (12.0-15.0); Immature Granulocyte Absolute 0.02 K/mm3 (0.00-0.031); Immature Granulocyte Percent A 0.4 % (0-0.5); Lymphocytes Absolute Auto 1.53 K/mm3 (0.9-3.2); Lymphocytes Percent Auto 28.3 % (18.3-44.2); Mean Corpuscular HGB Conc 33.8 g/dl (32-36); Mean Corpuscular Hemoglobin 31.4 pg (26-34); Mean Corpuscular Volume 92.9 fl (80-100); Mean Platelet Volume 11.7 fl (7.4-10.4); Monocytes Absolute Auto 0.3 K/mm3 (0.1-0.6); Monocytes Percent Auto 5.9 % (2.6-8.5); Neutrophils Absolute Auto 3.4 K/mm3 (1.3-6.7); Neutrophils Percent Auto 62.9 % (45.5-73.1); Platelet Count Result 232 k/mm3 (150-375); Red Cell Distribution Width 13.6 % (11.5-14.5); White Blood Count 5.4 K/mm3 (4.5-10.0)
[2024-09-21 21:05] LABS: Alanine Aminotransferase 12 U/L (6-35); Albumin Level 3.9 g/dL (3.5-5.1); Alkaline Phosphatase 95 U/L (38-126); Anion Gap 7 mmol/L (4-12); Aspartate Amino Transferase 17 U/L (14-36); Bilirubin,Total 0.3 mg/dL (0.2-1.3); Blood Urea Nitrogen 7 mg/dL (7-17); Calcium 9.9 mg/dL (8.4-10.2); Carbon Dioxide 28 mmol/L (22-30); Chloride 101 mmol/L (98-107); Estimated Glomerular Filt Rate > 60; Glucose 115 mg/dL (65-110); Lipase 69 U/L (23-300); Potassium 3.5 mmol/L (3.4-5.0); Sodium 136 mmol/L (137-145)
[2024-09-21] MEDS: SODIUM CHLORIDE 0.9% IV 1,000 ML 999 ML IV CONT (22:14)
[2024-09-21] MEDS: HYDROmorphone HCL INJ (*CRX) 1 MG/ML SYR 0.5 MG IV PUSH (22:15)
[2024-09-21 22:37] LABS: Add Urine Microscopic? YES; Appearance Urine Cloudy (Clear); Bacteria Urine 4+ /hpf; Bilirubin Urine Negative (Negative); Blood Urine Negative (Negative); Color Urine Yellow (Yellow); Glucose Urine UA Negative (Negative); Hyaline Casts Urine Present /lpf; Ketones Urine Trace mg/dL (Negative); Leukocyte Esterase Ur 3+ LEU/UL (Negative); Need Manual Microscopic Reviewed; Nitrate Urine Positive (Negative); Protein Urine Trace mg/dL (Negative); Specific Grav Ur 1.015 (1.001-1.035); Squamous Epithelial Cell Urine None Seen /hpf (Few); Urobilinogen Urine 0.2 mg/dL (<2.0); WBC Urine >100 /hpf (0-3)
[2024-09-22] VITALS: BP 142/81; PULSE 62; RESP 14; O2SAT 97
--- OUTSIDE RECORDS SUMMARY | 2024-09-22 00:04 | XMS_ITS | Continuity of Care Document ---
Author Organization [facility] Address [address] [place] [address] Phone Care Team Providers Care Linesperson Name Role Phone Juan Pablo Rich MD Unavailable Unavailable Advance Directives Directive Yes / No Effective Date File Name No Information Encounters Encounter Description Practice Location Reason(s) For Visit Diagnoses Date Provider Providers Copied on Encounter [facility], [address], [place], [place], [id number], tel:[phone] [facility] No Information Layla Almeida. [address], [place], [id number], . tel:[phone] Referring Provider: Jere Trevino, [address] , [place], [address]. tel:[phone] Family History Family Member Type Diagnosis Age At Onset No Information Payers Payer name Insurance type Covered constitution party ID Authoriza tion(s) MEDICARE MB [id number] [employer] [place] CI [id number] Social History Type Description Quantity Date Captured [...]
--- OUTSIDE RECORDS SUMMARY | 2024-09-22 00:05 | XMS_ITS | Referral Summary ---
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 Assessment & Plan (10/02/2021 4:23 PM INSPECTOR INSULATION): She has a subacute onset (2015), somewhat [...] which took place via Real-time video connection ([employer], [employer] or similar). During the visit, I was located in my clinic office in the [facility], in the [place], [place] and the patient was located at her home in [place]. The session started at 13:08 and ended [...] video visit during the [facility]-[address] [place] [address] emergency. After being given an opportunity to [...] precautions. Assessment & Plan (08/24/2019 4:56 PM INSPECTOR INSULATION): She has a subacute onset (2015), rather [...] on file Legal Sex Female 11:43 PM INSPECTOR INSULATION Gender Identity Female 11/05/2020 1:42 AM CDT [...] on file Medical Devices Implanted Type Area Fill Technician Device Identifier Shelf Expiration Date Model / Serial / Lot [employer]/C R Bard 6x3in Large Pore Knit Monofilament Smooth [place] [id number] - [id number] Implanted:Qty: 1 on 12/09/2022 by Dominik Alejandro MD at [facility] Mesh N/A: Abdomen [employer]/C R Bard [id number] 04/29/2027 [id number] / / [id number] Plates And Screws Right: Wrist Procedures Procedure Name Priority Date/Time Associated Diagnosis Comments COLONOSCOPY 08/12/2022 12:59 PM INSPECTOR INSULATION from Last 3 Months or Most Recently Relevant to Health Maintenance Results * COLONOSCOPY (08/12/2022 12:59 PM INSPECTOR INSULATION) Anatomical Region Laterality Modality Other Narrative Procedure Note Hiral Vidales MD - 08/12/2022 12:59 PM CST [facility] GI ENDOSCOPY Patient Name: Bethany Almaraz Procedure Date: 08/12/2022 12:59 PM Date of : 1960 Admit Type: Outpatient Age: 62 Gender: Female Attending MD: Hiral Vidales M.D. Room: [facility] ENDOSCOPY ROOM 05 Note Status: Finalized [...] On: 08/12/2022 12:59 PM Recognized by the [place] [employer] for promoting quality in endoscopy Hiral Vidales MD ENDOSCOPY PROCEDURES Final Resul t from Last 3 Months or Most Recently Relevant to Health Maintenance Insurance DR [address] [place] [id number] [facility] [place] [address] [facility] [address] [place] [address] [employer] MED[employer]ARE Advance Directives For more information, please contact: [phone] * Full Code (Latest Code Status on File) Date Activated Date Inactivated Comments 12/09/2022 4:30 PM 12/11/2022 8:52 PM Care Teams Minister Assistant Relationship Specialty Start Date End Date Luis White MD [address] [place] [address] PCP - General Emergency Medicine 03/07/19 Dominik Alejandro MD [phone] [place] [address] Surgeon Colon and Rectal Surgery 11/06/22 Hiral Vidales MD [address] [address] Consulting Physician General Surgery 11/06/22
--- OUTSIDE RECORDS SUMMARY | 2024-09-22 00:05 | XMS_ITS | Encounter Summary ---
Author Organization [facility] Address [address] [place] [address] Care Team Providers Care Burner Tender Name Role Phone Unavailable Primary Care Provider Unavailabl e Encounter Details Date Type Department Care Team (Late st Contact Info) Description 06/19/[address] [facility] Conversion [address] [place] [address] , Generic Conversion, Social History Tobacco Use [...]
--- OUTSIDE RECORDS SUMMARY | 2024-09-22 00:05 | XMS_ITS | Encounter Summary ---
Author Organization [facility] Address [address] [place] [address] Care Team Providers Care Telephone Maintainer Name Role Phone Unavailable Primary Care Provider Unavailabl e Encounter Details Date Type Department Care Team (Late st Contact Info) Description 04/11/[address] [facility] Conversion [address] [place] [address] , Generic Conversion, Social History Tobacco Use [...]
--- OUTSIDE RECORDS SUMMARY | 2024-09-22 00:05 | XMS_ITS | Clinical Summary ---
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 Assessment & Plan (10/02/2021 4:23 PM STEAM BLOCKER): She has a subacute onset (2015), somewhat [...] which took place via Real-time video connection ([employer], [employer] or similar). During the visit, I was located in my clinic office in the [facility], in the [place], [place] and the patient was located at her home in [place]. The session started at 13:08 and ended [...] a telephone or video visit during the [facility] [place] [address] emergency. After being given an opportunity to [...] precautions. Assessment & Plan (08/24/2019 4:56 PM STEAM BLOCKER): She has a subacute onset (2015), rather [...] Trotters, lactate/pyruvate ratio, cytology and flow cytometry, MDAHAV virus PCR were also unremarkable. CSF Paraneoplastic [...] on file Legal Sex Female 11:43 PM STEAM BLOCKER Gender Identity Female 11/05/2020 1:42 AM CDT [...] Discontinued 08/02 Medical Devices Implanted Type Area Ampoule Washing Machine Operator Device Identifier Shelf Expiration Date Model / Serial / Lot [employer]/C R Bard 6x3in Large Pore Knit Monofilament Smooth [place] [id number] - [id number] Implanted:Qty: 1 on 12/09/2022 by Dominik Alejandro MD at [facility] Mesh N/A: Abdomen [employer]/C R Bard [id number] 04/29/2027 [id number] / / [id number] Plates And Screws Right: Wrist Procedures Procedure Name Priority Date/Time Associated Diagnosis Comments COLONOSCOPY 08/12/2022 12:59 PM STEAM BLOCKER from Last 3 Months or Most Recently Relevant to Health Maintenance Results * COLONOSCOPY (08/12/2022 12:59 PM STEAM BLOCKER) Anatomical Region Laterality Modality Other Narrative Procedure Note Hiral Vidales MD - 08/12/2022 12:59 PM CST [facility] Patient Name: Bethany Almaraz Procedure Date: 08/12/2022 12:59 PM Date of : 1960 Admit Type: Outpatient Age: 62 Gender: Female Attending MD: Hiral Vidales M.D. Room: [facility] ROOM 05 Note Status: Finalized Procedure: [...] On: 08/12/2022 12:59 PM Recognized by the [place] [employer] for promoting quality in endoscopy us Hiral Vidales MD ENDOSCOPY PROCEDURES Final Resul t from Last 3 Months or Most Recently Relevant to Health Maintenance Insurance T MEDICARE T MEDICARE T MEDICARE Advance Directives For more information, please contact: [phone] * Full Code (Latest Code Status on File) Date Activated Date Inactivated Comments 12/09/2022 4:30 PM 12/11/2022 8:52 PM Care Teams Record Tabulating Clerk Relationship Specialty Start Date End Date Luis White MD [address] [address] PCP - General Emergency Medicine 03/07/19 Dominik Alejandro MD [id number] [place] [address] Surgeon Colon and Rectal Surgery 11/06/22 Hiral Vidales MD [address] [id number] Consulting Physician General Surgery 11/06/22
--- OUTSIDE RECORDS SUMMARY | 2024-09-22 00:05 | XMS_ITS | Clinical Summary ---
Author Organization [facility] Address [address] [place] [address] Care Team Providers Care Housekeeping Supervisor Name Role Phone Unavailable Primary Care Provider [...]
== END 2024-09-22 00:56 | disposition home or self-care (01) ==
PROVIDERS: Physician Assistant; Emergency Provider Registered Nurse; PCP Nurse Practitioner
DX: N30.00 Acute cystitis without hematuria (principal); E03.9 Hypothyroidism, unspecified; G40.909 Epilepsy, unspecified, not intractable, without status epilepticus; F32.A Depression, unspecified; Z79.82 Long term (current) use of aspirin; Z79.899 Other long term (current) drug therapy
CPT/HCPCS: 36415; 80053; 81001; 83690; 85025; 87086; 87186; 96365; 96375; 99284; J0696; J1171; J7030

== ENCOUNTER 2024-09-29 00:55 | Emergency (ER) | payer MEDICARE, SELFPAY ==
[2024-09-29 00:57] VITALS: BP 126/85; PULSE 77; RESP 18; TEMP 36.5; O2SAT 99
[2024-09-29 02:26] VITALS: BP 124/77; PULSE 72; RESP 18; O2SAT 97
--- NOTE | 2024-09-29 03:17 | ED.FEMALEGU ---
HPI - Female Genitourinary General Chief complaint: Urogenital-Female Stated complaint: CUT SUPRA-PUBIC CATHETER Time Seen by Provider: 09/29/24 01:18 History of Present Illness HPI Narrative: 64-year-old female with a past medical history including Parkinson's dementia, epilepsy, hypothyroidism. She recently had a suprapubic catheter placed by urologist Dr. Grant 3 weeks ago. She presents from her residential facility for concerns that somebody or patient herself accidentally cut the and of the suprapubic catheter and now it is nonfunctioning. Catheter is still in place, sutures are still in place on both sides of the stoma securing the tube in place. There appears to be a cut in the drainage port and it is missing. Patient has a 16 [place] catheter that was placed on the 7th 3 weeks prior. No other symptoms. No pain or drainage. No redness, good granulation tissue on the stoma site. No abdominal tenderness or distention. Urine draining clear. Recently seen here for UTI. Patient has no complaints at this time, she denies being want accidentally cut the tubing and is not sure how it happened. No evidence of trauma or infection. Related Data Home Medications ?Medication ?Instructions ?Recorded ?Confirmed ?Last Taken ?Type acetaminophen 500 mg tablet 500 mg PO .Q6 PRN Pain 06/15/24 09/05/24 Unknown History alendronate 70 mg tablet 70 mg PO WEEKLY 06/15/24 09/05/24 Unknown History ascorbic acid (vitamin C) 500 mg 500 mg PO DAILY 06/15/24 09/05/24 Unknown History tablet (Vitamin C) calcium 333 mg-vit D3 133 1 tablet PO DAILY 06/15/24 09/05/24 Unknown History unit-magnesium 133 mg-zinc 5 mg tablet (Michael Mag Zinc Plus D3) calcium carbonate (Oyster Shell 1,000 mg PO BID 06/15/24 09/05/24 06/15/24 18:00 History Calcium 500) cholecalciferol (vitamin D3) 25 25 mcg PO DAILY 06/15/24 09/05/24 Unknown History mcg (1,000 unit) capsule (Vitamin D3) cyanocobalamin (vitamin B-12) 2,500 mcg PO DAILY 06/15/24 09/05/24 Unknown History 2,500 mcg sublingual tablet hydrocortisone 2.5 % topical cream 1 applic topical BID PRN 06/15/24 09/05/24 Unknown History with perineal applicator Hemorrhoids (Anusol-HC) hydrocortisone acetate 25 mg 25 mg RECTAL BID PRN hemmorhoid 06/15/24 09/05/24 Unknown History rectal suppository (Anusol-HC) niacin (inositol niacinate) 500 mg 1 tablet PO DAILY 06/15/24 09/05/24 Unknown History tablet carbamazepine 100 mg 100 mg PO BID 09/05/24 09/08/24 09/08/24 History tablet,extended release,12 hr (Tegretol XR) carbamazepine 400 mg 400 mg PO BID 09/05/24 09/08/24 09/08/24 History tablet,extended release,12 hr diphenoxylate-atropine 2.5 1 tablet PO HS PRN diarrhea 09/05/24 09/05/24 Unknown History mg-0.025 mg tablet doxycycline monohydrate 100 mg 100 mg PO Q24H 09/05/24 09/05/24 Unknown History capsule zonisamide 100 mg capsule 500 mg PO QPM 09/05/24 09/05/24 Unknown History Allergies Allergy/AdvReac Type Severity Reaction Status Date / Time felbamate (From Felbatol) Allergy Severe Anaphylaxis Verified 09/05/24 11:35 sulfamethoxazole (From AdvReac Unknown DIZZINESS Verified 09/05/24 11:35 Bactrim) trimethoprim (From Bactrim) AdvReac Unknown DIZZINESS Verified 09/05/24 11:35 Sulfa (Sulfonamide AdvReac Dizziness Verified 09/05/24 11:35 Antibiotics) Review of Systems Review of Systems: As reviewed above [facility] Past Medical History Medical History Rectal prolapse Impaired cognition Depression Hypothyroidism Epilepsy Social History Social History Smoking status: Unknown if ever smoked Alcohol intake: current Substance use: never Substance use type: does not use Do You Feel Safe in your Home?: Yes Lack of Transportation: No Lack of Food: Never True Current Housing: I Have Housing Concerned About Future Housing: No Difficulty Paying Gas/Electric Bills: No Difficulty Paying for Meds: No Currently Unemployed: No Education: Don't Know Difficulty w/ Childcare or Family Care: No [facility] [facility] Additional living arrangements comments: [place] Occupation/Education: retired 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 Mucous membranes moist. NECK: Supple. CHEST: [Clear to auscultation. No respiratory distress.] HEART: [Regular rate and rhythm]. No murmur heard. [Normal peripheral pulses.] ABDOMEN: [Soft, nondistended], [nontender], [No rigidity or guarding] suprapubic catheter tubing still in place with proximal and being cut, not connected to the drainage collection system. Sutures are in place, no overlying skin changes concerning for infection, good granulation tissue, no purulence or bleeding. No tenderness in the area. No redness or cellulitic skin changes. EXTREMITIES: Normal range of motion. [No edema.] SKIN: Warm, dry, no rash. NEURO: [No focal deficits]. Alert and answering questions appropriately PSYCH: [Normal mood and affect.] Course Vital Signs Vital signs: Vital Signs Temperature 36.5 C 09/29/24 00:57 Pulse Rate 77 09/29/24 00:57 Respiratory Rate 18 09/29/24 00:57 Blood Pressure 126/85 09/29/24 00:57 Pulse Oximetry 99 09/29/24 00:57 Oxygen Delivery Room Air 09/29/24 00:57 Temperature 36.5 C 09/29/24 00:57 Pulse Rate 72 09/29/24 02:26 Respiratory Rate 18 09/29/24 02:26 Blood Pressure 124/77 09/29/24 02:26 Pulse Oximetry 97 09/29/24 02:26 Oxygen Delivery Room Air 09/29/24 00:57 Procedures Catheter Insertion (Urinary) Urinary Catheter 1: Date of insertion: 09/29/24 Time of insertion: 03:20 Reason for placing: Yes (Malfunctioning suprapubic catheter appear) Reason for placing indwelling catheter: Other (Malfunctioning chronic suprapubic catheter) Patient has the following: history of catheter associated urinary tract infection Bladder scan/ultrasound used before catheterization: Yes Estimated amount of urine (mLs): 0 Antiseptic solution prep: Povidone-Iodine Topical anesthesia used: Yes Catheter type/location: Suprapubic Size ([place]): 16 Catheter balloon size (mL): 10 Catheter balloon amount: 10 Results: successfully catheterized-immediate flow and consulted (Consult over the phone who recommended doing the bedside procedure without needing urology or operative room intervention.) Procedure performed: without complications MDM - Female Genitourinary MDM Narrative Medical decision making narrative: 64-year-old female presenting for malfunctioning suprapubic catheter. Somehow the catheter got cut or the proximal end was damaged and both the drainage port and the inflation port are open to air. There is clear yellow urine coming out of the drainage port without any blood or sediment. Suprapubic site appears clean, dry, intact, sutures are still in place, stoma is still open with catheter in place. Patient has no complaints, does not know how this happened. [facility] believes that she accidentally cut it with some scissors that she got hold of in her room. Consulted on-call urologist Dr. Carrera regarding the suprapubic catheter exchange given that was freshly placed 3 weeks ago. No concerns after the discussion over the phone and he recommended I attempt suprapubic catheter exchange at bedside without any need for operative room intervention. Exchange was completed successfully without complication, patient tolerated the procedure well, drainage of clear yellow urine afterwards. Patient felt comfortable and given the normal vital signs, normal exam and successful replacement she can be safely sent back to her facility at this time with regular Urology follow-up. Suprapubic catheter was secured with dressing applied to the left hip and gauze dressing applied near the stoma site. Medical Records Attestation: I reviewed the patient's medical records. Discharge Plan Discharge Clinical Impression: Suprapubic catheter dysfunction Patient Disposition: NH Residential/Asst Living Condition: Stable Instructions: Antibiotic Form Additional Instructions: Follow-up with your regular doctor on outpatient basis. Follow-up with urology as needed. Return with any new or worsening concerns at any time. Patient Language: Greenlandic Prescriptions: No Action cyanocobalamin (vitamin B-12) 2,500 mcg tablet, sublingual 2,500 mcg PO DAILY alendronate 70 mg tablet 70 mg PO WEEKLY Rx Instructions: patient takes on Fridays acetaminophen 500 mg tablet 500 mg PO .Q6 PRN (Reason: Pain) hydrocortisone acetate [Anusol-HC] 25 mg suppository 25 mg RECTAL BID PRN (Reason: hemmorhoid) hydrocortisone [Anusol-HC] 2.5 % cream with perineal applicator 1 applic topical BID PRN (Reason: Hemorrhoids) calcium carbonate [Oyster Shell Calcium 500] 500 mg calcium (1,250 mg) tablet 1,000 mg PO BID ascorbic acid (vitamin C) [Vitamin C] 500 mg tablet 500 mg PO DAILY cholecalciferol (vitamin D3) [Vitamin D3] 25 mcg (1,000 unit) capsule 25 mcg PO DAILY niacin (inositol niacinate) 500 mg tablet 1 tablet PO DAILY calcium carb-D3-mag ox-zinc ox [Michael Mag Zinc Plus D3] 333 mg-133 unit -133 mg-5 mg tablet 1 tablet PO DAILY aspirin 325 mg Tablet,Delayed Release (Dr/Ec) 325 mg PO Q12HR 28 Days Qty: 56 0RF Rx Instructions: for 28 days diphenoxylate-atropine 2.5-0.025 mg tablet 1 tablet PO HS PRN (Reason: diarrhea) doxycycline monohydrate 100 mg capsule 100 mg PO Q24H carbamazepine 400 mg tablet extended release 12 hr 400 mg PO BID Patient Comments: TAKES WITH THE 100MG CARBANAZEPINE TAB + 500MG BID carbamazepine [Tegretol XR] 100 mg Tablet Extended Release 12 Hr 100 mg PO BID zonisamide 100 mg capsule 500 mg PO QPM cephalexin 500 mg capsule 500 mg PO Q8H Qty: 21 0RF cefdinir 300 mg capsule 300 mg PO Q12H 7 Days Qty: 14 0RF polyethylene glycol 3350 [Miralax] 17 gram Powder In Packet 17 g PO QAM Qty: 0 0RF sennosides-docusate sodium [Senokot-S] 8.6-50 mg Tablet 1 tab-cap PO HS 30 Days Qty: 30 0RF docusate sodium 100 mg Capsule 100 mg PO Q12HR 30 Days Qty: 60 0RF trazodone 50 mg tablet 50 mg PO DAILY Qty: 30 0RF Patient Comments: HS sertraline 100 mg tablet 100 mg PO DAILY Qty: 30 0RF primidone 250 mg tablet 250 mg PO HS Qty: 30 0RF tamsulosin 0.4 mg capsule 0.4 mg PO DAILY Qty: 30 0RF Patient Comments: HS levothyroxine 150 mcg tablet 150 mcg PO DAILY Qty: 30 0RF carbidopa-levodopa 25-100 mg tablet 1.5 tablet PO TID Qty: 30 0RF buspirone 15 mg tablet 15 mg PO BID Qty: 60 0RF aripiprazole 10 mg tablet 10 mg PO DAILY Qty: 30 0RF duloxetine 60 mg capsule,delayed release(DR/EC) 60 mg PO BID 30 Days Qty: 0 0RF Patient Comments: TAKING DAILY CURRENTLY PER ALF L.acidoph,saliva-B.bif-S.therm 175 mg capsule 1 cap PO DAILY Qty: 30 0RF Follow-up/Referrals: Froylan,Zakiya Tang APRN [Primary Care Provider] - Time of Disposition: 03:24
--- NOTE | 2024-09-29 03:22 | PC.NURSE ---
MD Velez replaced pt suprapubic catheter with a 16 martiniquais at this time. Stabilization device applied. Gauze placed around site. Pt catheter patent draining.
[2024-09-29 04:30] VITALS: BP 125/74; PULSE 73; RESP 18; O2SAT 97
[2024-09-29 05:41] VITALS: BP 129/81; PULSE 79; RESP 18; O2SAT 100
[2024-09-29 06:55] VITALS: BP 145/98; PULSE 81; RESP 18; O2SAT 100
== END 2024-09-29 08:05 ==
PROVIDERS: Emergency Provider Student in an Organized Health Care Education/Training Program; PCP Nurse Practitioner
DX: T83.090A Other mechanical complication of cystostomy catheter, initial encounter (principal); G20.A1 Parkinson's disease without dyskinesia, without mention of fluctuations; F02.80 Dementia in other diseases classified elsewhere, unspecified severity, without behavioral disturbance, psychotic disturbance, mood disturbance, and anxiety; E03.9 Hypothyroidism, unspecified; G40.909 Epilepsy, unspecified, not intractable, without status epilepticus; Y84.6 Urinary catheterization as the cause of abnormal reaction of the patient, or of later complication, without mention of misadventure at the time of the procedure; Z79.899 Other long term (current) drug therapy
CPT/HCPCS: 51702; 51705; 99283

== ENCOUNTER 2024-10-14 22:40 | Emergency (ER) | payer MEDICARE, SELFPAY ==
--- NOTE | ~2024-10-14 | CT_ITS ---
CT abdomen pelvis w con Ordering provider: Althea Clancy PA-C History: 64 years Female with . supropubic catheter dysfunction, bleeding . Comparison: None. Technique: CT abdomen and pelvis with IV and without oral contrast. Automated exposure control and it erative reconstruction technique were employed. The dose-length product was 307.94 mGy-cm. 100 mL Omn ipaque 350 was given IV. Findings: VISUALIZED LOWER CHEST: Dependent atelectatic changes seen bilaterally. Possibility of atelectasis in the left lower lobe versus pneumonia is not excluded. Clinical correlation advised. UPPER ABDOMINAL ORGANS: Liver: Fat infiltration of the liver. Gallbladder: Status post cholecystectomy. Spleen: Normal. Stomach/duodenum: Focal area of air is seen medial to the spleen which may be a diverticulum from the stomach. Pancreas: Normal. Adrenals: Normal. Kidneys: Normal. PELVIC ORGANS: Suprapubic catheter is seen with underfilling of the urinary bladder. Thickened wall o f the urinary bladder is seen which may indicate cystitis versus infiltrative process.. BOWEL AND MESENTERY: Colon: Mild sigmoid diverticulosis without diverticulitis. Blunting of the colon with fecal material is noted suggestive of constipation. Normal appendix. Small Bowel: Slight thickening of the wall of the small bowel suggestive of enteritis. No obstruction . Peritoneum/mesentery: No free air or free fluid. No mesenteric lymphadenopathy. RETROPERITONEUM: Mild atheromatous disease of the abdominal aorta. No retroperitoneal lymphadenopat hy. MUSCULOSKELETAL: Superficial soft tissues: The superficial soft tissues are normal. Bones: S-shaped scoliosis. Age appropriate degenerative changes of the spine. Postoperative changes i n the spine and left femoral neck. Old healed fracture in the left inferior pubic ramus IMPRESSION: 1. Fat infiltration of the liver. 2. Constipation. 3. Thickened wall of the small bowel which may indicate enteritis. Clinical correlation advised. 4. Suprapubic catheter seen in the urinary bladder. Reviewed, dictated and finalized at location A. IMPRESSION: 1. Fat infiltration of the liver. 2. Constipation. 3. Thickened wall of the small bowel which may indicate enteritis. Clinical co rrelation advised. 4. Suprapubic catheter seen in the urinary bladder.
[2024-10-14 22:44] VITALS: BP 112/85; PULSE 71; RESP 12; TEMP 36.4; O2SAT 99
--- NOTE | 2024-10-14 23:16 | ED_ITS ---
HPI - General Adult General Chief complaint: Unspecified Stated complaint: fall/ bleeding from suprapubic catheter Time Seen by Provider: 10/14/24 22:54 Source: patient Mode of arrival: EMS Limitations: dementia History of Present Illness HPI narrative: This is a 64-year-old female that presents to the emergency department for suprapubic catheter problems. Noted to have bleeding from the insertion site at her facility [facility], ongoing over the last couple of hours. Was getting her depends changed and the tech noticed blood on the depends. Sent for further evaluation. Also reports a fall today at 4:45. Abrasion to right knee. She did not hit her head or sustain any injuries from the fall. Related Data Home Medications ?Medication ?Instructions ?Recorded ?Confirmed ?Last Taken ?Type acetaminophen 500 mg tablet 500 mg PO .Q6 PRN Pain 06/15/24 09/05/24 Unknown History alendronate 70 mg tablet 70 mg PO WEEKLY 06/15/24 09/05/24 Unknown History ascorbic acid (vitamin C) 500 mg 500 mg PO DAILY 06/15/24 09/05/24 Unknown History tablet (Vitamin C) calcium 333 mg-vit D3 133 1 tablet PO DAILY 06/15/24 09/05/24 Unknown History unit-magnesium 133 mg-zinc 5 mg tablet (Michael Mag Zinc Plus D3) calcium carbonate (Oyster Shell 1,000 mg PO BID 06/15/24 09/05/24 06/15/24 18:00 History Calcium 500) cholecalciferol (vitamin D3) 25 25 mcg PO DAILY 06/15/24 09/05/24 Unknown History mcg (1,000 unit) capsule (Vitamin D3) cyanocobalamin (vitamin B-12) 2,500 mcg PO DAILY 06/15/24 09/05/24 Unknown History 2,500 mcg sublingual tablet hydrocortisone 2.5 % topical cream 1 applic topical BID PRN 06/15/24 09/05/24 Unknown History with perineal applicator Hemorrhoids (Anusol-HC) hydrocortisone acetate 25 mg 25 mg RECTAL BID PRN hemmorhoid 06/15/24 09/05/24 Unknown History rectal suppository (Anusol-HC) niacin (inositol niacinate) 500 mg 1 tablet PO DAILY 06/15/24 09/05/24 Unknown History tablet carbamazepine 100 mg 100 mg PO BID 09/05/24 09/08/2425 History tablet,extended release,12 hr (Tegretol XR) carbamazepine 400 mg 400 mg PO BID 09/05/24 09/08/24 09/08/24 History tablet,extended release,12 hr diphenoxylate-atropine 2.5 1 tablet PO HS PRN diarrhea 09/05/24 09/05/24 Unknown History mg-0.025 mg tablet doxycycline monohydrate 100 mg 100 mg PO Q24H 09/05/24 09/05/24 Unknown History capsule zonisamide 100 mg capsule 500 mg PO QPM 09/05/24 09/05/24 Unknown History Allergies Allergy/AdvReac Type Severity Reaction Status Date / Time felbamate (From Felbatol) Allergy Severe Anaphylaxis Verified 10/15/24 04:21 sulfamethoxazole (From AdvReac Unknown DIZZINESS Verified 10/15/24 04:21 Bactrim) trimethoprim (From Bactrim) AdvReac Unknown DIZZINESS Verified 10/15/24 04:21 Sulfa (Sulfonamide AdvReac Dizziness Verified 10/15/24 04:21 Antibiotics) Review of Systems 2 Review of Systems: ROS unobtainable: Yes unobtainable due to medical condition PMFSH Past Medical History Medical History Rectal prolapse Impaired cognition Depression Hypothyroidism Epilepsy Social History Social History Smoking status: Unknown if ever smoked Alcohol intake: current Substance use: never Substance use type: does not use Do You Feel Safe in your Home?: Yes Lack of Transportation: No Lack of Food: Never True Current Housing: I Have Housing Concerned About Future Housing: No Difficulty Paying Gas/Electric Bills: No Difficulty Paying for Meds: No Currently Unemployed: No Education: Don't Know Difficulty w/ Childcare or Family Care: No Living arrangements: skilled nursing Additional living arrangements comments: [facility] Occupation/Education: retired 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 HEAD: Normocephalic, atraumatic. EYES: EOMI. CHEST: Clear to auscultation. No respiratory distress. No wheezes rales or rhonchi HEART: Regular rate and rhythm. No murmur heard. Normal peripheral pulses. ABDOMEN: Soft, nontender, nondistended, normal active bowel sounds. Suprapubic catheter in place with bleeding at insertion site. Draining red urine EXTREMITIES: Normal range of motion. No edema. SKIN: Warm, dry, no rash. NEURO: No focal deficits. Alert and oriented x2. PSYCH: Normal mood and affect Course Course Emergency Course: Bleeding around catheter insertion site is slowing down. Her urine is starting to look clear again Vital Signs Vital signs: Vital Signs Temperature 97.6 F 10/14/24 22:44 Pulse Rate 71 10/14/24 22:44 Respiratory Rate 12 10/14/24 22:44 Blood Pressure 112/85 10/14/24 22:44 Pulse Oximetry 99 10/14/24 22:44 Oxygen Delivery Room Air 10/14/24 22:44 Temperature 97.6 F 10/14/24 22:44 Pulse Rate 58 L 10/15/24 07:32 Respiratory Rate 20 10/15/24 07:32 Blood Pressure 141/89 H 10/15/24 07:32 Pulse Oximetry 100 10/15/24 07:32 Oxygen Delivery Room Air 10/14/24 22:44 Medical Decision Making MDM Narrative Medical decision making narrative: Patient presents to the emergency department for bleeding around her suprapubic catheter site. Bleeding was controlled. She did have some blood in the urine, which eventually did turn to yellow urine without intervention. She is afebrile and nontoxic appearing. Her vitals are stable. Reportedly had a fall this afternoon and which seems to be incidental. She did not report any injuries from the fall. Started having bleeding around the site several hours later when her depends were getting changed. Hemoglobin is normal. Metabolic panel without concerning findings. Urine with possible evidence of infection. Will send for culture. Will send oral antibiotics to her pharmacy. CT abdomen pelvis shows suprapubic catheter in position. Patient was updated on her workup and agrees with plan of care. She is to follow up with her urologist. She was given warnings to return to the ER Vital Signs Vital Signs: Vital Signs Temperature 97.6 F 10/14/24 22:44 Pulse Rate 71 10/14/24 22:44 Respiratory Rate 12 10/14/24 22:44 Blood Pressure 112/85 03/15/25 22:44 Pulse Oximetry 99 10/14/24 22:44 Oxygen Delivery Room Air 10/14/24 22:44 Temperature 97.6 F 10/14/24 22:44 Pulse Rate 58 L 10/15/24 07:32 Respiratory Rate 20 10/15/24 07:32 Blood Pressure 141/89 H 10/15/24 07:32 Pulse Oximetry 100 10/15/24 07:32 Oxygen Delivery Room Air 10/14/24 22:44 Lab Data Lab results reviewed: Yes I reviewed the patient's lab results. 10/14/24 23:42 10/14/24 23:42 Labs: Lab Results 10/14/24 10/15/24 Range/Units 23:42 00:05 WBC 5.5 (4.5-10.0) K/mm3 RBC 4.28 (4.2-5.4) M/mm3 Hgb 13.5 (12.0-15.0) g/dL Hct 40.6 (37.0-47.0) % MCV 94.9 (80-100) fl MCH 31.5 (26-34) pg MCHC 33.3 (32-36) g/dl RDW 15.0 H (11.5-14.5) % Plt Count 236 (150-375) k/mm3 MPV 11.8 H (7.4-10.4) fl Immature Gran % (Auto) 0.2 (0-0.5) % Neut % (Auto) 57.0 (45.5-73.1) % Lymph % (Auto) 32.2 (18.3-44.2) % [place] % (Auto) 6.6 (2.6-8.5) % Eos % (Auto) 3.3 (0-4.4) % Baso % (Auto) 0.7 (0.2-1.2) % Lymph # (Auto) 1.77 (0.9-3.2) K/mm3 [place] # (Auto) 0.4 (0.1-0.6) K/mm3 Eos # (Auto) 0.2 (0-0.3) K/mm3 Baso # (Auto) 0.0 (0.0-0.1) K/mm3 Abs Immat Gran (auto) 0.01 (0.00-0.031) K/mm3 Absolute Neuts (auto) 3.1 (1.3-6.7) K/mm3 Absolute Nucleated RBC 0.000 (0.0-0.012) K/mm3 Nucleated RBC % 0.0 (0.0-0.2) % PT 13.4 (11.1-14.7) Seconds INR 1.0 APTT 37.4 H (22.3-36.8) Seconds Sodium 139 (137-145) mmol/L Potassium 3.7 (3.4-5.0) mmol/L Chloride 101 (98-107) mmol/L Carbon Dioxide 27 (22-30) mmol/L Anion Gap 11 (4-12) mmol/L BUN 11 (7-17) mg/dL Creatinine 0.64 L (0.7-1.0) mg/dL Estim Creat Clear Calc 65 ml/min Estimated GFR > 60 (59 - ) Glucose 86 (65-110) mg/dL Calcium 9.4 (8.4-10.2) mg/dL Total Bilirubin 0.4 (0.2-1.3) mg/dL AST 17 (14-36) U/L ALT 7 (6-35) U/L Alkaline Phosphatase 84 (38-126) U/L Total Protein 7.0 (6.3-8.2) g/dL Albumin 4.1 (3.5-5.1) g/dL Urine Color Light red H (Yellow) Urine Appearance Cloudy H (Clear) Urine pH 7.5 (5.0-9.0) Ur Specific [place] 1.009 (1.001-1.035) Urine Protein 1+ H (Negative) mg/dL Urine Glucose (UA) Negative (Negative) mg/dL Urine Ketones Negative (Negative) mg/dL Ur Blood (Man) 3+ H (Negative) Urine Nitrate Negative (Negative) Urine Bilirubin Negative (Negative) Urine Urobilinogen 0.2 (<2.0) mg/dL Leukocyte Esterase Rfl 2+ H (Negative) ROSALIND/UL Urine RBC >100 H (0-2) /hpf Urine WBC 11-20 H (0-3) /hpf Ur Squamous Epith Cells None seen (Few) /hpf Urine Bacteria 1+ H /hpf Urine Casts 0-2 Imaging Data Radiologist's impression: CT abdomen and pelvis: Suprapubic catheter terminates in the decompressed urinary bladder. Moderate fecal retention. No bowel obstruction. No free air Critical Care Time Critical Care Time Critical Care Time: No Discharge Plan Discharge Clinical Impression: Acute UTI Suprapubic catheter dysfunction Qualifiers: Encounter type: initial encounter Qualified Code(s): T83.010A - Breakdown (mechanical) of cystostomy catheter, initial encounter Patient Disposition: NH Group Home/Asst Living Condition: Improved Instructions: Antibiotic Form, Urinary Tract Infection in Women (ED), How to Care for Your Suprapubic Catheter (DC) Additional Instructions: Return to the ER if you experience fever, abdominal pain with nausea and vomiting, you are unable to keep down liquids or solids, or any other symptoms that are concerning to you Take oral antibiotics as prescribed Follow up with your urologist Patient Language: Lithuanian Prescriptions: New cephalexin 500 mg capsule 500 mg PO Q12H 5 Days Qty: 10 0RF No Action cyanocobalamin (vitamin B-12) 2,500 mcg tablet, sublingual 2,500 mcg PO DAILY alendronate 70 mg tablet 70 mg PO WEEKLY Rx Instructions: patient takes on Fridays acetaminophen 500 mg tablet 500 mg PO .Q6 PRN (Reason: Pain) hydrocortisone acetate [Anusol-HC] 25 mg suppository 25 mg RECTAL BID PRN (Reason: hemmorhoid) hydrocortisone [Anusol-HC] 2.5 % cream with perineal applicator 1 applic topical BID PRN (Reason: Hemorrhoids) calcium carbonate [Oyster Shell Calcium 500] 500 mg calcium (1,250 mg) tablet 1,000 mg PO BID ascorbic acid (vitamin C) [Vitamin C] 500 mg tablet 500 mg PO DAILY cholecalciferol (vitamin D3) [Vitamin D3] 25 mcg (1,000 unit) capsule 25 mcg PO DAILY niacin (inositol niacinate) 500 mg tablet 1 tablet PO DAILY calcium carb-D3-mag ox-zinc ox [Michael Mag Zinc Plus D3] 333 mg-133 unit -133 mg- 5 mg tablet 1 tablet PO DAILY aspirin 325 mg Tablet,Delayed Release (Dr/Ec) 325 mg PO Q12HR 28 Days Qty: 56 0RF Rx Instructions: for 28 days diphenoxylate-atropine 2.5-0.025 mg tablet 1 tablet PO HS PRN (Reason: diarrhea) doxycycline monohydrate 100 mg capsule 100 mg PO Q24H carbamazepine 400 mg tablet extended release 12 hr 400 mg PO BID Patient Comments: TAKES WITH THE 100MG CARBANAZEPINE TAB + 500MG BID carbamazepine [Tegretol XR] 100 mg Tablet Extended Release 12 Hr 100 mg PO BID zonisamide 100 mg capsule 500 mg PO QPM cephalexin 500 mg capsule 500 mg PO Q8H Qty: 21 0RF cefdinir 300 mg capsule 300 mg PO Q12H 7 Days Qty: 14 0RF polyethylene glycol 3350 [Miralax] 17 gram Powder In Packet 17 g PO QAM Qty: 0 0RF sennosides-docusate sodium [Senokot-S] 8.6-50 mg Tablet 1 tab-cap PO HS 30 Days Qty: 30 0RF docusate sodium 100 mg Capsule 100 mg PO Q12HR 30 Days Qty: 60 0RF trazodone 50 mg tablet 50 mg PO DAILY Qty: 30 0RF Patient Comments: HS sertraline 100 mg tablet 100 mg PO DAILY Qty: 30 0RF primidone 250 mg tablet 250 mg PO HS Qty: 30 0RF tamsulosin 0.4 mg capsule 0.4 mg PO DAILY Qty: 30 0RF Patient Comments: HS levothyroxine 150 mcg tablet 150 mcg PO DAILY Qty: 30 0RF carbidopa-levodopa 25-100 mg tablet 1.5 tablet PO TID Qty: 30 0RF buspirone 15 mg tablet 15 mg PO BID Qty: 60 0RF aripiprazole 10 mg tablet 10 mg PO DAILY Qty: 30 0RF duloxetine 60 mg capsule,delayed release(DR/EC) 60 mg PO BID 30 Days Qty: 0 0RF Patient Comments: TAKING DAILY CURRENTLY PER SNF L.acidoph,saliva-B.bif-S.therm 175 mg capsule 1 cap PO DAILY Qty: 30 0RF Follow-up/Referrals: Froylan,Zakiya Tang APRN [Primary Care Provider] - Stand Alone Forms: Correction Discharge
--- OUTSIDE RECORDS SUMMARY | 2024-10-14 23:28 | XMS_ITS ---
Author Organization [facility] Address [address] [place] [address] Care Team Providers Care Hospital Admissions Clerk Name Role Phone Luis White MD Primary Care Provider Unava ilYanna Wise Unavailable [phone] ALLERGIES Allergen (clinical drug ingredient) Drug/Non Drug [...] Answer Notes Tobacco use: nonsmoker VITAL SIGNS Height 66 in 05/17/2023 Weight 130 lbs 05/17/2023 BMI 20.98 kg/m2 05/17/2023 Weight-kg 58.97 kg 05/17/2023 Encounters Encounter Location Date Provider Diagnosis [facility] [address] [id number] 05/17/2023 Yanna Maya Nail dystrophy L60.3 ; [...] Bethany ALMARAZ HDOB: 8 (62 yo F)Acc No.[id number]:05/17/2023 Patient: Bethany Almaraz Provider: Yanna Maya DPM, DABPM :1960 Age:62 Y Sex:Female Date:05/17/2023 Address:[address] [place] [address] [address] [facility] Pcp:Luis White MD Subjective: * Chief Complaints: * 1. At Risk Foot Care. * HPI: General Podiatry: Bethany returns to office for at risk foot care c/o thickened toenails. She has unspecified movement/neurological/muscular disorder, Parkinson like with peripheral neuropathy. She uses wheelchair most of the time. Girl Friday present. * ROS: General / Constitutional: Patient [...] Social History: Migrated Social History: Smoking Status: [id number] Never smoker. * Medications: Taking Primidone 250 [...] She uses wheelchair most of the time. Girl Friday present. Examination Category Sub-Category Detail Notes Category [...]
--- OUTSIDE RECORDS SUMMARY | 2024-10-14 23:28 | XMS_ITS ---
Author Organization [facility] Address [address] [place] [address] Care Team Providers Care Belt And Link Shop Supervisor Name Role Phone Cindy VAN, Luis Primary Care Provider UnaYanna Frank Unavailable [phone] REASON FOR VISIT At Risk Foot Care Encounters Encounter Location Date Provider Diagnosis Andrew [facility]s [facility] [address] [id number] 08/16/2023 Yanna Maya PLAN OF TREATMENT No Information Progress Notes * Bethany ALMARAZ HDOB: 8 (64 yo F)Acc No.[id number]:08/16/2023 Patient: Bethany ALMARAZ Provider: Yanna Maya DPM, DABPM :1960 Age:63 Y Sex:Female Date:08/16/2023 [address] [facility] Pcp:Luis White MD Subjective: * Chief Complaints: * 1. At Risk Foot Care. * Medical History: Objective: Assessment: Plan: * Treatment: * Billing Information: * Visit Code: * Procedure Codes: * Sign off status: Pending * Provider: Yanna Maya DPM, DABPM Date: 08/16/2023
--- OUTSIDE RECORDS SUMMARY | 2024-10-14 23:28 | XMS_ITS | Continuity of Care Document ---
Author Organization [employer] Address [address] [place] [address] Phone Care Team Providers Care Bowling Ball Engraver Name Role Phone Juan Pablo Rich MD Unavailable Unavailable Advance Directives Directive Yes / No Effective Date File Name No Information Encounters Encounter Description Practice Location Reason(s) For Visit Diagnoses Date Provider Providers Copied on Encounter [facility], [address], [place], [place], [id number], tel:[phone] [facility] No Information Layla Almeida. [address], [place], [address], . tel:[phone] Referring Provider: Jere Trevino, [address] , [place], [address]. tel:[phone] Family History Family Member Type Diagnosis Age At Onset No Information Payers Payer name Insurance type Covered libertarian ID Authoriza tion(s) MEDICARE MB [id number] CIGNA [place] CI [id number] Social History Type Description Quantity Date Captured [...]
--- OUTSIDE RECORDS SUMMARY | 2024-10-14 23:28 | XMS_ITS | Data Portability ---
Author Organization [place] [facility], Main Office Address [address] [place] [address] Assessment Encounter Date Assessment Date Assessment LastModified [...] DO Not Attach Compendium, Do Not Delete/merge, 44999 4 12:18:48 Surgeries None recorded. Imaging XR, knee 2023 [facility], [address] [facility] [address] [facility] [address], [place], [address], 4 09:22:26 Medication Orders bupivacaine HCl 0.5 % (5 mg/mL) injection solution [address] [facility] [place], [address], 4 14:56:13 Kenalog 10 mg/mL suspension for injection [address] [facility] [place], [address], 4 14:56:13 Patient TargetsNo targets recorded. Patient [...] XR, knee No observ ation record ed. [email or web address] [facility] [address], [place], [address], 08/24/2023 11:49:22 Result Notes None recorded. Problems Name Problem SNOMED Code Status Onset Date Resolution Date Notes Provider Name and Address Organization Details Recorded Time Cervical spondylosi s without myelopathy 373263149 Active Not Available [employer] 3 13:52:12 Pain of left knee joint 0428630391855 07 Active 2023 ALESSANDRO Hernandez, [facility] 4 11:49:18 Problem Notes None recorded. Procedures Surgical History Date Name Laterality Status Provider Name and Address Organization Details Recorded Time Ortho - Cortisone Injection completed Rakesh Jaimes MD [address] [place] [address], [address], [facility] 08/24/2023 22:21:06 repair of rectal prolapse completed ALESSANDRO Hernandez [facility] 08/24/2023 11:48:11 Imaging Results Imaging Date Name Status LastModified by Organiz ation Details LastModified Time 01/18/2023 XR, ankle, 2 view completed Information not available 08/11/2023 14:13:24 01/18/2023 XR, foot, 2 view completed Information not available 08/11/2023 14:13:24 11/17/2022 XR, knee, 4 or more view completed Information not available 08/11/2023 14:13:24 08/24/2023 XR, knee completed [email or web address] [facility] [place] [address], [place], [address], 08/24/2023 11:49:22 Procedure Notes None recorded. Medical Equipment None Reported. Allergies Allergen ID Allergen Name Allergen Category Reaction Reaction Severity Criticality Documentation Date Start Date Code Code System Note Provider Name and Address Organization Details Recorded Time 37335 Felbatol medicatio n Not available Not available Not available 09/30/2022 98823 0 RxNorm Not Available [facility] 3 13:53:50 Medications Name Sig Start Date [...] 1 mL by injection route. 2023 active [facility]: 0003- 0494- 20 Not Available Not Available [...] Updated DateTime 08/24/2023 167.64 cm 21.8 kg/m2 72093.97 g ALESSANDRO Hernandez Gooddler [facility] [employer] 08/24/2023 11:43:06 Social History Question Answer Notes LastModified by Organizat ion Details LastModified Time Tobacco Smoking Status Never Smoker ALESSANDRO Hernandez [facility] 08/24/2023 11:46:23 What Is Your Level Of Alcohol Consumption? None [email or web address] Information not available 08/24/2023 Sex: Unknown Functional Status None recorded. Mental Status None recorded. Family History Relationship Description Onset Age of this Age Resolved Age Notes LastModified by Organization Details LastModified Time Sister Family history of malignant neoplasm [email or web address] Not available 2023 11:46:52 Father Hypertensive disorder [email or web address] Not available 2023 11:47:06 Mother Diabetes mellitus [email or web address] Not available 2023 11:47:16 Medical History Condition Response URINARY/BLADDER/KIDNEY PROBLEMS Y Gynecological HistoryNo gynecological history recorded. Obstetrics History GPAL:G 0 P 0 0 0 0 Past Encounters Encounter ID Performer Location Encounter Start Date Encounter Closed Date Diagnosis/Indication Diagnosis SNOMED-CT Code Diagnosis ICD10 Code Diagnosis Note [id number] Rakesh Jaimes MD [facility] [place] [address] [place] [address] 08/24/2023 11:15:05 08/24/2023 16:25:11 Pain of left knee joint [id number] 06766 M25.562 Health Concerns Section Related Observation LastModified by Organization Detai ls LastModified Time None Recorded Concern Status LastModified by Organization Details LastModified Time None Recorded Advance Directives Directive None Recorded Payers Encounter Date Sequence Insurance Name Policy Number Policy Koo Covered Member ID Koo Member ID Guarantor Name 08/24/2023 1 [employer] [id number] Bethany Almaraz [id number] Bethany Almaraz OBGyn Episode No OBEpisode recorded.
--- OUTSIDE RECORDS SUMMARY | 2024-10-14 23:29 | XMS_ITS | Clinical Summary ---
Author Organization [facility] Address [address] [place] [address] Care Team Providers Care Motorcycle Builder Name Role Phone Unavailable Primary Care Provider [...]
--- OUTSIDE RECORDS SUMMARY | 2024-10-14 23:29 | XMS_ITS | Patient Health Record ---
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 [id number] Problem Movement disorder (G25.9) Active confirmed Movement disorder (35750424) PLAN OF TREATMENT No Information Insurance Providers Payer Name Payer Address Payer Phone Subscriber Number Group Number Insured Name Patient Relationship to Insured Coverage Start Date Coverage End Date [employer] [address] [place], [place] [id number] [phone] [id number] Bethany Almaraz Self - patient is the insured MEDICAL (GENERAL) HISTORY Medical History History ICD Code Depression Arthritis Tonsillitis Movement disorder Surgical History Surgery Date(Month/Year) cholecystectomy Elbow Left Wrist Carpal Tunnel Spinal Surgery with hardware implant Tonsillectomy
--- OUTSIDE RECORDS SUMMARY | 2024-10-14 23:29 | XMS_ITS | Referral Summary ---
Author Organization [facility] Healthcare Address [address] [place] [address] Care Team Providers Care Utility Assembler Name Role Phone Luis White MD Primary Care Provider [phone] Dominik Alejandro MD Unavailable Hiral Vidales MD Unavailable Encounters Date Type Department Care Team Description 10/10/2024 Telephone [facility] Epilepsy [address] [facility] Advanced Medicine [address]th [place] [address] [place] [address] Alexis Romero MD PhD Lab Results 10/03/2024 Telephone [facility] Epilepsy [address] [facility] Medicine 6th [place] [address] [place] [address] Alexis Romero MD PhD from Last 3 Months Allergies Active Allergy Reactions Criticality Noted Date Comments Felbamate Unknown 12/20/2006 Sulfamethoxazole-Trimethoprim Unknown 2016 Medications cholecalciferol (VITAMIN D-3) 1,000 unit tablet Take 2 tablets (2,000 Units total) by mouth daily after lunch Active Lactobacillus acidophilus 1 billion cell tablet Take 1 capsule by mouth daily before lunch Active levothyroxine (SYNTHROID) 150 mcg tablet Take 125 mcg by mouth every morning 12/21/[address] (CYMBALTA) 60 mg capsule Take 1 capsule (60 mg total) by mouth every morning 30 capsule 11 02/17/20 22 Active alendronate (FOSAMAX) 70 mg tablet Take 1 tablet (70 mg total) by mouth every 7 days 10/01/19 23 Active ascorbic acid, vitamin C, 500 mg [...] mouth every 6 (six) hours 30 tablet 12/12/19 23 Active ibuprofen (ADVIL,MOTRIN) 600 mg tabletIndication s:Pain Take 1 tablet (600 mg total) by mouth every 8 (eight) hours as needed for pain 12/12/19 23 Active polyethylene glycol (MIRALAX) 17 gram packetIndication s:constipation Take 1 packet (17 g total) by mouth daily as needed for constipation 30 packet 12/12/19 23 Active doxycycline monohydrate (MONODOX) 100 mg capsule Take 1 capsule (100 mg total) by mouth daily 02/13/20 23 Active traZODone (DESYREL) 50 mg tablet Take 1 tablet (50 mg total) by mouth nightly Active tamsulosin (FLOMAX) 0.4 mg extended release capsule 03/31/20 23 Active carBAMazepine XR (TEGretol XR) 400 mg 12 hr tablet Take 1 tablet (400 mg total) by mouth 2 (two) times a day 60 tablet 12/28/19 24 025 Active carBAMazepine XR (TEGretol XR) 100 mg 12 hr tablet Take 1 tablet (100 mg total) by mouth 2 (two) times a day 60 tablet 12/28/19 24 025 Active primidone (MYSOLINE) 250 mg tablet Take 1 tablet (250 mg total) by mouth nightly 30 tablet 11 12/28/19 24 025 Active carbidopa-levodo pa (SINEMET) 25-100 mg per tabletIndication s:Parkinsonism, unspecified Parkinsonism type (HCC) TAKE ONE AND ONE-HALF TABLETS BY MOUTH THREE TIMES DAILY 135 tablet 11 07/24/20 24 Active zonisamide (ZONEGRAN) 100 mg capsuleIndicatio ns:Partial Epilepsy Treatment Adjunct Take 2 capsules (200 mg total) by mouth nightly 60 capsule 3 10/04/19 25 026 Active zonisamide (ZONEGRAN) 100 mg capsuleIndicatio ns:Partial Epilepsy Treatment Adjunct Take 5 capsules (500 mg total) by mouth nightly 150 capsule 11 12/28/19 24 025 Discontin ued(Reord er) zonisamide (ZONEGRAN) 100 mg capsuleIndicatio ns:Partial Epilepsy Treatment Adjunct Take 2 capsules (200 mg total) by mouth nightly 60 capsule 3 10/04/19 25 025 Discontin ued(Reord er) Active Problems Problem Noted Date Diagnosed Date Rectal prolapse 11/09/2022 Overview (11/09/2022): Added automatically from request for surgery [id number] Temporal lobe epilepsy, 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 Assessment & Plan (10/02/2021 4:23 PM TOOL PUSHER): She has a subacute onset (2015), somewhat [...] which took place via Real-time video connection (emids, [employer] or similar). During the visit, I was located in my clinic office in the [facility], in the [facility], [place] and the patient was located at her home in [place]. The session started at 13:08 and ended [...] telephone or video visit during the [facility]. After being given an opportunity to [...] precautions. Assessment & Plan (08/24/2019 4:56 PM TOOL PUSHER): She has a subacute onset (2015), rather [...] PM CDT): She has a subacute onset (2016), rather rapidly progressive ataxia with exam notable [...] on file Legal Sex Female 11:43 PM TOOL PUSHER Gender Identity Female 11/05/2020 1:42 AM CDT [...] on file Medical Devices Implanted Type Area Medical Program Specialist Device Identifier Shelf Expiration Date Model / Serial / Lot [employer]/C R Bard 6x3in Large Pore Knit Monofilament Smooth [place] [id number] - [id number] Implanted:Qty: 1 on 12/09/2022 by Dominik Alejandro MD at [facility] Mesh N/A: Abdomen [employer]/C R Bard [id number] 04/29/2027 [id number] / / [id number] Plates And Screws Right: Wrist Procedures Procedure Name Priority Date/Time Associated Diagnosis Comments COLONOSCOPY 08/12/2022 12:59 PM TOOL PUSHER from Last 3 Months or Most Recently Relevant to Health Maintenance Results * COLONOSCOPY (08/12/2022 12:59 PM TOOL PUSHER) Anatomical Region Laterality Modality Other Narrative Procedure Note Hiral Vidales MD - 08/12/2022 12:59 PM [facility] GI ENDOSCOPY Patient Name: Bethany Almaraz Procedure Date: 08/12/2022 12:59 PM Date of : 1960 Admit Type: Outpatient Age: 62 Gender: Female Attending MD: Hiral Vidales M.D. Room: [facility] ENDOSCOPY ROOM 05 Note Status: Finalized [...] On: 08/12/2022 12:59 PM Recognized by the [place] [employer] for promoting quality in endoscopy Hiral Vidales MD ENDOSCOPY PROCEDURES Final Resul t from Last 3 Months or Most Recently Relevant to Health Maintenance Insurance DR [address] [place] [address] [employer] MEDICARE [facility] MEDICARE [address] [place] [id number] [facility] MEDICARE Advance Directives For more information, please contact: [phone] * Full Code (Latest Code Status on File) Date Activated Date Inactivated Comments 12/09/2022 4:30 PM 12/11/2022 8:52 PM Care Teams Utility Assembler Relationship Specialty Start Date End Date Luis White MD [address] [facility] [place] [id number] PCP - General Emergency Medicine 03/07/19 Dominik Alejandro MD [id number] [place] [address] Surgeon Colon and Rectal Surgery 11/06/22 Hiral Vidales MD [address] [place] [id number] Consulting Physician General Surgery 11/06/22
--- OUTSIDE RECORDS SUMMARY | 2024-10-14 23:29 | XMS_ITS | Encounter Summary ---
Author Organization [facility] Address [address] [place] [address] Care Team Providers Care Chief Executive Name Role Phone Unavailable Primary Care Provider Unavailabl e Encounter Details Date Type Department Care Team (Late st Contact Info) Description 06/19/[address] [facility] Conversion [address] [place] [address] , Generic Conversion, Social History Tobacco Use [...]
--- OUTSIDE RECORDS SUMMARY | 2024-10-14 23:29 | XMS_ITS | Clinical Summary ---
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 During the visit, I was located in my clinic office in the [facility], in the [facility] [place], [place] and the patient was located at her home in [place]. The session started at 13:08 and ended [...] a telephone or video visit during the [facility]- [facility] emergency. After being given an opportunity [...] precautions. Assessment & Plan (08/24/2019 4:56 PM BURRING MACHINE OPERATOR): She has a subacute onset (2015), [...] strict fall precautions. Parkinsonism 02/17/2018 Depression 02/17/2018 Encounters Date Type Department Care Team Description 10/10/2024 Telephone [facility] Epilepsy [facility] Advanced Medicine [address]th [place] [address] [place] [address] Alexis Romero MD PhD Lab Results 10/03/2024 Telephone [facility] Epilepsy [address] [facility] Advanced Medicine 6th [place] [address] [place] [address] Alexis Romero MD PhD from Last 3 Months Surgical History Surgery Date Site/Laterality Comments ORIF [...] on file Legal Sex Female 11:43 PM BURRING MACHINE OPERATOR Gender Identity Female 11/05/2020 1:42 AM [...] Discontinued 08/02 Medical Devices Implanted Type Area Marine Pilot Device Identifier Shelf Expiration Date Model / Serial / Lot [employer]/C R Bard 6x3in Large Pore Knit Monofilament Smooth [place] [id number] - [id number] Implanted:Qty: 1 on 12/09/2022 by Dominik Alejandro MD at [facility] Mesh N/A: Abdomen [employer]/C R Bard [id number] 04/29/2027 [id number] / / [id number] Plates And Screws Right: Wrist Procedures Procedure Name Priority Date/Time Associated Diagnosis Comments COLONOSCOPY 08/12/2022 12:59 PM BURRING MACHINE OPERATOR from Last 3 Months or Most Recently Relevant to Health Maintenance Results * COLONOSCOPY (08/12/2022 12:59 PM BURRING MACHINE OPERATOR) Anatomical Region Laterality Modality Other Narrative Procedure Note Hiral Vidales MD - 08/12/2022 12:59 PM [facility] GI ENDOSCOPY Patient Name: Bethany Almaraz Procedure Date: 08/12/2022 12:59 PM Date of : 1960 Admit Type: Outpatient Age: 62 Gender: Female Attending MD: Hiral Vidales M.D. Room: [facility] ENDOSCOPY ROOM 05 Note Status: Finalized Procedure: [...] On: 08/12/2022 12:59 PM Recognized by the [place] [employer] for promoting quality in endoscopy Hiral Vidales MD ENDOSCOPY PROCEDURES Final Resul t from Last 3 Months or Most Recently Relevant to Health Maintenance [place] [address] [facility] [place] [address] [facility] [address] [place] [address] [employer] MEDICARE Advance Directives For more information, please contact: [phone] * Full Code (Latest Code Status on File) Date Activated Date Inactivated Comments 12/09/2022 4:30 PM 12/11/2022 8:52 PM Care Teams Commercial Correspondent Relationship Specialty Start Date End Date Luis White MD [address] [place] [address] PCP - General Emergency Medicine 03/07/19 Dominik Alejandro MD [id number] [place] [address] Surgeon Colon and Rectal Surgery 11/06/22 Hiral Vidales MD [address] [place] [id number] Consulting Physician General Surgery 11/06/22
--- OUTSIDE RECORDS SUMMARY | 2024-10-14 23:29 | XMS_ITS | Encounter Summary ---
Author Organization [facility] Address [address] [place] [address] Care Team Providers Care Chemist Inorganic Name Role Phone Unavailable Primary Care Provider Unavailabl e Encounter Details Date Type Department Care Team (Late st Contact Info) Description 04/11/[address] [facility] Conversion [address] [place] [address] , Generic Conversion, Social History Tobacco Use [...]
[2024-10-14 23:47] LABS: Basophils Percent Auto 0.7 % (0.2-1.2); Eosinophils Absolute Auto 0.2 K/mm3 (0-0.3); Eosinophils Percent Auto 3.3 % (0-4.4); Hematocrit 40.6 % (37.0-47.0); Hemoglobin 13.5 g/dL (12.0-15.0); Immature Granulocyte Absolute 0.01 K/mm3 (0.00-0.031); Immature Granulocyte Percent A 0.2 % (0-0.5); Lymphocytes Absolute Auto 1.77 K/mm3 (0.9-3.2); Lymphocytes Percent Auto 32.2 % (18.3-44.2); Mean Corpuscular HGB Conc 33.3 g/dl (32-36); Mean Corpuscular Hemoglobin 31.5 pg (26-34); Mean Corpuscular Volume 94.9 fl (80-100); Mean Platelet Volume 11.8 fl (7.4-10.4); Monocytes Absolute Auto 0.4 K/mm3 (0.1-0.6); Monocytes Percent Auto 6.6 % (2.6-8.5); Neutrophils Absolute Auto 3.1 K/mm3 (1.3-6.7); Platelet Count Result 236 k/mm3 (150-375); Red Blood Count 4.28 M/mm3 (4.2-5.4); White Blood Count 5.5 K/mm3 (4.5-10.0)
[2024-10-14 23:53] VITALS: RESP 19
[2024-10-15 00:01] LABS: Alanine Aminotransferase 7 U/L (6-35); Albumin Level 4.1 g/dL (3.5-5.1); Alkaline Phosphatase 84 U/L (38-126); Anion Gap 11 mmol/L (4-12); Aspartate Amino Transferase 17 U/L (14-36); Bilirubin,Total 0.4 mg/dL (0.2-1.3); Blood Urea Nitrogen 11 mg/dL (7-17); Calcium 9.4 mg/dL (8.4-10.2); Carbon Dioxide 27 mmol/L (22-30); Chloride 101 mmol/L (98-107); Estimated CRCL calculation 65 ml/min; Estimated Glomerular Filt Rate > 60; Glucose 86 mg/dL (65-110); Partial Thromboplastin Time 37.4 Seconds (22.3-36.8); Potassium 3.7 mmol/L (3.4-5.0); Sodium 139 mmol/L (137-145)
[2024-10-15 00:05] LABS: Prothrombin Time 13.4 Seconds (11.1-14.7)
[2024-10-15 00:15] LABS: Bacteria Urine 1+ /hpf; Non Pathogenic Casts 0-2; RBC Urine >100 /hpf (0-2); Squamous Epithelial Cell Urine None Seen /hpf (Few)
[2024-10-15 00:26] LABS: Add Urine Microscopic? YES; Appearance Urine Cloudy (Clear); Bilirubin Urine Negative (Negative); Blood Urine 3+ (Negative); Glucose Urine UA Negative (Negative); Ketones Urine Negative (Negative); Leukocyte Esterase Ur 2+ LEU/UL (Negative); Nitrate Urine Negative (Negative); Protein Urine 1+ mg/dL (Negative); Specific Grav Ur 1.009 (1.001-1.035); Urobilinogen Urine 0.2 mg/dL (<2.0); pH Urine 7.5 (5.0-9.0)
[2024-10-15 00:27] LABS: Color Urine Light Red (Yellow)
[2024-10-15 00:35] VITALS: BP 130/79; PULSE 58; RESP 19; O2SAT 99
[2024-10-15 03:12] VITALS: BP 143/79; PULSE 64; RESP 15; O2SAT 98
[2024-10-15 06:05] VITALS: BP 141/89; PULSE 58; RESP 20; O2SAT 100
[2024-10-15 07:32] VITALS: BP 141/89; PULSE 58; RESP 20; O2SAT 100
--- NOTE | 2024-10-15 08:32 | PC.NURSE ---
breakfast tray ordered
== END 2024-10-15 09:48 ==
PROVIDERS: Emergency Provider Physician Assistant; PCP Nurse Practitioner
DX: N39.0 Urinary tract infection, site not specified (principal); T83.83XA Hemorrhage due to genitourinary prosthetic devices, implants and grafts, initial encounter; S80.211A Abrasion, right knee, initial encounter; E03.9 Hypothyroidism, unspecified; G40.909 Epilepsy, unspecified, not intractable, without status epilepticus; F32.A Depression, unspecified; Y84.6 Urinary catheterization as the cause of abnormal reaction of the patient, or of later complication, without mention of misadventure at the time of the procedure; Z79.82 Long term (current) use of aspirin; Z79.899 Other long term (current) drug therapy; W19.XXXA Unspecified fall, initial encounter
CPT/HCPCS: 36415; 74177; 80053; 81001; 85025; 85610; 85730; 87086; 99284; Q9967

== ENCOUNTER 2024-12-24 17:44 | Emergency (ER) | payer MEDICARE, SELFPAY ==
--- NOTE | ~2024-12-24 | XR_ITS ---
XR chest 1V Ordering provider: He Antunez MD History: 64 years Female with . Syncope . Comparison: August 30, 2024 FINDINGS: MEDIASTINUM: The cardiac silhouette is slightly enlarged. LUNGS: No infiltrates, effusions or pneumothorax. OTHER: No free air under the diaphragm. Dextroscoliosis with degenerative changes of the spine. Postoperative changes in the lumbar area. IMPRESSION: No acute cardiopulmonary pathology. Reviewed, dictated and finalized at location A.
--- NOTE | ~2024-12-24 | CT_ITS ---
CT cervical spine wo con Ordering provider: He Antunez MD History: . Fall . Comparison: August 30, 2024 Technique: CT of the cervical spine was performed without contrast. Sagittal and coronal reformatted images were also obtained and reviewed. Automated exposure control and iterative reconstruction dutch hnique were employed. The dose-length product was 108.44 mGy-cm. FINDINGS: VERTEBRAE: Minimal anterolisthesis at the level of C2-C3 and C3-C4. Otherwise, No subluxation or acut e fracture. The occipital condyles are intact. Kyphosis seen at the cervico thoracic area. Fusion se en posteriorly at the level of C3-C4. DISC SPACES: Narrowing of the disc C3-C4, C4-C5, C5-C6, C6-C7, C7-T1,T1-T2 and T2-T3. Multilevel unco vertebral joint osteoarthritic changes. Multilevel facet joint disease. Narrowing of the left foramin a at the level of C2-C3 and C3-C4. Right narrowing of the foramina at the level of C4-C5. Bilateral n arrowing of the foramina at the level of C5-C6 and C6-C7 PARASPINOUS SOFT TISSUES: Bilateral atherosc lerotic changes. IMPRESSION: No acute osseous abnormality cervical spine. Multilevel degenerative disc disease. Reviewed, dictated and finalized at location A.
--- NOTE | ~2024-12-24 | CT_ITS ---
CT brain wo con Ordering provider: He Antunez MD History: 64 years Female with . Syncope . Comparison: August 30, 2024 Technique: CT of the head without contrast. Radiation reduction technique utilized.The dose-length product was 605.33 mGy-cm. FINDINGS: BRAIN PARENCHYMA AND CSF SPACES: Mild leukoaraiosis and diffuse cortical atrophy. Mild atheromatous d isease. No midline shift, mass effect or hemorrhage. The brain parenchyma and CSF spaces are otherwi se normal. VISUALIZED PARANASAL SINUSES: Well aerated. MASTOIDS: Well aerated. BONES: The bones appear intact. SOFT TISSUES: Small scalp hematoma seen in the frontal lobe area. Otherwise, Visualized nasopharynx i s normal. Superficial soft tissues are normal. IMPRESSION: No acute intracranial findings. Reviewed, dictated and finalized at location A.
--- NOTE | 2024-12-24 17:50 | ED_ITS ---
HPI - Fall General Chief Complaint: Fall Stated Complaint: unwitnessed fall Time Seen by Provider: 12/24/24 17:48 Source: patient and EMS Mode of arrival: EMS Limitations: no limitations History of Present Illness HPI Narrative: 64 years old white female came from [facility] by ambulance for unwitnessed fall with forehead abrasion. Patient does not remember the event of fall. History of seizure, patient denies headache, tongue bite or any injuries. Currently patient is awake, alert oriented x4 denying any symptoms. Patient have Blackwood catheter, unknown last change, unknown last tetanus shot. Patient denies any fever, chills, nausea, vomiting, chest pain, shortness of breath, neck pain or headache Related Data Home Medications ?Medication ?Instructions ?Recorded ?Confirmed ?Last Taken ?Type acetaminophen 500 mg tablet 500 mg PO .Q6 PRN Pain 06/15/24 09/05/24 Unknown History alendronate 70 mg tablet 70 mg PO WEEKLY 06/15/24 09/05/24 Unknown History ascorbic acid (vitamin C) 500 mg 500 mg PO DAILY 06/15/24 09/05/24 Unknown History tablet (Vitamin C) calcium 333 mg-vit D3 133 1 tablet PO DAILY 06/15/24 09/05/24 Unknown History unit-magnesium 133 mg-zinc 5 mg tablet (Michael Mag Zinc Plus D3) calcium carbonate (Oyster Shell 1,000 mg PO BID 06/15/24 09/05/24 06/15/24 18:00 History Calcium 500) cholecalciferol (vitamin D3) 25 25 mcg PO DAILY 06/15/24 09/05/24 Unknown History mcg (1,000 unit) capsule (Vitamin D3) cyanocobalamin (vitamin B-12) 2,500 mcg PO DAILY 06/15/24 09/05/24 Unknown History 2,500 mcg sublingual tablet hydrocortisone 2.5 % topical cream 1 applic topical BID PRN 06/15/24 09/05/24 Unknown History with perineal applicator Hemorrhoids (Anusol-HC) hydrocortisone acetate 25 mg 25 mg RECTAL BID PRN hemmorhoid 06/15/24 09/05/24 Unknown History rectal suppository (Anusol-HC) niacin (inositol niacinate) 500 mg 1 tablet PO DAILY 06/15/24 09/05/24 Unknown History tablet carbamazepine 100 mg 100 mg PO BID 09/05/24 09/08/24 09/08/24 History tablet,extended release,12 hr (Tegretol XR) carbamazepine 400 mg 400 mg PO BID 09/05/24 09/08/24 09/08/24 History tablet,extended release,12 hr diphenoxylate-atropine 2.5 1 tablet PO HS PRN diarrhea 09/05/24 09/05/24 Unknown History mg-0.025 mg tablet doxycycline monohydrate 100 mg 100 mg PO Q24H 09/05/24 09/05/24 Unknown History capsule zonisamide 100 mg capsule 500 mg PO QPM 09/05/24 09/05/24 Unknown History Allergies Allergy/AdvReac Type Severity Reaction Status Date / Time felbamate (From Felbatol) Allergy Severe Anaphylaxis Verified 10/15/24 04:21 sulfamethoxazole (From AdvReac Unknown DIZZINESS Verified 10/15/24 04:21 Bactrim) trimethoprim (From Bactrim) AdvReac Unknown DIZZINESS Verified 10/15/24 04:21 Sulfa (Sulfonamide AdvReac Dizziness Verified 10/15/24 04:21 Antibiotics) Review of Systems 2 Review of Systems: All systems reviewed & are unremarkable except as noted in HPI and below PMFSH Past Medical History Medical History Rectal prolapse Impaired cognition Depression Hypothyroidism Epilepsy Social History Social History Smoking status: Unknown if ever smoked Alcohol intake: current Substance use: never Substance use type: does not use Do You Feel Safe in your Home?: Yes Lack of Transportation: No Lack of Food: Never True Current Housing: I Have Housing Concerned About Future Housing: No Difficulty Paying Gas/Electric Bills: No Difficulty Paying for Meds: No Currently Unemployed: No Education: Don't Know Difficulty w/ Childcare or Family Care: No Living arrangements: [facility] Additional living arrangements comments: [place] Occupation/Education: retired 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 Musculoskeletal: Normal range of motion, nontender back Neurologic: Alert and oriented ?3, CURATOR OF COLLECTIONS is normal as tested, no gross motor deficit Course Vital Signs Vital signs: Vital Signs Pulse Rate 73 12/24/24 17:51 Respiratory Rate 15 12/24/24 17:51 Blood Pressure 131/81 12/24/24 17:51 Pulse Oximetry 100 12/24/24 17:51 Oxygen Delivery Room Air 12/24/24 17:51 Pulse Rate 73 12/24/24 17:51 Respiratory Rate 15 12/24/24 17:51 Blood Pressure 131/81 12/24/24 17:51 Pulse Oximetry 100 12/24/24 17:51 Oxygen Delivery Room Air 12/24/24 17:51 MDM - Fall MDM Narrative Medical decision making narrative: Patient had unwitnessed fall, does not recall how the fall happened, history of seizure, denies any headache tongue bite, history of chronic Blackwood catheter. Patient complaining of forehead abrasion otherwise asymptomatic. Vital signs are stable Physical examination showing forehead abrasion otherwise within normal limit Differential diagnosis syncope, seizure, orthostatic hypotension, electrolyte imbalance, dehydration, urinary tract infection Blood workup today includes CBC, CMP, troponin showed Urinalysis showed showed evidence of infection Chest x-ray showed no acute abnormalities EKG showed normal sinus rhythm at 70 beats per minute, poor R-wave progression, septal myocardial infarction of indeterminate age, abnormal EKG CT head and CT cervical spine without contrast showed no acute abnormalities Diagnosis fall, less likely secondary to seizure, possibly secondary to urinary tract infection or anxiety or depression patient is on a lot of psych and anxiety medication. Urinary tract infection Patient received 1 g of Rocephin IV prior to discharge, Discharged on Augmentin. Discharge the pt was discharged to home.the pt,s condition upon discharge was fair,education was provided to the pt in reference to the final impression,discharge study results,treatment,prognosis and need for follow up . Differential Diagnosis Differential diagnosis: Likely other (As above) Medical Records Attestation: I reviewed the patient's medical records. Lab Data Attestation: I reviewed the patient's lab results. 12/24/24 18:09 12/24/24 18:09 Labs: Lab Results 12/24/24 Range/Units 18:09 WBC 9.4 (4.5-10.0) K/mm3 RBC 3.92 L (4.2-5.4) M/mm3 Hgb 12.5 (12.0-15.0) g/dL Hct 38.4 (37.0-47.0) % MCV 98.0 (80-100) fl MCH 31.9 (26-34) pg MCHC 32.6 (32-36) g/dl RDW 13.6 (11.5-14.5) % Plt Count 266 (150-375) k/mm3 MPV 10.9 H (7.4-10.4) fl Immature Gran % (Auto) 0.3 (0-0.5) % Neut % (Auto) 71.1 (45.5-73.1) % Lymph % (Auto) 18.5 (18.3-44.2) % [place] % (Auto) 6.6 (2.6-8.5) % Eos % (Auto) 3.1 (0-4.4) % Baso % (Auto) 0.4 (0.2-1.2) % Lymph # (Auto) 1.74 (0.9-3.2) K/mm3 [place] # (Auto) 0.6 (0.1-0.6) K/mm3 Eos # (Auto) 0.3 (0-0.3) K/mm3 Baso # (Auto) 0.0 (0.0-0.1) K/mm3 Abs Immat Gran (auto) 0.03 (0.00-0.031) K/mm3 Absolute Neuts (auto) 6.7 (1.3-6.7) K/mm3 Absolute Nucleated RBC 0.000 (0.0-0.012) K/mm3 Nucleated RBC % 0.0 (0.0-0.2) % Sodium 136 L (137-145) mmol/L Potassium 3.9 (3.4-5.0) mmol/L Chloride 101 (98-107) mmol/L Carbon Dioxide 31 H (22-30) mmol/L Anion Gap 4 (4-12) mmol/L BUN 8 (7-17) mg/dL Creatinine 0.60 L (0.7-1.0) mg/dL Estim Creat Clear Calc 66 ml/min Estimated GFR > 60 (59 - ) Glucose 103 (65-110) mg/dL Calcium 9.5 (8.4-10.2) mg/dL Total Bilirubin 0.2 (0.2-1.3) mg/dL AST 17 (14-36) U/L ALT 9 (6-35) U/L Alkaline Phosphatase 67 (38-126) U/L Total Creatine Kinase 47 (30-135) U/L Troponin I < 0.012 (0.000-0.034) ng/mL Total Protein 7.0 (6.3-8.2) g/dL Albumin 3.9 (3.5-5.1) g/dL Urine Color Yellow (Yellow) Urine Appearance Clear (Clear) Urine pH 6.5 (5.0-9.0) Ur Specific [place] 1.008 (1.001-1.035) Urine Protein Negative (Negative) mg/dL Urine Glucose (UA) Negative (Negative) mg/dL Urine Ketones Negative (Negative) mg/dL Ur Blood (Man) Negative (Negative) Urine Nitrate Positive H (Negative) Urine Bilirubin Negative (Negative) Urine Urobilinogen 0.2 (<2.0) mg/dL Leukocyte Esterase Rfl 3+ H (Negative) ROSALIND/UL Urine RBC 0-2 (0-2) /hpf Urine WBC 11-20 H (0-3) /hpf Ur Squamous Epith Cells None seen (Few) /hpf Urine Bacteria 4+ H /hpf Urine Casts 0-2 Imaging Data Radiologist's impression: Impressions Chest X-Ray 12/24/24 18:26 IMPRESSION: No acute cardiopulmonary pathology. Head CT 12/24/24 18:29 IMPRESSION: No acute intracranial findings. Cervical Spine CT 12/24/24 18:38 IMPRESSION: No acute osseous abnormality cervical spine. Multilevel degenerative disc disease. ECG Data EKG #1: Attestation: I personally reviewed and interpreted this ECG as follows: ECG completion date: 12/24/24 Interpretation: Normal sinus rhythm at 70 beats per minute, poor R-wave progression, septal myocardial infarction of indeterminate age, abnormal EKG Critical Care Time Critical Care Time Critical Care Time: No Discharge Plan Discharge Clinical Impression: Fall, Urinary tract infection associated with catheterization of urinary tract Patient Disposition: NH Snf/Asst Living Condition: Stable Instructions: Antibiotic Form, Urinary Tract Infection in Women (ED), How to Care for Your Suprapubic Catheter (DC) Additional Instructions: Return if symptoms are worsening , call your family physician for appointment, take Tylenol as as needed for aches and pain, continue home medications. Patient Language: Somali Prescriptions: New amoxicillin-pot clavulanate [Augmentin] 500-125 mg tablet 1 tablet PO Q8H Qty: 30 0RF No Action cyanocobalamin (vitamin B-12) 2,500 mcg tablet, sublingual 2,500 mcg PO DAILY alendronate 70 mg tablet 70 mg PO WEEKLY Rx Instructions: patient takes on Fridays acetaminophen 500 mg tablet 500 mg PO .Q6 PRN (Reason: Pain) hydrocortisone acetate [Anusol-HC] 25 mg suppository 25 mg RECTAL BID PRN (Reason: hemmorhoid) hydrocortisone [Anusol-HC] 2.5 % cream with perineal applicator 1 applic topical BID PRN (Reason: Hemorrhoids) calcium carbonate [Oyster Shell Calcium 500] 500 mg calcium (1,250 mg) tablet 1,000 mg PO BID ascorbic acid (vitamin C) [Vitamin C] 500 mg tablet 500 mg PO DAILY cholecalciferol (vitamin D3) [Vitamin D3] 25 mcg (1,000 unit) capsule 25 mcg PO DAILY niacin (inositol niacinate) 500 mg tablet 1 tablet PO DAILY calcium carb-D3-mag ox-zinc ox [Michael Mag Zinc Plus D3] 333 mg-133 unit -133 mg- 5 mg tablet 1 tablet PO DAILY aspirin 325 mg Tablet,Delayed Release (Dr/Ec) 325 mg PO Q12HR 28 Days Qty: 56 0RF Rx Instructions: for 28 days diphenoxylate-atropine 2.5-0.025 mg tablet 1 tablet PO HS PRN (Reason: diarrhea) doxycycline monohydrate 100 mg capsule 100 mg PO Q24H carbamazepine 400 mg tablet extended release 12 hr 400 mg PO BID Patient Comments: TAKES WITH THE 100MG CARBANAZEPINE TAB + 500MG BID carbamazepine [Tegretol XR] 100 mg Tablet Extended Release 12 Hr 100 mg PO BID zonisamide 100 mg capsule 500 mg PO QPM cephalexin 500 mg capsule 500 mg PO Q8H Qty: 21 0RF cephalexin 500 mg capsule 500 mg PO Q12H 5 Days Qty: 10 0RF cefdinir 300 mg capsule 300 mg PO Q12H 7 Days Qty: 14 0RF polyethylene glycol 3350 [Miralax] 17 gram Powder In Packet 17 g PO QAM Qty: 0 0RF sennosides-docusate sodium [Senokot-S] 8.6-50 mg Tablet 1 tab-cap PO HS 30 Days Qty: 30 0RF docusate sodium 100 mg Capsule 100 mg PO Q12HR 30 Days Qty: 60 0RF trazodone 50 mg tablet 50 mg PO DAILY Qty: 30 0RF Patient Comments: HS sertraline 100 mg tablet 100 mg PO DAILY Qty: 30 0RF primidone 250 mg tablet 250 mg PO HS Qty: 30 0RF tamsulosin 0.4 mg capsule 0.4 mg PO DAILY Qty: 30 0RF Patient Comments: HS levothyroxine 150 mcg tablet 150 mcg PO DAILY Qty: 30 0RF carbidopa-levodopa 25-100 mg tablet 1.5 tablet PO TID Qty: 30 0RF buspirone 15 mg tablet 15 mg PO BID Qty: 60 0RF aripiprazole 10 mg tablet 10 mg PO DAILY Qty: 30 0RF duloxetine 60 mg capsule,delayed release(DR/EC) 60 mg PO BID 30 Days Qty: 0 0RF Patient Comments: TAKING DAILY CURRENTLY PER [facility] LZakacidoph,saliva-B.bif-S.therm 175 mg capsule 1 cap PO DAILY Qty: 30 0RF Follow-up/Referrals: Froylan,Zakiya Tang APRN [Primary Care Provider] -
[2024-12-24 17:51] VITALS: BP 131/81; PULSE 73; RESP 15; O2SAT 100
--- NOTE | 2024-12-24 18:02 | ECG_ITS ---
Test Date: 2024-12-24 18:30:42 Measurements Intervals [place] Rate: 70 P: 60 WI: 143 QRS: 68 QRSD: 75 T: 79 QT: 342 QTc: 370 Interpretive Statements SINUS RHYTHM NONSPECIFIC ST-T WAVE ABNORMALITIES Compared to ECG 08/30/2024 23:16:26 NO SIGNIFICANT CHANGE Electronically Signed On 12-24-2024 20:52:32 CDT by Jhon Campbell M.D.
[2024-12-24 18:17] LABS: Basophils Percent Auto 0.4 % (0.2-1.2); Eosinophils Absolute Auto 0.3 K/mm3 (0-0.3); Eosinophils Percent Auto 3.1 % (0-4.4); Hematocrit 38.4 % (37.0-47.0); Hemoglobin 12.5 g/dL (12.0-15.0); Immature Granulocyte Absolute 0.03 K/mm3 (0.00-0.031); Immature Granulocyte Percent A 0.3 % (0-0.5); Lymphocytes Absolute Auto 1.74 K/mm3 (0.9-3.2); Lymphocytes Percent Auto 18.5 % (18.3-44.2); Mean Corpuscular HGB Conc 32.6 g/dl (32-36); Mean Corpuscular Hemoglobin 31.9 pg (26-34); Mean Platelet Volume 10.9 fl (7.4-10.4); Monocytes Absolute Auto 0.6 K/mm3 (0.1-0.6); Monocytes Percent Auto 6.6 % (2.6-8.5); Neutrophils Absolute Auto 6.7 K/mm3 (1.3-6.7); Neutrophils Percent Auto 71.1 % (45.5-73.1); Platelet Count Result 266 k/mm3 (150-375); Red Blood Count 3.92 M/mm3 (4.2-5.4); Red Cell Distribution Width 13.6 % (11.5-14.5); White Blood Count 9.4 K/mm3 (4.5-10.0)
[2024-12-24 18:26] LABS: Alanine Aminotransferase 9 U/L (6-35); Albumin Level 3.9 g/dL (3.5-5.1); Alkaline Phosphatase 67 U/L (38-126); Anion Gap 4 mmol/L (4-12); Aspartate Amino Transferase 17 U/L (14-36); Bilirubin,Total 0.2 mg/dL (0.2-1.3); Blood Urea Nitrogen 8 mg/dL (7-17); Calcium 9.5 mg/dL (8.4-10.2); Carbon Dioxide 31 mmol/L (22-30); Chloride 101 mmol/L (98-107); Creatine Kinase 47 U/L (30-135); Estimated CRCL calculation 66 ml/min; Estimated Glomerular Filt Rate > 60; Glucose 103 mg/dL (65-110); Potassium 3.9 mmol/L (3.4-5.0); Sodium 136 mmol/L (137-145)
[2024-12-24 18:38] LABS: Troponin I < 0.012 ng/mL (0.000-0.034)
--- OUTSIDE RECORDS SUMMARY | 2024-12-24 18:46 | XMS_ITS ---
Author Organization [facility] Address [address] [place] [address] Care Team Providers Care Control Clerk Auditing Name Role Phone Cindy VAN, Luis Primary Care Provider Yanna Gee Unavailable [phone] REASON FOR VISIT At Risk Foot Care Encounters Encounter Location Date Provider Diagnosis Andrew Hooks Dpm [facility] [address] [id number] 08/16/2023 Yanna Maya Plan Of Treatment No Information Progress Notes * Bethany ALMARAZ HDOB: 8 (64 yo F)Acc No.[id number]:08/16/2023 Patient: Bethany PATTON Provider: Bakari Maya DPM, DABPM :1960 A ge:63 Y S ex:Female Date:08/16/2023 [facility] [id number] Pcp:Luis White MD Subjective: * Chief Complaints: * 1 . At Risk Foot Care. * Medical History: Objective: * Vitals: Assessment: Plan: * Treatment: * Billing Information: * Visit Code: * Procedure Codes: * Electronic signature of Kierra Maya DPM DABPM on 12/24/2024 at 06:46 PM CDT Sign off status: Pending * Provider: Bakari Maya DPM, DABPM Date: 0 08/16/2023 Generated for Ana cain/Ben/Stan on: 0 12/24/2024 06:46 PM CDT
--- OUTSIDE RECORDS SUMMARY | 2024-12-24 18:46 | XMS_ITS | Patient Health Record ---
Author Organization [facility] Address [address] [place] [address] Care Team Providers Care Slate Splitting Supervisor Name Role Phone Luis White MD Primary Care Provider Yanna Gee Unavailable [phone] Allergies Allergen (clinical drug ingredient) Drug/Non Drug Allergy documented on EMR Reaction Allergy Type Onset Date Status phenobarbital PHENobarbital Unknown Drug Allergy 9 Active Reason For Referral No Information Medications Medication SIG (Take, Route, Frequency, Duration) Notes [...] Hyclate 100 MG Oral for 90 Active Social History Tobacco Use: Social History Observation Description Date Details (start date - stop date) Never Smoker NA - NA Tobacco Use/Smoking Question Answer Notes Tobacco use: nonsmoker Problems Problem Type SNOMED Code ICD Code Onset Dates Problem Status W/U Status Risk Notes Problem 201365181 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 Problem Movement disorder (44870494) Movement disorder (G25.9) Active confirmed Plan Of Treatment No Information Insurance Providers Payer Name Payer Address Payer Phone Subscriber Number Group Number Insured Name Patient Relationship to Insured Coverage Start Date Coverage End Date [employer] [address] MARCELLA Blunt [id number] Bethany Almaraz Self - patient is the insured Medical (General) History Medical History History ICD Code Depression Arthritis Tonsillitis Movement disorder Surgical History Surgery Date(Month/Year) cholecystectomy Elbow Left Wrist Carpal Tunnel Spinal Surgery with hardware implant Tonsillectomy
--- OUTSIDE RECORDS SUMMARY | 2024-12-24 18:46 | XMS_ITS | Continuity of Care Document ---
Author Organization [facility] Address [address] [place] [address] Phone Care Team Providers Care Machine Programmer Name Role Phone Juan Pablo Rich MD Unavailable Unavailable Advance Directives Directive Yes / No Effective Date File Name No Information Encounters Encounter Description Practice Location Reason(s) For Visit Diagnoses Date Provider Providers Copied on Encounter [facility], [address], [place], [place], [id number], tel:[phone] [facility] No Information Layla Almeida. [address], [place], [id number], . tel:[phone] Referring Provider: Jere Trevino, [address] , [place], [address]. tel:[phone] Family History Family Member Type Diagnosis Age At Onset No Information Payers Payer name Insurance type Covered alliance party ID Authoriza tion(s) MEDICARE MB [id number] [employer] [place] CI [id number] Social History Type Description Quantity Date Captured [...]
--- OUTSIDE RECORDS SUMMARY | 2024-12-24 18:46 | XMS_ITS | Clinical Summary ---
Author Organization Unknown Care Team Providers Care Glass Scullion Name Role Phone VAL TESTING TECH, KENYA Unavailable Unavail able BILLY REGISTERED NURSE SIDE PULLER, ELICEO de anda Unavailable Payers Payer Name Policy Type Policy Number Effective Date Expira tion Date [employer] MEDICARE ADVANTAGE - EPISODIC Problems Condition Name Condition Details Condition Category Status Onset Date Resolution Date Last Treatment Date Treating Clinician Comments ENCOUNTER FOR FITTING AND ADJUSTMENT OF URINARY DEVICE Active 08-02 00:00: 00 ENCOUNTER FOR ATTENTION TO CYSTOSTOMY Active 08-02 00:00: 00 OTHER EPILEPSY, NOT INTRACTABLE, WITHOUT STATUS EPILEPTICUS Active 06 00:00: 00 PARKINSON'S 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, W/O MENTION OF FLUCTUATIONS Active 08-02 00:00: 00 HYPOTHYROIDI SM, UNSPECIFIED Active 08-02 00:00: 00 AGE-RELATED OSTEOPOROSIS W/O CURRENT PATHOLOGICAL FRACTURE Active 08-02 00:00: 00 ANXIETY DISORDER, UNSPECIFIED Active - 00:00: 00 DEPRESSION, UNSPECIFIED Active - 00:00: 00 SKILLED NURSING (CURRENT) USE OF BISPHOSPHONA LENNY Active 08-02 00:00: 00 OTHER SKILLED NURSING (CURRENT) DRUG THERAPY Active - 00:00: 00 HORMONE REPLACEMENT THERAPY Active - 00:00: 00 DO NOT RESUSCITATE Active - 00:00: 00 HISTORY OF FALLING Active 08-02 00:00: 00 Allergies, Adverse Reactions, Alerts Allergy Name Allergy Type Status Severity Reaction(s) Onset Date Inactive Date Treating Clinician Comments BACTRIM Propensity to adverse reactions Active 2024-09 14:27:1 9 FELBATOL Propensity to adverse reactions Active 2024-09 14:27:2 7 Medications Ordered Medication Name Filled Medication Name Start Date Stop Date Current Medication? Ordering Clinician Indication Dosage Frequency Signature (SIG) Comments Components alendronate 70 mg tablet 10-17 00:00: 00 Yes [id number] OSTEOPOROSI S 1 tablet WEEKLY 1 tablet WEEKLY (route: oral) Med Classific ation: Endocrine aripiprazol e 2 mg tablet 10-17 00:00: 00 12-14 23:59 :00 No [id number] DEPRESSION 1 tablet DAILY 1 tablet DAILY (route: oral) Med Classific ation: Central Nervous System Agents buspirone 15 mg tablet 10-17 00:00: 00 Yes [id number] ANXIETY 1 tablet 2 TIMES DAILY 1 tablet 2 TIMES DAILY (route: oral) Med Classific ation: Central Nervous System Agents Michael Mag Zinc Plus D3 333 mg-133 unit-133 mg-5 mg tablet 10-17 00:00: 00 Yes [id number] SUPPLEMENT 1 tablet DAILY 1 tablet DAILY (route: oral) Med Classific ation: Electroly te Balance-N utritiona l Products Calcium 500 + D 500 mg-10 mcg (400 unit) chewable tablet 10-17 00:00: 00 Yes [id number] SUPPLEMENT 2 tablet DAILY 2 tablet DAILY (route: oral) Med Classific ation: Electroly te Balance-N utritiona l Products carbamazepi ne ER 400 mg tablet,exte nded release,12 hr 10-17 00:00: 00 Yes [id number] SEIZURES 1 tablet 2 TIMES DAILY 1 tablet 2 TIMES DAILY (route: oral) Med Classific ation: Central Nervous System Agents carbidopa 25 mg-levodopa 100 mg disintegrat ing tablet 10-17 00:00: 00 Yes [id number] PARKINSONS 1.5 tablet 3 TIMES DAILY 1.5 tablet 3 TIMES DAILY (route: oral) Med Classific ation: Central Nervous System Agents diphenoxyla te-atropine 2.5 mg-0.025 mg tablet 10-17 00:00: 00 Yes [id number] DIARRHEA 1 tablet DAILY 1 tablet DAILY (route: oral) Med Classific ation: Gastroint estinal Therapy Agents duloxetine 60 mg capsule,del ayed release 10-17 00:00: 00 12-17 23:59 :00 No [id number] DEPRESSION 1 capsule DAILY 1 capsule DAILY (route: oral) Med Classific ation: Central Nervous System Agents Lactobacill us acidophilus 1 billion cell tablet 10-17 00:00: 00 Yes [id number] GUT HEALTH 1 tablet DAILY 1 tablet DAILY (route: oral) Med Classific ation: Gastroint estinal Therapy Agents levothyroxi ne 150 mcg capsule 10-17 00:00: 00 Yes [id number] HYPOTHYROID 1 capsule DAILY 1 capsule DAILY (route: oral) Med Classific ation: Endocrine niacin 500 mg tablet 10-17 00:00: 00 Yes [id number] SUPPLEMENT 1 tablet DAILY 1 tablet DAILY (route: oral) Med Classific ation: Cardiovas cular Therapy Agents primidone 250 mg tablet 10-17 00:00: 00 Yes [id number] SEIZURES 1 tablet DAILY 1 tablet DAILY (route: oral) Med Classific ation: Central Nervous System Agents sertraline 100 mg tablet 10-17 00:00: 00 Yes [id number] DEPRESSION 1 tablet DAILY 1 tablet DAILY (route: oral) Med Classific ation: Central Nervous System Agents tamsulosin 0.4 mg capsule 10-17 00:00: 00 Yes [id number] URINARY RETENTION 1 capsule DAILY 1 capsule DAILY (route: oral) Med Classific ation: Genitouri nary Therapy trazodone 50 mg tablet 10-17 00:00: 00 12-17 23:59 :00 No [id number] DEPRESSION 0.5 tablet DAILY 0.5 tablet DAILY (route: oral) Med Classific ation: Central Nervous System Agents Tylenol Extra Strength 500 mg tablet 10-17 00:00: 00 Yes [id number] PAIN 1 tablet EVERY 6 HOURS 1 tablet EVERY 6 HOURS (route: oral) Med Classific ation: Analgesic , Anti-infl ammatory or Antipyret ic vitamin B12 2,500 mcg-folic acid 400 mcg disintegrat ing tablet 10-17 00:00: 00 Yes [id number] SUPPLEMENT 1 tablet DAILY 1 tablet DAILY (route: oral) Med Classific ation: Electroly te Balance-N utritiona l Products Vitamin C 500 mg tablet 10-17 00:00: 00 Yes [id number] SUPPLEMENT 1 tablet DAILY 1 tablet DAILY (route: oral) Med Classific ation: Electroly te Balance-N utritiona l Products Vitamin D3 25 mcg (1,000 unit) capsule 10-17 00:00: 00 Yes [id number] SUPPLEMENT 1 capsule DAILY 1 capsule DAILY (route: oral) Med Classific ation: Electroly te Balance-N utritiona l Products Zonegran 100 mg capsule 10-17 00:00: 00 Yes [id number] SEIZURES 5 capsule DAILY 5 capsule DAILY (route: oral) Med Classific ation: Central Nervous System Agents aripiprazol e 10 mg tablet 12-17 00:00: 00 Yes [id number] DEPRESSION 1 tablet ONCE DAILY 1 tablet ONCE DAILY (route: oral) Med Classific ation: Central Nervous System Agents carbamazepi ne 100 mg chewable tablet 12-17 00:00: 00 Yes [id number] MUSCLE SPASMS 1 tablet TWICE DAILY 1 tablet TWICE DAILY (route: oral) Med Classific ation: Central Nervous System Agents duloxetine 60 mg capsule,del ayed release 12-17 00:00: 00 Yes [id number] DEPRESSION 1 capsule TWICE DAILY 1 capsule TWICE DAILY (route: oral) Med Classific ation: Central Nervous System Agents trazodone 50 mg tablet 12-17 00:00: 00 Yes [id number] DEPRESSION 1 tablet ONCE DAILY 1 tablet ONCE DAILY (route: oral) Med Classific ation: Central Nervous System Agents Immunizations Ordered Immunization Name Filled Immunization Name Date Status Comments Refusal Reason INFLUENZA, TIV (INACTIVATED) 2024-05-30 00:00:00 PNEUMOCOCCAL (PPV), PPV 2022-10-14 00:00:00 Vital Signs Vital Name Observation Time Observation Value Commen ts Temperature 2024-12-21 11:35:00.000 97.3 [degF] Pulse 2024-12-21 11:35:00.000 74 /min O2 Saturation (%) 2024-12-21 11:35:00.000 97 % Respirations 2024-12-21 11:35:00.000 18 /min Systolic Blood Pressure 2024-12-21 11:35:00.000 110 mm [Hg] Diastolic Blood Pressure 2024-12-21 11:35:00.000 66 mm [Hg] Plan of Treatment Planned Activity Planned Date Details Comments Future Scheduled Test SKILLED NU RSE TO CHANGE INDWELLING SUPRAPUBIC URINARY CATHETER ON 12/08/24 AND MONTHLY PER STERILE TECHNIQUE FOR URINARY RETENTION. GASTON CATHETER IS TO BE A 16# ARABIC 10ML/CC BALLOON CATHETER. INSERT CATHETER USING A STERILE INSERTION TRAY. ORDERS ALSO INCLUDE THE NEED FOR MONTHLY MAINTANANCE ITEMS, INCLUDING LEG BAGS, DRAIN BAGS, LEG STRAPS, AND SECUREMENT DEVICES WELL 10 CC SYRINGES. SKILLED NURSE MAY ADD TWO PRN VISITS PER MONTH FOR CARE OR COMPLICATIONS SUCH IRRIGATION NEEDS, LEAKING, OR ACCIDENTAL DISLOGDEMENT. SKILLED NURSE MAY OBTAIN URINALYSIS PRN FOR SIGNS AND SYMPTOMS OF URINARY TRACT INFECTION WITH RESULTS FAXED TO PHYSICIAN. SKILLED NURSE MAY CHANGE OR REPLACE CATHETER NEEDED WHEN COMPLICATIONS OCCUR. ALL FOLLOWING CATHETER CHANGES WILL MAINTAIN ORDERED FREQUENCY. MAY FLUSH OR IRRIGATE PRN WITH 30 ? 60 ML STERILE WATER FOR OCCLUSION OR STOPPAGE. SN MAY OBTAIN UA WITH CULTURE AND SENSITIVITY FOR SIGNS OR SYMPTOMS OF A UTI. CATHETER MAY BE FLUSHED ON AN NEEDED BASIS FOR CLOGGED CATHETER. CLEANSE JUNCTION OF CATHETER TUBE AND DRAINAGE TUBE WITH ALCOHOL WIPE, DISCONNECT CATHETER FROM DRAINAGE TUBE AND CAP WITH STERILE CAP. USING A 60 ML SYRINGE, DRAW UP 30-40 ML NORMAL SALINE OR STERILE WATER AND GENTLY INSTILL INTO THE BLADDER. DISCONNECT SYRINGE AND ALLOW FLUID TO DRAIN INTO BASIN. MAY REPEAT IRRIGATION UNTIL DEBRIS IS CLEAR. WHEN FLUSHING IS COMPLETE, CLEANSE THE END OF THE CATHETER AND THE END OF THE TUBING WITH AN ALCOHOL WIPE AFTER REMOVING THE PROTECTIVE CAP. RECONNECT THE CATHETER AND TUBING. APPLY DRAIN SPONGE AND TAPE TO KEEP SUPRAPUBIC CATHETER SECURE. PATIENT/CAREGIVER MAY PERFORM IRRIGATION/FLUSHING PRN IN SKILLED NURSE ABSENCE AFTER APPROPRIATE RETURN DEMONSTRATION. [code = SKILLED NURSE TO CHANGE INDWELLING SUPRAPUBIC URINARY CATHETER ON 12/08/24 AND MONTHLY PER STERILE TECHNIQUE FOR URINARY RETENTION. GASTON CATHETER IS TO BE A 16# ARABIC 10ML/CC BALLOON CATHETER. INSERT CATHETER USING A STERILE INSERTION TRAY. ORDERS ALSO INCLUDE THE NEED FOR MONTHLY MAINTANANCE ITEMS, INCLUDING LEG BAGS, DRAIN BAGS, LEG STRAPS, AND SECUREMENT DEVICES WELL 10 CC SYRINGES. SKILLED NURSE MAY ADD TWO PRN VISITS PER MONTH FOR CARE OR COMPLICATIONS SUCH IRRIGATION NEEDS, LEAKING, OR ACCIDENTAL DISLOGDEMENT. SKILLED NURSE MAY OBTAIN URINALYSIS PRN FOR SIGNS AND SYMPTOMS OF URINARY TRACT INFECTION WITH RESULTS FAXED TO PHYSICIAN. SKILLED NURSE MAY CHANGE OR REPLACE CATHETER NEEDED WHEN COMPLICATIONS OCCUR. ALL FOLLOWING CATHETER CHANGES WILL MAINTAIN ORDERED FREQUENCY. MAY FLUSH OR IRRIGATE PRN WITH 30 ? 60 ML STERILE WATER FOR OCCLUSION OR STOPPAGE. SN MAY OBTAIN UA WITH CULTURE AND SENSITIVITY FOR SIGNS OR SYMPTOMS OF A UTI. CATHETER MAY BE FLUSHED ON AN NEEDED BASIS FOR CLOGGED CATHETER. CLEANSE JUNCTION OF CATHETER TUBE AND DRAINAGE TUBE WITH ALCOHOL WIPE, DISCONNECT CATHETER FROM DRAINAGE TUBE AND CAP WITH STERILE CAP. USING A 60 ML SYRINGE, DRAW UP 30-40 ML NORMAL SALINE OR STERILE WATER AND GENTLY INSTILL INTO THE BLADDER. DISCONNECT SYRINGE AND ALLOW FLUID TO DRAIN INTO BASIN. MAY REPEAT IRRIGATION UNTIL DEBRIS IS CLEAR. WHEN FLUSHING IS COMPLETE, CLEANSE THE END OF THE CATHETER AND THE END OF THE TUBING WITH AN ALCOHOL WIPE AFTER REMOVING THE PROTECTIVE CAP. RECONNECT THE CATHETER AND TUBING. APPLY DRAIN SPONGE AND TAPE TO KEEP SUPRAPUBIC CATHETER SECURE. PATIENT/CAREGIVER MAY PERFORM IRRIGATION/FLUSHING PRN IN SKILLED NURSE ABSENCE AFTER APPROPRIATE RETURN DEMONSTRATION.] Future Scheduled Test THE CER TIFYING PHYSICIAN, ASSOCIATED PHYSICIAN, NPP OR PA WITHIN THE SAME GROUP MAY APPROVE AND SIGN THE ORDER (ON ANY PAGE) ATTESTING THAT THE COMPREHENSIVE OUTCOME ASSESSMENTS, EVALUATIONS, AND HOME HEALTH CERTIFICATION PLANS SUPPORT HOMEBOUND STATUS. HOME HEALTH WEB-PORTAL DOCUMENTATION ACCESSED BY THE PHYSICIAN MUST BE INCORPORATED INTO THE MEDICAL RECORD TO CORROBORATE THE PHYSICIAN, NPP, OR PAS F2F ENCOUNTER TO SUPPORT ELIGIBILITY FOR HOME HEALTH SERVICES. [code = THE CERTIFYING PHYSICIAN, ASSOCIATED PHYSICIAN, NPP OR PA WITHIN THE SAME GROUP MAY APPROVE AND SIGN THE ORDER (ON ANY PAGE) ATTESTING THAT THE COMPREHENSIVE OUTCOME ASSESSMENTS, EVALUATIONS, AND HOME HEALTH CERTIFICATION PLANS SUPPORT HOMEBOUND STATUS. HOME HEALTH WEB-PORTAL DOCUMENTATION ACCESSED BY THE PHYSICIAN MUST BE INCORPORATED INTO THE MEDICAL RECORD TO CORROBORATE THE PHYSICIAN, NPP, OR PAS F2F ENCOUNTER TO SUPPORT ELIGIBILITY FOR HOME HEALTH SERVICES.] Future Scheduled Test EACH ORDER ED IN-HOME OR TELEHEALTH VISIT, THE SKILLED NURSE WILL CONDUCT A COMPREHENSIVE ASSESSMENT INCLUDING VITAL SIGNS, PAIN, SAFETY, MENTAL/COGNITIVE/PSYCHOSOCIAL STATUS, MED MANAGEMENT, NUTRITION, SKIN INTEGRITY, PRESSURE ULCER PREVENTION, AND PATIENT/CAREGIVER ABILITY TO SUPPORT ORDERED CARE. SKILLED NURSE WILL INSTRUCT ON DISEASE PROCESS, MED MGMT., FALL PREVENTION AND SAFETY, INFECTION CONTROL AND PREVENTION, WARNING SIGNS, ADDRESS RESULTS OUTSIDE OF ORDERED PARAMETERS LISTED ON CARE PLAN, AND COORDINATE DISCHARGE WITH THE TREATING PROVIDER. MAY ACCEPT ORDERS FROM THE FOLLOWING PROVIDER(S) WHO WILL BE CONSULTING ON THE CERTIFIED CARE PLAN: KENYA NEAL, AND ANYONE COVERING IN THEIR ABSENCE. [code = EACH ORDERED IN-HOME OR TELEHEALTH VISIT, THE SKILLED NURSE WILL CONDUCT A COMPREHENSIVE ASSESSMENT INCLUDING VITAL SIGNS, PAIN, SAFETY, MENTAL/COGNITIVE/PSYCHOSOCIAL STATUS, MED MANAGEMENT, NUTRITION, SKIN INTEGRITY, PRESSURE ULCER PREVENTION, AND PATIENT/CAREGIVER ABILITY TO SUPPORT ORDERED CARE. SKILLED NURSE WILL INSTRUCT ON DISEASE PROCESS, MED MGMT., FALL PREVENTION AND SAFETY, INFECTION CONTROL AND PREVENTION, WARNING SIGNS, ADDRESS RESULTS OUTSIDE OF ORDERED PARAMETERS LISTED ON CARE PLAN, AND COORDINATE DISCHARGE WITH THE TREATING PROVIDER. MAY ACCEPT ORDERS FROM THE FOLLOWING PROVIDER(S) WHO WILL BE CONSULTING ON THE CERTIFIED CARE PLAN: KENYA NEAL, AND ANYONE COVERING IN THEIR ABSENCE. ] Future Scheduled Test SKILLED NU RSE TO ASSESS PATIENT WITH ANXIETY DISORDER AND TEACH SYMPTOMS OF ANXIETY. [code = SKILLED NURSE TO ASSESS PATIENT WITH ANXIETY DISORDER AND TEACH SYMPTOMS OF ANXIETY.] Future Scheduled Test SKILLED NU RSE TO OBSERVE AND ASSESS PATIENT WITH GENERALIZED DEPRESSION AND TEACH DEPRESSIVE SYMPTOMS. [code = SKILLED NURSE TO OBSERVE AND ASSESS PATIENT WITH GENERALIZED DEPRESSION AND TEACH DEPRESSIVE SYMPTOMS.] Goal 2024-12-14 Patient Goal - S OC- 10/18/24- TO HAVE NO ISSUES WITH CATHETER Goal Patient Goal - S OC- 10/18/24- TO HAVE NO ISSUES WITH CATHETER RECERT 12/14/24: TO REMAIN FREE FROM FALLS, INFECTIONS, AND HOSPITALIZATIONS. TO BE FREE FROM ANY CATHETER COMPLICATIONS Goal Provider Goal - PATIENT WILL VERBALIZE TOLERANCE OF CATHETER CHANGE ON ONGOING BASIS OR UNTIL DISCHARGE. PATIENT/CAREGIVER DEMONSTRATES APPROPRIATE CATHETER MAINTENANCE AND FLUSHING. Goal Provider Goal - A PLAN OF CARE WILL BE ESTABLISHED THAT MEETS ALL PATIENT'S NURSING HOME NEEDS AND COUNTER SIGNED BY PHYSICIAN. Goal Provider Goal - PATIENT WILL BE FREE OF FALLS AND HOSPITALIZATIONS THROUGHOUT EPISODE OF CARE. PATIENT/CAREGIVER WILL UNDERSTAND AND ADHERE TO ORDERED DIET. PATIENT/CAREGIVER WILL INDEPENDENTLY MANAGE MEDICATIONS, UNDERSTAND ANY CHANGES, SIDE EFFECTS TO REPORT BY EOE. PATIENT WILL BE FREE OF INFECTION AND UNDERSTAND MEASURES OF PREVENTION. PATIENT/CAREGIVER WILL COLLABORATE WITH SKILLED NURSE TO DEVELOP POC AT SOC AND ON AN ONGOING BASIS UPDATES ARE NEEDED. UNDERSTAND PROGRESS MADE/DISCHARGE PLANNING. ADDITIONAL ORDERS WILL BE RECEIVED FROM ALTERNATE PHYSICIANS IN A TIMELY MANNER. Goal Provider Goal - PATIENT/CAREGIVER WILL VERBALIZE UNDERSTANDING OF THE CONTRIBUTING FACTORS AND SYMPTOMS OF ANXIETY. Goal Provider Goal - PATIENT/CAREGIVER WILL VERBALIZE UNDERSTANDING OF THE CONTRIBUTING FACTORS AND SYMPTOMS OF DEPRESSION. Progress Notes Progress Notes <paragraph>[Visit Date: 2024 by ELICEO CERVANTES REGISTERED NURSE SIDE PULLER]:</paragraph><paragraph>PTNT BEING SEEN BY SN FOR SUPRAPUBIC CATH MGMT AND CHANGES. RN SUPERVISORY VISIT COMPLETED TODAY SN ENTERED ARIELLE AND GREETED AT DOOR BY PTNT SITTING IN WHEELCHAIR WITH LEGS DEPENDENT. PTNT CG NOT PRESENT DURING VISIT. NO FALLS OR MED CHANGES. PTNT ANOX3(-TIME) , ACTIVELY PARTICIPATING IN CARE WITH PLEASANT AFFECT. PTNT IS IMPULSIVE AND POOR HISTORIAN R/T FORGETFULNESS. COMPREHENSIVE ASSESSMENT COMPLETED. VSS, HR REG, LUNGS CTA, BSX4, ABD SOFT NONTENDER, BM'S NORMAL, LBM 5/\21, NO EDEMA, +2 PEDAL PULSES. DENIES PAIN. PTNT DENIES, CHEST PAIN, FEVER, CHILLS, AND SOB. SKIN CHECK COMPLETED. PTNT DEMONSTRATES NO BREAKDOWN IN SKIN INTEGRITY. REDDNESS TO HUSSEIN ANKLES, 16 FR SUPRAPUBIC CATH DRAINIING CLEAR PALE YELLOW URINE. LAST CATH CHANGE 12/07. CASE CONFERENCE WITH BRITTANY GRIMM WITH [facility]. NOTIFIED OF ORDERS WE HAVE, NURISNG FREQUENCY, SUPPLIES LOCATION, AND NEED FOR STAFF TO KEEP DRAIN SPONGE ON SUPRAPUBIC SITE 22/02 TO PREVENT INFECTION. GAVE ALFA DIRECT PHONE NUMBER FOR ANY NEEDS/ORDERS. PTNT APT TBS PTNT STABLE AT SN DEPARTURE FROM HOME. PTNT/CG VERBALIZED UNDERSTANDING OF ALL EDUCATION PROVIDED. PTNT/CG DENY ADDITIONAL QUESTIONS/CONCERNS AND VERBALIZE SATISFACTION WITH CARE AT END OF VISIT.</paragraph> Encounters Start Date/Time End Date/Time Encounter Type Admission Type Attending Clinicians Care Facility Care Department Encounter ID Discharge Date Discharge Status Discharge Condition Discharge Reason Percent Goals Met 2024-12-17 00:00:00 2025-02-14 00:00:00 Outpatient RECERTIFIC ATION ELICEO CERVANTES [facility] [id number] 80.00
--- OUTSIDE RECORDS SUMMARY | 2024-12-24 18:46 | XMS_ITS | Clinical Summary ---
Author Organization Unknown Care Team Providers Care Slice Plug Cutter Operator Name Role Phone VAL SPORTS TRAINER, KENYA Unavailable Unavail able BILLY REGISTERED NURSE MEDICAL BILLING SPECIALIST, ELICEO de anda Unavailable Payers Payer Name [...] 00 DEPRESSION, UNSPECIFIED Active - 00:00: 00 [facility] (CURRENT) USE OF BISPHOSPHONA LENNY Active 08-02 00:00: 00 OTHER [facility] (CURRENT) DRUG THERAPY Active - 00:00: 00 [...] 70 mg tablet 10-17 00:00: 00 Yes [id number] OSTEOPOROSI S 1 tablet WEEKLY 1 tablet WEEKLY (route: oral) Med Classific ation: Endocrine aripiprazol e 2 mg tablet 10-17 00:00: 00 12-14 23:59 :00 No [id number] DEPRESSION 1 tablet DAILY 1 tablet DAILY (route: oral) Med Classific ation: Central Nervous System Agents buspirone 15 mg tablet 10-17 00:00: 00 Yes [id number] ANXIETY 1 tablet 2 TIMES DAILY 1 tablet 2 TIMES DAILY (route: oral) Med Classific ation: Central Nervous System Agents Michael Mag Zinc Plus D3 333 mg-133 unit-133 mg-5 mg tablet 10-17 00:00: 00 Yes [id number] SUPPLEMENT 1 tablet DAILY 1 tablet DAILY (route: oral) Med Classific ation: Electroly te Balance-N utritiona l Products Calcium 500 + D 500 mg-10 mcg (400 unit) chewable tablet 10-17 00:00: 00 Yes [id number] SUPPLEMENT 2 tablet DAILY 2 tablet DAILY (route: oral) Med Classific ation: Electroly te Balance-N utritiona l Products carbamazepi ne ER 400 mg tablet,exte nded release,12 hr 10-17 00:00: 00 Yes [id number] SEIZURES 1 tablet 2 TIMES DAILY 1 tablet 2 TIMES DAILY (route: oral) Med Classific ation: Central Nervous System Agents carbidopa 25 mg-levodopa 100 mg disintegrat ing tablet 10-17 00:00: 00 Yes [id number] PARKINSONS 1.5 tablet 3 TIMES DAILY 1.5 tablet 3 TIMES DAILY (route: oral) Med Classific ation: Central Nervous System Agents diphenoxyla te-atropine 2.5 mg-0.025 mg tablet 10-17 00:00: 00 Yes [id number] DIARRHEA 1 tablet DAILY 1 tablet DAILY (route: oral) Med Classific ation: Gastroint estinal Therapy Agents duloxetine 60 mg capsule,del ayed release 10-17 00:00: 00 12-17 23:59 :00 No [id number] DEPRESSION 1 capsule DAILY 1 capsule DAILY (route: oral) Med Classific ation: Central Nervous System Agents Lactobacill us acidophilus 1 billion cell tablet 10-17 00:00: 00 Yes [id number] GUT HEALTH 1 tablet DAILY 1 tablet DAILY (route: oral) Med Classific ation: Gastroint estinal Therapy Agents levothyroxi ne 150 mcg capsule 10-17 00:00: 00 Yes [id number] HYPOTHYROID 1 capsule DAILY 1 capsule DAILY (route: oral) Med Classific ation: Endocrine niacin 500 mg tablet 10-17 00:00: 00 Yes [id number] SUPPLEMENT 1 tablet DAILY 1 tablet DAILY (route: oral) Med Classific ation: Cardiovas cular Therapy Agents primidone 250 mg tablet 10-17 00:00: 00 Yes [id number] SEIZURES 1 tablet DAILY 1 tablet DAILY (route: oral) Med Classific ation: Central Nervous System Agents sertraline 100 mg tablet 10-17 00:00: 00 Yes [id number] DEPRESSION 1 tablet DAILY 1 tablet DAILY (route: oral) Med Classific ation: Central Nervous System Agents tamsulosin 0.4 mg capsule 10-17 00:00: 00 Yes [id number] URINARY RETENTION 1 capsule DAILY 1 capsule DAILY (route: oral) Med Classific ation: Genitouri nary Therapy trazodone 50 mg tablet 10-17 00:00: 00 12-17 23:59 :00 No [id number] DEPRESSION 0.5 tablet DAILY 0.5 tablet DAILY (route: oral) Med Classific ation: Central Nervous System Agents Tylenol Extra Strength 500 mg tablet 10-17 00:00: 00 Yes [id number] PAIN 1 tablet EVERY 6 HOURS 1 tablet EVERY 6 HOURS (route: oral) Med Classific ation: Analgesic , Anti-infl ammatory or Antipyret ic vitamin B12 2,500 mcg-folic acid 400 mcg disintegrat ing tablet 10-17 00:00: 00 Yes [id number] SUPPLEMENT 1 tablet DAILY 1 tablet DAILY (route: oral) Med Classific ation: Electroly te Balance-N utritiona l Products Vitamin C 500 mg tablet 10-17 00:00: 00 Yes [id number] SUPPLEMENT 1 tablet DAILY 1 tablet DAILY (route: oral) Med Classific ation: Electroly te Balance-N utritiona l Products Vitamin D3 25 mcg (1,000 unit) capsule 10-17 00:00: 00 Yes [id number] SUPPLEMENT 1 capsule DAILY 1 capsule DAILY (route: oral) Med Classific ation: Electroly te Balance-N utritiona l Products Zonegran 100 mg capsule 10-17 00:00: 00 Yes [id number] SEIZURES 5 capsule DAILY 5 capsule DAILY (route: oral) Med Classific ation: Central Nervous System Agents aripiprazol e 10 mg tablet 12-17 00:00: 00 Yes [id number] DEPRESSION 1 tablet ONCE DAILY 1 tablet ONCE DAILY (route: oral) Med Classific ation: Central Nervous System Agents carbamazepi ne 100 mg chewable tablet 12-17 00:00: 00 Yes [id number] MUSCLE SPASMS 1 tablet TWICE DAILY 1 tablet TWICE DAILY (route: oral) Med Classific ation: Central Nervous System Agents duloxetine 60 mg capsule,del ayed release 12-17 00:00: 00 Yes [id number] DEPRESSION 1 capsule TWICE DAILY 1 capsule TWICE DAILY (route: oral) Med Classific ation: Central Nervous System Agents trazodone 50 mg tablet 12-17 00:00: 00 Yes [id number] DEPRESSION 1 tablet ONCE DAILY 1 tablet [...] GASTON CATHETER IS TO BE A 16# AZERI 10ML/CC BALLOON CATHETER. INSERT CATHETER USING A [...] GASTON CATHETER IS TO BE A 16# AZERI 10ML/CC BALLOON CATHETER. INSERT CATHETER USING A [...] WILL BE ESTABLISHED THAT MEETS ALL PATIENT'S GROUP HOME NEEDS AND COUNTER SIGNED BY PHYSICIAN. [...] Date: 2024 by ELICEO CERVANTES REGISTERED NURSE MEDICAL BILLING SPECIALIST]:</paragraph><paragraph>PTNT BEING SEEN BY SN FOR SUPRAPUBIC CATH [...] 12/07. CASE CONFERENCE WITH BRITTANY GRIMM WITH [facility]. NOTIFIED OF ORDERS WE HAVE, NURISNG [...] 2025-02-14 00:00:00 Outpatient RECERTIFIC ATION ELICEO CERVANTES [facility] [id number] 80.00
--- OUTSIDE RECORDS SUMMARY | 2024-12-24 18:47 | XMS_ITS | Data Portability ---
Author Organization [place] - [facility] [employer], Main Office Address [address] [place] [address] Assessment Encounter Date Assessment Date Assessment LastModified [...] DO Not Attach Compendium, Do Not Delete/merge, 14066 4 12:18:48 Surgeries None recorded. Imaging XR, knee 2023 024 [facility], [address], [place], [address], 4 09:22:26 Medication Orders bupivacaine HCl 0.5 % (5 mg/mL) injection solution [address] [facility] [place], [address], 4 14:56:13 Kenalog 10 mg/mL suspension for injection [address] [facility] [place], [address], 4 14:56:13 Patient TargetsNo targets recorded. Patient [...] XR, knee No observ ation record ed. [email or web address] [facility] [address], [place], [address], 08/24/2023 11:49:22 Result Notes None recorded. Problems Name Problem SNOMED Code Status Onset Date Resolution Date Notes Provider Name and Address Organization Details Recorded Time Cervical spondylosi s without myelopathy 861193002 Active Not Available [employer] 3 13:52:12 Pain of left knee joint 6186618956758 07 Active 2023 ALESSANDRO Hernandez, AJ Tech 4 11:49:18 Problem Notes None recorded. Procedures Surgical History Date Name Laterality Status Provider Name and Address Organization Details Recorded Time Ortho - Cortisone Injection completed Rakesh Jaimes MD [address] [place] [address], [address], [employer] 08/24/2023 22:21:06 repair of rectal prolapse completed ALESSANDRO Hernandez [employer] 08/24/2023 11:48:11 Imaging Results Imaging Date Name Status LastModified by Organiz ation Details LastModified Time 01/18/2023 XR, ankle, 2 view completed Information not available 08/11/2023 14:13:24 01/18/2023 XR, foot, 2 view completed Information not available 08/11/2023 14:13:24 11/17/2022 XR, knee, 4 or more view completed Information not available 08/11/2023 14:13:24 08/24/2023 XR, knee completed [email or web address] [facility] [place] [address], [place], [address], 08/24/2023 11:49:22 Procedure Notes None recorded. Medical Equipment None Reported. Allergies Allergen ID Allergen Name Allergen Category Reaction Reaction Severity Criticality Documentation Date Start Date Code Code System Note Provider Name and Address Organization Details Recorded Time 96788 Felbatol medicatio n Not available Not available Not available 09/30/2022 54454 0 RxNorm Not Available [facility] 3 13:53:50 Medications Name Sig Start Date [...] 1 mL by injection route. 2023 active [facility]: 0003- 0494- 20 Not Available Not Available [...] Updated DateTime 08/24/2023 167.64 cm 21.8 kg/m2 10301.97 g ALESSANDRO Hernandez [place] [facility] 08/24/2023 11:43:06 Social History None recorded. Functional Status Question Answer Note LastModified by Organization D etails LastModified Time What is your level of alcohol consumption? None Information not available 08/24/2023 Mental Status None recorded. Family History Relationship Description Onset Age of this Age Resolved Age Notes LastModified by Organization Details LastModified Time Sister Family history of malignant neoplasm [email or web address] Not available 2023 11:46:52 Father Hypertensive disorder [email or web address] Not available 2023 11:47:06 Mother Diabetes mellitus [email or web address] Not available 2023 11:47:16 Medical History Condition Response URINARY/BLADDER/KIDNEY PROBLEMS Y Gynecological HistoryNo gynecological history recorded. Obstetrics History GPAL:G 0 P 0 0 0 0 Past Encounters Encounter ID Performer Location Encounter Start Date Encounter Closed Date Diagnosis/Indication Diagnosis SNOMED-CT Code Diagnosis ICD10 Code Diagnosis Note [id number] Rakesh Jaimes MD [facility] [place] [address] [place] [address] 08/24/2023 11:15:05 08/24/2023 16:25:11 Pain of left knee joint [id number] 89387 M25.562 Health Concerns Section Related Observation LastModified by Organization Detai ls LastModified Time None Recorded Concern Status LastModified by Organization Details LastModified Time None Recorded Advance Directives Directive None Recorded Payers Encounter Date Sequence Insurance Name Policy Number Policy Koo Covered Member ID Koo Member ID Guarantor Name 08/24/2023 1 [employer] [id number] Bethany Almaraz [id number] Bethany M Bohner OBGyn Episode No OBEpisode recorded.
--- OUTSIDE RECORDS SUMMARY | 2024-12-24 18:47 | XMS_ITS | Clinical Summary ---
Author Organization [facility] Healthcare Address [address] [place] [address] Care Team Providers Care Blanket Weaver Name Role Phone Luis White MD Primary Care Provider [phone] Dominik Alejandro MD Unavailable [phone] Hiral Vidales MD Unavailable Allergies Active [...] 2 (two) times a day 60 tablet 11 4 025 Active carBAMazepine XR (TEGretol XR) 100 mg 12 hr tablet Take 1 tablet (100 mg total) by mouth 2 (two) times a day 60 tablet 4 025 Active primidone (MYSOLINE) 250 mg tablet Take 1 tablet (250 mg total) by mouth nightly 30 tablet 4 025 Active carbidopa-levodo pa (SINEMET) 25-100 mg per tabletIndication s:Parkinsonism, unspecified Parkinsonism type (HCC) TAKE ONE AND ONE-HALF TABLETS BY MOUTH THREE TIMES DAILY 135 tablet 11 4 Active zonisamide (ZONEGRAN) 100 mg capsuleIndicatio ns:Partial Epilepsy Treatment Adjunct Take 2 capsules (200 mg total) by mouth nightly 60 capsule 3 5 026 Active Active Problems Problem Noted Date Diagnosed Date Rectal prolapse 11/09/2022 Overview (11/09/2022): Added automatically from request for surgery [id number] Temporal lobe epilepsy, intractable 09/19/2018 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 She has very mild hypomimia and mild asymmetric bradykinesia, but there has been no definitive subjective progression of her parkinsonism or her ataxia in the interim. Although MSA-C would still feature in the differential, the lack of any autonomic problems and lack of significant interim progression of parkinsonism argues against it. Spinocerebellar ataxia would still remain in the differential. She feels the levodopa may have helped with the slowness; she is tolerating it without any dose limiting side effects and no change in levodopa regimen is warranted at this time. She has had an extensive workup for alternate etiologies in the past as summarized below; MRI spine images showed multilevel moderate degenerative changes in the C-spine and T-spine with scoliosis but otherwise unremarkable. we discussed that I do not have a strong clinical indication to repeat any of these at this juncture: labs: CBC, CMP, ROMY, BABS, ANCA, ESR, [...] not done. She has significant depressive symptoms and this is being managed by her psychiatrist; I reiterated the need for continued follow-up. Recommendations: 1. Same levodopa. 2. Adequate management of her depressive symptoms as per her psychiatrist. 3. Daily stretching, strict fall precautions. I have established and will maintain a relationship with this patient to longitudinally manage their chronic neurological movement disorders. This was a telemedicine visit with Bethany Almaraz and her sister Lena, which took place via Real-time video connection ([employer], [employer] or similar). During the visit, I was located in my clinic office at the [facility], in the [facility] [place], [place] and the patient was located at her residential facility in [place]. The session started at 4:33 PM and ended at 5:03 PM. In addition to the time spent during the session with the patient, I spent 7 minutes preparing to see the patient and 6 minutes documenting clinical information in the electronic or other health record on the day of the visit. Total time spend on encounter on the day of the visit: 43 minutes. The patient has been informed that the visit may not be secure and acknowledged the information. It was explained to the patient they have the option of participating in a telephone or video visit during the [facility]. After being given an opportunity [...] documented in the note. Assessment & Plan (04/16/2023 12:03 PM CDT): [...] services. Assessment & Plan (10/02/2021 4:23 PM INDUSTRIAL PSYCHOLOGY TEACHER): She has a subacute onset (2015), somewhat [...] which took place via Real-time video connection ([employer], Str[employer] or similar). During the visit, I was located in my clinic office in the [facility], in the [place], [place] and the patient was located at her home in [place]. The session started at 13:08 and ended [...] a telephone or video visit during the COVID-19 public health emergency. After being given an opportunity to [...] CDT): She has a subacute onset (2016), somewhat rapidly progressive ataxia with exam notable [...] precautions. Assessment & Plan (08/24/2019 4:56 PM INDUSTRIAL PSYCHOLOGY TEACHER): She has a subacute onset (2015), rather [...] Encounters Date Type Department Care Team Description 11/14/2024 4:30 PM CDT Telemedicine [facility] Movement Disorders [address] [place] [address] Winnie Hammond MD PhD Cerebellar ataxia (HCC) (Primary Dx); Parkinsonism, unspecified Parkinsonism type (HCC) 10/10/[address] [facility] Epilepsy [address]th [place] [address] [place] [address] Alexis Romero MD PhD Lab Results 10/03/[address] [facility] Epilepsy [address] [place] [address] [place] [address] Alexis Romero MD PhD from Last 3 [...] on file Legal Sex Female 11:43 PM INDUSTRIAL PSYCHOLOGY TEACHER Gender Identity Female 11/05/2020 1:42 AM CDT [...] Fall Risk Assessment 12/12/2023 12/11/2022 Influenza Vaccine (Season Ended) 2025 06/21/20 19, 06/15/2017 Colon Cancer Screening-Colonoscopy 08/12/20322022 Zoster Vaccine Completed 11/03/2017, 09/03/2017 Colon Cancer Screening-CT Colonography Discontinued Colon Cancer Screening-DNA Stool Discontinued 08/12/19 Colon Cancer Screening-FIT Discontinued 08/12/2022 Colon Cancer Screening-Sigmoidoscopy Discontinued 08/02 Medical Devices Implanted Type Area Bleacher [employer] Device Identifier Shelf Expiration Date Model / Serial / Lot [employer]ol Inc/C R Bard 6x3in Large Pore Knit Monofilament Smooth [place] [id number] - [id number] Implanted:Qty: 1 on 12/09/2022 by Dominik Alejandro MD at [facility] Mesh N/A: Abdomen Dav[employer] Inc/C R Bard [id number] 04/29/2027 [id number] / / [id number] Plates And Screws Right: Wrist Procedures Procedure Name Priority Date/Time Associated Diagnosis Comments COLONOSCOPY 08/12/2022 12:59 PM INDUSTRIAL PSYCHOLOGY TEACHER from Last 3 Months or Most Recently Relevant to Health Maintenance Results * COLONOSCOPY (08/12/2022 12:59 PM INDUSTRIAL PSYCHOLOGY TEACHER) Anatomical Region Laterality Modality Other Narrative Procedure Note Hiral Vidales MD - 08/12/2022 12:59 PM CST [facility] GI ENDOSCOPY Patient Name: Bethany Almaraz Procedure Date: 08/12/2022 12:59 PM Date of : 1960 Admit Type: Outpatient Age: 62 Gender: Female Attending MD: Hiral Vidales M.D. Room: [facility] ENDOSCOPY ROOM 05 Note Status: [...] On: 08/12/2022 12:59 PM Recognized by the [place] [employer] for promoting quality in endoscopy us Hiral Vidales MD ENDOSCOPY PROCEDURES Final Resul t from Last 3 Months or Most Recently Relevant to Health Maintenance Insurance [employer] [place] [address] [employer] MEDICARE [employer] MEDICARE Advance Directives For more information, please contact: [phone] * Full Code (Latest Code Status on File) Date Activated Date Inactivated Comments 12/09/2022 4:30 PM 12/11/2022 8:52 PM Care Teams Blanket Weaver Relationship Specialty Start Date End Date Luis White MD [address] [address] PCP - General Emergency Medicine 03/07/19 Dominik Alejandro MD [phone] [place] [address] Surgeon Colon and Rectal Surgery 11/06/22 Hiral Vidales MD [address] [address] Consulting Physician General Surgery 11/06/22
--- OUTSIDE RECORDS SUMMARY | 2024-12-24 18:47 | XMS_ITS | Referral Summary ---
Author Organization [facility] Healthcare Address [address] [place] [address] Care Team Providers Care Newspaper Manager Name Role Phone Luis White MD Primary Care Provider [phone] Dominik Alejandro MD Unavailable [phone] Hiral Vidales MD Unavailable Encounters Date Type Department Care Team Description 11/14/2024 4:30 PM CDT Telemedicine [facility] Movement Disorders [address] [place] [address] Medicine 7th [place] [address] Winnie Hammond MD PhD Cerebellar ataxia (HCC) (Primary Dx); Parkinsonism, unspecified Parkinsonism type (HCC) 10/10/2024 Telephone [facility] Epilepsy [facility] Medicine 6th [place] [address] [place] [address] Alexis Romero MD PhD Lab Results 10/03/2024 Telephone [facility] Epilepsy [address] [facility] Medicine 6th [place] [address] [place] [address] Alexis Romero MD PhD from [...] total) by mouth nightly 30 tablet 11 4 025 Active carbidopa-levodo pa (SINEMET) 25-100 [...] (11/09/2022): Added automatically from request for surgery [id number] Temporal lobe epilepsy, intractable 09/19/2018 Cerebellar ataxia [...] which took place via Real-time video connection ([employer], VoltServer or similar). During the visit, I was located in my clinic office at the [facility], in the [place], [place] and the patient was located at her residential facility in [place]. The session started at 4:33 PM and [...] services. Assessment & Plan (10/02/2021 4:23 PM DERMATOLOGY TEACHER): She has a subacute onset (2015), [...] which took place via Real-time video connection ([employer], [employer]om or similar). During the visit, I was located in my clinic office in the [facility], in the [facility] [place], [place] and the patient was located at her home in [place]. The session started at 13:08 and ended [...] a telephone or video visit during the [facility] [place] [address] emergency. After being given an opportunity to [...] precautions. Assessment & Plan (08/24/2019 4:56 PM DERMATOLOGY TEACHER): She has a subacute onset (2015), [...] on file Legal Sex Female 11:43 PM DERMATOLOGY TEACHER Gender Identity Female 11/05/2020 1:42 AM [...] on file Medical Devices Implanted Type Area [employer] Director Device Identifier Shelf Expiration Date Model / Serial / Lot Davol Inc/C R Bard 6x3in Large Pore Knit Monofilament Smooth [place] [id number] - [id number] Implanted:Qty: 1 on 12/09/2022 by Dominik Alejandro MD at [facility] Mesh N/A: Abdomen [employer] Inc/C R Bard [id number] 04/29/2027 [id number] / / [id number] Plates And Screws Right: Wrist Procedures Procedure Name Priority Date/Time Associated Diagnosis Comments COLONOSCOPY 08/12/2022 12:59 PM DERMATOLOGY TEACHER from Last 3 Months or Most Recently Relevant to Health Maintenance Results * COLONOSCOPY (08/12/2022 12:59 PM DERMATOLOGY TEACHER) Anatomical Region Laterality Modality Other Narrative Procedure Note Hiral Vidales MD - 08/12/2022 12:59 PM CST [facility] GI ENDOSCOPY Patient Name: Bethany Almaraz [...] Recently Relevant to Health Maintenance Insurance DR SCHWARTZ [address] [place] [id number] [place] [address] [place] [address] [employer] MED[employer]ARE Advance Directives For more information, please contact: [phone] * Full Code (Latest Code Status on File) Date Activated Date Inactivated Comments 12/09/2022 4:30 PM 12/11/2022 8:52 PM Care Teams Newspaper Manager Relationship Specialty Start Date End Date Luis White MD [address] [address] PCP - General Emergency Medicine 03/07/19 Dominik Alejandro MD [address] [facility] [phone] [place] [address] Surgeon Colon and Rectal Surgery 11/06/22 Hiral Vidales MD [address] [address] Consulting Physician General Surgery 11/06/22
[2024-12-24 19:14] LABS: Add Urine Microscopic? YES; Appearance Urine Clear (Clear); Bacteria Urine 4+ /hpf; Bilirubin Urine Negative (Negative); Blood Urine Negative (Negative); Color Urine Yellow (Yellow); Glucose Urine UA Negative (Negative); Ketones Urine Negative (Negative); Leukocyte Esterase Ur 3+ LEU/UL (Negative); Nitrate Urine Positive (Negative); Non Pathogenic Casts 0-2; Protein Urine Negative (Negative); RBC Urine 0-2 /hpf (0-2); Specific Grav Ur 1.008 (1.001-1.035); Squamous Epithelial Cell Urine None Seen /hpf (Few); Urobilinogen Urine 0.2 mg/dL (<2.0); pH Urine 6.5 (5.0-9.0)
[2024-12-24 20:38] VITALS: BP 137/81; PULSE 73; RESP 16; O2SAT 99
== END 2024-12-24 20:41 ==
PROVIDERS: Emergency Provider Emergency Medicine; PCP Nurse Practitioner
DX: T83.511A Infection and inflammatory reaction due to indwelling urethral catheter, initial encounter (principal); Y73.1 Therapeutic (nonsurgical) and rehabilitative gastroenterology and urology devices associated with adverse incidents; S00.81XA Abrasion of other part of head, initial encounter; F32.A Depression, unspecified; E03.9 Hypothyroidism, unspecified; G40.909 Epilepsy, unspecified, not intractable, without status epilepticus; W19.XXXA Unspecified fall, initial encounter
CPT/HCPCS: 36415; 70450; 71045; 72125; 80053; 81001; 82550; 84484; 85025; 87086; 93005; 96365; 99284; J0696

== ENCOUNTER 2025-04-21 18:54 | Inpatient (IN) | payer MEDICARE, SELFPAY ==
--- NOTE | ~2025-04-21 | CT_ITS ---
EXAMINATION: CT brain wo con DATE: 04/22/2025 10:25 INDICATION: Subdural hematoma post recent fall TECHNIQUE: Computed tomography (CT) of the head was performed without intravenous contrast. Sagittal and coronal reconstructions were performed. The mA was adjusted according to patient size. Iterative reconstruction technique was employed. The dose-length product was 852.12 mGy-cm. COMPARISON: 04/21/2025 FINDINGS: Again seen is left periorbital soft tissue swelling. Orbits are otherwise normal with intact appearing globes and no post septal inflammatory stranding. No calvarial fracture. No significant interval change in extensive left subdural hematoma overlying the frontal, parietal and temporal lobes which measures up to 6 mm in maximal thickness. No significant midline shift when compared with CT from 12/24/2024 preceding the hematoma. No new intracranial hemorrhage, acute infarction or other abnormal extra axial fluid collection. Symmetric prominence of the sulci consistent with mild age-appropriate diffuse cerebral volume loss. Ventricles are normal and symmetric. No soft tissue masses identified. Mild mucosal thickening in the bilateral ethmoid and left maxillary sinuses. The mastoid air cells and middle ear cavities are normal. Intracranial calcified cerebral atherosclerosis is noted. IMPRESSION: 1. No significant interval change in extensive left subdural hematoma. Reviewed, dictated and finalized at location A.
--- NOTE | ~2025-04-21 | XR_ITS ---
EXAMINATION: XR chest 1V portable COMPARISON: No comparisons available. HISTORY: seizure/FALL FINDINGS: Small basilar infiltrates suspected. No pneumothorax. Heart is normal size. Mediastinal and hilar contours are within normal limits. Scoliosis of the thoracic spine. Miscellaneous: None Impression: Early basilar pneumonia Reviewed, dictated and finalized at location A. Impression: Early basilar pneumonia
--- NOTE | ~2025-04-21 | CT_ITS ---
CT HEAD NON-CONTRAST CT C-SPINE Clinical History: unwitnessed fall Comparison: CT head 12/24/2024 CT C-spine 08/30/2024 Technique: Unenhanced axial images skull base to vertex. Coronal, sagittal reformats. Axial images thoracic inlet to skull base. Sagittal and coronal reformats. CT images acquired with automatic exposure control for dose reduction DLP: 1362 mGy-cm Findings: Head: Left holohemispheric subdural hemorrhage, 8 mm maximal thickness. 2 mm [id number] midline shift. Sulci, ventricles: Unremarkable. No evidence acute territorial infarct. Bony calvarium intact. Visualized paranasal sinuses: Clear. Mastoid air cells: Clear. Left periorbital contusion. C-spine: No acute fracture. Grade 1 anterolisthesis C2 on 3, C3 on 4 Straightening of normal cervical lordosis. Moderate multilevel degenerative changes and disc disease. Prevertebral soft tissues within normal limits. Visualized lung apices: Clear. Visualized thyroid: Unremarkable. No enlarged cervical nodes. IMPRESSION: HEAD: 1. 8 mm holohemispheric subdural hemorrhage left side. 2. 2 mm [id number] midline shift. C-SPINE: 1. No acute fracture. Reviewed, dictated and finalized at location R. IMPRESSION: HEAD: 1. 8 mm holohemispheric subdural hemorrhage left side. 2. 2 mm [id number] midline shift. C-SPINE: 1. No acute fracture. IMPRESSION: HEAD: 1. 8 mm holohemispheric subdural hemorrhage left side. 2. 2 mm [id number] midline shift. C-SPINE: 1. No acute fracture.
--- NOTE | ~2025-04-21 | XR_ITS ---
EXAMINATION: XR hand RT 2V, 04/22/2025 11:20 CDT HISTORY: edema/pain COMPARISON: No comparisons available. Findings: No acute fracture or malalignment. Severe degenerative changes of the distal and proximal interphalangeal joints as well as the first metacarpal carpal joint with fragmentation and small erosions Soft tissues unremarkable. Impression: No acute fracture or malalignment. Reviewed, dictated and finalized at location A. Impression: No acute fracture or malalignment.
--- NOTE | ~2025-04-21 | CT_ITS ---
EXAMINATION: CT pelvis wo con DATE: 04/22/2025 10:24 INDICATION: Pelvic pain TECHNIQUE: High resolution computed tomography (CT) of the pelvis was performed without intravenous contrast. Additional sagittal and coronal reconstructions were performed. Automated exposure control and iterative reconstruction technique were employed. The dose-length product was 246.79 mGy-cm. COMPARISON: None FINDINGS: L2-S1 combined instrumented anterior and posterior spinal fusion with interbody bone graft cages and bilateral vertical susan and pedicle screw fixation at each level of the cephalad-most level seen on the manager channel topogram. In addition there is been prior lag screw fixation of a chronic healed subcapital fracture of the proximal left femur. Bone alignment remains near-anatomic. No acute fractures identified or osteonecrosis. Unchanged sclerotic right intertrochanteric bone with typical spiculated margins. Mild bilateral hip and sacroiliac osteoarthritis. There is pelvic floor relaxation. There appears to be wall thickening of the anus and distal rectum. Suprapubic [place] catheter in the bladder. The uterus is not identified and has likely been surgically resected. No pathologically enlarged pelvic or inguinal lymphadenopathy. Visualized caudal tip of the right hepatic lobe and lower pole the right kidney all appear unremarkable. IMPRESSION: 1. Mild bilateral hip and sacroiliac osteoarthritis. No acute osseous abnormality. 2. Postoperative change of prior instrumented L3-S1 anterior and posterior spinal fusion and screw fixation of an old healed left femoral subcapital fracture. 3. Pelvic floor relaxation with nonspecific wall thickening of the [place] rectum which could be due to a proctocolitis or malignancy. Correlate clinically and with bronchoscopy as clinically indicated. Reviewed, dictated and finalized at location A. IMPRESSION: 1. Mild bilateral hip and sacroiliac osteoarthritis. No acute osseous abnormali ty. 2. Postoperative change of prior instrumented L3-S1 anterior and posterior spin al fusion and screw fixation of an old healed left femoral subcapital fracture. 3. Pelvic floor relaxation with nonspecific wall thickening of the [place] rec jason which could be due to a proctocolitis or malignancy. Correlate clinically a nd with bronchoscopy as clinically indicated.
[2025-04-21 18:55] VITALS: BP 104/71; PULSE 86; RESP 16; TEMP 37.6; O2SAT 100
[2025-04-21 19:16] VITALS: BP 109/75; PULSE 98; RESP 21; O2SAT 93
[2025-04-21 19:31] VITALS: BP 128/76; PULSE 85; RESP 16; O2SAT 95
[2025-04-21 19:41] LABS: Hematocrit 35.7 % (37.0-47.0); Hemoglobin 11.7 g/dL (12.0-15.0); Immature Granulocyte Percent A 0.3 % (0-0.5); Lymphocytes Absolute Auto 0.76 K/mm3 (0.9-3.2); Mean Corpuscular HGB Conc 32.8 g/dl (32-36); Mean Corpuscular Hemoglobin 31.6 pg (26-34); Mean Corpuscular Volume 96.5 fl (80-100); Nucleated Red Blood Cells Absolute Auto 0.000 K/mm3 (0.0-0.012); Nucleated Red Blood Cells Perc 0.0 % (0.0-0.2); Platelet Count Result 267 k/mm3 (150-375); Red Blood Count 3.70 M/mm3 (4.2-5.4); White Blood Count 5.9 K/mm3 (4.5-10.0)
[2025-04-21 19:45] LABS: Add Urine Microscopic? YES; Appearance Urine Clear (Clear); Glucose Urine UA Negative (Negative); Leukocyte Esterase Ur 2+ LEU/UL (Negative); Nitrate Urine Negative (Negative); Non Pathogenic Casts 0-2; Specific Grav Ur 1.004 (1.001-1.035)
[2025-04-21 19:58] LABS: Alanine Aminotransferase 18 U/L (6-35); Albumin Level 4.1 g/dL (3.5-5.1); Alkaline Phosphatase 61 U/L (38-126); Anion Gap 10 mmol/L (4-12); Aspartate Amino Transferase 26 U/L (14-36); Bilirubin,Total 0.2 mg/dL (0.2-1.3); Blood Urea Nitrogen 7 mg/dL (7-17); Calcium 9.1 mg/dL (8.4-10.2); Carbon Dioxide 21 mmol/L (22-30); Chloride 102 mmol/L (98-107); Estimated Glomerular Filt Rate > 60; Glucose 111 mg/dL (65-110); Potassium 3.5 mmol/L (3.4-5.0); Sodium 133 mmol/L (137-145); Total Protein 7.2 g/dL (6.3-8.2)
--- NOTE | 2025-04-21 20:23 | PC.NURSE ---
This RN called and spoke to pt sister Lena and gave update on pt. Will call back with updates on pt status.
--- NOTE | 2025-04-21 20:39 | ED.SEIZURE ---
HPI - Seizure General Chief Complaint: Seizure Stated Complaint: seizure Time Seen by Provider: 04/21/25 18:57 History of Present Illness HPI Narrative: Patient with history of end-stage dementia, seizures, at assisted living facility presents here after having a long seizure and fall, EMS gave her a total of 15 mg of Versed before she stopped seizing. Seizure History: Yes (Epilepsy) Related Data Home Medications ?Medication ?Instructions ?Recorded ?Confirmed ?Last Taken ?Type acetaminophen 500 mg tablet 500 mg PO .Q6 PRN Pain 06/15/24 09/05/24 Unknown History alendronate 70 mg tablet 70 mg PO WEEKLY 06/15/24 09/05/24 Unknown History ascorbic acid (vitamin C) 500 mg 500 mg PO DAILY 06/15/24 09/05/24 Unknown History tablet (Vitamin C) calcium 333 mg-vit D3 133 1 tablet PO DAILY 06/15/24 09/05/24 Unknown History unit-magnesium 133 mg-zinc 5 mg tablet (Michael Mag Zinc Plus D3) calcium carbonate (Oyster Shell 1,000 mg PO BID 06/15/24 09/05/24 06/15/24 18:00 History Calcium 500) cholecalciferol (vitamin D3) 25 25 mcg PO DAILY 06/15/24 09/05/24 Unknown History mcg (1,000 unit) capsule (Vitamin D3) cyanocobalamin (vitamin B-12) 2,500 mcg PO DAILY 06/15/24 09/05/24 Unknown History 2,500 mcg sublingual tablet hydrocortisone 2.5 % topical cream 1 applic topical BID PRN 06/15/24 09/05/24 Unknown History with perineal applicator Hemorrhoids (Anusol-HC) hydrocortisone acetate 25 mg 25 mg RECTAL BID PRN hemmorhoid 06/15/24 09/05/24 Unknown History rectal suppository (Anusol-HC) niacin (inositol niacinate) 500 mg 1 tablet PO DAILY 06/15/24 09/05/24 Unknown History tablet carbamazepine 100 mg 100 mg PO BID 09/05/24 09/08/24 09/08/24 History tablet,extended release,12 hr (Tegretol XR) carbamazepine 400 mg 400 mg PO BID 09/05/24 09/08/24 09/08/24 History tablet,extended release,12 hr diphenoxylate-atropine 2.5 1 tablet PO HS PRN diarrhea 09/05/24 09/05/24 Unknown History mg-0.025 mg tablet doxycycline monohydrate 100 mg 100 mg PO Q24H 09/05/24 09/05/24 Unknown History capsule zonisamide 100 mg capsule 500 mg PO QPM 09/05/24 09/05/24 Unknown History Allergies Allergy/AdvReac Type Severity Reaction Status Date / Time felbamate (From Felbatol) Allergy Severe Anaphylaxis Verified 10/15/24 04:21 sulfamethoxazole (From AdvReac Unknown DIZZINESS Verified 10/15/24 04:21 Bactrim) trimethoprim (From Bactrim) AdvReac Unknown DIZZINESS Verified 10/15/24 04:21 Sulfa (Sulfonamide AdvReac Dizziness Verified 10/15/24 04:21 Antibiotics) Review of Systems Review of Systems: ROS unobtainable: Yes unobtainable due to mental status PMFSH Past Medical History Medical History Rectal prolapse Impaired cognition Depression Hypothyroidism Epilepsy Social History Social History Smoking status: Unknown if ever smoked Alcohol intake: current Substance use: never Substance use type: does not use Do You Feel Safe in your Home?: Yes Lack of Transportation: No Lack of Food: Never True Current Housing: I Have Housing Concerned About Future Housing: No Difficulty Paying Gas/Electric Bills: No Difficulty Paying for Meds: No Currently Unemployed: No Education: Don't Know Difficulty w/ Childcare or Family Care: No Living arrangements: senior living Additional living arrangements comments: [place] Occupation/Education: retired 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 HEART: [Regular rate and rhythm] ABD: [Soft], [nontender to palpation] EXT: No obvious deformity SKIN: Abrasions to bilateral feet, laceration left eyebrow NEURO: [Sleeping. No gross focal sensory or strength deficits.] Course Vital Signs Vital signs: Vital Signs Temperature 99.6 F 04/21/25 18:55 Pulse Rate 86 04/21/25 18:55 Respiratory Rate 16 04/21/25 18:55 Blood Pressure 104/71 04/21/25 18:55 Pulse Oximetry 100 04/21/25 18:55 Oxygen Delivery Non-Rebreather Mask 04/21/25 18:55 Oxygen Flow Rate 15 04/21/25 18:55 Temperature 99.6 F 04/21/25 18:55 Pulse Rate 85 04/21/25 19:31 Respiratory Rate 16 04/21/25 19:31 Blood Pressure 128/76 04/21/25 19:31 Pulse Oximetry 95 04/21/25 19:31 Oxygen Delivery Room Air 04/21/25 19:31 Oxygen Flow Rate 15 04/21/25 18:55 MDM - Seizure MDM Narrative Medical decision making narrative: Patient presents here after sustaining a fall and having a prolonged seizure, she is on multiple seizure medications, seizure finally aborted after 15 mg of Versed from EMS. On exam she is initially sleeping, does have signs of head injury, left black eye, laceration to left eyebrow. Left eyebrow cleaned off and closed with glue, well approximated patient tolerated well. CT brain on my independent interpretation does show large left subdural, I did call the family and explained the diagnosis and offered transfer to trauma center with neurosurgical capabilities, her POA sister Lena Wade reiterates that the patient is comfort care only, she does not want the patient transferred anywhere, does not want anything invasive, including no surgery; ideally would want patient to go back home so she can in peace, however she is currently living in assisted living and would not have help if she were to become more debilitated and deteriorate neurologically. With shared decision making, POA asks for patient to be admitted here while they work on placing patient in higher level of care such as custodial facility. Discussed with hospitalist for admission Lab Data 04/21/25 19:25 04/21/25 19:25 Labs: Lab Results 04/21/25 Range/Units 19: WBC 5.9 (4.5-10.0) K/mm3 RBC 3.70 L (4.2-5.4) M/mm3 Hgb 11.7 L (12.0-15.0) g/dL Hct 35.7 L (37.0-47.0) % MCV 96.5 (80-100) fl MCH 31.6 (26-34) pg MCHC 32.8 (32-36) g/dl RDW 14.0 (11.5-14.5) % Plt Count 267 (150-375) k/mm3 MPV 10.8 H (7.4-10.4) fl Immature Gran % (Auto) 0.3 (0-0.5) % Neut % (Auto) 78.0 H (45.5-73.1) % Lymph % (Auto) 12.8 L (18.3-44.2) % Ritchie % (Auto) 5.9 (2.6-8.5) % Eos % (Auto) 2.5 (0-4.4) % Baso % (Auto) 0.5 (0.2-1.2) % Lymph # (Auto) 0.76 L (0.9-3.2) K/mm3 Ritchie # (Auto) 0.4 (0.1-0.6) K/mm3 Eos # (Auto) 0.2 (0-0.3) K/mm3 Baso # (Auto) 0.0 (0.0-0.1) K/mm3 Abs Immat Gran (auto) 0.02 (0.00-0.031) K/mm3 Absolute Neuts (auto) 4.6 (1.3-6.7) K/mm3 Absolute Nucleated RBC 0.000 (0.0-0.012) K/mm3 Nucleated RBC % 0.0 (0.0-0.2) % Sodium 133 L (137-145) mmol/L Potassium 3.5 (3.4-5.0) mmol/L Chloride 102 (98-107) mmol/L Carbon Dioxide 21 L (22-30) mmol/L Anion Gap 10 (4-12) mmol/L BUN 7 (7-17) mg/dL Creatinine 0.56 L (0.7-1.0) mg/dL Estim Creat Clear Calc Not Reportable Estimated GFR > 60 (59 - ) Glucose 111 H (65-110) mg/dL Calcium 9.1 (8.4-10.2) mg/dL Total Bilirubin 0.2 (0.2-1.3) mg/dL AST 26 (14-36) U/L ALT 18 (6-35) U/L Alkaline Phosphatase 61 (38-126) U/L Total Protein 7.2 (6.3-8.2) g/dL Albumin 4.1 (3.5-5.1) g/dL Urine Color Yellow (Yellow) Urine Appearance Clear (Clear) Urine pH 7.5 (5.0-9.0) Ur Specific [place] 1.004 (1.001-1.035) Urine Protein Negative (Negative) mg/dL Urine Glucose (UA) Negative (Negative) mg/dL Urine Ketones Negative (Negative) mg/dL Ur Blood (Man) Negative (Negative) Urine Nitrate Negative (Negative) Urine Bilirubin Negative (Negative) Urine Urobilinogen 0.2 (<2.0) mg/dL Leukocyte Esterase Rfl 2+ H (Negative) ROSALIND/UL Urine RBC 0-2 (0-2) /hpf Urine WBC 11-20 H (0-3) /hpf Ur Squamous Epith Cells None seen (Few) /hpf Urine Bacteria 4+ H /hpf Urine Casts 0-2 Critical Care Time Critical Care Time Critical Care Time: Yes Total Critical Care Time: 31 Discharge Plan Discharge Clinical Impression: Seizure, Facial laceration, Subdural hemorrhage, Acute UTI Patient Disposition: Still a Patient Condition: Serious
[2025-04-21] MEDS: cefTRIAXone 1 GM in SODIUM CHLORIDE 0.9% IV 50 ML 100 ML IVPB (20:48)
[2025-04-21 23:10] VITALS: PULSE 77; RESP 16; O2SAT 97; BMI 18.8
--- NOTE | 2025-04-21 23:13 | ADMGEN ---
This patient, Bethany Almaraz, was admitted to [facility] Surg Room 312-01. Patient/family oriented to hospital policies and general routines including ID bracelet, bed and alarms, visiting hours, pain management, procedures, bathroom and other care routines, personal items, smoking policy, room service/diet, and visiting hours. Information on how to activate the Rapid Response Team has been discussed. Patient/Family are encouraged to report perceived risks to care and to ask questions if they do not understand what they are told or what they should do.
[2025-04-21] MEDS: MORPHINE SULFATE (*CRX) 2 MG/ML INJ IV PUSH (23:18)
[2025-04-21 23:20] VITALS: BP 136/70; PULSE 73; RESP 14; TEMP 37.3; O2SAT 99
[2025-04-22] MEDS: MORPHINE SULFATE (*CRX) 2 MG/ML INJ IV PUSH ×5 (00:17→20:49)
--- NOTE | 2025-04-22 03:47 | PM.IMHP ---
H&P: HPI History of Present Illness Date/Time: 04/22/25 03:47 Chief Complaint: Seizure Narrative: This is a 64-year-old female patient who has end-stage dementia and resides at the assisted living facility. It was noted that the patient had a fall after having a long seizure. The patient was given 15 mg of Versed before the seizure stopped. The patient is nonverbal now. Answering the questions by shaking her head yes and no. The patient has a laceration to the left brow which is cleansed and surgical glue was applied to the area. CT of the brain interpretation shows a large left subdural hematoma per ER interpretation. The family was called and explained the diagnosis per the ED physician. ED physician offered to transfer the [facility]. Her sister Lena Wade explained that the patient is comfort measures only. The power mergers and acquisitions attorney declined the transfer. The patient has a large hematoma over the left eyebrow. Cervical spine CT was taken as well. Chest x-ray was read as early bibasilar pneumonia. Her H&H is 11.7 and 35.7. Her sodium was slightly low at 133. Urinalysis was read as 2+ leukocyte esterase, urine wbc's 11 20, and urine bacteria 4+. Her last urine culture 12/24/2024 had no growth. She had similar findings with her urinalysis at that time as well. The patient was started on ceftriaxone. She is admitted to inpatient date of service 04/22/2025 Review of Systems Review of Systems: The patient is shaking her yes ROS unobtainable: Yes unobtainable due to medical condition and unobtainable due to mental status [facility] Past Medical History Medical History (Updated 04/22/25 @ 04:20 by Concetta Castellanos APRN) Parkinson disease family denies Rectal prolapse Impaired cognition Depression Hypothyroidism Epilepsy Surgical History Surgical History (Updated 04/22/25 @ 04:12 by Concetta Castellanos APRN) History of arthroplasty of left hip Left hip pinning Family History Family History Sibling Bladder cancer Spina bifida of lumbar spine Mother Diabetes mellitus Father Hyperlipemia Hypertension Social History Social History (Updated 04/22/25 @ 04:13 by Concetta Castellanos APRN) Social History: Code status DNR Smoking status: Never smoker Alcohol intake: current Drinks per week: 1 Substance use: never Substance use type: does not use Do You Feel Safe in your Home?: Yes Lack of Transportation: No Lack of Food: Never True Current Housing: I Have Housing Concerned About Future Housing: No Difficulty Paying Gas/Electric Bills: No Difficulty Paying for Meds: No Currently Unemployed: No Education: Don't Know Difficulty w/ Childcare or Family Care: No Living arrangements: [facility] Additional living arrangements comments: [facility] Occupation/Education: retired 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 Additional gender identity comments: Spiritual care concerns: No Meds Home Medications and Allergies Home Medications ?Medication ?Instructions ?Recorded ?Confirmed ?Type acetaminophen 500 mg tablet 500 mg PO .Q6 PRN Pain 06/15/24 04/21/25 History alendronate 70 mg tablet 70 mg PO WEEKLY 06/15/24 04/21/25 History ascorbic acid (vitamin C) 500 mg 500 mg PO DAILY 06/15/24 04/21/25 History tablet (Vitamin C) calcium 333 mg-vit D3 133 1 tablet PO DAILY 06/15/24 04/21/25 History unit-magnesium 133 mg-zinc 5 mg tablet (Michael Mag Zinc Plus D3) calcium carbonate (Oyster Shell 1,000 mg PO BID 06/15/24 04/21/25 History Calcium 500) cholecalciferol (vitamin D3) 25 25 mcg PO DAILY 06/15/24 04/21/25 History mcg (1,000 unit) capsule (Vitamin D3) cyanocobalamin (vitamin B-12) 2,500 mcg PO DAILY 06/15/24 04/21/25 History 2,500 mcg sublingual tablet hydrocortisone 2.5 % topical cream 1 applic topical BID PRN 06/15/24 04/21/25 History with perineal applicator Hemorrhoids (Anusol-HC) hydrocortisone acetate 25 mg 25 mg RECTAL BID PRN hemmorhoid 06/15/24 04/21/25 History rectal suppository (Anusol-HC) niacin (inositol niacinate) 500 mg 1 tablet PO DAILY 06/15/24 04/21/25 History tablet L.acidophil,salivari-Bifido 1 cap PO DAILY #30 caps 12/05/24 09/20/25 Rx bifidum-Strep thermoph 175 mg capsule aripiprazole 10 mg tablet 10 mg PO DAILY #30 tabs 07/06/24 04/21/25 Rx buspirone 15 mg tablet 15 mg PO BID #60 tabs 07/06/24 04/21/25 Rx carbidopa 25 mg-levodopa 100 mg 1.5 tablet PO TID #30 tabs 07/06/24 04/21/25 Rx tablet docusate sodium 100 mg capsule 100 mg PO Q12HR 30 days #60 caps 07/06/24 04/21/25 Rx duloxetine 60 mg capsule,delayed 60 mg PO BID 30 days #0 caps 07/06/24 04/21/25 Rx release levothyroxine 150 mcg tablet 150 mcg PO DAILY #30 tabs 07/06/24 04/21/25 Rx polyethylene glycol 3350 17 gram 17 g PO QAM #0 ea 07/06/24 04/21/25 Rx oral powder packet (Miralax) primidone 250 mg tablet 250 mg PO HS #30 tabs 07/06/24 04/21/25 Rx sennosides 8.6 mg-docusate sodium 1 tab-cap PO HS 30 days #30 tabs 07/06/24 04/21/25 Rx 50 mg tablet (Senokot-S) sertraline 100 mg tablet 100 mg PO DAILY #30 tabs 07/06/24 04/21/25 Rx tamsulosin 0.4 mg capsule 0.4 mg PO DAILY #30 caps 07/06/24 04/21/25 Rx trazodone 50 mg tablet 50 mg PO DAILY #30 tabs 07/06/24 04/21/25 Rx carbamazepine 100 mg 100 mg PO BID 09/05/24 04/21/25 History tablet,extended release,12 hr (Tegretol XR) carbamazepine 400 mg 400 mg PO BID 09/05/24 04/21/25 History tablet,extended release,12 hr diphenoxylate-atropine 2.5 1 tablet PO HS PRN diarrhea 09/05/24 04/21/25 History mg-0.025 mg tablet zonisamide 100 mg capsule 500 mg PO QPM 09/05/24 04/21/25 History Allergies Allergy/AdvReac Type Severity Reaction Status Date / Time felbamate (From Felbatol) Allergy Severe Anaphylaxis Verified 04/21/25 23:38 sulfamethoxazole (From AdvReac Unknown DIZZINESS Verified 04/21/25 23:38 Bactrim) trimethoprim (From Bactrim) AdvReac Unknown DIZZINESS Verified 04/21/25 23:38 Sulfa (Sulfonamide AdvReac Dizziness Verified 04/21/25 23:38 Antibiotics) Vital Signs Vital Signs - 24 hr 04/21/25 18:55 04/21/25 19:16 04/21/25 19:31 Temperature 99.6 F Pulse Rate 86 98 85 Respiratory Rate 16 21 H Blood Pressure 104/71 109/75 Pulse Oximetry 100 93 Oxygen Delivery Non-Rebreather Mask Oxygen Flow Rate 15 04/21/25 19:31 04/21/25 19:31 04/21/25 22:12 Temperature Pulse Rate 85 Respiratory Rate 16 Blood Pressure 128/76 Pulse Oximetry 95 95 Oxygen Delivery Room Air Room Air Oxygen Flow Rate 04/21/25 23:10 04/21/25 23:20 04/22/25 01:07 Temperature 99.2 F Pulse Rate 77 73 Respiratory Rate 16 14 Blood Pressure 136/70 Pulse Oximetry 97 99 Oxygen Delivery Room Air Oxygen Flow Rate Exam Const: General: awake, Physically active, ill appearing and tired appearing Nutritional Appearance: average body habitus and well nourished Orientation/consciousness: oriented to person Limitations: no limitations HENMT: Head: normal to inspection, No palpable skull fracture present, normocephalic, atraumatic and abrasion Ears: hearing grossly normal bilaterally Face/Nose/Sinus: Normal external nose present Mouth: Yes Normal oral and palatal mucosa present Eyes: General: appearance normal, both eyes and all related structures Alignment and Position: alignment normal Periorbital: periorbital findings abnormal left (Hematoma although left periorbital area) periorbital swelling, periorbital tenderness and periorbital erythema Eyelids: eyelids normal Conjunctivae: conjunctivae normal Sclera: sclerae normal Pupils: Pupil accommodation reflex normal and Irregular pupils (Pupils slow to respond) EOM: EOMs intact bilaterally Neck: Neck: normal visual inspection, full ROM, no lymphadenopathy, trachea midline and supple Chest: Chest palpation & inspection: normal inspection of the chest Resp: Effort & Inspection: normal respiratory effort Auscultation: clear to auscultation bilaterally Cardio: Palpation: normal PMI Rate: regular rate Rhythm: regular rhythm Heart sounds: S1 normal heart sound present and S2 normal heart sound present Peripheral pulses: Peripheral pulses 2+ throughout GI: Inspection: normal to inspection Auscultation: normal bowel sounds Rectal Exam: deferred Back/Spine/Pelvis: Cervical Spine: cervical ROM normal Skin: General skin exam: normal color Lesions: no lesions Rashes: no rashes Trauma: no lacerations or abrasions Wounds: no wounds Hair: normal Nails: normal Neuro: General: oriented to person Cranial nerves: Yes Equal, round and reactive pupils present and Yes Normal hearing present Cognition (Neuro): abnormal cognition Speech: Abnormal speech present Sensory Exam: normal sensation Extrem: General: normal to inspection Right upper extremity: normal to inspection and shoulder/upper arm Left upper extremity: normal to inspection and shoulder/upper arm Right lower extremity: normal to inspection Left lower extremity: normal to inspection Psych: Appearance: grossly normal Mental Status: mental status grossly normal Speech and movement: Normal speech and movement present Affect: normal affect Attitude: cooperative Insight: Poor insight present (Psych) Judgement: Poor judgement present (Psych) H&P: Results Labs Labs: Short CBC 04/21/25 Range/Units 19:25 WBC 5.9 (4.5-10.0) K/mm3 Hgb 11.7 L (12.0-15.0) g/dL Hct 35.7 L (37.0-47.0) % Plt Count 267 (150-375) k/mm3 BMP 04/21/25 19:25 Sodium 133 L Potassium 3.5 Chloride 102 Carbon Dioxide 21 L BUN 7 Creatinine 0.56 L Glucose 111 H Calcium 9.1 Liver Function 04/21/25 Range/Units 19:25 Total Bilirubin 0.2 (0.2-1.3) mg/dL AST 26 (14-36) U/L ALT 18 (6-35) U/L Alkaline Phosphatase 61 (38-126) U/L Albumin 4.1 (3.5-5.1) g/dL Urine 04/21/25 Range/Units 19:25 Urine Color Yellow (Yellow) Urine Appearance Clear (Clear) Urine pH 7.5 (5.0-9.0) Ur Specific [place] 1.004 (1.001-1.035) Urine Protein Negative (Negative) mg/dL Urine Glucose (UA) Negative (Negative) mg/dL Imaging CT scan - head: Radiologist's impression: ITS Impressions Chest X-Ray 04/21/25 19:41 Impression: Early basilar pneumonia Assessment and Plan Assessment and plan (1) Pneumonia: Code(s): J18.9 - Pneumonia, unspecified organism Status: Acute Assessment and Plan: -Rocephin and doxycycline started. -sputum and blood cultures are pending. (2) Subdural hemorrhage: Code(s): I62.00 - Nontraumatic subdural hemorrhage, unspecified Status: Acute Assessment and Plan: -interpretation of CT per ED provider. -the ED provider did talk with the family who stated that they would like to make her comfort measures as she is a DNR. -the patient is only answer questions by shaking her head yes and no. -care connector consult was placed for hospice. -swallow study has been ordered. -the family had concerns earlier about her taking the medication. At this point I do not feel that the patient would safely be able to swallow any of her pills. Therefore a swallow study was ordered. -earlier the patient's family was concerned about a pelvic/hip fracture and 1 imaging performed. (3) Parkinson disease: Code(s): G20.A1 - Parkinson's disease without dyskinesia, without mention of fluctuations Status: Acute Assessment and Plan: -patient is NPO at this times of her levodopa carbidopa is on hold. (4) Seizure: Code(s): R56.9 - Unspecified convulsions Status: Acute Assessment and Plan: -the patient is NPO at this time -IV Keppra has been ordered. (5) Acute UTI: Code(s): N39.0 - Urinary tract infection, site not specified Status: Acute Assessment and Plan: -patient is on Rocephin. She does have a suprapubic catheter which is chronic. Her urine just may be colonized. Reflux culture has been ordered (6) Hypothyroidism: Code(s): E03.9 - Hypothyroidism, unspecified Status: Acute Assessment and Plan: -the patient is NPO at this time. In the event that patient survives the subdural hematoma then may consider giving half a dose IV -check thyroid levels Quality VTE Prophylaxis VTE prophylaxis: mechanical ordered
[2025-04-22] MEDS: levETIRAcetam 500MG/NACL 100ML 500 MG/100 ML BAG 400 MG IVPB (04:28)
[2025-04-22] MEDS: DOXYCYCLINE IV 100 MG in SODIUM CHLORIDE 0.9% IV 100 ML IVPB ×2 (05:00→16:24)
[2025-04-22 05:46] VITALS: BP 121/57; PULSE 74; RESP 14; TEMP 36.6; O2SAT 95
--- NOTE | 2025-04-22 05:48 | PC.NURSE ---
Call made to Lena Wade for updates on patient and plan of care from provider. POA is satisfied with decisions. Notified care coordinations can help address other concerns for comfort measures/ end of life care.
[2025-04-22 07:20] LABS: Thyroid Stimulating Hormone Reflex 1.690 uIU/mL (0.465-4.68)
--- NOTE | 2025-04-22 07:41 | P.PNIM_ITS ---
Progress Note: A&P Assessment and Plan (1) Pneumonia: Code(s): J18.9 - Pneumonia, unspecified organism Status: Acute Assessment and Plan: -Rocephin and doxycycline started. -sputum and blood cultures are pending. -comfort measures (2) Subdural hemorrhage: Code(s): I62.00 - Nontraumatic subdural hemorrhage, unspecified Status: Acute Assessment and Plan: -interpretation of CT per ED provider. -the ED provider did talk with the family who stated that they would like to make her comfort measures as she is a DNR. -the patient is only answer questions by shaking her head yes and no. -acute care certified nursing assistant consult was placed for hospice. -swallow study has been ordered. -the family had concerns earlier about her taking the medication. At this point I do not feel that the patient would safely be able to swallow any of her pills. Therefore a swallow study was ordered. -earlier the patient's family was concerned about a pelvic/hip fracture and CT pelvis is ordered -sister is asking about a repeat CT head as the ER provider discussed it with her, I ordered one -comfort measures only (3) Parkinson disease: Code(s): G20.A1 - Parkinson's disease without dyskinesia, without mention of fluctuations Status: Acute Assessment and Plan: -patient is NPO at this times of her levodopa carbidopa is on hold. (4) Seizure: Code(s): R56.9 - Unspecified convulsions Status: Acute Assessment and Plan: -the patient is NPO at this time -IV Keppra has been ordered. -seizure precautions (5) Acute UTI: Code(s): N39.0 - Urinary tract infection, site not specified Status: Acute Assessment and Plan: -patient is on Rocephin. She does have a suprapubic catheter which is chronic. Her urine just may be colonized. Reflux culture has been ordered (6) Hypothyroidism: Code(s): E03.9 - Hypothyroidism, unspecified Status: Acute Assessment and Plan: -the patient is NPO at this time. In the event that patient survives the subdural hematoma then may consider giving half a dose IV -comfort measures so avoid blood draw at this time Subjective Date/time seen: 04/22/25 07:41 Interval history: Patient seen lying in bed, in no acute distress. Patient is able to nod her head yes and no to questions. Patient with complaints of right hand pain and head pain. Patients right hand appears bruised and swollen. Patient does not follow commands reliably when asked. Patient;s sister (LIZA) is at bedside and we discussed patients wishes. Patient to remain DNR with comfort measures only. Sister wanted a repeat head CT as the ED provider had discussed this with her overnight. Order placed and this will be done when the CT of the pelvis is completed. X-rays of right hand ordered also. Patient is NPO while pending a swallow study. Patient will continue on IV antibiotics for pneumonia. Hospice will be consulted. Sister states she will contact facility the patient resides at to see if they can accept her back on hospice. Review of Systems Review of Systems: The patient is shaking her yes ROS unobtainable: Yes unobtainable due to medical condition and unobtainable due to mental status ENT: Reports Normal hearing present Neurologic: Reports Normal hearing present and Reports Abnormal speech present Objective Data Vital Signs Vital Signs: Vital Signs - 24 hr 04/21/25 18:55 04/21/25 19:16 04/21/25 19:31 Temperature 99.6 F Pulse Rate 86 98 85 Respiratory Rate 16 21 H Blood Pressure 104/71 109/75 Pulse Oximetry 100 93 Oxygen Delivery Non-Rebreather Mask Oxygen Flow Rate 15 04/21/25 19:31 04/21/25 19:31 04/21/25 22:12 Temperature Pulse Rate 85 Respiratory Rate 16 Blood Pressure 128/76 Pulse Oximetry 95 95 Oxygen Delivery Room Air Room Air Oxygen Flow Rate 04/21/25 23:10 04/21/25 23:20 04/22/25 01:07 Temperature 99.2 F Pulse Rate 77 73 Respiratory Rate 16 14 Blood Pressure 136/70 Pulse Oximetry 97 99 Oxygen Delivery Room Air Oxygen Flow Rate 04/22/25 05:46 Temperature 97.8 F Pulse Rate 74 Respiratory Rate 14 Blood Pressure 121/57 L Pulse Oximetry 95 Oxygen Delivery Oxygen Flow Rate Intake/Output Intake/Output: Intake & Output 04/19/25 04/20/25 04/21/25 04/22/25 23:59 23:59 23:59 23:59 Intake Total 50 200 Output Total 650 200 Balance -600 0 Meds/Results Medications: Active Medications Generic Name Dose Route Start Last Admin Trade Name Freq PRN Reason Stop Dose Admin Carbamazepine 100 mg 04/22/25 09:00 Carbamazepine Xr 100 Mg Tab.Sr.12h PO Q12HR HERIBERTO Ceftriaxone Sodium 1 gm/ 50 mls @ 100 mls/hr 04/22/25 21:00 Sodium Chloride IVPB Q24H HERIBERTO Doxycycline Hyclate 100 mg/ 100 mls @ 100 mls/hr 04/22/25 04:00 04/22/25 06:00 Sodium Chloride IVPB 04/26/25 16:59 Infused Q12H HERIBERTO Infusion Morphine Sulfate 2 mg 04/22/25 03:57 04/22/25 04:56 Morphine Sulfate (*Crx) 2 Mg/Ml Inj IV PUSH 2 mg Q4H PRN Administration Pain Rated 7-10 Radiology Results: ITS Impressions Chest X-Ray 04/21/25 19:41 Impression: Early basilar pneumonia Cervical Spine CT 04/22/25 06:07 IMPRESSION: HEAD: 1. 8 mm holohemispheric subdural hemorrhage left side. 2. 2 mm [id number] midline shift. C-SPINE: 1. No acute fracture. Head CT 04/22/25 06:07 IMPRESSION: HEAD: 1. 8 mm holohemispheric subdural hemorrhage left side. 2. 2 mm [id number] midline shift. C-SPINE: 1. No acute fracture. Labs Labs: Laboratory Results - last 24 hr 04/21/25 04/22/25 19:25 06:10 WBC 5.9 RBC 3.70 L Hgb 11.7 L Hct 35.7 L MCV 96.5 MCH 31.6 MCHC 32.8 RDW 14.0 Plt Count 267 MPV 10.8 H Immature Gran % (Auto) 0.3 Neut % (Auto) 78.0 H Lymph % (Auto) 12.8 L [place] % (Auto) 5.9 Eos % (Auto) 2.5 Baso % (Auto) 0.5 Lymph # (Auto) 0.76 L [place] # (Auto) 0.4 Eos # (Auto) 0.2 Baso # (Auto) 0.0 Abs Immat Gran (auto) 0.02 Absolute Neuts (auto) 4.6 Absolute Nucleated RBC 0.000 Nucleated RBC % 0.0 Sodium 133 L Potassium 3.5 Chloride 102 Carbon Dioxide 21 L Anion Gap 10 BUN 7 Creatinine 0.56 L Estim Creat Clear Calc Not Reportable Estimated GFR > 60 Glucose 111 H Calcium 9.1 Total Bilirubin 0.2 AST 26 ALT 18 Alkaline Phosphatase 61 Total Protein 7.2 Albumin 4.1 TSH (Reflex) 1.690 Urine Color Yellow Urine Appearance Clear Urine pH 7.5 Ur Specific [place] 1.004 Urine Protein Negative Urine Glucose (UA) Negative Urine Ketones Negative Ur Blood (Man) Negative Urine Nitrate Negative Urine Bilirubin Negative Urine Urobilinogen 0.2 Leukocyte Esterase Rfl 2+ H Urine RBC 0-2 Urine WBC 11-20 H Ur Squamous Epith Cells None seen Urine Bacteria 4+ H Urine Casts 0-2 Quality VTE Prophylaxis VTE prophylaxis: mechanical ordered
[2025-04-22 08:22] VITALS: O2SAT 91
--- NOTE | 2025-04-22 09:34 | PCPTNOTE ---
per RN, pt is on comfort care, discharging PT order
[2025-04-22 13:35] VITALS: BP 107/65; PULSE 66; RESP 18; TEMP 35.8; O2SAT 97
[2025-04-22] MEDS: cefTRIAXone 1 GM in SODIUM CHLORIDE 0.9% IV 50 ML 100 ML IVPB (20:54)
[2025-04-22 21:25] VITALS: O2SAT 93
[2025-04-22 22:00] VITALS: BP 131/71; PULSE 75; RESP 16; TEMP 36.3; O2SAT 93
[2025-04-23] MEDS: MORPHINE SULFATE (*CRX) 2 MG/ML INJ IV PUSH ×2 (00:32→04:36)
[2025-04-23] MEDS: DOXYCYCLINE IV 100 MG in SODIUM CHLORIDE 0.9% IV 100 ML IVPB ×2 (04:44→16:04)
[2025-04-23 06:00] VITALS: BP 151/72; PULSE 72; RESP 16; TEMP 36.3; O2SAT 98
[2025-04-23 06:47] LABS: Hematocrit 41.8 % (37.0-47.0); Hemoglobin 13.3 g/dL (12.0-15.0); Immature Granulocyte Percent A 0.3 % (0-0.5); Lymphocytes Absolute Auto 0.83 K/mm3 (0.9-3.2); Mean Corpuscular HGB Conc 31.8 g/dl (32-36); Mean Corpuscular Hemoglobin 32.0 pg (26-34); Mean Corpuscular Volume 100.5 fl (80-100); Nucleated Red Blood Cells Absolute Auto 0.000 K/mm3 (0.0-0.012); Nucleated Red Blood Cells Perc 0.0 % (0.0-0.2); Platelet Count Result 289 k/mm3 (150-375); Red Blood Count 4.16 M/mm3 (4.2-5.4); White Blood Count 9.2 K/mm3 (4.5-10.0)
[2025-04-23 07:09] LABS: Anion Gap 11 mmol/L (4-12); Blood Urea Nitrogen 8 mg/dL (7-17); Calcium 8.6 mg/dL (8.4-10.2); Carbon Dioxide 24 mmol/L (22-30); Chloride 103 mmol/L (98-107); Estimated CRCL calculation 74 ml/min; Estimated Glomerular Filt Rate > 60; Glucose 97 mg/dL (65-110); Potassium 3.6 mmol/L (3.4-5.0); Sodium 138 mmol/L (137-145)
--- NOTE | 2025-04-23 07:46 | P.PNIM_ITS ---
Progress Note: A&P Assessment and Plan (1) Pneumonia: Code(s): J18.9 - Pneumonia, unspecified organism Status: Acute Assessment and Plan: -Rocephin and doxycycline continue -sputum and blood cultures are pending. -comfort measures (2) Subdural hemorrhage: Code(s): I62.00 - Nontraumatic subdural hemorrhage, unspecified Status: Acute Assessment and Plan: -interpretation of CT per ED provider. -the ED provider did talk with the family who stated that they would like to make her comfort measures as she is a DNR. -the patient is only answer questions by shaking her head yes and no. -career coordinator consult was placed for hospice. -swallow study has been ordered. -the family had concerns earlier about her taking the medication. At this point I do not feel that the patient would safely be able to swallow any of her pills. Therefore a swallow study was ordered. -repeat head CT on 04/23 showed stable SDH -comfort measures only -patient had witnessed seizure this AM, lasted approx 1 minute -continue IV keppra -seizure precautions -discharge planning ongoing to return to facility with hospice versus inpatient hospice (3) Parkinson disease: Code(s): G20.A1 - Parkinson's disease without dyskinesia, without mention of fluctuations Status: Acute Assessment and Plan: -patient is NPO at this times of her levodopa carbidopa is on hold. (4) Seizure: Code(s): R56.9 - Unspecified convulsions Status: Acute Assessment and Plan: -the patient is NPO at this time -IV Keppra has been ordered. -seizure precautions -patient had seizure this am witnessed for approx 1 minute -will use IV diazepam if needed (5) Acute UTI: Code(s): N39.0 - Urinary tract infection, site not specified Status: Acute Assessment and Plan: -patient is on Rocephin. She does have a suprapubic catheter which is chronic. Her urine just may be colonized. Reflux culture has been ordered (6) Hypothyroidism: Code(s): E03.9 - Hypothyroidism, unspecified Status: Acute Assessment and Plan: -the patient is NPO at this time. In the event that patient survives the subdural hematoma then may consider giving half a dose IV -comfort measures so avoid blood draw at this time Subjective Date/time seen: 04/23/25 07:46 Interval history: Patient lying in bed, in no distress. Opens eyes, does not nod head today or follow commands. Patient is post ictal. Patient had a witnessed seizure and rapid response was called. Rapid response cancelled as patient is DNR comfort measures only. Seizure stopped without intervention after approximately 1 minute. Patient to continue on IV keppra. Patient on seizure precautions. Care coordination working on discharge plan with family. Potential patient could qualify for inpatient hospice discussed. Review of Systems Review of Systems: ROS unobtainable: Yes unobtainable due to medical condition and unobtainable due to mental status Exam Narrative: EXAMINATION OF ORGAN SYSTEMS/BODY AREAS: GENERAL: opens eyes, does not answer questions or follow commands HEAD: Left head injury EYES: Bruising left eye, tiny cut left eyebrow ENT: hearing appears intact LUNGS: Nonlabored breathing. lungs CTA bilaterally HEART: Regular rate and rhythm ABD: [Soft], [nontender to palpation] positive bowel sounds EXT: No obvious deformity SKIN: Abrasions to bilateral feet, laceration left eyebrow NEURO: opens eyes, does not follow commands Objective Data Vital Signs Vital Signs: Vital Signs - 24 hr 04/22/25 08:22 04/22/25 13:35 04/22/25 20:49 Temperature 96.5 F L Pulse Rate 66 Respiratory Rate 18 Blood Pressure 107/65 Pulse Oximetry 91 97 Oxygen Delivery Room Air Room Air 04/22/25 21:25 04/22/25 22:00 04/23/25 06:00 Temperature 97.4 F L 97.4 F L Pulse Rate 75 72 Respiratory Rate 16 16 Blood Pressure 131/71 151/72 H Pulse Oximetry 93 93 98 Oxygen Delivery Room Air Intake/Output Intake/Output: Intake & Output 04/20/25 04/21/25 04/22/25 04/23/25 23:59 23:59 23:59 23:59 Intake Total 50 350 100 Output Total 442 313 7721 Balance -600 -550 -1100 Meds/Results Medications: Active Medications Generic Name Dose Route Start Last Admin Trade Name Freq PRN Reason Stop Dose Admin Carbamazepine 100 mg 04/22/25 09:00 04/22/25 20:59 Carbamazepine Xr 100 Mg Tab.Sr.12h PO Not Given Q12HR [facility] Ceftriaxone Sodium 1 gm/ 50 mls @ 100 mls/hr 04/22/25 21:00 04/22/25 21:24 Sodium Chloride IVPB Infused Q24H HERIBERTO Infusion Doxycycline Hyclate 100 mg/ 100 mls @ 100 mls/hr 04/22/25 04:00 04/23/25 05:44 Sodium Chloride IVPB 04/26/25 16:59 Infused Q12H HERIBERTO Infusion Morphine Sulfate 2 mg 04/22/25 03:57 04/23/25 04:36 Morphine Sulfate (*Crx) 2 Mg/Ml Inj IV PUSH 2 mg Q4H PRN Administration Pain Rated 7-10 Radiology Results: ITS Impressions Chest X-Ray 04/21/25 19:41 Impression: Early basilar pneumonia Cervical Spine CT 04/22/25 06:07 IMPRESSION: HEAD: 1. 8 mm holohemispheric subdural hemorrhage left side. 2. 2 mm [id number] midline shift. C-SPINE: 1. No acute fracture. Hand X-Ray 04/22/25 15:53 Impression: No acute fracture or malalignment. Head CT 04/23/25 07:23 IMPRESSION: 1. No significant interval change in extensive left subdural hematoma. Labs Labs: Laboratory Results - last 24 hr 04/23/25 05:58 WBC 9.2 RBC 4.16 L Hgb 13.3 Hct 41.8 MCV 100.5 H MCH 32.0 MCHC 31.8 L RDW 14.1 Plt Count 289 MPV 11.1 H Immature Gran % (Auto) 0.3 Neut % (Auto) 83.6 H Lymph % (Auto) 9.0 L [place] % (Auto) 6.0 Eos % (Auto) 0.5 Baso % (Auto) 0.6 Lymph # (Auto) 0.83 L [place] # (Auto) 0.6 Eos # (Auto) 0.1 Baso # (Auto) 0.1 Abs Immat Gran (auto) 0.03 Absolute Neuts (auto) 7.7 H Absolute Nucleated RBC 0.000 Nucleated RBC % 0.0 Sodium 138 Potassium 3.6 Chloride 103 Carbon Dioxide 24 Anion Gap 11 BUN 8 Creatinine 0.52 L Estim Creat Clear Calc 74 Estimated GFR > 60 Glucose 97 Calcium 8.6 Quality VTE Prophylaxis VTE prophylaxis: mechanical ordered
[2025-04-23 08:00] VITALS: PULSE 96; RESP 18; O2SAT 91
--- NOTE | 2025-04-23 08:59 | PC.NURSE ---
Rapid response called at 0859 when staff from housekeeping entered the room and found the patient seizing. Vitals were obtained, Rapid response team at bedside along with Provider. Patient is Comfort measures at this time.
[2025-04-23 09:03] VITALS: BP 154/79; PULSE 101; RESP 14; O2SAT 94
--- NOTE | 2025-04-23 09:58 | PC.NURSE ---
Patients brother is at bedside, calls to state patient is having a seizure. RN notified provider. one time dose of diazepam ordered. When RN entered the room to administer patient was no longer seizing and Keppra IV infusion was still infusing. Diazepam not given at this time. Provider did come to bedside to speak with family. Family verbalizes understanding of recurrent seizures.
[2025-04-23] MEDS: levETIRAcetam 500MG/NACL 100ML 500 MG/100 ML BAG 400 MG IVPB (10:10)
--- NOTE | 2025-04-23 10:19 | P.CDI_ITS ---
CDI Query Clarification Request Clarification request - UTI has been documented, chronic kim catheter documented. Please clarify if UTI is: * due to/associated with chronic kim catheter * not due to/associated with chronic kim catheter * unable to determine hospitalist: (5) Acute UTI: Code(s): N39.0 - Urinary tract infection, site not specified Status: Acute Assessment and Plan: -patient is on Rocephin. She does have a suprapubic catheter which is chronic. Her urine just may be colonized. Reflux culture has been ordered <Rin Ellis RN - Last Filed: 04/23/25 10:22> Clarified Diagnosis Clarified Diagnosis: Acute UTI associated with chronic kim catheter <Rafaela Tanner APRN - Last Filed: 05/10/25 11:46>
[2025-04-23] MEDS: MORPHINE SULFATE (*CRX) 4 MG/ML INJ 2 MG IV PUSH (12:39)
[2025-04-23] MEDS: LORazepam (*CRX) 2 MG/ML ORAL CONCENTRATE 1 ML SYRINGE 0.5 MG PO (13:30)
[2025-04-23 14:00] VITALS: BP 153/76; PULSE 81; RESP 16; TEMP 36.7; O2SAT 97
--- NOTE | 2025-04-23 14:37 | PCSTNOTE ---
CUSTOMER CARE PROFESSIONAL discussed patient status with bedside RNAmina. RN reports patient is lethargic and can no longer respond to yes/no questions. Per RN, patient continues to decline and his pending hospice care, therefore completion of BSE not appropriate at this time.
--- NOTE | 2025-05-21 10:12 | P.DS_ITS ---
DS: Admitting Diagnosis Discharge Date 04/23/25 Admitting Diagnosis pneumonia, subdural hematoma DS: Discharge Diagnosis Discharge Diagnosis (1) Pneumonia: Code(s): J18.9 - Pneumonia, unspecified organism Status: Acute Assessment and Plan: -Rocephin and doxycycline continue -sputum and blood cultures are pending. -comfort measures (2) Subdural hemorrhage: Code(s): I62.00 - Nontraumatic subdural hemorrhage, unspecified Status: Acute Assessment and Plan: -interpretation of CT per ED provider. -the ED provider did talk with the family who stated that they would like to make her comfort measures as she is a DNR. -the patient is only answer questions by shaking her head yes and no. -resident care assistant consult was placed for hospice. -swallow study has been ordered. -the family had concerns earlier about her taking the medication. At this point I do not feel that the patient would safely be able to swallow any of her pills. Therefore a swallow study was ordered. -repeat head CT on 04/23 showed stable SDH -comfort measures only -patient had witnessed seizure 04/22, lasted approx 1 minute -continue IV keppra -seizure precautions -discharge patient to inpatient hospice today (3) Parkinson disease: Code(s): G20.A1 - Parkinson's disease without dyskinesia, without mention of fluctuations Status: Acute Assessment and Plan: -patient is NPO at this times of her levodopa carbidopa is on hold. (4) Seizure: Code(s): R56.9 - Unspecified convulsions Status: Acute Assessment and Plan: -the patient is NPO at this time -IV Keppra has been ordered. -seizure precautions -patient had seizure 04/22 witnessed for approx 1 minute -will use IV diazepam if needed patient is discharging to inpatient hospice (5) Acute UTI: Code(s): N39.0 - Urinary tract infection, site not specified Status: Acute Assessment and Plan: -patient is on Rocephin. She does have a suprapubic catheter which is chronic. Her urine just may be colonized. Reflux culture has been ordered patient discharging to inpatient hospice (6) Hypothyroidism: Code(s): E03.9 - Hypothyroidism, unspecified Status: Acute Assessment and Plan: -the patient is NPO at this time. -comfort measures so avoid blood draw at this time DS: Summary Hospital Course Reason for hospitalization: pneumonia, subdural hematoma Hospital Course: Patient was admitted to the hospital after the patient had a fall after having a long seizure. The patient has severe dementia and lives in an AL facility. The patient was given a total of 15 mg of Versed before the seizure stopped. In the ER the patient;s head CT showed a large left subdural hematoma. The ER offered transfer and the patients POA declined and wanted comfort measures only. Chest X-ray showed early bibasilar pneumonia. UA showed 2+ leukocyte esterase, wbc 11-20 and urine bacteria 4+. Urine culture was pending. Patient was started on IV ceftriaxone. Patient had a witnessed seizure on 04/22 that lasted approximately 1 minute. Continue IV keppra. Patient was able to answer some questions by shaking her head yes or no. The patient was kept NPO as she didn't follow commands to be able to complete a bedside swallow study. All PO medications held .Patients POA wanted patient to be kept comfortable and hospice was consulted. The decision was made to dicharge patient into inpatient hospice. Time Spent with Patient Time attestation: Total time spent providing and/or coordinating discharge services: 35 Minutes Exam Narrative: EXAMINATION OF ORGAN SYSTEMS/BODY AREAS: GENERAL: opens eyes, does not answer questions or follow commands HEAD: Left head injury EYES: Bruising left eye, tiny cut left eyebrow ENT: hearing appears intact LUNGS: Nonlabored breathing. lungs CTA bilaterally HEART: Regular rate and rhythm ABD: [Soft], [nontender to palpation] positive bowel sounds EXT: No obvious deformity SKIN: Abrasions to bilateral feet, laceration left eyebrow NEURO: opens eyes, does not follow commands Const: General: awake, Physically active, ill appearing, tired appearing, average body habitus and well nourished Nutritional Appearance: average body habitus and well nourished Orientation/consciousness: oriented to person Limitations: no limitations HENMT: Head: normal to inspection, No palpable skull fracture present, normocephalic, atraumatic and abrasion Ears: hearing grossly normal bilaterally Face/Nose/Sinus: Normal external nose present Mouth: Yes Normal oral and palatal mucosa present Eyes: General: appearance normal, both eyes and all related structures Alignment and Position: alignment normal Periorbital: periorbital findings abnormal left (Hematoma although left periorbital area) periorbital swelling, periorbital tenderness and periorbital erythema Eyelids: eyelids normal Conjunctivae: conjunctivae normal Sclera: sclerae normal Pupils: Equal, round and reactive pupils present, Pupil accommodation reflex normal and Irregular pupils (Pupils slow to respond) EOM: EOMs intact bilaterally Neck: Neck: normal visual inspection, full ROM, no lymphadenopathy, trachea midline and supple Chest: Chest palpation & inspection: normal inspection of the chest Resp: Effort & Inspection: normal respiratory effort Auscultation: clear to auscultation bilaterally Cardio: Palpation: normal PMI Rate: regular rate Rhythm: regular rhythm Heart sounds: S1 normal heart sound present and S2 normal heart sound present Peripheral pulses: Peripheral pulses 2+ throughout GI: Inspection: normal to inspection Auscultation: normal bowel sounds Rectal Exam: deferred Back/Spine/Pelvis: Cervical Spine: cervical ROM normal Skin: General skin exam: normal color Lesions: no lesions Rashes: no rashes Trauma: no lacerations or abrasions Wounds: no wounds Hair: normal Nails: normal Neuro: General: oriented to person Cranial nerves: Yes Equal, round and reactive pupils present and Yes Normal hearing present Cognition (Neuro): abnormal cognition Speech: Abnormal speech present Sensory Exam: normal sensation Extrem: General: normal to inspection Right upper extremity: normal to inspection and shoulder/upper arm Left upper extremity: normal to inspection and shoulder/upper arm Right lower extremity: normal to inspection Left lower extremity: normal to inspection Psych: Appearance: grossly normal Mental Status: mental status grossly normal Speech and movement: Normal speech and movement present Affect: normal affect Attitude: cooperative Insight: Poor insight present (Psych) Judgement: Poor judgement present (Psych) Discharge Plan Discharge Consulting providers: Concetta Castellanos; Josias Cast; Christopher Machado; Geoffrey Merida Patient Disposition: Hospice [facility] Inpatient Patient Language: Portuguese Date of admission: 04/21/25 20:53 Primary Care Provider: UNKNOWN,DOCTOR Admitting Provider: Ishmael Paredes Attending physician on admission: Rafaela Tanner Condition: Guarded Prognosis
== END 2025-04-23 15:59 | disposition hospice, inpatient (51) | DRG 193 ==
LOC: ANHED 19:10 → ANH3MEDSUR 21:50
PROVIDERS: Nurse Practitioner; Admitting Provider Internal Medicine; Emergency Provider Emergency Medicine; Visit Provider Nurse Practitioner Adult Health
DX: J18.9 Pneumonia, unspecified organism (principal); S06.5XAA Traumatic subdural hemorrhage with loss of consciousness status unknown, initial encounter; T83.518A Infection and inflammatory reaction due to other urinary catheter, initial encounter; N39.0 Urinary tract infection, site not specified; F03.90 Unspecified dementia, unspecified severity, without behavioral disturbance, psychotic disturbance, mood disturbance, and anxiety; S01.112A Laceration without foreign body of left eyelid and periocular area, initial encounter; W19.XXXA Unspecified fall, initial encounter; E03.9 Hypothyroidism, unspecified; F32.A Depression, unspecified; G20.A1 Parkinson's disease without dyskinesia, without mention of fluctuations; G40.909 Epilepsy, unspecified, not intractable, without status epilepticus; Z66 Do not resuscitate; Z51.5 Encounter for palliative care
CPT/HCPCS: 36415; 70450; 71045; 72125; 72192; 73120; 80048; 80053; 81001; 82948; 84443; 85025; 87040; 87086; 99285; A9270; J0696; J1953; J2270

== ENCOUNTER 2025-04-23 16:00 | HOS | payer OTHER, MEDICARE, SELFPAY ==
--- OUTSIDE RECORDS SUMMARY | 2015-05-09 06:30 | XMS_ITS | Continuity of Care Document ---
Author Organization [facility] Address [address] [place] [address] Phone Care Team Providers Care Emt Name Role Phone Juan Pablo Rich MD Unavailable Unavailable Advance Directives Directive Yes / No Effective Date File Name No Information Encounters Encounter Description Practice Location Reason(s) For Visit Diagnoses Date Provider Providers Copied on Encounter [facility], [address], [place], [place], [id number], tel:[phone] [facility] No Information Layla Almeida. [address], [place], [id number], . tel:[phone] Referring Provider: Jere Trevino, [address] , [place], [address]. tel:[phone] Family History Family Member Type Diagnosis Age At Onset No Information Payers Payer name Insurance type Covered republican ID Authoriza tion(s) MEDICARE MB [id number] C[employer] [place] CI [id number] Social History Type Description Quantity Date Captured Comments Sex Female Smoking Status No Information Chief Complaint And Reason For Visit No Information Reason For Referral Reason For Referral No Information History Of Present Illness Encounter Date Complaint History Of Prese nt Illness No Information Functional Status Date Functional Assessmen t No Information Instructions Date Instruction Additional Infor mation No Information Assessments Type Assessment Date No Information Patient Care Teams Name Effective Dates (start - stop) Status Members No Information
--- OUTSIDE RECORDS SUMMARY | 2025-04-23 16:26 | XMS_ITS | Encounter Summary ---
Author Organization [facility] Address [address] [place] [address] Care Team Providers Care Subway Guard Name Role Phone Unavailable Primary Care Provider Unavailabl e Encounter Details Date Type Department Care Team (Late st Contact Info) Description 06/19/[address] [facility] Conversion [address] [place] [address] , Generic Conversion, Social History Tobacco Use [...]
--- OUTSIDE RECORDS SUMMARY | 2025-04-23 16:26 | XMS_ITS | Clinical Summary ---
Author Organization [facility] Healthcare Address [address] [place] [address] Care Team Providers Care Operator Receptionist Name Role Phone Luis White MD Primary Care Provider [phone] Dominik Alejandro MD Unavailable [phone] Hiral Vidales MD Unavailable Allergies Active [...] 0.4 mg extended release capsule 3 Active carbidopa-levodo pa (SINEMET) 25-100 mg per tabletIndication s:Parkinsonism, unspecified Parkinsonism type (HCC) TAKE ONE AND ONE-HALF TABLETS BY MOUTH THREE TIMES DAILY 135 tablet 11 4 Active carBAMazepine XR (TEGretol XR) 100 mg 12 hr tablet Take 1 tablet (100 mg total) by mouth 2 (two) times a day 60 tablet 5 026 Active carBAMazepine XR (TEGretol XR) 400 mg 12 hr tablet Take 1 tablet (400 mg total) by mouth 2 (two) times a day 60 tablet 5 026 Active primidone (MYSOLINE) 250 mg tablet Take 1 tablet (250 mg total) by mouth nightly 30 tablet 5 Active zonisamide (ZONEGRAN) 100 mg capsule Take 2 capsules (200 mg total) by mouth nightly 60 capsule 5 026 Active Active Problems Problem Noted Date Diagnosed Date Rectal prolapse 11/09/2022 Overview (11/09/2022): Added automatically from request for surgery [id number] Temporal lobe epilepsy, intractable 09/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 During the visit, I was located in my clinic office at the [facility], in [place] and the patient was located at her residential facility in [place]. The session started at 4:33 PM and [...] a telephone or video visit during the [facility] public health emergency. After being given an [...] services. Assessment & Plan (10/02/2021 4:23 PM CENTRAL SERVICE TECHNICIAN): She has a subacute onset (2015), somewhat [...] which took place via Real-time video connection ([employer], Zoom or similar). During the visit, I was located in my clinic office in the [facility], in [place] and the patient was located at her home in [place]. The session started at 13:08 and ended [...] precautions. Assessment & Plan (08/24/2019 4:56 PM CENTRAL SERVICE TECHNICIAN): She has a subacute onset (2015), rather [...] Encounters Date Type Department Care Team Description 02/12/2025 3:30 PM CDT Telemedicine [facility] Medicine Epilepsy [address] [place] [address] [place] [address] Alexis Romero MD PhD Temporal lobe epilepsy, intractable (HCC) (Primary Dx) from Last 3 Months Surgical History Surgery [...] on file Legal Sex Female 11:43 PM CENTRAL SERVICE TECHNICIAN Gender Identity Female 11/05/2020 1:42 AM CDT [...] 3:16 PM CDT Height 172.7 cm (5' 8) 12/28/2023 3:16 PM CDT Body Mass Index [...] Risk Assessment 12/12/2023 12/11/2022 Influenza Vaccine (#1) 2025 06/21/2019, 2016 Colon Cancer Screening-Colonoscopy 08/12/20322022 Zoster Vaccine Completed 11/03/2017, 09/03/2017 Colon Cancer Screening-CT Colonography Discontinued Colon Cancer Screening-DNA Stool Discontinued 08/12/19 Colon Cancer Screening-FIT Discontinued 08/12/2022 Colon Cancer Screening-Sigmoidoscopy Discontinued 08/02 Medical Devices Implanted Type Area Labelling Machine Operator Device Identifier Shelf Expiration Date Model / Serial / Lot [employer]/C R Bard 6x3in Large Pore Knit Monofilament Smooth [place] [id number] - [id number] Implanted:Qty: 1 on 12/09/2022 by Dominik Alejandro MD at [facility] Mesh N/A: Abdomen [employer]/C R Bard [id number] 04/29/2027 [id number] / / [id number] Plates And Screws Right: Wrist Procedures Procedure Name Priority Date/Time Associated Diagnosis Comments COLONOSCOPY 08/12/2022 12:59 PM CENTRAL SERVICE TECHNICIAN from Last 3 Months or Most Recently Relevant to Health Maintenance Results * COLONOSCOPY (08/12/2022 12:59 PM CENTRAL SERVICE TECHNICIAN) Anatomical Region Laterality Modality Other Narrative Procedure Note Hiral Vidales MD - 08/12/2022 12:59 PM CST [facility] GI ENDOSCOPY Patient Name: Bethany Almaraz Procedure Date: 08/12/2022 12:59 PM Date of : 1960 Admit Type: Outpatient Age: 62 Gender: Female Attending MD: Hiral Vidales M.D. Room: [facility] ENDOSCOPY ROOM 05 Note Status: Finalized [...] On: 08/12/2022 12:59 PM Recognized by the [employer] for promoting quality in endoscopy Hiral Vidales MD ENDOSCOPY PROCEDURES Final Resul t from Last 3 Months or Most Recently Relevant to Health Maintenance Insurance DR SCHWARTZ [address] [place] [id number] [place] [address] CSHWARTZ [address] [place] [phone] T MEDICARE Advance Directives For more information, please contact: [phone] * Full Code (Latest Code Status on File) Date Activated Date Inactivated Comments 12/09/2022 4:30 PM 12/11/2022 8:52 PM Care Teams Operator Receptionist Relationship Specialty Start Date End Date Luis White MD [address] [address] PCP - General Emergency Medicine 03/07/19 Dominik Alejandro MD [address] [facility] [id number] [place] [address] Surgeon Colon and Rectal Surgery 11/06/22 [place] [address] [place] [id number] Consulting Physician General Surgery 11/06/22
--- OUTSIDE RECORDS SUMMARY | 2025-04-23 16:26 | XMS_ITS | Patient Health Record ---
Author Organization [facility] Address [address] [place] [address] Care Team Providers Care Picu Nurse Name Role Phone Luis White MD Primary Care Provider Yanna Gee Unavailable [phone] Allergies Allergen (clinical drug ingredient) Drug/Non Drug Allergy documented on EMR Reaction Allergy Type Onset Date Status phenobarbital PHENobarbital Unknown Drug Allergy 9 Active Reason For Referral No Information Medications Medication SIG (Take, Route, Frequency, Duration) Notes Start Date End Date Status Primidone 250 MG Oral; Duration: 30 Active Procto-Med HC 2.5 % External; Duration: 14 Active Zonisamide 100 MG Oral; Duration: 30 Active Alendronate Sodium 70 MG Oral; Duration: 14 Days Active DULoxetine HCl 60 MG Oral; Duration: 15 Days Active carBAMazepine ER 400 MG Oral; Duration: 90 Active Carbidopa-Levodopa 25-100 MG Oral; Duration: 90 Active Levothyroxine Sodium 125 MCG TAKE 1 TABL ET BY MOUTH ONCE DAILY IN THE MORNING Oral; Duration: 90 Active Doxycycline Hyclate 100 MG Oral; Duration: 90 Active Social History Tobacco Use: Social History Observation Description Date Details (start date - stop date) Never Smoker NA - NA Tobacco Use/Smoking Question Answer Notes Tobacco use: nonsmoker Problems Problem Type SNOMED Code ICD Code Onset Dates Problem Status W/U Status Risk Notes Problem 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 Problem Movement disorder (65833319) Movement disorder (G25.9) Active confirmed Plan Of Treatment No Information Insurance Providers Payer Name Payer Address Payer Phone Subscriber Number Group Number Insured Name Patient Relationship to Insured Coverage Start Date Coverage End Date [employer] [address] [place], [place] [id number] Bethany Almaraz Self - patient is the insured Medical (General) History Medical History History ICD Code Depression Arthritis Tonsillitis Movement disorder Surgical History Surgery Date(Month/Year) cholecystectomy Elbow Left Wrist Carpal Tunnel Spinal Surgery with hardware implant Tonsillectomy
--- OUTSIDE RECORDS SUMMARY | 2025-04-23 16:26 | XMS_ITS | Encounter Summary ---
Author Organization [facility] Address [address] [place] [address] Care Team Providers Care Applications Trainer Name Role Phone Unavailable Primary Care Provider Unavailabl e Encounter Details Date Type Department Care Team (Late st Contact Info) Description 04/11/[address] [facility] Conversion [address] [place] [address] , Generic Conversion, Social History Tobacco Use [...]
--- OUTSIDE RECORDS SUMMARY | 2025-04-23 16:26 | XMS_ITS | Clinical Summary ---
Author Organization [facility] Address [address] [place] [address] Care Team Providers Care Transfer Driver Name Role Phone Unavailable Primary Care Provider [...] 1 - Tdap) 1977 Mammogram Screening 1998 Pneumococcal Vaccine: 50+ Ye ars (1 of 1 - PCV) 2008 Zoster Vaccines (1 of 2) 2008 Dexa Scan (General) 2023 COVID-19 Vaccine ( - 2023-2 5 season) 2025 RSV Immunization or 60+ Years (1 - [...]
--- NOTE | 2025-04-23 16:41 | P.HP_ITS ---
H&P: HPI History of Present Illness Date/Time: 04/23/25 16:41 Chief Complaint: Uncontrolled pain Narrative: 64-year-old female with seizure disorder, progressive movement disorder and impaired cognition was residing at an assisted living facility. On 04/21/2025 she had a seizure during which she had her head. She had status epilepticus requiring 15 mg of Versed total to abort the episode. CT showed 8 mm ruiz hemispheric left subdural hematoma. Patient's mental status had declined from baseline. There was a question whether she had a urinary infection with her suprapubic catheter. However she had no fever and no leukocytosis. Cultures were pending. Patient had a seizure disorder for 40 years. She was adherent to her medical regimen in the assisted living facility. Her several years ago. 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 Since then she has been depressed and has wanted to . 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 She requires assistance to move from bed to wheelchair and back. She required assistance with all ADLs at baseline including bathing toileting dressing and setup for feeding. PPS score was 30. Current PPS score is 10. Review of Systems Review of Systems: ROS unobtainable: Yes unobtainable due to medical condition PMFSH Past Medical History Medical History Parkinson disease family denies Rectal prolapse Impaired cognition Depression Hypothyroidism Epilepsy Surgical History Surgical History History of arthroplasty of left hip Left hip pinning Family History Family History Sibling Bladder cancer Spina bifida of lumbar spine Mother Diabetes mellitus Father Hyperlipemia Hypertension Social History Social History Social History: Code status DNR Smoking status: Never smoker Alcohol intake: current Drinks per week: 1 Substance use: never Substance use type: does not use Do You Feel Safe in your Home?: Yes Lack of Transportation: No Lack of Food: Never True Current Housing: I Have Housing Concerned About Future Housing: No Difficulty Paying Gas/Electric Bills: No Difficulty Paying for Meds: No Currently Unemployed: No Education: Don't Know Difficulty w/ Childcare or Family Care: No Living arrangements: prison Additional living arrangements comments: [place] Occupation/Education: retired 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 Additional gender identity comments: Spiritual care concerns: No Meds Home Medications and Allergies Home Medications ?Medication ?Instructions ?Recorded ?Confirmed ?Type acetaminophen 500 mg tablet 500 mg PO .Q6 PRN Pain 04/21/25 History alendronate 70 mg tablet 70 mg PO WEEKLY 06/15/24 History ascorbic acid (vitamin C) 500 mg 500 mg PO DAILY 06/1504/21/25 History tablet (Vitamin C) calcium 333 mg-vit D3 133 1 tablet PO DAILY 06/15/24 0 04/21/25 History unit-magnesium 133 mg-zinc 5 mg tablet (Michael Mag Zinc Plus D3) calcium carbonate (Oyster Shell 1,000 mg PO BID 04/21/25 History Calcium 500) cholecalciferol (vitamin D3) 25 25 mcg PO DAILY 04/21/25 History mcg (1,000 unit) capsule (Vitamin D3) cyanocobalamin (vitamin B-12) 2,500 mcg PO DAILY 06/1504/21/25 History 2,500 mcg sublingual tablet hydrocortisone 2.5 % topical cream 1 applic topical BI D PRN 06/15/24 04/21/25 History with perineal applicator Hemorrhoids (Anusol-HC) hydrocortisone acetate 25 mg 25 mg RECTAL BID PRN hemm orhoid 06/15/24 04/21/25 History rectal suppository (Anusol-HC) niacin (inositol niacinate) 500 mg 1 tablet PO DAILY 1 08/15/23 04/21/25 History tablet L.acidophil,salivari-Bifido 1 cap PO DAILY #30 caps 04/21/25 Rx bifidum-Strep thermoph 175 mg capsule aripiprazole 10 mg tablet 10 mg PO DAILY #30 tabs 12/0 12/2304/21/25 Rx buspirone 15 mg tablet 15 mg PO BID #60 tabs 04/21/25 Rx carbidopa 25 mg-levodopa 100 mg 1.5 tablet PO TID #30 tabs 12/05/24 09/20/25 Rx tablet docusate sodium 100 mg capsule 100 mg PO Q12HR 30 days #60 caps 07/06/24 04/21/25 Rx duloxetine 60 mg capsule,delayed 60 mg PO BID 30 days #0 caps 07/06/24 04/21/25 Rx release levothyroxine 150 mcg tablet 150 mcg PO DAILY #30 tabs 07/06/24 04/21/25 Rx polyethylene glycol 3350 17 gram 17 g PO QAM #0 ea 12/2304/21/25 Rx oral powder packet (Miralax) primidone 250 mg tablet 250 mg PO HS #30 tabs 04/21/25 Rx sennosides 8.6 mg-docusate sodium 1 tab-cap PO HS 30 d ays #30 tabs 07/06/24 04/21/25 Rx 50 mg tablet (Senokot-S) sertraline 100 mg tablet 100 mg PO DAILY #30 tabs 12/2304/21/25 Rx tamsulosin 0.4 mg capsule 0.4 mg PO DAILY #30 caps 12/2304/21/25 Rx trazodone 50 mg tablet 50 mg PO DAILY #30 tabs 12/0 12/2304/21/25 Rx carbamazepine 100 mg 100 mg PO BID 09/05/2404/21 History tablet,extended release,12 hr (Tegretol XR) carbamazepine 400 mg 400 mg PO BID 09/05/2404/21 History tablet,extended release,12 hr diphenoxylate-atropine 2.5 1 tablet PO HS PRN diarrhea 09/05/24 04/21/25 History mg-0.025 mg tablet zonisamide 100 mg capsule 500 mg PO QPM 09/05/2404/21 History Allergies Allergy/AdvReac Type Severity Reaction Status Date / Time felbamate (From Felbatol) Allergy Severe Anaphylaxis Verified 04/21/25 23:38 sulfamethoxazole (From AdvReac Unknown DIZZINESS Verified 04/21/25 23:38 Bactrim) trimethoprim (From Bactrim) AdvReac Unknown DIZZINESS Verified 04/21/25 23:38 Sulfa (Sulfonamide AdvReac Dizziness Verified 04/21/25 23:38 Antibiotics) Exam Narrative: HEENT: PERRL, sclerae nonicteric, pharyngeal mucosa pink and intact NECK: No JVD CHEST: Clear to auscultation. Normal effort. HEART: NL S1/S2, regular, Soft LILY RUSB that radiates poorly ABDOMEN: BS hypoactive, soft, nontender, no mass, no bruits EXTREMITIES: No edema NEUROLOGIC: CN intact and symmetric to inspection. MUSCULOSKELETAL: No deformity to visual inspection PSYCH: Drowsy, arouses to touch but not to voice, does not follow commands Assessment and Plan Assessment and plan (1) Hospice care: Code(s): Z51.5 - Encounter for palliative care Status: Acute Assessment and Plan: * Meet inpatient hospice criteria due to requiring continuous IV morphine 1 milligram/hour for control of pain and scheduled IV Keppra 500 mg every 12 hours and diazepam 5 mg every 8 hours for control of seizure * 04/23/2025 Discussed care and prognosis with sister at bedside (2) Subdural hemorrhage: Code(s): I62.00 - Nontraumatic subdural hemorrhage, unspecified Status: Acute (3) Impaired cognition: Code(s): R41.89 - Other symptoms and signs involving cognitive functions and awareness Status: Acute (4) Parkinson disease: Code(s): G20.A1 - Parkinson's disease without dyskinesia, without mention of fluctuations Status: Acute (5) Epilepsy: Code(s): G40.909 - Epilepsy, unspecified, not intractable, without status epilepticus Status: Acute (6) Suprapubic catheter: Code(s): Z93.59 - Other cystostomy status Status: Acute
[2025-04-23] MEDS: MORPHINE SULFATE INJ (*CRX) 50 MG in SODIUM CHLORIDE 0.9% IV 95 ML IV CONT (17:14)
[2025-04-23] MEDS: levETIRAcetam 500MG/NACL 100ML 500 MG/100 ML BAG 400 MG IVPB (20:19)
[2025-04-23] MEDS: diazePAM INJ (*CRX) 10 MG/2 ML SYRINGE 5 MG IV PUSH (21:06)
[2025-04-24] MEDS: diazePAM INJ (*CRX) 10 MG/2 ML SYRINGE 5 MG IV PUSH ×2 (02:32→05:05)
[2025-04-24 07:56] VITALS: BP 131/82; PULSE 91; RESP 18; TEMP 36.7; O2SAT 98
[2025-04-24] MEDS: levETIRAcetam 500MG/NACL 100ML 500 MG/100 ML BAG 400 MG IVPB (08:23)
--- NOTE | 2025-04-24 16:34 | P.PNIM_ITS ---
Progress Note: A&P Assessment and Plan (1) Hospice care: Code(s): Z51.5 - Encounter for palliative care Status: Acute Assessment and Plan: * Meet inpatient hospice criteria due to requiring continuous IV morphine 1 milligram/hour for control of pain and scheduled IV Keppra 500 mg every 12 hours and diazepam 5 mg every 8 hours for control of seizure * 04/23/2025 Discussed care and prognosis with sister at bedside * 04/24/2025 Transitioned to po meds and diet, [facility] evaluating patient 04/26 AM, [facility] is second choice of family, discussed change in condition and discharge planning with sister at bedside (2) Subdural hemorrhage: Code(s): I62.00 - Nontraumatic subdural hemorrhage, unspecified Status: Acute (3) Impaired cognition: Code(s): R41.89 - Other symptoms and signs involving cognitive functions and awareness Status: Acute (4) Parkinson disease: Code(s): G20.A1 - Parkinson's disease without dyskinesia, without mention of fluctuations Status: Acute (5) Epilepsy: Code(s): G40.909 - Epilepsy, unspecified, not intractable, without status epilepticus Status: Acute Assessment and Plan: * 04/24/2025 Requested BELLA re: neurologist's notes, continued PO levetiracetam 500 mg bid, restarted zonisamide at 200 mg q hs (6) Suprapubic catheter: Code(s): Z93.59 - Other cystostomy status Status: Acute Subjective Date/time seen: 04/24/25 16:34 Interval history: Woke up earlier this AM. Ate some. Taking PO meds. Denied pain on current PO meds. Review of Systems Review of Systems: ROS unobtainable: Yes unobtainable due to medical condition Exam Narrative: SKIN: Left periorbital ecchymosis with hematoma HEENT: PERRL, sclerae nonicteric, pharyngeal mucosa pink and intact NECK: No JVD CHEST: Clear to auscultation. Normal effort. HEART: NL S1/S2, regular, 3/6 apical systolic murmur radiating toward axilla ABDOMEN: BS hypoactive, soft, nontender, no mass, no bruits EXTREMITIES: No edema NEUROLOGIC: CN intact and symmetric to inspection, strength symmetric in keg raiser and intact, lower extremity tone normal strength difficult to assess due to decreased effort MUSCULOSKELETAL: No deformity to visual inspection PSYCH: Alert, oriented to person only, speech sparse and somewhat slurred, follows very simple commands but not all, cannot follow a two-step command Objective Data Vital Signs Vital Signs: Vital Signs - 24 hr 04/23/25 20:00 04/24/25 07:56 04/24/25 08:00 Temperature 98.0 F Pulse Rate 91 Respiratory Rate 18 Blood Pressure 131/82 Pulse Oximetry 98 Oxygen Delivery Room Air Room Air Intake/Output Intake/Output: Intake & Output 04/21/25 04/22/25 04/23/25 04/24/25 23:59 23:59 23:59 23:59 Intake Total 100 231.2 Balance 100 231.2 Meds/Results Medications: Active Medications Generic Name Dose Route Start Last Admin Trade Name Freq PRN Reason Stop Dose Admin Artificial Tears 1 - 2 drop 04/23/25 16:50 Artificial Tears Ophth Soln 15 Ml Bottle EACH EYE Q12H PRN Dry Eye(s) Diazepam 5 mg 04/23/25 16:55 04/24/25 02:32 Diazepam Inj (*Crx) 10 Mg/2 Ml Syringe IV PUSH 5 mg Q4H PRN Administration RESTLESSNESS Glycopyrrolate 0.1 mg 04/23/25 16:50 Glycopyrrolate Inj (*Sp) 0.2 Mg/Ml Vial IV PUSH Q4H PRN secretions Levetiracetam 500 mg 04/24/25 21:00 Levetiracetam 500 Mg Tablet PO Q12HR HERIBERTO Lorazepam 1 mg 04/24/25 11:10 Lorazepam (*Crx) 1 Mg Tablet PO Q4H PRN Anxiety Morphine Sulfate 10 mg 04/24/25 11:07 Morphine Sulfate Oral Conc Cori (*Crx) 10 Mg/0.5 Ml Syringe PO Q4H PRN Pain Morphine Sulfate 30 mg 04/24/25 21:00 Morphine Sulfate (*Crx) 30 Mg Tabcr PO Q12HR HERIBERTO Prochlorperazine Edisylate 10 mg 04/23/25 16:50 Prochlorperazine Edisylate 10 Mg/2 Ml Vial IV PUSH Q6H PRN Nausea And Vomiting Senna 8.6 mg 04/24/25 21:00 Sennosides 8.6 Mg Tablet PO HS HERIBERTO
[2025-04-24 20:00] VITALS: BP 137/88; PULSE 84; RESP 18; TEMP 37.2; O2SAT 97
[2025-04-24] MEDS: ZONISAMIDE 100 MG CAPSULE 200 MG PO (20:28)
[2025-04-24] MEDS: SENNOSIDES 8.6 MG TABLET PO (20:28)
[2025-04-24] MEDS: MORPHINE SULFATE (*CRX) 30 MG TABCR PO (20:29)
[2025-04-25] MEDS: LEVOTHYROXINE SODIUM 125 MCG TABLET PO (05:40)
--- NOTE | 2025-04-25 07:46 | P.PNIM_ITS ---
Progress Note: A&P Assessment and Plan (1) Hospice care: Code(s): Z51.5 - Encounter for palliative care Status: Acute Assessment and Plan: * Meet inpatient hospice criteria due to requiring continuous IV morphine 1 milligram/hour for control of pain and scheduled IV Keppra 500 mg every 12 hours and diazepam 5 mg every 8 hours for control of seizure * 04/23/2025 Discussed care and prognosis with sister at bedside * 04/24/2025 Transitioned to po meds and diet, [facility] evaluating patient 04/26 AM, [facility] is [facility] choice of family, discussed change in condition and discharge planning with sister at bedside * 04/25/2025 Reduce MS Contin to 15 mg q 12 hr, await disposition (2) Subdural hemorrhage: Code(s): I62.00 - Nontraumatic subdural hemorrhage, unspecified Status: Acute (3) Impaired cognition: Code(s): R41.89 - Other symptoms and signs involving cognitive functions and awareness Status: Acute (4) Parkinson disease: Code(s): G20.A1 - Parkinson's disease without dyskinesia, without mention of fluctuations Status: Acute (5) Epilepsy: Code(s): G40.909 - Epilepsy, unspecified, not intractable, without status epilepticus Status: Acute Assessment and Plan: * 04/24/2025 Requested BELLA re: neurologist's notes, continued PO levetiracetam 500 mg bid, restarted zonisamide at 200 mg q hs (6) Suprapubic catheter: Code(s): Z93.59 - Other cystostomy status Status: Acute Subjective Date/time seen: 04/25/25 07:46 Interval history: Denied pain. No seizures. Tolerating diet. Review of Systems Review of Systems: ROS unobtainable: Yes unobtainable due to medical condition Exam Narrative: SKIN: Left periorbital ecchymosis with hematoma HEENT: PERRL, sclerae nonicteric, pharyngeal mucosa pink and intact NECK: No JVD CHEST: Clear to auscultation. Normal effort. HEART: NL S1/S2, regular, 3/6 apical systolic murmur radiating toward axilla ABDOMEN: BS hypoactive, soft, nontender, no mass, no bruits EXTREMITIES: No edema NEUROLOGIC: CN intact and symmetric to inspection, strength symmetric in cloud software engineer and intact, lower extremity tone normal strength difficult to assess due to decreased effort MUSCULOSKELETAL: No deformity to visual inspection PSYCH: Alert, oriented to person only, speech sparse and somewhat slurred, follows very simple commands but not all, cannot follow a two-step command Objective Data Vital Signs Vital Signs: Vital Signs - 24 hr 04/24/25 07:56 04/24/25 08:00 04/24/25 20:00 Temperature 98.0 F 98.9 F Pulse Rate 91 84 Respiratory Rate 18 18 Blood Pressure 131/82 137/88 Pulse Oximetry 98 97 Oxygen Delivery Room Air 04/24/25 20:29 Temperature Pulse Rate Respiratory Rate Blood Pressure Pulse Oximetry Oxygen Delivery Room Air Intake/Output Intake/Output: Intake & Output 04/22/25 04/23/25 04/24/25 04/25/25 23:59 23:59 23:59 23:59 Intake Total 100 231.2 850 Output Total 550 Balance 100 231.2 300 Meds/Results Medications: Active Medications Generic Name Dose Route Start Last Admin Trade Name Freq PRN Reason Stop Dose Admin Acetaminophen 1,000 mg 04/24/25 17:17 Acetaminophen 500 Mg Tablet PO Q6H PRN Mild Pain (1-3) or Fever Artificial Tears 1 - 2 drop 04/23/25 16:50 Artificial Tears Ophth Soln 15 Ml Bottle EACH EYE Q12H PRN Dry Eye(s) Diazepam 5 mg 04/23/25 16:55 04/24/25 02:32 Diazepam Inj (*Crx) 10 Mg/2 Ml Syringe IV PUSH 5 mg Q4H PRN Administration RESTLESSNESS Levetiracetam 500 mg 04/24/25 21:00 04/24/25 20:29 Levetiracetam 500 Mg Tablet PO 500 mg Q12HR HERIBERTO Administration Levothyroxine Sodium 125 mcg 04/25/25 06:30 04/25/25 05:40 Levothyroxine Sodium 125 Mcg Tablet PO 125 mcg DAILY@0630 HERIBERTO Administration Lorazepam 1 mg 04/24/25 11:10 Lorazepam (*Crx) 1 Mg Tablet PO Q4H PRN Anxiety Morphine Sulfate 10 mg 04/24/25 11:07 Morphine Sulfate Oral Conc Cori (*Crx) 10 Mg/0.5 Ml Syringe PO Q4H PRN Pain Morphine Sulfate 30 mg 04/24/25 21:00 04/24/25 20:29 Morphine Sulfate (*Crx) 30 Mg Tabcr PO 30 mg Q12HR HERIBERTO Administration Prochlorperazine Edisylate 10 mg 04/23/25 16:50 Prochlorperazine Edisylate 10 Mg/2 Ml Vial IV PUSH Q6H PRN Nausea And Vomiting Senna 8.6 mg 04/24/25 21:00 04/24/25 20:28 Sennosides 8.6 Mg Tablet PO 8.6 mg HS HERIBERTO Administration Zonisamide 200 mg 04/24/25 21:00 04/24/25 20:28 Zonisamide 100 Mg Capsule PO 200 mg QHS HERIBERTO Administration
[2025-04-25 08:00] VITALS: BP 119/70; PULSE 84; RESP 16; TEMP 36.3; O2SAT 96
[2025-04-25] MEDS: MORPHINE SULFATE (*CRX) 15 MG TABCR PO ×2 (10:23→20:41)
[2025-04-25 20:00] VITALS: BP 137/80; PULSE 71; RESP 16; TEMP 36.8; O2SAT 98
[2025-04-25] MEDS: SENNOSIDES 8.6 MG TABLET PO (20:41)
[2025-04-25] MEDS: ZONISAMIDE 100 MG CAPSULE 200 MG PO (20:41)
[2025-04-26] MEDS: LEVOTHYROXINE SODIUM 125 MCG TABLET PO (06:38)
[2025-04-26 08:00] VITALS: BP 142/80; PULSE 84; RESP 16; TEMP 36.6; O2SAT 98
[2025-04-26] MEDS: MORPHINE SULFATE (*CRX) 15 MG TABCR PO (08:21)
--- NOTE | 2025-04-26 10:06 | P.DS_ITS ---
DS: Admitting Diagnosis Discharge Date 04/26/2025 Admitting Diagnosis status epilepticus with subdural hematoma and mental status changes DS: Discharge Diagnosis Discharge Diagnosis (1) Hospice care: Code(s): Z51.5 - Encounter for palliative care Status: Acute Assessment and Plan: * Meet inpatient hospice criteria due to requiring continuous IV morphine 1 milligram/hour for control of pain and scheduled IV Keppra 500 mg every 12 hours and diazepam 5 mg every 8 hours for control of seizure * 04/23/2025 Discussed care and prognosis with sister at bedside * 04/24/2025 Transitioned to po meds and diet, [facility] evaluating patient 04/26 AM, [facility] is second choice of family, discussed change in condition and discharge planning with sister at bedside * 04/25/2025 Reduce MS Contin to 15 mg q 12 hr, await disposition * 04/26/2025 Stable on current regimen, discharge to [place] [facility] (2) Subdural hemorrhage: Code(s): I62.00 - Nontraumatic subdural hemorrhage, unspecified Status: Acute (3) Impaired cognition: Code(s): R41.89 - Other symptoms and signs involving cognitive functions and awareness Status: Acute (4) Parkinson disease: Code(s): G20.A1 - Parkinson's disease without dyskinesia, without mention of fluctuations Status: Acute (5) Epilepsy: Code(s): G40.909 - Epilepsy, unspecified, not intractable, without status epilepticus Status: Acute Assessment and Plan: * 04/24/2025 Requested BELLA re: neurologist's notes, continued PO levetiracetam 500 mg bid, restarted zonisamide at 200 mg q hs (6) Suprapubic catheter: Code(s): Z93.59 - Other cystostomy status Status: Acute DS: Summary Hospital Course Hospital Course: On April 21 the patient was admitted to acute care due to status epilepticus with head trauma and 8 mm panhemispheric subdural bleed. She did not regain consciousness. Due to her poor functional status, chronic comorbidities, and previously expressed wishes her family opted for inpatient hospice care for symptom management, mainly pain and restlessness. Medications were titrated to comfort patient was well managed when she unexpectedly awakened on April 24. Medications were transitioned oral and adjusted to comfort. Disposition was arranged to to [facility]. Patient's family was in agreement. She was to remain on hospice service due to her declining functional status. Time Spent with Patient Time attestation: Total time spent providing and/or coordinating discharge services: Exam Narrative: Alert. Oriented to person only. Pleasant and cooperative. Discharge Plan Discharge Discharging Clinician: Jere Avila Patient Disposition: Hospice - Medical Facility Activity: no straining, no driving, as tolerated and follow weight bearing status Diet: as tolerated Discharge Instructions: Non-ambulatory, assist with bed to wheelchair, assist with feeding Patient Language: Iranian Stand Alone Forms: General Discharge Information, Usp Discharge Discharge Medications: New sennosides [Senokot] 8.6 mg Tablet 8.6 mg PO HS Qty: 7 0RF levetiracetam [Keppra] 500 mg Tablet 500 mg PO Q12HR Qty: 14 0RF morphine 30 mg Tablet Extended Release 15 mg PO Q12HR Qty: 14 0RF acetaminophen 500 mg Tablet 1,000 mg PO Q6H PRN (Reason: Mild Pain (1-3) Or Fever) Qty: 28 0RF zonisamide 100 mg Capsule 200 mg PO QHS Qty: 14 0RF levothyroxine [Synthroid] 125 mcg Tablet 125 mcg PO DAILY@0630 Qty: 7 0RF lorazepam 1 mg Tablet 1 mg PO Q4H PRN (Reason: Anxiety) Qty: 10 0RF Discontinued cyanocobalamin (vitamin B-12) 2,500 mcg tablet, sublingual 2,500 mcg PO DAILY alendronate 70 mg tablet 70 mg PO WEEKLY Rx Instructions: patient takes on Fridays acetaminophen 500 mg tablet 500 mg PO .Q6 PRN (Reason: Pain) hydrocortisone acetate [Anusol-HC] 25 mg suppository 25 mg RECTAL BID PRN (Reason: hemmorhoid) hydrocortisone [Anusol-HC] 2.5 % cream with perineal applicator 1 applic topical BID PRN (Reason: Hemorrhoids) calcium carbonate [Oyster Shell Calcium 500] 500 mg calcium (1,250 mg) tablet 1,000 mg PO BID ascorbic acid (vitamin C) [Vitamin C] 500 mg tablet 500 mg PO DAILY cholecalciferol (vitamin D3) [Vitamin D3] 25 mcg (1,000 unit) capsule 25 mcg PO DAILY niacin (inositol niacinate) 500 mg tablet 1 tablet PO DAILY calcium carb-D3-mag ox-zinc ox [Michael Mag Zinc Plus D3] 333 mg-133 unit -133 mg- 5 mg tablet 1 tablet PO DAILY diphenoxylate-atropine 2.5-0.025 mg tablet 1 tablet PO HS PRN (Reason: diarrhea) carbamazepine 400 mg tablet extended release 12 hr 400 mg PO BID Patient Comments: TAKES WITH THE 100MG CARBANAZEPINE TAB + 500MG BID carbamazepine [Tegretol XR] 100 mg Tablet Extended Release 12 Hr 100 mg PO BID zonisamide 100 mg capsule 500 mg PO QPM polyethylene glycol 3350 [Miralax] 17 gram Powder In Packet 17 g PO QAM Qty: 0 0RF sennosides-docusate sodium [Senokot-S] 8.6-50 mg Tablet 1 tab-cap PO HS 30 Days Qty: 30 0RF docusate sodium 100 mg Capsule 100 mg PO Q12HR 30 Days Qty: 60 0RF trazodone 50 mg tablet 50 mg PO DAILY Qty: 30 0RF Patient Comments: HS sertraline 100 mg tablet 100 mg PO DAILY Qty: 30 0RF primidone 250 mg tablet 250 mg PO HS Qty: 30 0RF tamsulosin 0.4 mg capsule 0.4 mg PO DAILY Qty: 30 0RF Patient Comments: HS levothyroxine 150 mcg tablet 150 mcg PO DAILY Qty: 30 0RF carbidopa-levodopa 25-100 mg tablet 1.5 tablet PO TID Qty: 30 0RF buspirone 15 mg tablet 15 mg PO BID Qty: 60 0RF aripiprazole 10 mg tablet 10 mg PO DAILY Qty: 30 0RF duloxetine 60 mg capsule,delayed release(DR/EC) 60 mg PO BID 30 Days Qty: 0 0RF Patient Comments: TAKING DAILY CURRENTLY PER DETENTION Tomás Mastersontherm 175 mg capsule 1 cap PO DAILY Qty: 30 0RF Date of admission: 04/23/25 16:00 Primary Care Provider: UNKNOWN,DOCTOR Admitting Provider: Jere Avila Interventions: Discharge Disposition Last Done: 04/26/25 15:57 Attending physician on admission: Jere Avila Condition: Guarded Prognosis
== END 2025-04-26 15:15 | disposition hospice, inpatient (51) | DRG 951 ==
PROVIDERS: Admitting Provider Internal Medicine; Visit Provider Internal Medicine
DX: Z51.5 Encounter for palliative care (principal); G20.A1 Parkinson's disease without dyskinesia, without mention of fluctuations; E03.9 Hypothyroidism, unspecified; G40.901 Epilepsy, unspecified, not intractable, with status epilepticus; S06.5XAD Traumatic subdural hemorrhage with loss of consciousness status unknown, subsequent encounter; F32.A Depression, unspecified; Z96.0 Presence of urogenital implants; R01.1 Cardiac murmur, unspecified; R41.89 Other symptoms and signs involving cognitive functions and awareness; Z74.1 Need for assistance with personal care; Z66 Do not resuscitate; S05.12XD Contusion of eyeball and orbital tissues, left eye, subsequent encounter; W18.30XD Fall on same level, unspecified, subsequent encounter; Z91.81 History of falling
CPT/HCPCS: A9270; J1953; J2270; J3360